=== PATIENT | female | born 1955 | race Caucasian/White ===

== ENCOUNTER → 2016-09-25 | Outpatient (CLI) | payer OTHER ==
[2014-10-24 12:00] VITALS: BP 125/61
--- NOTE | 2016-09-25 11:49 | RAD ---
HISTORY: Injury, fall, right hip pain Study: Right hip two views, AP pelvis Comparison: None Findings: A single frontal view of the pelvis demonstrates the pelvic ring to be intact. No evidence for acut e cortical disruption or dislocation of the hip can be observed. Frog leg views of the hip fails to demonstrate evidence for fracture or significant joint abnormality. Impression: 1. Negative exam. Reported By:
== END ==
LOC: RAD 11:11
PROVIDERS: ATTEND Nurse Practitioner Family
DX: M25.551 Pain in right hip (principal)
CPT/HCPCS: 73501

== ENCOUNTER → 2016-12-09 | Outpatient (CLI) | payer OTHER ==
[2014-10-24 12:00] VITALS: BP 125/61
[2016-12-09 11:52] LABS: BASOPHILS # (AUTO) 0.1 X10^3/uL (0.0-0.1); BASOPHILS % (AUTO) 1.4 % (0.2-1.0); EOSINOPHILS # (AUTO) 0.1 x10^3/uL (0.0-0.2); EOSINOPHILS % (AUTO) 2.2 % (0.9-2.9); HEMATOCRIT 35.1 % (36.0-47.0); HEMOGLOBIN 12.2 g/dL (12.0-16.0); LYMPHOCYTES # (AUTO) 1.7 X10^3/uL (1.3-2.9); LYMPHOCYTES % (AUTO) 24.4 % (21.0-51.0); MEAN CORPUSCULAR HEMOGLOBIN 31.9 pg (27.0-34.0); MEAN CORPUSCULAR HGB CONC 34.7 g/dL (33.0-35.0); MEAN CORPUSCULAR VOLUME 92.2 fL (80.0-100.0); MEAN PLATELET VOLUME 7.4 fL (7.4-11.0); MONOCYTES # (AUTO) 0.4 x10^3/uL (0.3-0.8); MONOCYTES % (AUTO) 6.1 % (0.0-13.0); NEUTROPHILS # (AUTO) 4.5 x10^3/uL (2.2-4.8); NEUTROPHILS % (AUTO) 65.9 % (42.0-75.0); PLATELET COUNT 331 X10^3/uL (150.0-450.0); RED BLOOD COUNT 3.81 X10^6/uL (3.5-5.4); RED CELL DISTRIBUTION WIDTH 14.2 % (11.6-16.5); RETICULOCYTE % 1.88 % (0.8-2.2); WHITE BLOOD COUNT 6.9 X10^3/uL (3.6-10.0)
[2016-12-09 12:06] LABS: ALANINE AMINOTRANSFERASE 26 Units/L (12-78); ALBUMIN 4.2 g/dL (3.4-5.0); ALKALINE PHOSPHATASE 95 Units/L (46-116); ASPARTATE AMINO TRANSFERASE 14 Units/L (15-37); BLOOD UREA NITROGEN 14 mg/dL (7-18); CALCIUM 8.9 mg/dL (8.5-10.1); CARBON DIOXIDE 25.6 mmol/L (21-32); CHLORIDE 109 mmol/L (98-107); CHOL/HDL RATIO 3.1 (0.0-5.0); CHOLESTEROL 170 mg/dL (0-200); CREATININE 1.12 mg/dL (0.55-1.02); GLUCOSE 87 mg/dL (65-99); HDL CHOLESTEROL 54 mg/dL (40-60); SODIUM 144 mmol/L (136-145); TRIGLYCERIDES 98 mg/dL (0-150); eGFR BLACK RACES > 60 (>60); eGFR NON BLACK RACES 52 (>60)
[2016-12-09 12:24] LABS: CREATININE,URINE 67.22 mg/dL (29-226); MICROALBUMIN,URINE 8.4 mg/L
[2016-12-09 12:34] LABS: TRANSFERRIN 168 mg/dL (202-364)
[2016-12-12 11:31] LABS: VITAMIN D 25 OH 24 ng/mL (30-80)
[2016-12-13 12:06] LABS: METHYLMALONIC ACID 0.38 umol/L (0.00-0.40)
== END ==
LOC: LAB 11:13
PROVIDERS: ATTEND Nurse Practitioner Family
DX: I10 Essential (primary) hypertension (principal); D53.9 Nutritional anemia, unspecified; M85.9 Disorder of bone density and structure, unspecified
CPT/HCPCS: 36415; 80053; 80061; 82043; 82306; 82607; 82615; 82728; 82746; 83918; 84466; 85025; 85045; 86256; 86340

== ENCOUNTER → 2016-12-23 | Outpatient (CLI) | payer OTHER ==
[2014-10-24 12:00] VITALS: BP 125/61
== END ==
LOC: LAB 13:29
PROVIDERS: ATTEND Nurse Practitioner Family
DX: R19.5 Other fecal abnormalities (principal); B96.89 Other specified bacterial agents as the cause of diseases classified elsewhere
CPT/HCPCS: 82270; 87045; 87427; 87493; 87899

== ENCOUNTER 2017-01-08 15:15 | Inpatient (IN) | payer OTHER ==
[2017-01-08 15:20] VITALS: BMI 23.8
--- NOTE | 2017-01-08 15:36 | DR.GENAD ---
HPI - PCP Primary Care Physician: KAITLIN PARRY - Complaint/Symptoms Chief Complaint Doctors Comments: Patient admits to a history of COPD, has home oxygen uses 1L, nebs prn. Denies productive cough or fever. She has had lung cancer. Chief Complaint:: PATIENT STATED SHE HAS BEEN COUGHING FOR THE LAST COUPLE OF WEEKS AND WILL NOT GO AWAY. - Source History Provided: Patient - Mode of Arrival Mode of Arrival: Ambulatory - Timing Onset of Chief Complaint: 12/25/16 PMH - PMH Past Medical History: Yes Past Medical History: Anxiety, Arthritis, COPD, Depression, Dyslipidemia, GERD, Hypertension, [place] Past Surgical History: Yes Surgical History: Cholecystectomy, Hysterectomy, Joint Replacement, Ortho Surgery, Tonsillectomy, Other - Family History History of Family Medical Conditions: Yes Family Medical History: Cancer, [place], Hypertension - Social History Does patient currently use any type of tobacco product: No Have you used tobacco products in the last 12 months: No Type of Tobacco Use: None Does any household member use tobacco: No Alcohol Use: None Do you use any recreational Drugs:: No Lives With: Family Lives Where: Home - infectious screening In the last 2 months have you had wt loss of >10#?: NO Have you had fever, night sweats or hemotysis?: No Have you traveled outside the country in the last 6 months?: No Isolation: Standard ROS - Review of Systems Eyes: No Symptoms Reported ENTM: No Symptoms Reported, See HPI Respiratoy: Non-Productive Cough, Wheezing (expiratory) Cardiovascular: No Symptoms Reported Gastrointestinal/Abdominal: No Symptoms Reported Genitourinary: No Symptoms Reported Neurological: No Symptoms Reported Musculoskeletal: No Symptoms Reported Integumentary: No Symptoms Reported Hematologic/Lymphatic: No Symptoms Reported Endocrine: No Symptoms Reported Psychiatric: No Symptoms Reported All Other Systems: Reviewed and Negative PE - Vital Signs Vitals: Temperature 98.1 F Pulse Rate 81 Respiratory Rate 20 Blood Pressure [Right Arm] 99/55 Blood Pressure [Left Arm] 119/56 Blood Pressure 130/47 O2 Sat by Pulse Oximetry 96 - General Limitations: No Limitations General Appearance: Alert, In No Apparent Distress - Head Head Exam: Normal Inspection, Atraumatic - Eyes Eye exam: Normal Appearance, PERRL, EOMI - ENT ENT Exam: Normal Exam External Ear Exam: Normal External Inspection TM/Canal Exam: Bilateral Normal Nose Exam: Normal Nose Exam Mouth Exam: Normal Inspection Throat Exam: Normal Inspection - Neck Neck Exam: Normal Inspection - Chest Chest Inspection: Normal Inspection - Respiratory Respiratory Exam: Other (expiratory wheeze right side) Respiratory Exam: Left Wheezing (expiratory) - Cardiovascular Cardiovascular Exam: Regular Rate, Normal Rhythm - Abdominal Exam Abdominal Exam: Normal Inspection, Normal Bowel Sounds, Soft Abdominal Tenderness: negative: RUQ, RLQ, LUQ, LLQ, Epigastrium, Suprapubic, Diffuse, Mild, Moderate, Severe, Other - Extremities Extremities Exam: Normal Inspection - Back Back Exam: Normal Inspection, Full ROM - Neurologic Neurological Exam: Alert, Oriented X3, CN II-XII Intact - Psychiatric Psychiatric Exam: Normal Affect ROR - Labs Reviewed Result Diagrams: 01/08/17 15:54 01/08/17 15:54 Laboratory: WBC 9.5 X10^3/uL (3.6-10.0) 01/08/17 15:54 RBC 3.31 X10^6/uL (3.5-5.4) L 01/08/17 15:54 Hgb 10.7 g/dL (12.0-16.0) L 01/08/17 15:54 Hct 29.9 % (36.0-47.0) L 01/08/17 15:54 MCV 90.4 fL (80.0-100.0) 01/08/17 15:54 MCH 32.5 pg (27.0-34.0) 01/08/17 15:54 MCHC 35.9 g/dL (33.0-35.0) H 01/08/17 15:54 RDW 13.1 % (11.6-16.5) 01/08/17 15:54 Plt Count 245 X10^3/uL (150.0-450.0) 01/08/17 15:54 MPV 7.8 fL (7.4-11.0) 01/08/17 15:54 Neut % 81.0 % (42.0-75.0) H 01/08/17 15:54 Lymph % 8.9 % (21.0-51.0) L 01/08/17 15:54 [place] % 8.2 % (0.0-13.0) 01/08/17 15:54 Eos % 1.4 % (0.9-2.9) 01/08/17 15:54 Baso % 0.5 % (0.2-1.0) 01/08/17 15:54 Neut # 7.7 x10^3/uL (2.2-4.8) H 01/08/17 15:54 Lymph # 0.9 X10^3/uL (1.3-2.9) L 01/08/17 15:54 [place] # 0.8 x10^3/uL (0.3-0.8) 01/08/17 15:54 Eos # 0.1 x10^3/uL (0.0-0.2) 01/08/17 15:54 Baso # 0.0 X10^3/uL (0.0-0.1) 01/08/17 15:54 Absolute Nucleated RBC 0.0 /100WBC 01/08/17 15:54 Sodium 122 mmol/L (136-145) L* 01/08/17 15:54 Corrected Sodium TNP 01/08/17 15:54 Potassium 4.0 mmol/L (3.5-5.1) 01/08/17 15:54 Chloride 91 mmol/L (98-107) L 01/08/17 15:54 Carbon Dioxide 19.8 mmol/L (21-32) L 01/08/17 15:54 BUN 14 mg/dL (7-18) 01/08/17 15:54 Creatinine 1.39 mg/dL (0.55-1.02) H 01/08/17 15:54 Est GFR (MDRD) Af Amer 49 (>60) L 01/08/17 15:54 Est GFR (MDRD) Non-Af 41 (>60) L 01/08/17 15:54 Glucose 102 mg/dL (65-99) H 01/08/17 15:54 Calcium 8.7 mg/dL (8.5-10.1) 01/08/17 15:54 - XRAY XRAY Interpreted by: Radiologist (chest: The trachea is midline. The cardiac silhouette is unremarkable. Chronic emphysematous changes. No obvious focal consolidation, pleural effusion, or pneumothorax. The bony thorax appears unchanges. Metallic densities overlying the lower throacic spine are likely outside the patient.) - Diagnosis Discharge Problem: Hyponatremia COPD (chronic obstructive pulmonary disease) Qualifiers: COPD type: unspecified COPD Qualified Code(s): J44.9 - Chronic obstructive pulmonary disease, unspecified - Discharge Plan Condition: Stable - Follow ups/Referrals Follow ups/Referrals: MIGNON PARRY [Primary Care Provider] - 3 days - Instructions
[2017-01-08] MEDS ORDERED: DUONEB 0.5 MG/3 MG NEB ONE ×2 (15:39→17:30)
[2017-01-08] MEDS ORDERED: DECADRON JET NEB (RESP USE) NEB ONE ×2 (15:41→17:30)
[2017-01-08 16:03] LABS: BASOPHILS % (AUTO) 0.5 % (0.2-1.0); EOSINOPHILS # (AUTO) 0.1 x10^3/uL (0.0-0.2); EOSINOPHILS % (AUTO) 1.4 % (0.9-2.9); HEMATOCRIT 29.9 % (36.0-47.0); HEMOGLOBIN 10.7 g/dL (12.0-16.0); LYMPHOCYTES # (AUTO) 0.9 X10^3/uL (1.3-2.9); LYMPHOCYTES % (AUTO) 8.9 % (21.0-51.0); MEAN CORPUSCULAR HEMOGLOBIN 32.5 pg (27.0-34.0); MEAN CORPUSCULAR HGB CONC 35.9 g/dL (33.0-35.0); MEAN CORPUSCULAR VOLUME 90.4 fL (80.0-100.0); MEAN PLATELET VOLUME 7.8 fL (7.4-11.0); MONOCYTES # (AUTO) 0.8 x10^3/uL (0.3-0.8); MONOCYTES % (AUTO) 8.2 % (0.0-13.0); NEUTROPHILS # (AUTO) 7.7 x10^3/uL (2.2-4.8); PLATELET COUNT 245 X10^3/uL (150.0-450.0); RED BLOOD COUNT 3.31 X10^6/uL (3.5-5.4); RED CELL DISTRIBUTION WIDTH 13.1 % (11.6-16.5); WHITE BLOOD COUNT 9.5 X10^3/uL (3.6-10.0)
[2017-01-08 16:12] LABS: BLOOD UREA NITROGEN 14 mg/dL (7-18); CALCIUM 8.7 mg/dL (8.5-10.1); CARBON DIOXIDE 19.8 mmol/L (21-32); CHLORIDE 91 mmol/L (98-107); CREATININE 1.39 mg/dL (0.55-1.02); eGFR BLACK RACES 49 (>60); eGFR NON BLACK RACES 41 (>60)
--- NOTE | 2017-01-08 16:17 | RAD ---
HISTORY: COPD. Study: Portable chest. Comparison: Chest x-ray dated March 12, 2015. Findings: The trachea is midline. The cardiac silhouette is unremarkable. Chronic emphysematous changes. No o bvious focal consolidation, pleural effusion, or pneumothorax. The bony thorax appears unchanged. M etallic densities overlying the lower thoracic spine are likely outside the patient. IMPRESSION: No acute cardiopulmonary disease. Reported By:
[2017-01-08 16:21] LABS: SODIUM 122 mmol/L (136-145)
[2017-01-08] MEDS ORDERED: NS 1000 ML 1,000 ML ONE (16:56)
[2017-01-08] MEDS: NS 1000 ML 1,000 ML IV SCH (17:20)
[2017-01-08] MEDS ORDERED: DUONEB 0.5 MG/3 MG NEB PRN (18:06)
[2017-01-08 21:01] LABS: BILIRUBIN,URINE NEGATIVE (NEGATIVE); BLOOD/HEMOGLOBIN,URINE NEGATIVE (NEGATIVE); GLUCOSE, URINE NEGATIVE (NEGATIVE); KETONES,URINE NEGATIVE (NEGATIVE); LEUKOCYTE ESTERASE ,URINE NEGATIVE (NEGATIVE); NITRITES,URINE NEGATIVE (NEGATIVE); PH,URINE 6.5 (5.0 - 8.0); PROTEIN,URINE 1+ (NEGATIVE); UROBILINOGEN,URINE NORMAL (NORMAL)
[2017-01-08] MEDS: DUONEB 0.5 MG/3 MG NEB PRN (21:06)
[2017-01-08 21:07] LABS: APPEARANCE,URINE CLEAR (CLEAR); BACTERIA,URINE TRACE /HPF (NEGATIVE); COLOR,URINE YELLOW (YELLOW); RBC,URINE 0 /HPF (NEGATIVE); SQUAMOUS EPITHELIAL CELL,UR RARE /HPF (NEGATIVE)
[2017-01-09 05:42] LABS: BASOPHILS % (AUTO) 0.1 % (0.2-1.0); EOSINOPHILS % (AUTO) 0.4 % (0.9-2.9); HEMATOCRIT 26.6 % (36.0-47.0); HEMOGLOBIN 9.4 g/dL (12.0-16.0); LYMPHOCYTES # (AUTO) 0.4 X10^3/uL (1.3-2.9); LYMPHOCYTES % (AUTO) 6.3 % (21.0-51.0); MEAN CORPUSCULAR HEMOGLOBIN 32.6 pg (27.0-34.0); MEAN CORPUSCULAR HGB CONC 35.5 g/dL (33.0-35.0); MEAN PLATELET VOLUME 8.1 fL (7.4-11.0); MONOCYTES # (AUTO) 0.5 x10^3/uL (0.3-0.8); MONOCYTES % (AUTO) 7.5 % (0.0-13.0); NEUTROPHILS % (AUTO) 85.7 % (42.0-75.0); PLATELET COUNT 205 X10^3/uL (150.0-450.0); RED BLOOD COUNT 2.89 X10^6/uL (3.5-5.4); RED CELL DISTRIBUTION WIDTH 13.4 % (11.6-16.5)
[2017-01-09 05:50] LABS: ALANINE AMINOTRANSFERASE 20 Units/L (12-78); ALBUMIN 3.3 g/dL (3.4-5.0); ALKALINE PHOSPHATASE 90 Units/L (46-116); ASPARTATE AMINO TRANSFERASE 19 Units/L (15-37); BLOOD UREA NITROGEN 12 mg/dL (7-18); CALCIUM 8.3 mg/dL (8.5-10.1); CARBON DIOXIDE 23.9 mmol/L (21-32); CHLORIDE 99 mmol/L (98-107); COR CA(FOR HYPOALB) 8.9 mg/dL (8.5-10.1); CREATININE 1.13 mg/dL (0.55-1.02); SODIUM 130 mmol/L (136-145); TOTAL PROTEIN 6.2 g/dL (6.4-8.2); eGFR BLACK RACES > 60 (>60); eGFR NON BLACK RACES 52 (>60)
[2017-01-09] MEDS: NS 1000 ML 1,000 ML IV SCH ×3 (07:03→21:25)
[2017-01-09] MEDS: CHECK PATCH XX SCH ×2 (10:12→22:04)
[2017-01-09] MEDS: DUONEB 0.5 MG/3 MG NEB PRN ×3 (12:28→22:37)
[2017-01-09] MEDS: ROBITUSSIN DM PO PRN ×2 (13:43→21:25)
[2017-01-09] MEDS: MAGIC MOUTHWASH MT SCH ×3 (13:43→21:25)
--- NOTE | 2017-01-09 16:24 | DR.H&P ---
H&P - History & Physical for Day of: H&P Date: 01/08/17 - Chief Complaint Chief Complaint: COUGH, SHORTNESS OF BREATH - Allergies Allergies/Adverse Reactions: Allergies Allergy/AdvReac Type Severity Reaction Status Date / Time ceftriaxone Allergy Verified 01/08/17 15:43 fluoxetine [From Prozac] Allergy Verified 01/08/17 15:43 ketorolac [From Toradol] Allergy Verified 01/08/17 15:43 - History of Present Illness History of Present Illness: IS A 61 YEAR OLD PATIENT OF OURS WHO PRESENTED TO THE EMERGENCY ROOM WITH COMPLAINTS OF COUGH X 2 WEEKS AND SHORTNESS OF BREATH. PATIENT REPORTED A HISTORY OF LUNG CANCER AND COPD. SHE STATED THAT SHE HAS USED HER HOME OXYGEN AND A COUGH MEDICINE THAT SHE WAS PRESCRIBED, HOWEVER, SYMPTOMS HAVE ONLY WORSENED. ON EXAMINATION, LUNGS WERE NOTED WITH WHEEZING BILATERALLY ON AUSCULTATION. ON ARRIVAL TO ER, VITALS WERE 98.1-89-20-98%-130/47. LABS AND CHEST XRAY WERE OBTAINED. ABNORMAL LAB VALUES INCLUDE THE FOLLOWING SODIUM 130, CREATININE 1.13, GLUCOSE 106, CALCIUM 8.3, TOTAL PROTEIN 6.2, ALBUMIN 3.3. CHEST XRAY REPORTED NO ACUTE CARDIOVASCULAR PROCESS. PATIENT WAS GIVEN DUONEBS IN THE ER. WE ADMITTED PATIENT FOR FURTHER TREATMENT AND EVALUATION. WE STARTED HER ON NORMAL SALINE AT 80ML/HR, FENTANYL PATCH TD Q72H, AND DUONEB TX QID. WE PLAN TO RECHECK AM LABS AND CONTINUE TO FOLLOW UP WITH PATIENT. - Past Medical History Past Medical History: Anemia, Anxiety, Arthritis, COPD, Depression, Dyslipidemia , GERD, Hypertension, [place], PUD Additional Medical History: Hx Diverticulosis, Gastrointestinal ulcer, heart murmur, diverticulosis, small cell carcinoma - Past Surgical History Surgical History: Hysterectomy, Ortho Surgery - Family History Family Medical History: Cancer - Social History Does patient currently use any type of tobacco product: Yes Have you used tobacco products in the last 12 months: Yes Type of Tobacco Use: None How many years tobacco product used: 30 Does any household member use tobacco: No Alcohol Use: None Drug Use: None - Medications Home Medications: Alprazolam [XANAX 0.5 MG *] 0.5 mg PO BID 01/08/17 [History Confirmed 01/08/17] Benzonatate 200 mg PO TID 01/08/17 [History Confirmed 01/08/17] Buspirone HCl 10 mg [BUSPAR TAB 10 MG *] 5 mg PO BID 01/08/17 [History Confirmed 01/08/17] Cyclobenzaprine HCl 10 mg PO TID 01/08/17 [History Confirmed 01/08/17] Fentanyl 25 Mcg/Hr [DURAGESIC PATCH 25 mcg/hr *] 1 patch TOP Q3D 01/08/17 [ History Confirmed 01/08/17] Hydrocodone/Acetaminophen [Hydrocodon-Acetaminoph 7.5-325] 1 tab PO TID PRN [History Confirmed 01/08/17] Lisinopril 2.5 mg PO DAILY 01/08/17 [History Confirmed 01/08/17] Loratadine 10 mg 24-Hr Tab [LORATADINE 10 MG *] 1 tab PO DAILY 01/08/17 [ History Confirmed 01/08/17] Omeprazole 40 mg PO DAILY 01/08/17 [History Confirmed 01/08/17] Simvastatin 40 mg PO DAILY 01/08/17 [History Confirmed 01/08/17] - Review of Systems Constitutional: Weakness Eyes: No Symptoms Reported ENT: No Symptoms Reported Respiratory: See HPI, Cough, Wheezing Gastrointestinal: No Symptoms Reported Genitourinary: No Symptoms Reported Musculoskeletal: No Symptoms Reported Skin: No Symptoms Reported Neurological: Weakness - Physical Exam Vital Signs: Temperature 98.1 F Pulse Rate [Right Radial] 80 Pulse Rate 80 Respiratory Rate 22 Blood Pressure [Right Arm] 125/60 Blood Pressure [Left Arm] 119/56 Blood Pressure 130/47 O2 Sat by Pulse Oximetry 100 Oriented: Normal Eyes: Normal Ear: Normal Nose: Normal Throat: Normal Respiratory: Wheezes Throughout Cardiovascular: Normal : Normal Auscultation: Bowel Sounds: Normal Palpation: Normal Tenderness: Normal Skin: Normal Musculoskeletal: Normal Psychiatric: Normal Mood Description: Calm Affect: Normal Speech Pattern: Clear - Assessment/Plan (1) COPD (chronic obstructive pulmonary disease) Qualifiers: COPD type: unspecified COPD Qualified Code(s): J44.9 - Chronic obstructive pulmonary disease, unspecified Status: Chronic Plan: duonebs qid, buspar 5mg po bid, tessalon perles 10mg po tid, continue to monitor (2) Hyponatremia Status: Acute Plan: NS @ 80ML/HR, CONTINUE TO MONITOR
[2017-01-10 05:10] LABS: BASOPHILS % (AUTO) 0.3 % (0.2-1.0); EOSINOPHILS # (AUTO) 0.1 x10^3/uL (0.0-0.2); EOSINOPHILS % (AUTO) 1.1 % (0.9-2.9); HEMATOCRIT 25.3 % (36.0-47.0); HEMOGLOBIN 9.1 g/dL (12.0-16.0); LYMPHOCYTES % (AUTO) 14.6 % (21.0-51.0); MEAN CORPUSCULAR HEMOGLOBIN 32.8 pg (27.0-34.0); MEAN CORPUSCULAR HGB CONC 35.8 g/dL (33.0-35.0); MEAN CORPUSCULAR VOLUME 91.5 fL (80.0-100.0); MEAN PLATELET VOLUME 7.8 fL (7.4-11.0); MONOCYTES # (AUTO) 0.7 x10^3/uL (0.3-0.8); MONOCYTES % (AUTO) 9.4 % (0.0-13.0); NEUTROPHILS # (AUTO) 5.2 x10^3/uL (2.2-4.8); NEUTROPHILS % (AUTO) 74.6 % (42.0-75.0); PLATELET COUNT 212 X10^3/uL (150.0-450.0); RED BLOOD COUNT 2.76 X10^6/uL (3.5-5.4); RED CELL DISTRIBUTION WIDTH 13.6 % (11.6-16.5); WHITE BLOOD COUNT 6.9 X10^3/uL (3.6-10.0)
[2017-01-10 05:19] LABS: ALANINE AMINOTRANSFERASE 20 Units/L (12-78); ALKALINE PHOSPHATASE 96 Units/L (46-116); ASPARTATE AMINO TRANSFERASE 17 Units/L (15-37); BLOOD UREA NITROGEN 9 mg/dL (7-18); CALCIUM 8.3 mg/dL (8.5-10.1); CARBON DIOXIDE 22.4 mmol/L (21-32); CHLORIDE 107 mmol/L (98-107); COR CA(FOR HYPOALB) 9.1 mg/dL (8.5-10.1); CREATININE 0.96 mg/dL (0.55-1.02); SODIUM 138 mmol/L (136-145); TOTAL PROTEIN 5.9 g/dL (6.4-8.2); eGFR BLACK RACES > 60 (>60); eGFR NON BLACK RACES > 60 (>60)
[2017-01-10] MEDS: NS 1000 ML 1,000 ML IV SCH (05:39)
--- NOTE | 2017-01-10 06:57 | RAD ---
HISTORY: Shortness of breath Study: AP chest. Comparison: 01/08/2017 Findings: The lungs are clear. No consolidation. There are no pleural effusions. There is mild enlargement of the cardiac silhouette. IMPRESSION: 1. Mild enlargement of the cardiac silhouette. Lungs appear clear.. Reported By:
[2017-01-10] MEDS ORDERED: NORCO 7.5/325 MG TAB PO PRN (07:53)
[2017-01-10] MEDS ORDERED: PATIENT'S HOME MEDICATION (Omeprazole [Omeprazole] 40 MG) PO SCH (09:00)
[2017-01-10] MEDS ORDERED: LISINOPRIL 2.5 MG PO SCH (09:00)
[2017-01-10] MEDS ORDERED: PATIENT'S HOME MEDICATION (Ranitidine Hcl [Zantac] 1 TAB) PO SCH (09:00)
[2017-01-10] MEDS ORDERED: CARVEDILOL 3.125 MG PO SCH (09:00)
[2017-01-10] MEDS: ZOCOR TAB 40 MG PO SCH (09:35)
[2017-01-10] MEDS: COREG TAB 3.125 MG PO SCH ×2 (09:36→21:28)
[2017-01-10] MEDS: PriLOSEC PO SCH (09:36)
[2017-01-10] MEDS: ZANTAC PO SCH ×2 (09:36→21:28)
[2017-01-10] MEDS: BUSPAR PO SCH ×2 (09:36→21:28)
[2017-01-10] MEDS: XANAX PO SCH ×2 (09:36→21:28)
[2017-01-10] MEDS: ZESTRIL TAB 5 MG PO SCH (09:37)
[2017-01-10] MEDS: CLARITIN PO SCH (09:37)
[2017-01-10] MEDS: CHECK PATCH XX SCH ×2 (09:37→21:29)
[2017-01-10] MEDS: TUSSIONEX PENNKINETIC SUSP PO PRN (09:38)
[2017-01-10] MEDS: MAGIC MOUTHWASH MT SCH ×4 (09:39→21:29)
[2017-01-10] MEDS ORDERED: BENZONATATE 200 MG PO SCH (10:15)
[2017-01-10] MEDS: HEMOCYTE-PLUS PO SCH (13:18)
[2017-01-10] MEDS: FLEXERIL TAB 10 MG PO SCH ×2 (13:18→21:28)
[2017-01-10] MEDS: TESSALON PERLES PO SCH ×2 (13:18→21:27)
[2017-01-10] MEDS: RESTORIL CAP 30 MG PO SCH (21:28)
[2017-01-11] MEDS: NS 1000 ML 1,000 ML IV SCH ×3 (01:34→23:51)
[2017-01-11] MEDS: FLEXERIL TAB 10 MG PO SCH ×3 (05:30→21:05)
[2017-01-11] MEDS: TESSALON PERLES PO SCH ×3 (05:30→21:05)
[2017-01-11 05:43] LABS: BASOPHILS # (AUTO) 0.1 X10^3/uL (0.0-0.1); BASOPHILS % (AUTO) 0.9 % (0.2-1.0); EOSINOPHILS # (AUTO) 0.2 x10^3/uL (0.0-0.2); EOSINOPHILS % (AUTO) 3.9 % (0.9-2.9); HEMATOCRIT 23.4 % (36.0-47.0); HEMOGLOBIN 8.3 g/dL (12.0-16.0); LYMPHOCYTES # (AUTO) 1.5 X10^3/uL (1.3-2.9); MEAN CORPUSCULAR HEMOGLOBIN 32.7 pg (27.0-34.0); MEAN CORPUSCULAR HGB CONC 35.5 g/dL (33.0-35.0); MEAN CORPUSCULAR VOLUME 92.1 fL (80.0-100.0); MEAN PLATELET VOLUME 7.9 fL (7.4-11.0); MONOCYTES # (AUTO) 0.6 x10^3/uL (0.3-0.8); MONOCYTES % (AUTO) 9.7 % (0.0-13.0); NEUTROPHILS # (AUTO) 3.3 x10^3/uL (2.2-4.8); NEUTROPHILS % (AUTO) 58.5 % (42.0-75.0); PLATELET COUNT 196 X10^3/uL (150.0-450.0); RED BLOOD COUNT 2.54 X10^6/uL (3.5-5.4); RED CELL DISTRIBUTION WIDTH 13.5 % (11.6-16.5); WHITE BLOOD COUNT 5.7 X10^3/uL (3.6-10.0)
[2017-01-11 05:57] LABS: ALANINE AMINOTRANSFERASE 23 Units/L (12-78); ALBUMIN 2.9 g/dL (3.4-5.0); ALKALINE PHOSPHATASE 91 Units/L (46-116); ASPARTATE AMINO TRANSFERASE 18 Units/L (15-37); BLOOD UREA NITROGEN 12 mg/dL (7-18); CALCIUM 8.3 mg/dL (8.5-10.1); CARBON DIOXIDE 23.3 mmol/L (21-32); CHLORIDE 111 mmol/L (98-107); COR CA(FOR HYPOALB) 9.2 mg/dL (8.5-10.1); CREATININE 0.95 mg/dL (0.55-1.02); SODIUM 141 mmol/L (136-145); TOTAL PROTEIN 5.6 g/dL (6.4-8.2); eGFR BLACK RACES > 60 (>60); eGFR NON BLACK RACES > 60 (>60)
--- NOTE | 2017-01-11 07:41 | RAD ---
HISTORY: Shortness of breath Study: Chest AP portable Comparison: January 10, 2017, January 08, 2017 Findings: The trachea is midline. The cardiac silhouette is unremarkable. The lungs are clear without focal i nfiltrate or effusion. The bony thorax is unremarkable. IMPRESSION: 1. No acute cardiopulmonary disease. Reported By:
[2017-01-11] MEDS: ZANTAC PO SCH ×2 (09:11→20:38)
[2017-01-11] MEDS: COREG TAB 3.125 MG PO SCH ×2 (09:11→20:39)
[2017-01-11] MEDS: XANAX PO SCH ×2 (09:12→20:39)
[2017-01-11] MEDS: ZOCOR TAB 40 MG PO SCH (09:12)
[2017-01-11] MEDS: PriLOSEC PO SCH (09:12)
[2017-01-11] MEDS: ZESTRIL TAB 5 MG PO SCH (09:12)
[2017-01-11] MEDS: BUSPAR PO SCH ×2 (09:12→20:39)
[2017-01-11] MEDS: HEMOCYTE-PLUS PO SCH (09:13)
[2017-01-11] MEDS ORDERED: NS 500 ML IV 500 ML IV ONE (09:13)
[2017-01-11] MEDS ORDERED: TYLENOL 325 MG TAB PO PRN (09:13)
[2017-01-11] MEDS: CLARITIN PO SCH (09:13)
[2017-01-11] MEDS ORDERED: BENADRYL INJ 50 MG VIAL IVP PRN (09:13)
[2017-01-11] MEDS: MAGIC MOUTHWASH MT SCH ×4 (09:13→20:40)
[2017-01-11] MEDS ORDERED: VITAMIN B-12 INJ IM ONE (09:14)
[2017-01-11] MEDS: CHECK PATCH XX SCH ×2 (09:14→20:39)
[2017-01-11] MEDS ORDERED: HEMOCYTE-PLUS PO SCH (10:00)
[2017-01-11] MEDS ORDERED: VITAMIN B-12 INJ IM SCH (17:00)
[2017-01-11] MEDS: RESTORIL CAP 30 MG PO SCH (20:39)
--- NOTE | 2017-01-11 21:46 | PCM.PROG ---
Progress Note - Progress Note for Day of Date: 01/10/17 - Subjective Subjective: WAS ADMITTED FOR HYPONATREMIA AND COPD EXACERBATION. SHE IS ALERT AND ORIENTED, LYING IN BED ON MORNING ROUNDS. PATIENTS DAUGHTER IS AT BEDSIDE. SHE IS NOTED WITH COMPLAINTS OF NON PRODUCTIVE COUGH, SORE THROAT, AND WEAKNESS. PATIENT IS NOTED WEARING NASAL CANNULA WITH OXYGEN AT 2LPM. ON EXAMINATION, LUNGS ARE NOTED CLEAR TO AUSCULTATION. ABDOMEN IS SOFT, ROUND, AND NON-TENDER. VITAL SIGNS THIS MORNING ARE 98.8-66-20-99%-173/70. CBC AND CMP WERE OBTAINED. ABNORMAL LAB VALUES INCLUDE THE FOLLOWING: RBC 2.76, HGB 9.1, HCT 25.3, CALCIUM 8.3, TOTAL BILI 0.10, TOTAL PROTEIN 5.9, ALBUMIN 3.0. WE WILL CONTINUE CURRENT PLAN OF CARE FOR COPD. WE PLAN TO RECHECK CBC, CMP, AND CHEST XRAY IN THE MORING AND CONTINUE TO MONITOR PATIENT. - Past Medical Family Social History Past Med/Fam/Surg Hx: No changes since H&P Allergies: Allergies ceftriaxone Allergy (Verified 01/08/17 15:43) fluoxetine [From Prozac] Allergy (Verified 01/08/17 15:43) ketorolac [From Toradol] Allergy (Verified 01/08/17 15:43) - Review of Systems ROS: No change since H&P - Vital Signs and I&O's Vital Signs: Temperature 98.3 F Pulse Rate [Left Brachial] 69 Pulse Rate [Right Radial] 76 Pulse Rate 71 Respiratory Rate 18 Blood Pressure [Right Arm] 140/58 Blood Pressure [Left Arm] 116/53 Blood Pressure 130/47 O2 Sat by Pulse Oximetry 97 Intake and Output: Intake & Output 01/09/17 01/10/17 01/11/17 01/12/17 11:59 11:59 11:59 11:59 Intake Total 1714 4240 2540 960 Output Total 1550 Balance 164 4240 2540 960 - Physical Exam Oriented: Normal Eyes: Normal Ear: Normal Nose: Normal Throat: Normal Respiratory: Normal Cardiovascular: Normal : Normal Auscultation: Bowel Sounds: Normal Palpation: Normal Tenderness: Normal Skin: Normal Musculoskeletal: Normal Psychiatric: Normal Mood Description: Calm Affect: Normal Speech Pattern: Clear, Appropriate - Laboratory and Diagnostics Result Diagrams: 01/11/17 05:00 01/11/17 05:00 Labs: Laboratory WBC 5.7 X10^3/uL (3.6-10.0) 01/11/17 05:00 RBC 2.54 X10^6/uL (3.5-5.4) L 01/11/17 05:00 Hgb 8.3 g/dL (12.0-16.0) L 01/11/17 05:00 Hct 23.4 % (36.0-47.0) L 01/11/17 05:00 MCV 92.1 fL (80.0-100.0) 01/11/17 05:00 MCH 32.7 pg (27.0-34.0) 01/11/17 05:00 MCHC 35.5 g/dL (33.0-35.0) H 01/11/17 05:00 RDW 13.5 % (11.6-16.5) 01/11/17 05:00 Plt Count 196 X10^3/uL (150.0-450.0) 01/11/17 05:00 MPV 7.9 fL (7.4-11.0) 01/11/17 05:00 Neut % 58.5 % (42.0-75.0) 01/11/17 05:00 Lymph % 27.0 % (21.0-51.0) 01/11/17 05:00 [place] % 9.7 % (0.0-13.0) 01/11/17 05:00 Eos % 3.9 % (0.9-2.9) H 01/11/17 05:00 Baso % 0.9 % (0.2-1.0) 01/11/17 05:00 Neut # 3.3 x10^3/uL (2.2-4.8) 01/11/17 05:00 Lymph # 1.5 X10^3/uL (1.3-2.9) 01/11/17 05:00 [place] # 0.6 x10^3/uL (0.3-0.8) 01/11/17 05:00 Eos # 0.2 x10^3/uL (0.0-0.2) 01/11/17 05:00 Baso # 0.1 X10^3/uL (0.0-0.1) 01/11/17 05:00 Absolute Nucleated RBC 0.0 /100WBC 01/11/17 05:00 Sodium 141 mmol/L (136-145) 01/11/17 05:00 Corrected Sodium TNP 01/11/17 05:00 Potassium 3.8 mmol/L (3.5-5.1) 01/11/17 05:00 Chloride 111 mmol/L (98-107) H 01/11/17 05:00 Carbon Dioxide 23.3 mmol/L (21-32) 01/11/17 05:00 BUN 12 mg/dL (7-18) 01/11/17 05:00 Creatinine 0.95 mg/dL (0.55-1.02) 01/11/17 05:00 Est GFR (MDRD) Af Amer > 60 (>60) 01/11/17 05:00 Est GFR (MDRD) Non-Af > 60 (>60) 01/11/17 05:00 Glucose 78 mg/dL (65-99) 01/11/17 05:00 Calcium 8.3 mg/dL (8.5-10.1) L 01/11/17 05:00 Corrected Calcium 9.2 mg/dL (8.5-10.1) 01/11/17 05:00 Total Bilirubin 0.20 mg/dL (0.2-1.0) 01/11/17 05:00 AST 18 Units/L (15-37) 01/11/17 05:00 ALT 23 Units/L (12-78) 01/11/17 05:00 Alkaline Phosphatase 91 Units/L (46-116) 01/11/17 05:00 Total Protein 5.6 g/dL (6.4-8.2) L 01/11/17 05:00 Albumin 2.9 g/dL (3.4-5.0) L 01/11/17 05:00 Globulin 2.7 g/dL (2.5-4.5) 01/11/17 05:00 Albumin/Globulin Ratio 1.1 Ratio (1.1-2.1) 01/11/17 05:00 Vitamin B12 916 pg/mL (193-986) 01/10/17 04:35 Folate 3.2 ng/mL (>8.6) L 01/10/17 04:35 Specimen Type Clean catch urine 01/08/17 20:56 Urine Color Yellow (YELLOW) 01/08/17 20:56 Urine Appearance Clear (CLEAR) 01/08/17 20:56 Urine pH 6.5 (5.0 - 8.0) 01/08/17 20:56 Ur Specific [place] 1.005 (1.000-1.030) 01/08/17 20:56 Urine Protein 1+ (NEGATIVE) 01/08/17 20:56 Urine Glucose (UA) Negative (NEGATIVE) 01/08/17 20:56 Urine Ketones Negative (NEGATIVE) 01/08/17 20:56 Urine Occult Blood Negative (NEGATIVE) 01/08/17 20:56 Urine Nitrite Negative (NEGATIVE) 01/08/17 20:56 Urine Bilirubin Negative (NEGATIVE) 01/08/17 20:56 Urine Urobilinogen Normal (NORMAL) 01/08/17 20:56 Ur Leukocyte Esterase Negative (NEGATIVE) 01/08/17 20:56 Urine RBC 0 /HPF (NEGATIVE) 01/08/17 20:56 Urine WBC 0-3 /HPF (NEGATIVE) 01/08/17 20:56 Ur Squamous Epith Cells Rare /HPF (NEGATIVE) 01/08/17 20:56 Urine Bacteria Trace /HPF (NEGATIVE) 01/08/17 20:56 Ur Culture Indicated? No/not indicated 01/08/17 20:56 Blood Type O NEGATIVE 01/11/17 09:35 Antibody Screen Negative 01/11/17 09:35 Crossmatch See Detail 01/11/17 09:35 - Plan (1) COPD (chronic obstructive pulmonary disease) Status: Chronic Qualifiers: COPD type: unspecified COPD Qualified Code(s): J44.9 - Chronic obstructive pulmonary disease, unspecified Plan: duonebs qid, buspar 5mg po bid, tessalon perles 10mg po tid, continue to monitor (2) Hyponatremia Status: Acute Plan: NS @ 80ML/HR, CONTINUE TO MONITOR
--- NOTE | 2017-01-11 21:46 | PCM.PROG ---
Progress Note - Progress Note for Day of Date: 01/09/17 - Subjective Subjective: WAS ADMITTED FOR HYPONATREMIA AND COPD EXACERBATION. SHE IS ALERT AND ORIENTED, LYING IN BED ON MORNING ROUNDS. PATIENTS DAUGHTER IS AT BEDSIDE. SHE IS NOTED WITH COMPLAINTS OF SHORTNESS OF BREATH, COUGH, AND WEAKNESS. PATIENT REPORTS THAT COUGH IS NON-PRODUCTIVE TODAY. SHE IS ALSO NOTED WITH COMPLAINTS OF SORE THROAT AND SORE TONGUE. SHE IS NOTED WITH GLOSSITIS OF THE TONGUE. PATIENT IS NOTED WEARING NASAL CANNULA WITH OXYGEN AT 2LPM. SHE IS NOTED ON TELEMETRY, SINUS RHYTHM WITH HR OF 81. ON EXAMINATION, LUNGS ARE NOTED WITH WHEEZING BILATERALLY TO AUSCULTATION. ABDOMEN IS SOFT, ROUND, AND NON- TENDER. VITAL SIGNS THIS MORNING ARE 97.9-81-20-96%-139/61. CBC AND CMP WERE OBTAINED. ABNORMAL LAB VALUES INCLUDE THE FOLLOWING: RBC 2.89, HGB 9.4, HCT 26.6 SODIUM 130, CREATININE 1.13, GLUCOSE 106, CALCIUM 8.3, TOTAL PROTEIN 6.2, ALBUMIN 3.3. HYPONATREMIA IS IMPROVING, BUT WE WILL CONTINUE TO TREAT UNTIL SODIUM IS BACK TO NORMAL RANGE. WE WILL CONTINUE CURRENT PLAN OF CARE FOR COPD WELL. WE WILL START TUSSIONEX FOR COUGH AND MAGIC MOUTHWASH FOR GLOSSITIS. WE PLAN TO RECHECK CBC, CMP, AND CHEST XRAY IN THE MORING AND CONTINUE TO MONITOR PATIENT. - Past Medical Family Social History Past Med/Fam/Surg Hx: No changes since H&P Allergies: Allergies ceftriaxone Allergy (Verified 01/08/17 15:43) fluoxetine [From Prozac] Allergy (Verified 01/08/17 15:43) ketorolac [From Toradol] Allergy (Verified 01/08/17 15:43) - Review of Systems ROS: No change since H&P - Vital Signs and I&O's Vital Signs: Temperature 98.3 F Pulse Rate [Left Brachial] 69 Pulse Rate [Right Radial] 76 Pulse Rate 71 Respiratory Rate 18 Blood Pressure [Right Arm] 140/58 Blood Pressure [Left Arm] 116/53 Blood Pressure 130/47 O2 Sat by Pulse Oximetry 97 Intake and Output: Intake & Output 01/09/17 01/10/17 01/11/17 01/12/17 11:59 11:59 11:59 11:59 Intake Total 1714 4240 2540 960 Output Total 1550 Balance 164 4240 2540 960 - Physical Exam Oriented: Normal Eyes: Normal Ear: Normal Nose: Normal Throat: Normal Respiratory: Wheezes Cardiovascular: Normal : Normal Auscultation: Bowel Sounds: Normal Palpation: Normal Tenderness: Normal Skin: Normal Musculoskeletal: Normal Psychiatric: Normal Mood Description: Calm Affect: Normal Speech Pattern: Clear, Appropriate - Laboratory and Diagnostics Result Diagrams: 01/11/17 05:00 01/11/17 05:00 Labs: Laboratory WBC 5.7 X10^3/uL (3.6-10.0) 01/11/17 05:00 RBC 2.54 X10^6/uL (3.5-5.4) L 01/11/17 05:00 Hgb 8.3 g/dL (12.0-16.0) L 01/11/17 05:00 Hct 23.4 % (36.0-47.0) L 01/11/17 05:00 MCV 92.1 fL (80.0-100.0) 01/11/17 05:00 MCH 32.7 pg (27.0-34.0) 01/11/17 05:00 MCHC 35.5 g/dL (33.0-35.0) H 01/11/17 05:00 RDW 13.5 % (11.6-16.5) 01/11/17 05:00 Plt Count 196 X10^3/uL (150.0-450.0) 01/11/17 05:00 MPV 7.9 fL (7.4-11.0) 01/11/17 05:00 Neut % 58.5 % (42.0-75.0) 01/11/17 05:00 Lymph % 27.0 % (21.0-51.0) 01/11/17 05:00 [place] % 9.7 % (0.0-13.0) 01/11/17 05:00 Eos % 3.9 % (0.9-2.9) H 01/11/17 05:00 Baso % 0.9 % (0.2-1.0) 01/11/17 05:00 Neut # 3.3 x10^3/uL (2.2-4.8) 01/11/17 05:00 Lymph # 1.5 X10^3/uL (1.3-2.9) 01/11/17 05:00 [place] # 0.6 x10^3/uL (0.3-0.8) 01/11/17 05:00 Eos # 0.2 x10^3/uL (0.0-0.2) 01/11/17 05:00 Baso # 0.1 X10^3/uL (0.0-0.1) 01/11/17 05:00 Absolute Nucleated RBC 0.0 /100WBC 01/11/17 05:00 Sodium 141 mmol/L (136-145) 01/11/17 05:00 Corrected Sodium TNP 01/11/17 05:00 Potassium 3.8 mmol/L (3.5-5.1) 01/11/17 05:00 Chloride 111 mmol/L (98-107) H 01/11/17 05:00 Carbon Dioxide 23.3 mmol/L (21-32) 01/11/17 05:00 BUN 12 mg/dL (7-18) 01/11/17 05:00 Creatinine 0.95 mg/dL (0.55-1.02) 01/11/17 05:00 Est GFR (MDRD) Af Amer > 60 (>60) 01/11/17 05:00 Est GFR (MDRD) Non-Af > 60 (>60) 01/11/17 05:00 Glucose 78 mg/dL (65-99) 01/11/17 05:00 Calcium 8.3 mg/dL (8.5-10.1) L 01/11/17 05:00 Corrected Calcium 9.2 mg/dL (8.5-10.1) 01/11/17 05:00 Total Bilirubin 0.20 mg/dL (0.2-1.0) 01/11/17 05:00 AST 18 Units/L (15-37) 01/11/17 05:00 ALT 23 Units/L (12-78) 01/11/17 05:00 Alkaline Phosphatase 91 Units/L (46-116) 01/11/17 05:00 Total Protein 5.6 g/dL (6.4-8.2) L 01/11/17 05:00 Albumin 2.9 g/dL (3.4-5.0) L 01/11/17 05:00 Globulin 2.7 g/dL (2.5-4.5) 01/11/17 05:00 Albumin/Globulin Ratio 1.1 Ratio (1.1-2.1) 01/11/17 05:00 Vitamin B12 916 pg/mL (193-986) 01/10/17 04:35 Folate 3.2 ng/mL (>8.6) L 01/10/17 04:35 Specimen Type Clean catch urine 01/08/17 20:56 Urine Color Yellow (YELLOW) 01/08/17 20:56 Urine Appearance Clear (CLEAR) 01/08/17 20:56 Urine pH 6.5 (5.0 - 8.0) 01/08/17 20:56 Ur Specific [place] 1.005 (1.000-1.030) 01/08/17 20:56 Urine Protein 1+ (NEGATIVE) 01/08/17 20:56 Urine Glucose (UA) Negative (NEGATIVE) 01/08/17 20:56 Urine Ketones Negative (NEGATIVE) 01/08/17 20:56 Urine Occult Blood Negative (NEGATIVE) 01/08/17 20:56 Urine Nitrite Negative (NEGATIVE) 01/08/17 20:56 Urine Bilirubin Negative (NEGATIVE) 01/08/17 20:56 Urine Urobilinogen Normal (NORMAL) 01/08/17 20:56 Ur Leukocyte Esterase Negative (NEGATIVE) 01/08/17 20:56 Urine RBC 0 /HPF (NEGATIVE) 01/08/17 20:56 Urine WBC 0-3 /HPF (NEGATIVE) 01/08/17 20:56 Ur Squamous Epith Cells Rare /HPF (NEGATIVE) 01/08/17 20:56 Urine Bacteria Trace /HPF (NEGATIVE) 01/08/17 20:56 Ur Culture Indicated? No/not indicated 01/08/17 20:56 Blood Type O NEGATIVE 01/11/17 09:35 Antibody Screen Negative 01/11/17 09:35 Crossmatch See Detail 01/11/17 09:35 - Plan (1) COPD (chronic obstructive pulmonary disease) Status: Chronic Qualifiers: COPD type: unspecified COPD Qualified Code(s): J44.9 - Chronic obstructive pulmonary disease, unspecified Plan: duonebs qid, buspar 5mg po bid, tessalon perles 10mg po tid, continue to monitor (2) Hyponatremia Status: Acute Plan: NS @ 80ML/HR, CONTINUE TO MONITOR
[2017-01-12] MEDS: TUSSIONEX PENNKINETIC SUSP PO PRN (00:41)
[2017-01-12] MEDS: FLEXERIL TAB 10 MG PO SCH (05:22)
[2017-01-12] MEDS: TESSALON PERLES PO SCH (05:22)
--- NOTE | 2017-01-12 07:30 | RAD ---
HISTORY: Shortness of breath Study: AP portable chess Comparison: January 11, 2017 Findings: The trachea is midline. The cardiac silhouette is upper limits normal in size. No congestive heart f ailure is noted.. The lungs are clear without focal infiltrate or effusion. The bony thorax is unre markable. IMPRESSION: 1. No acute cardiopulmonary disease. Reported By:
[2017-01-12 07:59] LABS: BASOPHILS # (AUTO) 0.1 X10^3/uL (0.0-0.1); BASOPHILS % (AUTO) 1.8 % (0.2-1.0); EOSINOPHILS # (AUTO) 0.2 x10^3/uL (0.0-0.2); EOSINOPHILS % (AUTO) 2.6 % (0.9-2.9); HEMATOCRIT 33.4 % (36.0-47.0); HEMOGLOBIN 11.4 g/dL (12.0-16.0); LYMPHOCYTES % (AUTO) 29.6 % (21.0-51.0); MEAN CORPUSCULAR HEMOGLOBIN 31.1 pg (27.0-34.0); MEAN CORPUSCULAR VOLUME 91.3 fL (80.0-100.0); MEAN PLATELET VOLUME 7.6 fL (7.4-11.0); MONOCYTES # (AUTO) 0.7 x10^3/uL (0.3-0.8); MONOCYTES % (AUTO) 9.5 % (0.0-13.0); NEUTROPHILS # (AUTO) 3.9 x10^3/uL (2.2-4.8); NEUTROPHILS % (AUTO) 56.5 % (42.0-75.0); PLATELET COUNT 191 X10^3/uL (150.0-450.0); RED BLOOD COUNT 3.66 X10^6/uL (3.5-5.4); RED CELL DISTRIBUTION WIDTH 15.1 % (11.6-16.5); WHITE BLOOD COUNT 6.8 X10^3/uL (3.6-10.0)
[2017-01-12 08:04] LABS: ALANINE AMINOTRANSFERASE 25 Units/L (12-78); ALBUMIN 3.4 g/dL (3.4-5.0); ALKALINE PHOSPHATASE 96 Units/L (46-116); ASPARTATE AMINO TRANSFERASE 19 Units/L (15-37); BLOOD UREA NITROGEN 11 mg/dL (7-18); CALCIUM 8.6 mg/dL (8.5-10.1); CARBON DIOXIDE 23.1 mmol/L (21-32); CHLORIDE 109 mmol/L (98-107); CREATININE 1.01 mg/dL (0.55-1.02); SODIUM 141 mmol/L (136-145); TOTAL PROTEIN 6.5 g/dL (6.4-8.2); eGFR BLACK RACES > 60 (>60); eGFR NON BLACK RACES 59 (>60)
[2017-01-12] MEDS: ZOCOR TAB 40 MG PO SCH (08:52)
[2017-01-12] MEDS: COREG TAB 3.125 MG PO SCH (08:52)
[2017-01-12] MEDS: XANAX PO SCH (08:52)
[2017-01-12] MEDS: CLARITIN PO SCH (08:52)
[2017-01-12] MEDS: BUSPAR PO SCH (08:52)
[2017-01-12] MEDS: ZANTAC PO SCH (08:52)
[2017-01-12] MEDS: PriLOSEC PO SCH (08:53)
[2017-01-12] MEDS: HEMOCYTE-PLUS PO SCH (08:53)
[2017-01-12] MEDS: ZESTRIL TAB 5 MG PO SCH (08:53)
[2017-01-12] MEDS: MAGIC MOUTHWASH MT SCH (08:56)
[2017-01-12] MEDS: CHECK PATCH XX SCH (08:57)
[2017-01-12 10:54] VITALS: BP 136/94
--- NOTE | 2017-01-12 14:07 | PCM.PROG ---
Progress Note - Progress Note for Day of Date: 01/11/17 - Subjective Subjective: WAS ADMITTED FOR HYPONATREMIA AND COPD EXACERBATION. SHE IS ALERT AND ORIENTED, LYING IN BED ON MORNING ROUNDS. PATIENTS DAUGHTER IS AT BEDSIDE. SHE CONTINUES WITH COMPLAINTS OF COUGH AND WEAKNESS. PATIENT IS NOTED WEARING NASAL CANNULA WITH OXYGEN AT 2LPM. ON EXAMINATION, LUNGS ARE NOTED CLEAR TO AUSCULTATION. ABDOMEN IS SOFT, ROUND, AND NON-TENDER. VITAL SIGNS THIS MORNING 97.6-62-20-97%-116/55. CBC AND CMP WERE OBTAINED. ABNORMAL LAB VALUES INCLUDE THE FOLLOWING: RBC 2.54, HGB 8.3, HCT 23.4, CHLORIDE 111, CALCIUM 8.3, TOTAL PROTEIN 5.6, ALBUMIN 2.9. WE WILL TRANSFUSE 2 UNITS PRBC TODAY. WE WILL PREMEDICATE WITH TYLENOL 650MG AND BENADRYL 25MG IV PRIOR TO TRANSFUSING. WE PLAN TO RECHECK CBC, CMP, AND CHEST XRAY IN THE MORING AND CONTINUE TO MONITOR PATIENT. WILL WILL DISCHARGE IN THE MORNING IF PATIENT REMAINS STABLE. - Past Medical Family Social History Past Med/Fam/Surg Hx: No changes since H&P Allergies: Allergies ceftriaxone Allergy (Verified 01/08/17 15:43) fluoxetine [From Prozac] Allergy (Verified 01/08/17 15:43) ketorolac [From Toradol] Allergy (Verified 01/08/17 15:43) - Review of Systems ROS: No change since H&P - Vital Signs and I&O's Vital Signs: Temperature 97.0 F Pulse Rate [Left Brachial] 65 Pulse Rate [Right Radial] 76 Pulse Rate 65 Respiratory Rate 14 Blood Pressure [Right Arm] 140/58 Blood Pressure [Left Arm] 136/94 Blood Pressure 130/47 O2 Sat by Pulse Oximetry 96 Intake and Output: Intake & Output 01/10/17 01/11/17 01/12/17 01/13/17 11:59 11:59 11:59 11:59 Intake Total 4240 2540 3070 Balance 4240 2540 3070 - Physical Exam Oriented: Normal Eyes: Normal Ear: Normal Nose: Normal Throat: Normal Respiratory: Normal Cardiovascular: Normal : Normal Auscultation: Bowel Sounds: Normal Palpation: Normal Tenderness: Normal Skin: Normal Musculoskeletal: Normal Psychiatric: Normal Mood Description: Calm Affect: Normal Speech Pattern: Clear, Appropriate - Laboratory and Diagnostics Result Diagrams: 01/12/17 07:30 01/12/17 07:30 Labs: Laboratory WBC 6.8 X10^3/uL (3.6-10.0) 01/12/17 07:30 RBC 3.66 X10^6/uL (3.5-5.4) 01/12/17 07:30 Hgb 11.4 g/dL (12.0-16.0) L D 01/12/17 07:30 Hct 33.4 % (36.0-47.0) L 01/12/17 07:30 MCV 91.3 fL (80.0-100.0) 01/12/17 07:30 MCH 31.1 pg (27.0-34.0) 01/12/17 07:30 MCHC 34.0 g/dL (33.0-35.0) 01/12/17 07:30 RDW 15.1 % (11.6-16.5) 01/12/17 07:30 Plt Count 191 X10^3/uL (150.0-450.0) 01/12/17 07:30 MPV 7.6 fL (7.4-11.0) 01/12/17 07:30 Neut % 56.5 % (42.0-75.0) 01/12/17 07:30 Lymph % 29.6 % (21.0-51.0) 01/12/17 07:30 [place] % 9.5 % (0.0-13.0) 01/12/17 07:30 Eos % 2.6 % (0.9-2.9) 01/12/17 07:30 Baso % 1.8 % (0.2-1.0) H 01/12/17 07:30 Neut # 3.9 x10^3/uL (2.2-4.8) 01/12/17 07:30 Lymph # 2.0 X10^3/uL (1.3-2.9) 01/12/17 07:30 [place] # 0.7 x10^3/uL (0.3-0.8) 01/12/17 07:30 Eos # 0.2 x10^3/uL (0.0-0.2) 01/12/17 07:30 Baso # 0.1 X10^3/uL (0.0-0.1) 01/12/17 07:30 Absolute Nucleated RBC 0.1 /100WBC 01/12/17 07:30 Sodium 141 mmol/L (136-145) 01/12/17 07:30 Corrected Sodium TNP 01/12/17 07:30 Potassium 3.9 mmol/L (3.5-5.1) 01/12/17 07:30 Chloride 109 mmol/L (98-107) H 01/12/17 07:30 Carbon Dioxide 23.1 mmol/L (21-32) 01/12/17 07:30 BUN 11 mg/dL (7-18) 01/12/17 07:30 Creatinine 1.01 mg/dL (0.55-1.02) 01/12/17 07:30 Est GFR (MDRD) Af Amer > 60 (>60) 01/12/17 07:30 Est GFR (MDRD) Non-Af 59 (>60) 01/12/17 07:30 Glucose 78 mg/dL (65-99) 01/12/17 07:30 Calcium 8.6 mg/dL (8.5-10.1) 01/12/17 07:30 Corrected Calcium TNP 01/12/17 07:30 Total Bilirubin 1.10 mg/dL (0.2-1.0) H 01/12/17 07:30 AST 19 Units/L (15-37) 01/12/17 07:30 ALT 25 Units/L (12-78) 01/12/17 07:30 Alkaline Phosphatase 96 Units/L (46-116) 01/12/17 07:30 Total Protein 6.5 g/dL (6.4-8.2) 01/12/17 07:30 Albumin 3.4 g/dL (3.4-5.0) 01/12/17 07:30 Globulin 3.1 g/dL (2.5-4.5) 01/12/17 07:30 Albumin/Globulin Ratio 1.1 Ratio (1.1-2.1) 01/12/17 07:30 Vitamin B12 916 pg/mL (193-986) 01/10/17 04:35 Folate 3.2 ng/mL (>8.6) L 01/10/17 04:35 Specimen Type Clean catch urine 01/08/17 20:56 Urine Color Yellow (YELLOW) 01/08/17 20:56 Urine Appearance Clear (CLEAR) 01/08/17 20:56 Urine pH 6.5 (5.0 - 8.0) 01/08/17 20:56 Ur Specific [place] 1.005 (1.000-1.030) 01/08/17 20:56 Urine Protein 1+ (NEGATIVE) 01/08/17 20:56 Urine Glucose (UA) Negative (NEGATIVE) 01/08/17 20:56 Urine Ketones Negative (NEGATIVE) 01/08/17 20:56 Urine Occult Blood Negative (NEGATIVE) 01/08/17 20:56 Urine Nitrite Negative (NEGATIVE) 01/08/17 20:56 Urine Bilirubin Negative (NEGATIVE) 01/08/17 20:56 Urine Urobilinogen Normal (NORMAL) 01/08/17 20:56 Ur Leukocyte Esterase Negative (NEGATIVE) 01/08/17 20:56 Urine RBC 0 /HPF (NEGATIVE) 01/08/17 20:56 Urine WBC 0-3 /HPF (NEGATIVE) 01/08/17 20:56 Ur Squamous Epith Cells Rare /HPF (NEGATIVE) 01/08/17 20:56 Urine Bacteria Trace /HPF (NEGATIVE) 01/08/17 20:56 Ur Culture Indicated? No/not indicated 01/08/17 20:56 Blood Type O NEGATIVE 01/11/17 09:35 Antibody Screen Negative 01/11/17 09:35 Crossmatch See Detail 01/11/17 09:35 - Plan (1) COPD (chronic obstructive pulmonary disease) Status: Chronic Qualifiers: COPD type: unspecified COPD Qualified Code(s): J44.9 - Chronic obstructive pulmonary disease, unspecified Plan: duonebs qid, buspar 5mg po bid, tessalon perles 10mg po tid, continue to monitor (2) Hyponatremia Status: Acute Plan: NS @ 80ML/HR, CONTINUE TO MONITOR
== END 2017-01-12 10:50 | disposition home or self-care (01) | DRG 191 ==
LOC: ER 15:23 → ICU 17:06 → MED/SURG 01-09 13:55
PROVIDERS: ADMIT Internal Medicine; ATTEND Internal Medicine
PROC: 30233N1 Transfusion of Nonautologous Red Blood Cells into Peripheral Vein, Percutaneous Approach (ICD-10-PCS; principal; 2017-01-12)
PROC: 30233N1 Transfusion of Nonautologous Red Blood Cells into Peripheral Vein, Percutaneous Approach (ICD-10-PCS; 2017-01-12)
DX: J44.1 Chronic obstructive pulmonary disease with (acute) exacerbation (principal); E87.6 Hypokalemia; Z99.81 Dependence on supplemental oxygen; E78.2 Mixed hyperlipidemia; K21.9 Gastro-esophageal reflux disease without esophagitis; I10 Essential (primary) hypertension; R06.02 Shortness of breath; D64.89 Other specified anemias; E87.1 Hypo-osmolality and hyponatremia
CPT/HCPCS: 36415; 36430; 71010; 80048; 80053; 81001; 82306; 82607; 82746; 84207; 85025; 86850; 86900; 86901; 86922; 94640; 96365; 96374; 99284; A4216; A4222; P9016; J1200; J3420; J7620

== ENCOUNTER 2017-01-15 23:50 | Emergency (ER) | payer OTHER ==
[2017-01-16] VITALS: BP 125/60; BMI 24.1
--- NOTE | 2017-01-16 00:30 | DR.GENAD ---
HPI - PCP Primary Care Physician: tamia kearns - HPI Comment HPI Comment: DISCHARGE FROM HOSPITAL FEW DAYS AGO. TONIGHT, AMS NOTED. PATIENT SLEEPY IN ED BUT AROUSABLE AND ANSWER QUESTIONS. NO FEVER. DENIES TRAUMA OR PAIN. - Complaint/Symptoms Chief Complaint Doctors Comments: AMS, GENERALIZE WEAKNESS. Chief Complaint:: ams decreased alertness - Nurses notes reviewed Nurses Notes Review: Yes - Source History Provided: Patient, EMS - Mode of Arrival Mode of Arrival: EMS - Timing Onset of Chief Complaint: 01/15/17 Came on: Gradually - Duration Duration: Constant Duration: Days - Severity Severity: Moderate PMH - PMH Past Medical History: Yes Past Medical History: Anemia, Anxiety, Arthritis, COPD, Depression, Dyslipidemia , GERD, Hypertension, NV, PUD Past Surgical History: Yes Surgical History: Hysterectomy, Ortho Surgery - Family History History of Family Medical Conditions: Yes Family Medical History: Cancer - Social History Does any household member use tobacco: No Alcohol Use: None Do you use any recreational Drugs:: No Lives With: Family Lives Where: Home - infectious screening In the last 2 months have you had wt loss of >10#?: NO Have you had fever, night sweats or hemotysis?: No Have you traveled outside the country in the last 6 months?: No Isolation: Standard ROS - Review of Systems Constitutional: Weakness, Fatigue, Loss of Appetite. negative: Chills, Malaise Eyes: negative: Eye Pain, Discharge ENTM: Nose Congestion. negative: Ear Pain Respiratoy: No Symptoms Reported, Productive Cough, Short of Breath. negative: Wheezing Cardiovascular: Chest Pain Gastrointestinal/Abdominal: negative: Diarrhea, Nausea, Vomiting Genitourinary: No Symptoms Reported. negative: Dysuria, Hematuria Neurological: No Symptoms Reported, Headache, Weakness, Dizziness Musculoskeletal: Muscle Pain Integumentary: Dryness Hematologic/Lymphatic: Easy Bleeding, Easy Bruising Endocrine: No Symptoms Reported All Other Systems: Reviewed and Negative PE - Vital Signs Vitals: Temperature 97.8 F Pulse Rate 78 Respiratory Rate 15 Blood Pressure [Right Arm] 140/58 Blood Pressure [Left Arm] 136/94 Blood Pressure 125/60 O2 Sat by Pulse Oximetry 96 - General Limitations: Altered Mental Status General Appearance: Alert, Other (SLEEPY) - Head Head Exam: Normal Inspection - Eyes Eye exam: PERRL. negative: Scleral Icterus, Conjunctival Injection - ENT ENT Exam: Normal External Ear Exam External Ear Exam: Normal External Inspection TM/Canal Exam: Bilateral Normal Nose Exam: Normal Nose Exam Mouth Exam: Normal Inspection Throat Exam: Tonsillar Erythema - Neck Neck Exam: Trachea Midline - Chest Chest Inspection: Symmetric Chest Wall Rise - Respiratory Respiratory Exam: Normal Lung Sounds Bilat Respiratory Exam: Bilateral Clear to Auscultation - Cardiovascular Cardiovascular Exam: Regular Rate, Normal Rhythm, Normal Heart Sounds - Abdominal Exam Abdominal Exam: Normal Bowel Sounds, Soft. negative: Tenderness - Extremities Extremities Exam: Normal Inspection - Back Back Exam: Normal Inspection, Paraspinal Tenderness - Neurologic Neurological Exam: Alert, Oriented X3 - Psychiatric Psychiatric Exam: Other (SLEEPY) - Skin Skin Exam: Erythema MDM - Additional Information Additional Information Obtained From: Family - Differential Diagnosis Differential Diagnosis: AMS, PNEUMONIA, NV, UTI, Course - Treatment Treatment: SEE ORDERS. - Education/Counseling Education/Counseling: Family Educated On: Treatment, Diagnosis ROR - Labs Reviewed Laboratory Results Reviewed?: Yes Result Diagrams: 01/16/17 00:45 01/16/17 00:45 Laboratory: WBC 7.4 X10^3/uL (3.6-10.0) 01/16/17 00:45 RBC 3.82 X10^6/uL (3.5-5.4) 01/16/17 00:45 Hgb 12.0 g/dL (12.0-16.0) 01/16/17 00:45 Hct 34.8 % (36.0-47.0) L 01/16/17 00:45 MCV 91.2 fL (80.0-100.0) 01/16/17 00:45 MCH 31.4 pg (27.0-34.0) 01/16/17 00:45 MCHC 34.4 g/dL (33.0-35.0) 01/16/17 00:45 RDW 14.5 % (11.6-16.5) 01/16/17 00:45 Plt Count 214 X10^3/uL (150.0-450.0) 01/16/17 00:45 MPV 7.3 fL (7.4-11.0) L 01/16/17 00:45 Neut % 71.0 % (42.0-75.0) 01/16/17 00:45 Lymph % 17.6 % (21.0-51.0) L 01/16/17 00:45 [place] % 7.3 % (0.0-13.0) 01/16/17 00:45 Eos % 3.1 % (0.9-2.9) H 01/16/17 00:45 Baso % 1.0 % (0.2-1.0) 01/16/17 00:45 Neut # 5.3 x10^3/uL (2.2-4.8) H 01/16/17 00:45 Lymph # 1.3 X10^3/uL (1.3-2.9) 01/16/17 00:45 [place] # 0.5 x10^3/uL (0.3-0.8) 01/16/17 00:45 Eos # 0.2 x10^3/uL (0.0-0.2) 01/16/17 00:45 Baso # 0.1 X10^3/uL (0.0-0.1) 01/16/17 00:45 Absolute Nucleated RBC 0.0 /100WBC 01/16/17 00:45 Sodium 136 mmol/L (136-145) 01/16/17 00:45 Corrected Sodium TNP 01/16/17 00:45 Potassium 4.0 mmol/L (3.5-5.1) 01/16/17 00:45 Chloride 103 mmol/L (98-107) 01/16/17 00:45 Carbon Dioxide 23.3 mmol/L (21-32) 01/16/17 00:45 BUN 13 mg/dL (7-18) 01/16/17 00:45 Creatinine 1.02 mg/dL (0.55-1.02) 01/16/17 00:45 Est GFR (MDRD) Af Amer > 60 (>60) 01/16/17 00:45 Est GFR (MDRD) Non-Af 58 (>60) L 01/16/17 00:45 Glucose 93 mg/dL (65-99) 01/16/17 00:45 Lactic Acid 0.5 mmol/L (0.4-2.0) 01/16/17 00:45 Calcium 8.6 mg/dL (8.5-10.1) 01/16/17 00:45 Corrected Calcium TNP 01/16/17 00:45 Total Bilirubin 0.30 mg/dL (0.2-1.0) 01/16/17 00:45 AST 51 Units/L (15-37) H 01/16/17 00:45 ALT 63 Units/L (12-78) 01/16/17 00:45 Alkaline Phosphatase 115 Units/L (46-116) 01/16/17 00:45 Creatine Kinase 156 Units/L (26-192) 01/16/17 00:45 CK-MB (CK-2) 2.0 ng/mL (0-4.0) 01/16/17 00:45 CK/CKMB % Calc 1.3 % (<4) 01/16/17 00:45 Troponin I 0.02 ng/mL (0-1.5) 01/16/17 00:45 C-Reactive Protein 11.90 mg/L (0-3.0) H 01/16/17 00:45 Total Protein 7.0 g/dL (6.4-8.2) 01/16/17 00:45 Albumin 3.6 g/dL (3.4-5.0) 01/16/17 00:45 Globulin 3.4 g/dL (2.5-4.5) 01/16/17 00:45 Albumin/Globulin Ratio 1.1 Ratio (1.1-2.1) 01/16/17 00:45 Specimen Type Clean catch urine 01/16/17 03:30 Urine Color Yellow (YELLOW) 01/16/17 03:30 Urine Appearance Clear (CLEAR) 01/16/17 03:30 Urine pH 6.5 (5.0 - 8.0) 01/16/17 03:30 Ur Specific [place] 1.010 (1.000-1.030) 01/16/17 03:30 Urine Protein 1+ (NEGATIVE) 01/16/17 03:30 Urine Glucose (UA) Negative (NEGATIVE) 01/16/17 03:30 Urine Ketones Negative (NEGATIVE) 01/16/17 03:30 Urine Occult Blood Negative (NEGATIVE) 01/16/17 03:30 Urine Nitrite Negative (NEGATIVE) 01/16/17 03:30 Urine Bilirubin Negative (NEGATIVE) 01/16/17 03:30 Urine Urobilinogen Normal (NORMAL) 01/16/17 03:30 Ur Leukocyte Esterase 1+ (NEGATIVE) 01/16/17 03:30 Urine RBC 0-3 /HPF (NEGATIVE) 01/16/17 03:30 Urine WBC 0-3 /HPF (NEGATIVE) 01/16/17 03:30 Ur Squamous Epith Cells Many /HPF (NEGATIVE) 01/16/17 03:30 Urine Bacteria Negative /HPF (NEGATIVE) 01/16/17 03:30 Ur Culture Indicated? No/not indicated 01/16/17 03:30 - XRAY XRAY Interpreted by: Radiologist XRAY Findings: REPORT DISCUSS WITH PATIENT. - EKG Rhythm: NSR - Diagnosis Discharge Problem: Mental status alteration Qualifiers: Altered mental status type: transient alteration of awareness Qualified Code(s) : R40.4 - Transient alteration of awareness CHF (congestive heart failure) Qualifiers: Congestive heart failure type: combined Congestive heart failure chronicity: chronic Qualified Code(s): I50.42 - Chronic combined systolic (congestive) and diastolic (congestive) heart failure - Discharge Plan Disposition: 01 HOME, SELF-CARE Condition: Stable - Follow ups/Referrals Follow ups/Referrals: MIGNON KEARNS [Primary Care Provider] - 3 days - Instructions Instructions: Confusion, Heart Failure, [id number] Additional Instructions: RETURN TO ED IF WORSE. INCREASE LASIX TO DOUBLE TODAY AND TOMORROW.
--- NOTE | 2017-01-16 01:39 | CT ---
CT brain without contrast Indication: Altered mental status with decreased alertness Comparison: 08/27/2015 Technique: Multiple axial images of the brain were obtained from the skull base to the vertex without administra tion of IV contrast. Coronal and sagittal images were also provided. Radiation dose reduction techniques were performed utilizing adjustment for MA/kVP based on patient body size. Findings: No change in bilateral, confluent periventricular and deep white matter hypoattenuation. No change in generalized cerebral atrophy and commensurate ventricular dilatation of the lateral ventricles. No acute intraparenchymal hemorrhage or mass can be identified. No extra-axial fluid collections are seen. No alteration in the attenuation of the brain parenchyma can be identified to suggest acute o r subacute ischemic change. The extracranial structures are grossly unremarkable. IMPRESSION: 1. No acute intracranial process is identified. 2. Generalized cerebral atrophy, confluent periventricular and deep white matter hypoattenuation are nonspecific however likely represents sequela of chronic microvascular ischemic disease, unchanged. Reported By:
[2017-01-16 01:41] LABS: BASOPHILS # (AUTO) 0.1 X10^3/uL (0.0-0.1); EOSINOPHILS # (AUTO) 0.2 x10^3/uL (0.0-0.2); EOSINOPHILS % (AUTO) 3.1 % (0.9-2.9); HEMATOCRIT 34.8 % (36.0-47.0); LYMPHOCYTES # (AUTO) 1.3 X10^3/uL (1.3-2.9); LYMPHOCYTES % (AUTO) 17.6 % (21.0-51.0); MEAN CORPUSCULAR HEMOGLOBIN 31.4 pg (27.0-34.0); MEAN CORPUSCULAR HGB CONC 34.4 g/dL (33.0-35.0); MEAN CORPUSCULAR VOLUME 91.2 fL (80.0-100.0); MEAN PLATELET VOLUME 7.3 fL (7.4-11.0); MONOCYTES # (AUTO) 0.5 x10^3/uL (0.3-0.8); MONOCYTES % (AUTO) 7.3 % (0.0-13.0); NEUTROPHILS # (AUTO) 5.3 x10^3/uL (2.2-4.8); PLATELET COUNT 214 X10^3/uL (150.0-450.0); RED BLOOD COUNT 3.82 X10^6/uL (3.5-5.4); RED CELL DISTRIBUTION WIDTH 14.5 % (11.6-16.5); WHITE BLOOD COUNT 7.4 X10^3/uL (3.6-10.0)
[2017-01-16 01:53] LABS: LACTIC ACID 0.5 mmol/L (0.4-2.0)
[2017-01-16 01:55] LABS: BLOOD UREA NITROGEN 13 mg/dL (7-18); CALCIUM 8.6 mg/dL (8.5-10.1); CARBON DIOXIDE 23.3 mmol/L (21-32); CHLORIDE 103 mmol/L (98-107); CREATININE 1.02 mg/dL (0.55-1.02); SODIUM 136 mmol/L (136-145); TROPONIN I 0.02 ng/mL (0-1.5); eGFR BLACK RACES > 60 (>60); eGFR NON BLACK RACES 58 (>60)
[2017-01-16 01:56] LABS: ALANINE AMINOTRANSFERASE 63 Units/L (12-78); ALBUMIN 3.6 g/dL (3.4-5.0); ALKALINE PHOSPHATASE 115 Units/L (46-116); ASPARTATE AMINO TRANSFERASE 51 Units/L (15-37); CKMB % 1.3 % (<4); CREATINE KINASE 156 Units/L (26-192)
--- NOTE | 2017-01-16 02:02 | RAD ---
AP Chest Indication: Chest pain Comparison: 01/12/2017 Findings: The trachea is midline. The cardiac silhouette is unremarkable. Chronic pulmonary vascular congesti on appear similar to prior exam. No new airspace opacity pleural effusion or pneumothorax.. The bony thorax is unremarkable. IMPRESSION: 1. Stable chronic pulmonary vascular congestion without acute airspace disease or CHF. Reported By:
[2017-01-16 04:05] LABS: BILIRUBIN,URINE NEGATIVE (NEGATIVE); BLOOD/HEMOGLOBIN,URINE NEGATIVE (NEGATIVE); GLUCOSE, URINE NEGATIVE (NEGATIVE); KETONES,URINE NEGATIVE (NEGATIVE); LEUKOCYTE ESTERASE ,URINE 1+ (NEGATIVE); NITRITES,URINE NEGATIVE (NEGATIVE); PH,URINE 6.5 (5.0 - 8.0); PROTEIN,URINE 1+ (NEGATIVE); UROBILINOGEN,URINE NORMAL (NORMAL)
[2017-01-16 04:14] LABS: APPEARANCE,URINE CLEAR (CLEAR); BACTERIA,URINE NEGATIVE /HPF (NEGATIVE); COLOR,URINE YELLOW (YELLOW); RBC,URINE 0-3 /HPF (NEGATIVE); SQUAMOUS EPITHELIAL CELL,UR MANY /HPF (NEGATIVE)
== END 2017-01-16 04:44 | disposition home or self-care (01) ==
LOC: ER 23:50
DX: I50.42 Chronic combined systolic (congestive) and diastolic (congestive) heart failure (principal); R40.4 Transient alteration of awareness; G31.9 Degenerative disease of nervous system, unspecified
CPT/HCPCS: 36415; 70450; 71010; 80053; 81001; 82550; 82553; 83605; 84484; 85025; 86140; 87040; 93005; 93010; 99282; 99283

== ENCOUNTER → 2017-01-28 | Outpatient (CLI) | payer OTHER ==
[2017-01-16] VITALS: BP 125/60
--- NOTE | 2017-02-01 16:43 | RAD ---
Right hand three views Indication: Cat bite to the right thumb. Findings: There is soft tissue swelling over the thumb. No cortical lucency or malalignment seen. No radiodense body identified. Impression: Soft tissue injury to the right without underlying osseous abnormality Reported By:
== END ==
LOC: RAD 13:12
PROVIDERS: ATTEND Nurse Practitioner Family
DX: J41.1 Mucopurulent chronic bronchitis (principal); S61.051A Open bite of right thumb without damage to nail, initial encounter; X58.XXXA Exposure to other specified factors, initial encounter
CPT/HCPCS: 73130

== ENCOUNTER → 2017-02-01 | Outpatient (CLI) | payer OTHER ==
[2017-01-16] VITALS: BP 125/60
[2017-02-01 14:45] LABS: BASOPHILS # (AUTO) 0.1 X10^3/uL (0.0-0.1); BASOPHILS % (AUTO) 1.1 % (0.2-1.0); EOSINOPHILS # (AUTO) 0.1 x10^3/uL (0.0-0.2); HEMATOCRIT 43.6 % (36.0-47.0); HEMOGLOBIN 15.2 g/dL (12.0-16.0); LYMPHOCYTES # (AUTO) 1.2 X10^3/uL (1.3-2.9); LYMPHOCYTES % (AUTO) 22.5 % (21.0-51.0); MEAN CORPUSCULAR HEMOGLOBIN 31.6 pg (27.0-34.0); MEAN CORPUSCULAR HGB CONC 34.8 g/dL (33.0-35.0); MEAN CORPUSCULAR VOLUME 90.8 fL (80.0-100.0); MEAN PLATELET VOLUME 8.1 fL (7.4-11.0); MONOCYTES # (AUTO) 0.5 x10^3/uL (0.3-0.8); MONOCYTES % (AUTO) 9.1 % (0.0-13.0); NEUTROPHILS # (AUTO) 3.5 x10^3/uL (2.2-4.8); NEUTROPHILS % (AUTO) 65.3 % (42.0-75.0); PLATELET COUNT 336 X10^3/uL (150.0-450.0); RED CELL DISTRIBUTION WIDTH 14.3 % (11.6-16.5); RETICULOCYTE % 0.95 % (0.8-2.2); WHITE BLOOD COUNT 5.4 X10^3/uL (3.6-10.0)
[2017-02-01 14:51] LABS: CREATININE,URINE 141.5 mg/dL (29-226); MICROALBUMIN,URINE 50.8 mg/L
[2017-02-01 14:53] LABS: ALANINE AMINOTRANSFERASE 29 Units/L (12-78); ALBUMIN 4.1 g/dL (3.4-5.0); ALKALINE PHOSPHATASE 103 Units/L (46-116); ASPARTATE AMINO TRANSFERASE 21 Units/L (15-37); BLOOD UREA NITROGEN 13 mg/dL (7-18); CALCIUM 9.2 mg/dL (8.5-10.1); CARBON DIOXIDE 22.3 mmol/L (21-32); CHLORIDE 104 mmol/L (98-107); CHOL/HDL RATIO 3.6 (0.0-5.0); CHOLESTEROL 146 mg/dL (0-200); CREATININE 1.45 mg/dL (0.55-1.02); HDL CHOLESTEROL 41 mg/dL (40-60); SODIUM 141 mmol/L (136-145); TOTAL PROTEIN 8.3 g/dL (6.4-8.2); TRIGLYCERIDES 128 mg/dL (0-150); eGFR BLACK RACES 47 (>60); eGFR NON BLACK RACES 39 (>60)
[2017-02-01 15:31] LABS: TRANSFERRIN 149 mg/dL (202-364)
[2017-02-05 14:05] LABS: VITAMIN D 25 OH 38 ng/mL (30-80)
== END ==
LOC: LAB 13:57
PROVIDERS: ATTEND Nurse Practitioner Family
DX: I10 Essential (primary) hypertension (principal); D53.9 Nutritional anemia, unspecified; M85.9 Disorder of bone density and structure, unspecified; R29.6 Repeated falls; S61.051A Open bite of right thumb without damage to nail, initial encounter; X58.XXXA Exposure to other specified factors, initial encounter
CPT/HCPCS: 36415; 80053; 80061; 82043; 82306; 82607; 82615; 82728; 82746; 83918; 84466; 85025; 85045; 86256; 86340; 86592

== ENCOUNTER → 2017-02-15 | Outpatient (CLI) | payer OTHER ==
[2017-01-16] VITALS: BP 125/60
--- NOTE | 2017-02-16 08:59 | VAS ---
HISTORY: Dizziness Study: Carotid ultrasound Comparison: None Technique: Multiple saleem scale and color flow Doppler images of the right and left carotid arterial s ystem were obtained. The vertebral arterial system was evaluated as well. Findings: Plaque is seen within the left common carotid artery carotid bulb. The peak systolic velocity of the right ICA is 75 cm/sec. The peak systolic velocity of the left ICA is 90 for cm/sec. The ICA/CCA rati o on the right is 1.3. The ICA/CCA ratio on the left is 0.9. Bilateral antegrade vertebral flow was n oted. IMPRESSION: 1. No hemodynamically significant stenosis is appreciated. Reported By:
--- NOTE | 2017-02-16 09:37 | VAS ---
History: Right leg swelling Study: Right lower extremity venous Doppler Findings: High-resolution linear array ultrasound and Doppler evaluation of the veins of the right lo wer extremity from the groin to below the knee is performed. The common and superficial femoral and p opliteal artery show normal compression and augmentation and normal venous waveforms. Impression: No evidence of right lower extremity deep venous thrombosis. Reported By:
== END ==
LOC: RAD 14:04
PROVIDERS: ATTEND Physician Assistant
DX: R42 Dizziness and giddiness (principal); R60.0 Localized edema
CPT/HCPCS: 93880; 93971

== ENCOUNTER 2017-03-04 10:56 | Day surgery (SDC) | payer OTHER ==
[2017-03-04] MEDS ORDERED: D5 LR 1000 ML 1,000 ML IV ONE (11:06)
[2017-03-04] MEDS ORDERED: DIPRIVAN VIAL 20 ML ONE (12:47)
[2017-03-04 13:27] VITALS: BP 119/58
== END 2017-03-04 13:23 | disposition home or self-care (01) ==
LOC: SURG1 10:56
PROVIDERS: ATTEND Internal Medicine Gastroenterology
PROC: 0DJ08ZZ Inspection of Upper Intestinal Tract, Via Natural or Artificial Opening Endoscopic (ICD-10-PCS; principal; 2017-03-04 18:15)
PROC: 0D757ZZ Dilation of Esophagus, Via Natural or Artificial Opening (ICD-10-PCS; principal; 2017-03-04 18:15)
PROC: 0DB68ZX Excision of Stomach, Via Natural or Artificial Opening Endoscopic, Diagnostic (ICD-10-PCS; principal; 2017-03-04 18:15)
PROC: 0DB88ZX Excision of Small Intestine, Via Natural or Artificial Opening Endoscopic, Diagnostic (ICD-10-PCS; principal; 2017-03-04 18:15)
DX: R13.19 Other dysphagia (principal); K21.9 Gastro-esophageal reflux disease without esophagitis; R10.84 Generalized abdominal pain; R11.2 Nausea with vomiting, unspecified; R10.13 Epigastric pain; K29.60 Other gastritis without bleeding; K20.8 Other esophagitis; K22.2 Esophageal obstruction; K22.4 Dyskinesia of esophagus
CPT/HCPCS: A4217; J3490; J7120

== ENCOUNTER 2017-03-11 11:05 | Day surgery (SDC) | payer OTHER ==
[2017-03-11] MEDS ORDERED: D5 LR 1000 ML 1,000 ML IV ONE (11:06)
[2017-03-11] MEDS ORDERED: DIPRIVAN VIAL 20 ML ONE (12:37)
[2017-03-11 13:40] VITALS: BP 124/60
== END 2017-03-11 13:31 | disposition home or self-care (01) ==
LOC: SURG1 11:05
PROVIDERS: ATTEND Internal Medicine Gastroenterology
PROC: 0DJD8ZZ Inspection of Lower Intestinal Tract, Via Natural or Artificial Opening Endoscopic (ICD-10-PCS; principal; 2017-03-11 16:30)
PROC: 0DBN8ZX Excision of Sigmoid Colon, Via Natural or Artificial Opening Endoscopic, Diagnostic (ICD-10-PCS; principal; 2017-03-11 16:30)
DX: K92.2 Gastrointestinal hemorrhage, unspecified (principal); R10.84 Generalized abdominal pain; R19.4 Change in bowel habit; R10.31 Right lower quadrant pain; R10.32 Left lower quadrant pain; K63.5 Polyp of colon; K64.0 First degree hemorrhoids
CPT/HCPCS: A4217; J3490; J7120

== ENCOUNTER → 2017-04-06 | Outpatient (CLI) | payer OTHER ==
[2017-03-11 13:40] VITALS: BP 124/60
[2017-04-06 18:08] LABS: STOOL FOR WBC NEGATIVE (NEGATIVE)
[2017-04-06 18:14] LABS: CRYPTOSPORIDIUM PARVUM ANTIGEN NEGATIVE (NEGATIVE); GIARDIA LAMBLIA ANTIGEN NEGATIVE (NEGATIVE)
== END ==
LOC: LAB 17:20
PROVIDERS: ATTEND Internal Medicine Gastroenterology
DX: K59.1 Functional diarrhea (principal); K64.0 First degree hemorrhoids; B96.89 Other specified bacterial agents as the cause of diseases classified elsewhere
CPT/HCPCS: 82270; 82705; 83630; 87045; 87328; 87329; 87336; 87427; 87493; 87899

== ENCOUNTER → 2017-05-10 | Outpatient (CLI) | payer OTHER ==
--- NOTE | 2017-05-10 13:21 | RAD ---
Examination: Lumbar spine, five views History: Fell Findings: Normal segmentation and alignment. Marked degenerative disc disease at the L5-S1 interspace . There is no evidence for fracture, pedicle destruction or sacroiliac abnormality. Impression: No acute process identified. Degenerative disc disease L5-S1. Reported By:
--- NOTE | 2017-05-10 13:23 | RAD ---
Examination: Bilateral hips, two views each History: Fell Comparison 09/25/2016 Findings: No definite fracture or dislocation on either side. Degenerative joint narrowing and subcho ndral cystic degeneration involves the left femoral head. There is a small synovial pit in the left f emoral neck. There is degenerative cortical irregularity of the surface of the greater trochanter. Impression: Osteoarthritis, left greater than right. No recent injury identified. Reported By:
--- NOTE | 2017-05-10 16:38 | RAD ---
HISTORY: Status post fall. Back pain. Study: AP and lateral thoracic spine Comparison: Chest radiograph from 01/24/2017 Findings: Moderate osteopenia is noted. The pedicles appear to be intact. Evidence for previous vertebroplast y is noted at approximately the level of T6, unchanged. No acute bony abnormalities are identified. IMPRESSION: 1. Findings consistent with previous vertebroplasty involving T6. 2. Moderate osteopenia. 3. No acute bony abnormalities are identified. Reported By:
--- NOTE | 2017-05-10 16:52 | RAD ---
HISTORY: Status post fall. Study: AP and lateral cervical spine Comparison: None Findings: The lateral view demonstrates normal curvature and alignment. The vertebral bodies and intervertebra l disc spaces are of normal height. Prevertebral soft tissues normal. The posterior elements are in tact. Pre odontoid space is normal. Mild facet arthropathy is noted at a few levels with minimal un covertebral joint arthropathy. The lateral masses of C1 are symmetric about the lateral masses C2 an d show minimal asymmetry with respect to the odontoid process. Evidence for previous vertebroplasty is noted in the mid thoracic spine. IMPRESSION: 1. Cervical spondylosis as described above. 2. No acute bony abnormalities are identified. Reported By:
--- NOTE | 2017-05-10 16:57 | RAD ---
HISTORY: Status post fall. Left shoulder pain. Study: Left shoulder: 3 views Comparison: None Findings: Mild acromioclavicular joint degeneration is noted. No acute bony or joint abnormalities are identif ied. IMPRESSION: 1. Minimal degenerative change in the left shoulder. 2. No acute bony or joint abnormalities are identified. Reported By:
--- NOTE | 2017-05-11 06:28 | RAD ---
Examination: Left ribs, four views History: Fell Findings: There is no obvious left rib fracture, contour deformity or bone destruction. The available rib images do not include the structures below the diaphragm. There is no evidence for pleural fluid or pneumothorax. Impression: No acute left rib abnormality demonstrated. Reported By:
== END ==
LOC: RAD 12:29
PROVIDERS: ATTEND Psychiatry & Neurology Neurology
DX: M25.551 Pain in right hip (principal); M25.552 Pain in left hip; W19.XXXA Unspecified fall, initial encounter; X58.XXXA Exposure to other specified factors, initial encounter; M16.0 Bilateral primary osteoarthritis of hip; M51.37 Other intervertebral disc degeneration, lumbosacral region
CPT/HCPCS: 71111; 72040; 72072; 72110; 73030; 73521

== ENCOUNTER → 2017-06-01 | Outpatient (CLI) | payer OTHER ==
--- NOTE | 2017-06-01 15:52 | CT ---
History: Headache, sinus pressure. Exam: Head CT without contrast Technique: Multiple contiguous axial CT images of the head were obtained from skullbase to vertex wit hout IV contrast. Sagittal and coronal reformatted images were reconstructed. Automated exposure cont rol (AEC) was utilized to adjust the MA and/or kV according to patient size. Comparison: Head CT dated 01/16/2017. Findings: There is no acute intracranial hemorrhage. There are hypodensities within the periventricular white m atter, subcortical and deep white matter which are nonspecific but are consistent with moderate to se lawrence chronic microangiopathic ischemic white matter disease. These findings appear unchanged previous CT. There is no mass or mass effect. There is no abnormal extra-axial fluid collection. There is a generalized prominence of the ventricles, sulci, and cisterns compatible with age-appropri ate generalized volume loss. No evidence of obstructive hydrocephalus. Bilateral tympanic cavities and mastoid air cells are clear. Aerosolized secretions are seen in the l eft sphenoid chamber. Calvarium is intact. Impression: 1. No acute osseous abnormalities identified. 2. Generalized volume loss and chronic white matter changes are noted as discussed above. 3. Aerosolized secretions within the left sphenoid chamber may represent acute sinusitis in the appro priate clinical setting. Please refer to the report from the sinus CT performed at the same time as t his examination. Reported By:
--- NOTE | 2017-06-01 16:01 | CT ---
History: Headache and sinus pressure Procedure: Sinus CT without IV contrast Technique: Multiple contiguous axial CT images were obtained through the paranasal sinuses without IV contrast. Sagittal and coronal reformatted images were reconstructed. Automated exposure control (AE C) was utilized to adjust the MA and/or kV according to patient size. Comparison: Head CT dated 06/01/2017, Findings: Maxillary sinuses, ethmoid air cells and frontal sinuses are predominantly clear. Mild mucoperiosteal thickening is noted along the floors of the maxillary sinuses bilaterally. There are aerosolized sec retions within the left sphenoid chamber. No air-fluid levels are seen. There is mild bony wall thick ening of the anterior castro of the maxillary sinuses bilaterally likely sequela of chronic sinusitis. Nasal cavity is clear. There is slight nasal septal deviation to the right. Bilateral agar Nasi cell s are present. There is a lucency within the right aspect of the C2 vertebral body involving the all right transvers e element and extending into the right pedicle and posterior elements. Overall this measures 1.8 cm A P by up to a 7 mm transverse. It demonstrates some trabecular coarsening within it and may be seconda ry to a hemangioma. Given its involvement with the pedicle common this could place patient at risk fo r a pathologic fracture. Correlation with MRI is recommended. Impression: 1. Aerosolized secretions are noted within the left sphenoid chamber which may represent acute sinusi tis in the appropriate clinical setting. There is mild mucoperiosteal thickening and bony wall thicke pradip of the maxillary sinuses bilaterally suggests sequela of chronic sinusitis. 2. Lytic lesion within the right aspect of the C2 vertebral body which involves the right pedicle and posterior elements. It demonstrates and trabecular thickening and may represent an interosseous vamshi ngioma. Further assessment with MRI is recommended. Given its involvement with the pedicle, this coul d increase patient's risk for a pathologic fracture. 3. Other findings as above. Reported By:
== END ==
LOC: RAD 13:38
PROVIDERS: ATTEND Psychiatry & Neurology Neurology
DX: J34.89 Other specified disorders of nose and nasal sinuses (principal)
CPT/HCPCS: 70450; 70486

== ENCOUNTER → 2017-06-15 | Outpatient (CLI) | payer OTHER ==
--- NOTE | 2017-06-15 09:39 | RAD ---
Examination: Chest, PA and lateral views History: Cough and congestion, small-cell carcinoma Comparison 05/10/2017 Findings: Continued normal heart size with clear left chest. The periphery of the right lung is clear . However there is right hilar distortion and fibrosis extending into the medial right upper lung. No discrete mass, bone destruction or pleural fluid is demonstrated. Again is noted vertebroplasty invo lving an upper thoracic vertebra. Impression: No interval change. Findings in the right hilum and upper lobe may represent fibrotic sca rring. A more acute process is not excluded. Reported By:
== END ==
LOC: RAD 08:51
PROVIDERS: ATTEND Psychiatry & Neurology Neurology
DX: R09.89 Other specified symptoms and signs involving the circulatory and respiratory systems (principal)
CPT/HCPCS: 71046

== ENCOUNTER 2017-06-17 10:35 | Inpatient (IN) | payer OTHER ==
--- NOTE | 2017-06-17 11:14 | DR.GENAD ---
HPI - PCP Primary Care Physician: Misael - HPI Comment HPI Comment: PATIENT IS WEAK, DIZZY AND FATIGUE. PATIENT HAVING PROBLEM TO HOLD DOWN FLUID. - Complaint/Symptoms Chief Complaint Doctors Comments: ABDOMINAL PAIN, N/V/D FOR SEVERAL DAYS/2WKS. Chief Complaint:: "For about two weeks now I have been throwing up and running an off and on fever. I got swabbed Wednesday for the flu and it was negative. I also had a chest xray and it said possible pnemonia. I called her today and she said I needed to just come on to the ER." - Nurses notes reviewed Nurses Notes Review: Yes - Source History Provided: Patient - Mode of Arrival Mode of Arrival: Ambulatory - Timing Onset of Chief Complaint: 06/03/17 Came on: Suddenly - Duration Duration: Constant Duration: Weeks - Severity Severity: Moderate PMH - PMH Past Medical History: Yes Past Medical History: Anemia, Anxiety, Arthritis, COPD, Depression, Dyslipidemia , GERD, Hypertension, [place], PUD Past Surgical History: Yes Surgical History: Cholecystectomy, Hysterectomy, Ortho Surgery, Other Past Surgical History Comment: Bladder tact, left leg surgery, back surgery - Family History History of Family Medical Conditions: Yes Family Medical History: Cancer - Social History Does patient currently use any type of tobacco product: Yes Have you used tobacco products in the last 12 months: Yes Type of Tobacco Use: Cigarettes Does any household member use tobacco: No Alcohol Use: None Do you use any recreational Drugs:: No Lives With: Family Lives Where: Home - infectious screening In the last 2 months have you had wt loss of >10#?: NO Have you had fever, night sweats or hemotysis?: No Have you traveled outside the country in the last 6 months?: No Isolation: Standard ROS - Review of Systems Constitutional: Fever, Weakness, Fatigue, Loss of Appetite. negative: Chills Eyes: negative: Eye Pain, Discharge ENTM: negative: Ear Pain, Nose Discharge, Nose Congestion, Throat Pain Respiratoy: Non-Productive Cough, Short of Breath. negative: Wheezing, Hemoptysis Cardiovascular: negative: Chest Pain, Edema Gastrointestinal/Abdominal: Abdominal Pain, Diarrhea, Nausea, Vomiting Genitourinary: Pain. negative: Dysuria, Frequency, Hematuria Neurological: Weakness, Dizziness. negative: Headache Musculoskeletal: Muscle Pain Integumentary: Change in Color Hematologic/Lymphatic: No Symptoms Reported Endocrine: No Symptoms Reported All Other Systems: Reviewed and Negative PE - Vital Signs Vitals: Temperature 98 F Pulse Rate 77 Respiratory Rate 18 Blood Pressure [Right Arm] 140/58 Blood Pressure [Left Arm] 136/94 Blood Pressure 115/55 O2 Sat by Pulse Oximetry 96 - General Limitations: No Limitations General Appearance: Alert - Head Head Exam: Normal Inspection - Eyes Eye exam: Normal Appearance - ENT ENT Exam: Normal External Ear Exam External Ear Exam: Normal External Inspection TM/Canal Exam: Bilateral Normal Nose Exam: Normal Nose Exam Mouth Exam: Normal Inspection Throat Exam: Normal Inspection - Neck Neck Exam: Trachea Midline - Chest Chest Inspection: Symmetric Chest Wall Rise - Respiratory Respiratory Exam: Normal Lung Sounds Bilat Respiratory Exam: Bilateral Clear to Auscultation - Cardiovascular Cardiovascular Exam: Regular Rate, Normal Rhythm, Normal Heart Sounds - Abdominal Exam Abdominal Exam: Normal Bowel Sounds, Soft. negative: Tenderness - Extremities Extremities Exam: Normal Inspection - Back Back Exam: Normal Inspection - Neurologic Neurological Exam: Alert, Oriented X3 - Psychiatric Psychiatric Exam: Normal Affect, Normal Mood - Skin Skin Exam: Normal Color MDM - Additional Information Additional Information Obtained From: Family - Differential Diagnosis Differential Diagnosis: DEHYDRATION, ABDOMINAL PAIN, GASTROENTERITIS Course - Treatment Treatment: SEE ORDERS. - Consultation Consultation Comments: DISCUSS PATIENT WITH DR. REYNOLDS. HE WILL ADMIT PATIENT. - Education/Counseling Education/Counseling: Patient, Family, Education Educated On: Treatment, Diagnosis ROR - Labs Reviewed Laboratory Results Reviewed?: Yes Result Diagrams: 06/18/17 05:20 06/18/17 05:20 Laboratory: WBC 18.1 X10^3/uL (3.6-10.0) H 06/17/17 12:15 RBC 4.09 X10^6/uL (3.5-5.4) 06/17/17 12:15 Hgb 12.7 g/dL (12.0-16.0) 06/17/17 12:15 Hct 36.6 % (36.0-47.0) 06/17/17 12:15 MCV 89.4 fL (80.0-100.0) 06/17/17 12:15 MCH 31.1 pg (27.0-34.0) 06/17/17 12:15 MCHC 34.7 g/dL (33.0-35.0) 06/17/17 12:15 RDW 12.9 % (11.6-16.5) 06/17/17 12:15 Plt Count 323 X10^3/uL (150.0-450.0) 06/17/17 12:15 MPV 8.2 fL (7.4-11.0) 06/17/17 12:15 Neut % 88.5 % (42.0-75.0) H 06/17/17 12:15 Lymph % 5.5 % (21.0-51.0) L 06/17/17 12:15 [place] % 4.5 % (0.0-13.0) 06/17/17 12:15 Eos % 0.7 % (0.9-2.9) L 06/17/17 12:15 Baso % 0.8 % (0.2-1.0) 06/17/17 12:15 Neut # 16.1 x10^3/uL (2.2-4.8) H 06/17/17 12:15 Lymph # 1.0 X10^3/uL (1.3-2.9) L 06/17/17 12:15 [place] # 0.8 x10^3/uL (0.3-0.8) 06/17/17 12:15 Eos # 0.1 x10^3/uL (0.0-0.2) 06/17/17 12:15 Baso # 0.1 X10^3/uL (0.0-0.1) 06/17/17 12:15 Absolute Nucleated RBC 0.0 /100WBC 06/17/17 12:15 Sodium 135 mmol/L (136-145) L 06/17/17 12:15 Corrected Sodium 135 mmol/L (136-145) L 06/17/17 12:15 Potassium 4.2 mmol/L (3.5-5.1) 06/17/17 12:15 Chloride 102 mmol/L (98-107) 06/17/17 12:15 Carbon Dioxide 18.1 mmol/L (21-32) L 06/17/17 12:15 BUN 46 mg/dL (7-18) H 06/17/17 12:15 Creatinine 2.55 mg/dL (0.55-1.02) H 06/17/17 12:15 Est GFR (MDRD) Af Amer 24 (>60) L 06/17/17 12:15 Est GFR (MDRD) Non-Af 20 (>60) L 06/17/17 12:15 Glucose 111 mg/dL (65-99) H 06/17/17 12:15 Calcium 9.1 mg/dL (8.5-10.1) 06/17/17 12:15 Corrected Calcium TNP 06/17/17 12:15 Total Bilirubin 0.40 mg/dL (0.2-1.0) 06/17/17 12:15 AST 66 Units/L (15-37) H 06/17/17 12:15 ALT 53 Units/L (12-78) 06/17/17 12:15 Alkaline Phosphatase 189 Units/L (46-116) H 06/17/17 12:15 Total Protein 7.9 g/dL (6.4-8.2) 06/17/17 12:15 Albumin 3.5 g/dL (3.4-5.0) 06/17/17 12:15 Globulin 4.4 g/dL (2.5-4.5) 06/17/17 12:15 Albumin/Globulin Ratio 0.8 Ratio (1.1-2.1) L 06/17/17 12:15 Amylase 48 Units/L (25-115) 06/17/17 12:15 Lipase 347 Units/L (73-393) 06/17/17 12:15 Specimen Type Clean catch urine 06/17/17 13:06 Urine Color Yellow (YELLOW) 06/17/17 13:06 Urine Appearance Slightly hazy (CLEAR) 06/17/17 13:06 Urine pH 5.0 (5.0 - 8.0) 06/17/17 13:06 Ur Specific [place] 1.010 (1.000-1.030) 06/17/17 13:06 Urine Protein 1+ (NEGATIVE) 06/17/17 13:06 Urine Glucose (UA) Negative (NEGATIVE) 06/17/17 13:06 Urine Ketones Negative (NEGATIVE) 06/17/17 13:06 Urine Occult Blood Negative (NEGATIVE) 06/17/17 13:06 Urine Nitrite Negative (NEGATIVE) 06/17/17 13:06 Urine Bilirubin Negative (NEGATIVE) 06/17/17 13:06 Urine Urobilinogen Normal (NORMAL) 06/17/17 13:06 Ur Leukocyte Esterase 1+ (NEGATIVE) 06/17/17 13:06 Urine RBC 0-1 /HPF (NONE SEEN) 06/17/17 13:06 Urine WBC 0-1 /HPF (NONE SEEN) 06/17/17 13:06 Ur Squamous Epith Cells Few /HPF (NEGATIVE) 06/17/17 13:06 Ur Renal Epithelial Cell Rare /HPF (NEGATIVE) 06/17/17 13:06 Calcium Oxalate Crystal Rare /HPF (NEGATIVE) 06/17/17 13:06 Urine Bacteria Trace /HPF (NEGATIVE) 06/17/17 13:06 Hyaline Casts Rare /LPF (NEGATIVE) 06/17/17 13:06 Ur Culture Indicated? No/not indicated 06/17/17 13:06 - XRAY XRAY Findings: REPORT DISCUSS WITH PATIENT. - Diagnosis Discharge Problem: Dehydration, Gastroenteritis Abdominal pain Qualifiers: Abdominal location: generalized Qualified Code(s): R10.84 - Generalized abdominal pain Leukocytosis Qualifiers: Leukocytosis type: unspecified Qualified Code(s): D72.829 - Elevated white blood cell count, unspecified - Discharge Plan Disposition: 01 HOME, SELF-CARE Condition: Stable - Follow ups/Referrals - Instructions
[2017-06-17 12:33] LABS: BASOPHILS # (AUTO) 0.1 X10^3/uL (0.0-0.1); BASOPHILS % (AUTO) 0.8 % (0.2-1.0); EOSINOPHILS # (AUTO) 0.1 x10^3/uL (0.0-0.2); EOSINOPHILS % (AUTO) 0.7 % (0.9-2.9); HEMATOCRIT 36.6 % (36.0-47.0); HEMOGLOBIN 12.7 g/dL (12.0-16.0); LYMPHOCYTES % (AUTO) 5.5 % (21.0-51.0); MEAN CORPUSCULAR HEMOGLOBIN 31.1 pg (27.0-34.0); MEAN CORPUSCULAR HGB CONC 34.7 g/dL (33.0-35.0); MEAN CORPUSCULAR VOLUME 89.4 fL (80.0-100.0); MEAN PLATELET VOLUME 8.2 fL (7.4-11.0); MONOCYTES # (AUTO) 0.8 x10^3/uL (0.3-0.8); MONOCYTES % (AUTO) 4.5 % (0.0-13.0); NEUTROPHILS # (AUTO) 16.1 x10^3/uL (2.2-4.8); NEUTROPHILS % (AUTO) 88.5 % (42.0-75.0); PLATELET COUNT 323 X10^3/uL (150.0-450.0); RED BLOOD COUNT 4.09 X10^6/uL (3.5-5.4); RED CELL DISTRIBUTION WIDTH 12.9 % (11.6-16.5); WHITE BLOOD COUNT 18.1 X10^3/uL (3.6-10.0)
[2017-06-17 12:44] LABS: ALANINE AMINOTRANSFERASE 53 Units/L (12-78); ALBUMIN 3.5 g/dL (3.4-5.0); ALKALINE PHOSPHATASE 189 Units/L (46-116); AMYLASE 48 Units/L (25-115); ASPARTATE AMINO TRANSFERASE 66 Units/L (15-37); BLOOD UREA NITROGEN 46 mg/dL (7-18); CALCIUM 9.1 mg/dL (8.5-10.1); CARBON DIOXIDE 18.1 mmol/L (21-32); CHLORIDE 102 mmol/L (98-107); COR NA(FOR HYPERGLY) 135 mmol/L (136-145); CREATININE 2.55 mg/dL (0.55-1.02); LIPASE 347 Units/L (73-393); SODIUM 135 mmol/L (136-145); TOTAL PROTEIN 7.9 g/dL (6.4-8.2); eGFR BLACK RACES 24 (>60); eGFR NON BLACK RACES 20 (>60)
[2017-06-17 13:15] LABS: BILIRUBIN,URINE NEGATIVE (NEGATIVE); BLOOD/HEMOGLOBIN,URINE NEGATIVE (NEGATIVE); GLUCOSE, URINE NEGATIVE (NEGATIVE); KETONES,URINE NEGATIVE (NEGATIVE); LEUKOCYTE ESTERASE ,URINE 1+ (NEGATIVE); NITRITES,URINE NEGATIVE (NEGATIVE); PROTEIN,URINE 1+ (NEGATIVE); UROBILINOGEN,URINE NORMAL (NORMAL)
--- NOTE | 2017-06-17 13:26 | RAD ---
HISTORY: Abdominal pain with cough, congestion, diarrhea, and vomiting. Study: Acute abdominal series Comparison: None. Findings: The trachea is midline. The cardiac silhouette is unremarkable. The lungs are clear without focal i nfiltrate or effusion. The bony thorax is unremarkable. Flat plate and upright evaluation of the abdomen demonstrates a nonspecific/nonobstructive bowel gas pattern with air and stool to the level of the rectum. No obvious free air. No pathological soft tis munira mass or calcification can be observed. The bony structures are grossly intact. Surgical clips ov erlying the right upper quadrant and surgical coils overlying the pelvis. IMPRESSION: 1. No acute cardiopulmonary disease. 2. No evidence for acute abdominal pathology identified. Reported By:
[2017-06-17 13:30] LABS: APPEARANCE,URINE SLIGHTLY HAZY (CLEAR); BACTERIA,URINE TRACE /HPF (NEGATIVE); COLOR,URINE YELLOW (YELLOW); RBC,URINE 0-1 /HPF (NONE SEEN); RENAL EPITHELIAL CELLS,URINE RARE /HPF (NEGATIVE); SQUAMOUS EPITHELIAL CELL,UR FEW /HPF (NEGATIVE)
[2017-06-17 13:31] LABS: CALCIUM OXALATE CRYSTALS,UR RARE /HPF (NEGATIVE); HYALINE CASTS, URINE RARE /LPF (NEGATIVE)
[2017-06-17] MEDS ORDERED: NS 1000 ML 1,000 ML ONE (13:52)
[2017-06-17] MEDS ORDERED: ZOFRAN INJ 4 MG VIAL IVP PRN (14:18)
[2017-06-17] MEDS ORDERED: PEPCID 20 MG IV PREMIX* 20 MG/50 ML BAG IV PRN (14:18)
[2017-06-17] MEDS: NS 1000 ML 1,000 ML IV SCH ×2 (14:28→22:25)
[2017-06-17] MEDS ORDERED: PNEUMOVAX 23 IM ONE (16:00)
[2017-06-17 16:30] VITALS: BMI 22.1
[2017-06-17] MEDS ORDERED: PREVNAR 13 IM ONE (16:30)
[2017-06-17] MEDS ORDERED: PHARMACY CONSULT - DOSE _____ XX SCH (18:00)
[2017-06-18] MEDS: NS 1000 ML 1,000 ML IV SCH ×3 (02:55→16:29)
[2017-06-18] MEDS: ROBITUSSIN DM PO PRN ×4 (03:33→21:29)
[2017-06-18] MEDS: NORCO 5/325 MG TAB PO PRN ×3 (03:33→21:28)
[2017-06-18 06:05] LABS: BASOPHILS % (AUTO) 0.2 % (0.2-1.0); EOSINOPHILS # (AUTO) 0.1 x10^3/uL (0.0-0.2); EOSINOPHILS % (AUTO) 0.6 % (0.9-2.9); HEMATOCRIT 31.4 % (36.0-47.0); HEMOGLOBIN 10.8 g/dL (12.0-16.0); LYMPHOCYTES % (AUTO) 7.5 % (21.0-51.0); MEAN CORPUSCULAR HEMOGLOBIN 30.9 pg (27.0-34.0); MEAN CORPUSCULAR HGB CONC 34.4 g/dL (33.0-35.0); MEAN CORPUSCULAR VOLUME 89.8 fL (80.0-100.0); MEAN PLATELET VOLUME 8.4 fL (7.4-11.0); MONOCYTES # (AUTO) 0.8 x10^3/uL (0.3-0.8); MONOCYTES % (AUTO) 5.8 % (0.0-13.0); NEUTROPHILS # (AUTO) 11.7 x10^3/uL (2.2-4.8); NEUTROPHILS % (AUTO) 85.9 % (42.0-75.0); PLATELET COUNT 285 X10^3/uL (150.0-450.0); RED CELL DISTRIBUTION WIDTH 12.8 % (11.6-16.5); WHITE BLOOD COUNT 13.6 X10^3/uL (3.6-10.0)
[2017-06-18 06:28] LABS: ALANINE AMINOTRANSFERASE 31 Units/L (12-78); ALBUMIN 2.7 g/dL (3.4-5.0); ALKALINE PHOSPHATASE 130 Units/L (46-116); AMYLASE 20 Units/L (25-115); ASPARTATE AMINO TRANSFERASE 22 Units/L (15-37); BLOOD UREA NITROGEN 26 mg/dL (7-18); CALCIUM 8.1 mg/dL (8.5-10.1); CARBON DIOXIDE 16.4 mmol/L (21-32); CHLORIDE 114 mmol/L (98-107); COR CA(FOR HYPOALB) 9.1 mg/dL (8.5-10.1); CREATININE 1.35 mg/dL (0.55-1.02); LIPASE 167 Units/L (73-393); SODIUM 144 mmol/L (136-145); TOTAL PROTEIN 6.4 g/dL (6.4-8.2); eGFR BLACK RACES 51 (>60); eGFR NON BLACK RACES 42 (>60)
[2017-06-18] MEDS: NICOTINE PATCH TD SCH (12:14)
[2017-06-18] MEDS ORDERED: NORCO 7.5/325 MG TAB PO PRN (14:57)
--- NOTE | 2017-06-18 15:03 | DR.H&P ---
H&P - History & Physical for Day of: H&P Date: 06/17/17 - Chief Complaint Chief Complaint: feels like i have pneumonia, ccc, fever - Allergies Allergies/Adverse Reactions: Allergies Allergy/AdvReac Type Severity Reaction Status Date / Time ceftriaxone Allergy Verified 06/17/17 14:01 fluoxetine [From Prozac] Allergy Verified 06/17/17 14:01 ketorolac [From Toradol] Allergy Verified 06/17/17 14:01 - History of Present Illness History of Present Illness: 61 WF ER ADMISSION AFTER PRESENTING WITH CO CCC AND FLU LIKE ILLNESS. PT STATES SHE HAS HAD OUTPT INJECTIONS WITHOUT IMPROVMENT. PT HAS HX HTN, COPD, OA, TIAGO. PT ADMITTED FOR IV ATBX THERAPY, RESP THREATMENT, BLOOD AND SPUTUM CULTURES - Past Medical History Past Medical History: Anemia, Anxiety, Arthritis, COPD, Depression, Dyslipidemia , GERD, Hypertension, [place], PUD Additional Medical History: Hx Diverticulosis, Gastrointestinal ulcer, heart murmur, diverticulosis, small cell carcinoma - Past Surgical History Surgical History: Cholecystectomy, Hysterectomy, Ortho Surgery, Other - Family History Family Medical History: Cancer - Social History Does patient currently use any type of tobacco product: Yes Have you used tobacco products in the last 12 months: Yes Type of Tobacco Use: Cigarettes How many years tobacco product used: 50 Does any household member use tobacco: No Alcohol Use: None Drug Use: None - Review of Systems Constitutional: No Symptoms Reported Eyes: No Symptoms Reported ENT: No Symptoms Reported Respiratory: Cough, Shortness of Breath, SOB with Excertion Cardiovascular: No Symptoms Reported Gastrointestinal: Nausea Genitourinary: No Symptoms Reported Musculoskeletal: Back Pain Skin: No Symptoms Reported Neurological: No Symptoms Reported - Physical Exam Vital Signs: Temperature 99.1 F Pulse Rate [Left Brachial] 79 Pulse Rate 77 Respiratory Rate 18 Blood Pressure [Right Arm] 112/54 Blood Pressure [Left Arm] 121/55 Blood Pressure 115/55 O2 Sat by Pulse Oximetry 94 Oriented: Normal Eyes: Normal Ear: Normal Nose: Normal Throat: Normal Respiratory: Rhonchi Throughout, Wheezes Throughout Cardiovascular: Normal : Normal Auscultation: Bowel Sounds: Normal Palpation: Normal Tenderness: Normal Skin: Normal Musculoskeletal: Back:Lumbar Psychiatric: Normal Mood Description: Calm Affect: Angry Speech Pattern: Clear - Assessment/Plan (1) COPD (chronic obstructive pulmonary disease) Qualifiers: COPD type: COPD with acute exacerbation Qualified Code(s): J44.1 - Chronic obstructive pulmonary disease with (acute) exacerbation Status: Chronic Plan: ADMIT, RESP THERAPY. IV ATBX, SUPPLEMENTAL O2. SPUTUM CULTURES, RESUME HOME MEDS. BP CONTROL (2) CHF (congestive heart failure) Qualifiers: Qualified Code(s): I50.42 - Chronic combined systolic (congestive) and diastolic (congestive) heart failure Status: Acute (3) Anxiety Status: Chronic (4) Arthritis Status: Chronic (5) GERD (gastroesophageal reflux disease) Status: Chronic (6) History of lung cancer Status: Chronic
[2017-06-18] MEDS: PROTONIX INJ 40 MG VIAL IVP SCH (16:17)
[2017-06-18] MEDS: LEVAQUIN PREMIX IV 750 MG 750 MG/150 ML BAG IV SCH (16:17)
[2017-06-18] MEDS: SOLU-Medrol 125 MG VIAL IVP SCH ×2 (16:17→21:24)
[2017-06-18] MEDS: DUONEB 0.5 MG/3 MG NEB SCH ×2 (17:00→21:07)
[2017-06-18] MEDS: TUSSIONEX PENNKINETIC SUSP PO PRN (18:07)
[2017-06-18] MEDS: PULMICORT NEB TX 0.5 MG NEB SCH (21:08)
[2017-06-18] MEDS: BUSPAR PO SCH (21:27)
[2017-06-18] MEDS: COREG TAB 3.125 MG PO SCH (21:27)
[2017-06-18] MEDS: XANAX PO SCH (21:27)
[2017-06-18] MEDS: CHECK PATCH XX SCH (21:31)
[2017-06-19] MEDS: NS 1000 ML 1,000 ML IV SCH ×2 (00:25→09:00)
[2017-06-19] MEDS: ROBITUSSIN DM PO PRN (03:49)
[2017-06-19] MEDS: DUONEB 0.5 MG/3 MG NEB SCH ×2 (05:00→14:14)
[2017-06-19] MEDS: SOLU-Medrol 125 MG VIAL IVP SCH (06:28)
[2017-06-19 06:56] LABS: BASOPHILS # (AUTO) 0.1 X10^3/uL (0.0-0.1); BASOPHILS % (AUTO) 0.5 % (0.2-1.0); HEMATOCRIT 31.5 % (36.0-47.0); HEMOGLOBIN 10.8 g/dL (12.0-16.0); LYMPHOCYTES # (AUTO) 0.5 X10^3/uL (1.3-2.9); LYMPHOCYTES % (AUTO) 4.8 % (21.0-51.0); MEAN CORPUSCULAR HGB CONC 34.2 g/dL (33.0-35.0); MEAN CORPUSCULAR VOLUME 90.8 fL (80.0-100.0); MEAN PLATELET VOLUME 8.6 fL (7.4-11.0); MONOCYTES # (AUTO) 0.1 x10^3/uL (0.3-0.8); MONOCYTES % (AUTO) 0.8 % (0.0-13.0); NEUTROPHILS # (AUTO) 9.4 x10^3/uL (2.2-4.8); NEUTROPHILS % (AUTO) 93.9 % (42.0-75.0); PLATELET COUNT 291 X10^3/uL (150.0-450.0); RED BLOOD COUNT 3.47 X10^6/uL (3.5-5.4); RED CELL DISTRIBUTION WIDTH 13.2 % (11.6-16.5)
[2017-06-19 07:04] LABS: PLATELET MORPHOLOGY COMMENT NORMAL (NORMAL)
[2017-06-19 07:09] LABS: ALANINE AMINOTRANSFERASE 26 Units/L (12-78); ALBUMIN 2.9 g/dL (3.4-5.0); ALKALINE PHOSPHATASE 132 Units/L (46-116); ASPARTATE AMINO TRANSFERASE 9 Units/L (15-37); BLOOD UREA NITROGEN 16 mg/dL (7-18); CALCIUM 8.5 mg/dL (8.5-10.1); CARBON DIOXIDE 16.4 mmol/L (21-32); CHLORIDE 112 mmol/L (98-107); COR CA(FOR HYPOALB) 9.4 mg/dL (8.5-10.1); COR NA(FOR HYPERGLY) 141 mmol/L (136-145); CREATININE 1.06 mg/dL (0.55-1.02); SODIUM 141 mmol/L (136-145); eGFR BLACK RACES > 60 (>60); eGFR NON BLACK RACES 56 (>60)
[2017-06-19] MEDS ORDERED: HEMOCYTE-PLUS PO SCH (09:00)
[2017-06-19] MEDS ORDERED: CLARITIN PO SCH (09:00)
[2017-06-19] MEDS ORDERED: ZESTRIL TAB 5 MG PO SCH (09:00)
[2017-06-19] MEDS: PULMICORT NEB TX 0.5 MG NEB SCH (09:11)
[2017-06-19] MEDS: LEVAQUIN PREMIX IV 750 MG 750 MG/150 ML BAG IV SCH (09:29)
[2017-06-19] MEDS: NICOTINE PATCH TD SCH (09:30)
[2017-06-19] MEDS: BUSPAR PO SCH (09:31)
[2017-06-19] MEDS: PROTONIX INJ 40 MG VIAL IVP SCH (09:31)
[2017-06-19] MEDS: COREG TAB 3.125 MG PO SCH (09:31)
[2017-06-19] MEDS: XANAX PO SCH (09:31)
[2017-06-19] MEDS: CHECK PATCH XX SCH (09:33)
[2017-06-19] MEDS: TUSSIONEX PENNKINETIC SUSP PO PRN (09:42)
[2017-06-19 18:59] VITALS: BP 128/54
== END 2017-06-19 16:05 | disposition home or self-care (01) | DRG 191 ==
LOC: ER 10:48 → MED/SURG 14:16
PROVIDERS: ADMIT Internal Medicine; ATTEND Internal Medicine
DX: J44.1 Chronic obstructive pulmonary disease with (acute) exacerbation (principal); R10.84 Generalized abdominal pain; E86.0 Dehydration; K52.89 Other specified noninfective gastroenteritis and colitis; I10 Essential (primary) hypertension; F41.8 Other specified anxiety disorders; E78.2 Mixed hyperlipidemia; K21.9 Gastro-esophageal reflux disease without esophagitis; R26.89 Other abnormalities of gait and mobility; I50.42 Chronic combined systolic (congestive) and diastolic (congestive) heart failure; M13.89 Other specified arthritis, multiple sites; Z85.118 Personal history of other malignant neoplasm of bronchus and lung
CPT/HCPCS: 36415; 74022; 80053; 81001; 82150; 83690; 85025; 94640; 96365; 96374; 99284; A4222; C9113; S0195; J1956; J2930; J7620; J7626

== ENCOUNTER 2017-08-08 05:52 | Inpatient (IN) | payer OTHER ==
[2017-08-08 06:11] VITALS: BMI 21.9
[2017-08-08] MEDS ORDERED: NS 1000 ML 1,000 ML IV ONE (06:32)
--- NOTE | 2017-08-08 06:35 | DR.GENAD ---
HPI - PCP Primary Care Physician: GILMA DOUGLAS - Complaint/Symptoms Chief Complaint Doctors Comments: Patient states she fell two times at home. The first time she feel whe was going to the bathroom and fell and hit her head and left hip. The second time she fell states her feet got tangled and she lost her balance and fell in her room on the floor. She is complaining of head , neck and left hip pain. Daughter states she heard her hit the floor and hurt the hip she had surgery before. Daughter states she has been having diarrhea and vomiting eartlier this week and has been weak. 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 Patient denies fever, chills or dysuria. Patient denies chest pain or SOB. states she is a patient of Gilma Douglas. Chief Complaint:: PT BROUGHT IN BY EMS WITH C/O FALL AT HOME AND PAIN TO LEFT HIP, PT RATES PAIN 9/10; SKIN TEAR NOTED TO RIGHT ELBOW AND HAND. PT STATES SHE "GOT DIZZY AND FELL" Self Treatment fo Chief Complaint: NA - Nurses notes reviewed Nurses Notes Review: Yes - Source History Provided: Patient - Mode of Arrival Mode of Arrival: Ambulatory - Timing Onset of Chief Complaint: 08/08/17 Came on: Suddenly - Duration Duration: Constant How lon Duration: Minutes - Location Location: left hip pain and head and neck pain - Severity Severity: Moderate - Modifying Factors Worsens:: movement Improves:: nothing <CHUCKY SANTIAGO - Last Filed: 08/08/17 08:16> PMH - PMH Past Medical History: Yes Past Medical History: Hypertension Past Medical History Comment: PREVIOUS LEFT HIP FX; MITRAL VALVE PROLAPSE Past Surgical History: Yes Surgical History: Cholecystectomy, Hysterectomy, Tonsillectomy - Family History History of Family Medical Conditions: No Family Medical History: Cancer - Social History Alcohol Use: None Do you use any recreational Drugs:: No Lives With: Family Lives Where: Home - infectious screening In the last 2 months have you had wt loss of >10#?: NO Have you had fever, night sweats or hemotysis?: No Have you traveled outside the country in the last 6 months?: No Isolation: Standard <CHUCKY SANTIAGO - Last Filed: 08/08/17 08:16> ROS - Review of Systems Constitutional: No Symptoms Reported, Weakness, Loss of Appetite. negative: See HPI, Chills, Diaphoresis, Fever, Malaise, Irritable, Fatigue, Other Eyes: No Symptoms Reported ENTM: No Symptoms Reported Respiratoy: No Symptoms Reported. negative: See HPI, Productive Cough, Non- Productive Cough, Moist Cough, Dry Cough, Hacking Cough, Barking Cough, Brassy Cough, Orthopnea, Short of Breath, Stridor, Wheezing, Hemoptysis, Other Cardiovascular: No Symptoms Reported. negative: See HPI, Chest Pain, Edema, Palpitations, Syncope, Cyanosis, Skin Mottling, Other Gastrointestinal/Abdominal: No Symptoms Reported, Diarrhea, Nausea, Vomiting Genitourinary: No Symptoms Reported Neurological: No Symptoms Reported, Headache, Weakness, Dizziness. negative: See HPI, Anxiety, Depressed, Emotional Problems, Numbness, Paresthesia, Pre- existing Deficit, Seizure, Tingling, Tremors, Problems Walking, Speech Problem, Other Musculoskeletal: No Symptoms Reported, Left, Neck, Hip Integumentary: No Symptoms Reported, Bruises Hematologic/Lymphatic: No Symptoms Reported. negative: See HPI, Anemia, Blood Clots, Easy Bleeding, Easy Bruising, Swollen Glands, Lymphadenopathy, Other Endocrine: No Symptoms Reported, Decreased Appetite. negative: See HPI, Excessive Sweating, Flushing, Intolerance to Cold, Intolerance to Heat, Increased Hunger, Increased Thirst, Increased Urine, Unexplained Weight Gain, Unexplained Weight Loss, Failure to Thrive, Other Psychiatric: No Symptoms Reported. negative: See HPI, Anxiety, Depression, Hallucinations, Excessive crying, Suicidal, Other <CHUCKY SANTIAGO - Last Filed: 08/08/17 08:16> PE - General Limitations: No Limitations General Appearance: Alert, In Distress (mild) - Head Head Exam: Normal Inspection, Atraumatic, Normocephalic - Eyes Eye exam: Normal Appearance, PERRL, EOMI. negative: Scleral Icterus, Conjunctival Injection, Nystagmus, Miosis, Mydrasis, Periorbital Swelling, Periorbital Tenderness, Other - ENT ENT Exam: Normal Exam, Normal Oropharynx, Normal External Ear Exam, Mucous Membranes Moist, TM's Normal Bilaterally External Ear Exam: Normal External Inspection TM/Canal Exam: Bilateral Normal Nose Exam: Normal Nose Exam Mouth Exam: Normal Inspection. negative: Drooling, Trismus, Lip Swelling, Tongue Elevation, Tongue Swelling, Laceration, Other Throat Exam: Normal Inspection - Neck Neck Exam: Normal Inspection, Full ROM, Trachea Midline. negative: Tenderness, Meningismus, Lymphadenopathy, Thyromegaly, Other - Chest Chest Inspection: Normal Inspection, Symmetric Chest Wall Rise. negative: Tenderness, Rash, Abscess, Other - Respiratory Respiratory Exam: Normal Lung Sounds Bilat Respiratory Exam: Bilateral Clear to Auscultation - Cardiovascular Cardiovascular Exam: Regular Rate, Normal Rhythm, Normal Heart Sounds - Abdominal Exam Abdominal Exam: Normal Inspection, Normal Bowel Sounds, Soft Abdominal Tenderness: negative: RUQ, RLQ, LUQ, LLQ, Epigastrium, Suprapubic, Diffuse, Mild, Moderate, Severe, Other - Extremities Extremities Exam: Normal Inspection, Full ROM, Tenderness (left hip tender; good range of motion), Normal Capillary Refill - Back Back Exam: Normal Inspection, Full ROM. negative: Tenderness, (R) CVA Tenderness, (L) CVA Tenderness, Muscle Spasm, Paraspinal Tenderness, Vertebral Tenderness, Rashes, (R) Sciatic Notch Tenderness, (L) Sciatic Notch Tendern, (R ) Straight Leg Raise, (L) Straight Leg Raise, Other - Neurologic Neurological Exam: Alert, Oriented X3, CN II-XII Intact, Reflexes Normal. negative: Normal Gait (gait not tested) - Psychiatric Psychiatric Exam: Normal Affect, Normal Mood - Skin Skin Exam: Warm, Dry, Intact, Normal Color <CHUCKY SANTIAGO - Last Filed: 08/08/17 08:16> - Vital Signs Vitals: Temperature 97.8 F Pulse Rate [Left Radial] 68 Pulse Rate 75 Respiratory Rate 19 Blood Pressure [Right Arm] 111/51 Blood Pressure [Left Arm] 128/54 Blood Pressure 94/51 O2 Sat by Pulse Oximetry 99 Course - Consultation Called: 08:17 Call Returned: 08:17 (Dr. Guerra to admit) Consultation Comments: Dr. Guerra consulted for admission and recommended patient be placed on Invanz 500mg daily. <CHUCKY SANTIAGO - Last Filed: 08/08/17 08:16> ROR - Labs Reviewed Laboratory Results Reviewed?: Yes (All lab results reviewed and discussed with patient and family) Result Diagrams: 08/08/17 07:11 08/08/17 07:11 - XRAY XRAY Interpreted by: Radiologist <CHUCKY SANTIAGO - Last Filed: 08/08/17 08:16> - Labs Reviewed Result Diagrams: 08/11/17 05:45 08/11/17 05:45 <PINEDA NÚÑEZ - Last Filed: 08/12/17 15:24> - Labs Reviewed Laboratory: WBC 11.2 X10^3/uL (3.6-10.0) H 08/11/17 05:45 RBC 2.93 X10^6/uL (3.5-5.4) L 08/11/17 05:45 Hgb 8.9 g/dL (12.0-16.0) L 08/11/17 05:45 Hct 25.9 % (36.0-47.0) L 08/11/17 05:45 MCV 88.4 fL (80.0-100.0) 08/11/17 05:45 MCH 30.3 pg (27.0-34.0) 08/11/17 05:45 MCHC 34.3 g/dL (33.0-35.0) 08/11/17 05:45 RDW 14.4 % (11.6-16.5) 08/11/17 05:45 Plt Count 163 X10^3/uL (150.0-450.0) 08/11/17 05:45 Plt Count Comment Adequate (ADEQUATE) 08/09/17 05:30 MPV 8.0 fL (7.4-11.0) 08/11/17 05:45 Neut % (Auto) 84.8 % (42.0-75.0) H 08/11/17 05:45 Lymph % (Auto) 6.8 % (21.0-51.0) L 08/11/17 05:45 [place] % (Auto) 4.4 % (0.0-13.0) 08/11/17 05:45 Eos % (Auto) 3.0 % (0.9-2.9) H 08/11/17 05:45 Baso % (Auto) 1.0 % (0.2-1.0) 08/11/17 05:45 Neut # (Auto) 9.5 x10^3/uL (2.2-4.8) H 08/11/17 05:45 Lymph # (Auto) 0.8 X10^3/uL (1.3-2.9) L 08/11/17 05:45 [place] # (Auto) 0.5 x10^3/uL (0.3-0.8) 08/11/17 05:45 Eos # (Auto) 0.3 x10^3/uL (0.0-0.2) H 08/11/17 05:45 Baso # (Auto) 0.1 X10^3/uL (0.0-0.1) 08/11/17 05:45 Absolute Nucleated RBC 0.0 /100WBC 08/11/17 05:45 Total Counted 100 08/09/17 05:30 Neutrophils % (Manual) 88 % (39-76) H 08/09/17 05:30 Band Neutrophils % 3 % (0-10) 08/09/17 05:30 Lymphocytes % (Manual) 6 % (13-43) L 08/09/17 05:30 Monocytes % (Manual) 3 % (4-9) L 08/09/17 05:30 Eosinophils % (Manual) 1 % (0-6) 08/08/17 07:11 Plt Morphology Comment Normal (NORMAL) 08/09/17 05:30 RBC Morphology Normal (NORMAL) 08/09/17 05:30 Sample Site Right radial 08/10/17 00:35 ABG pH 7.360 (7.35-7.45) 08/10/17 00:35 ABG pCO2 40.0 mmHg (35.0-45.0) 08/10/17 00:35 ABG pO2 103.0 mmHg (80.0-100.0) H 08/10/17 00:35 ABG HCO3 22.6 mmol/L (22-26) 08/10/17 00:35 ABG O2 Saturation 98.0 % (90-100) 08/10/17 00:35 ABG Base Excess -2.7 mmol/L (-2.0-2.0) L 08/10/17 00:35 Maxi Test Pos 08/10/17 00:35 A-a Gradient 47.0 mmHg 08/10/17 00:35 FiO2 28 08/10/17 00:35 Blood Gas Comments Ann-Marie well jts 08/10/17 00:35 Sodium 143 mmol/L (136-145) 08/11/17 05:45 Corrected Sodium TNP 08/11/17 05:45 Potassium 3.7 mmol/L (3.5-5.1) 08/11/17 05:45 Chloride 111 mmol/L (98-107) H 08/11/17 05:45 Carbon Dioxide 23.2 mmol/L (21-32) 08/11/17 05:45 BUN 15 mg/dL (7-18) 08/11/17 05:45 Creatinine 0.92 mg/dL (0.55-1.02) 08/11/17 05:45 Est GFR (MDRD) Af Amer > 60 (>60) 08/11/17 05:45 Est GFR (MDRD) Non-Af > 60 (>60) 08/11/17 05:45 Glucose 77 mg/dL (65-99) 08/11/17 05:45 Lactic Acid 0.8 mmol/L (0.4-2.0) 08/10/17 23:00 Calcium 8.0 mg/dL (8.5-10.1) L 08/11/17 05:45 Corrected Calcium 8.9 mg/dL (8.5-10.1) 08/11/17 05:45 Magnesium 2.0 mg/dL (1.7-2.9) 08/10/17 07:55 Total Bilirubin 0.30 mg/dL (0.2-1.0) 08/11/17 05:45 AST 21 Units/L (15-37) 08/11/17 05:45 ALT 19 Units/L (12-78) 08/11/17 05:45 Alkaline Phosphatase 90 Units/L (46-116) 08/11/17 05:45 Ammonia 11 umol/L (11-32) 08/09/17 10:35 Total Protein 6.0 g/dL (6.4-8.2) L 08/11/17 05:45 Albumin 2.9 g/dL (3.4-5.0) L 08/11/17 05:45 Globulin 3.1 g/dL (2.5-4.5) 08/11/17 05:45 Albumin/Globulin Ratio 0.9 Ratio (1.1-2.1) L 08/11/17 05:45 Triglycerides 111 mg/dL (0-150) 08/09/17 05:30 Cholesterol 97 mg/dL (0-200) 08/09/17 05:30 LDL Cholesterol, Calc 64 mg/dL (0-100) 08/09/17 05:30 HDL Cholesterol 11 mg/dL (40-60) L 08/09/17 05:30 Cholesterol/HDL Ratio 8.8 (0.0-5.0) H 08/09/17 05:30 Amylase 68 Units/L (25-115) 08/11/17 05:45 Lipase 3915 Units/L (73-393) H 08/11/17 05:45 Specimen Type Catherized urine 08/08/17 17:59 Urine Color Yellow (YELLOW) 08/08/17 17:59 Urine Appearance Slightly hazy (CLEAR) 08/08/17 17:59 Urine pH 5.0 (5.0 - 8.0) 08/08/17 17:59 Ur Specific [place] 1.010 (1.000-1.030) 08/08/17 17:59 Urine Protein 2+ (NEGATIVE) 08/08/17 17:59 Urine Glucose (UA) Negative (NEGATIVE) 08/08/17 17:59 Urine Ketones Negative (NEGATIVE) 08/08/17 17:59 Urine Occult Blood 3+ (NEGATIVE) 08/08/17 17:59 Urine Nitrite Negative (NEGATIVE) 08/08/17 17:59 Urine Bilirubin 1+ (NEGATIVE) 08/08/17 17:59 Urine Urobilinogen Normal (NORMAL) 08/08/17 17:59 Ur Leukocyte Esterase Negative (NEGATIVE) 08/08/17 17:59 Urine RBC 0-2 /HPF (NONE SEEN) 08/08/17 17:59 Urine WBC None seen /HPF (NONE SEEN) 08/08/17 17:59 Ur Squamous Epith Cells Negative /HPF (NEGATIVE) 08/08/17 17:59 Amorphous Sediment Trace /HPF (NEGATIVE) 08/08/17 17:59 Urine Bacteria Negative /HPF (NEGATIVE) 08/08/17 17:59 Urine Mucus Rare /HPF (NEGATIVE) 08/08/17 17:59 Ur Culture Indicated? No/not indicated 08/08/17 17:59 <CHUCKY SANTIAGO - Last Filed: 08/08/17 08:16> <PINEDA NÚÑEZ - Last Filed: 08/12/17 15:24> - Diagnosis Discharge Problem: Dehydration, severe, Gastroenteritis, Hyponatremia, Contusion of head and hip Acute renal failure Qualifiers: Acute renal failure type: unspecified Qualified Code(s): N17.9 - Acute kidney failure, unspecified Pancreatitis, acute Qualifiers: Pancreatitis type: unspecified pancreatitis type Leukocytosis Qualifiers: Leukocytosis type: unspecified Qualified Code(s): D72.829 - Elevated white blood cell count, unspecified - Discharge Plan Disposition: 09 ADMITTED INPATIENT Condition: Stable
[2017-08-08] MEDS ORDERED: NS 1000 ML 1,000 ML ONE ×2 (06:43→18:55)
[2017-08-08 07:19] LABS: BASOPHILS # (AUTO) 0.1 X10^3/uL (0.0-0.1); BASOPHILS % (AUTO) 0.5 % (0.2-1.0); EOSINOPHILS # (AUTO) 0.3 x10^3/uL (0.0-0.2); EOSINOPHILS % (AUTO) 1.2 % (0.9-2.9); HEMATOCRIT 32.9 % (36.0-47.0); HEMOGLOBIN 11.4 g/dL (12.0-16.0); LYMPHOCYTES # (AUTO) 1.3 X10^3/uL (1.3-2.9); LYMPHOCYTES % (AUTO) 5.8 % (21.0-51.0); MEAN CORPUSCULAR HEMOGLOBIN 30.3 pg (27.0-34.0); MEAN CORPUSCULAR HGB CONC 34.6 g/dL (33.0-35.0); MEAN CORPUSCULAR VOLUME 87.6 fL (80.0-100.0); MEAN PLATELET VOLUME 8.3 fL (7.4-11.0); MONOCYTES # (AUTO) 0.9 x10^3/uL (0.3-0.8); NEUTROPHILS # (AUTO) 20.1 x10^3/uL (2.2-4.8); NEUTROPHILS % (AUTO) 88.5 % (42.0-75.0); PLATELET COUNT 280 X10^3/uL (150.0-450.0); RED BLOOD COUNT 3.76 X10^6/uL (3.5-5.4); RED CELL DISTRIBUTION WIDTH 13.9 % (11.6-16.5); WHITE BLOOD COUNT 22.7 X10^3/uL (3.6-10.0)
[2017-08-08 07:35] LABS: ALANINE AMINOTRANSFERASE 26 Units/L (12-78); ALBUMIN 3.1 g/dL (3.4-5.0); ALKALINE PHOSPHATASE 116 Units/L (46-116); AMYLASE 40 Units/L (25-115); ASPARTATE AMINO TRANSFERASE 24 Units/L (15-37); BLOOD UREA NITROGEN 70 mg/dL (7-18); CALCIUM 8.3 mg/dL (8.5-10.1); CHLORIDE 96 mmol/L (98-107); CREATININE 4.38 mg/dL (0.55-1.02); SODIUM 126 mmol/L (136-145); TOTAL PROTEIN 7.2 g/dL (6.4-8.2); eGFR BLACK RACES 13 (>60); eGFR NON BLACK RACES 11 (>60)
[2017-08-08 07:37] LABS: CARBON DIOXIDE 13.9 mmol/L (21-32)
[2017-08-08 07:38] LABS: BAND NEUTROPHILS % 7 % (0-10); PLATELET MORPHOLOGY COMMENT NORMAL (NORMAL)
[2017-08-08 07:48] LABS: LIPASE 4364 Units/L (73-393)
--- NOTE | 2017-08-08 08:03 | CT ---
HISTORY: Fall. Study: CT brain without contrast Comparison: CT head dated June 01, 2017. Technique: Multiple axial images of the brain were obtained from the skull base to the vertex without administra tion of IV contrast. Dose reduction techniques including Automated Exposure Control (AEC) and adjust ment of mA and kV were utilized. Findings: Age-related cortical atrophy and chronic small vessel ischemic changes. No acute intraparenchymal hem orrhage or mass can be identified. No extra-axial fluid collections are seen. No alteration in the attenuation of the brain parenchyma can be identified to suggest acute or subacute ischemic change. The ventricular system is symmetric and nondilated. The extracranial structures are grossly unremark able. IMPRESSION: No acute intracranial pathology. Reported By:
--- NOTE | 2017-08-08 08:06 | CT ---
HISTORY: Fall at home. Study: CT cervical spine without contrast Comparison: Cervical spine series dated May 10, 2017. Technique: Multiple axial images of the cervical spine were obtained from the skull base to the thora cic inlet without administration of IV contrast. Sagittal and coronal reformats were performed and r eviewed. Dose reduction techniques including Automated Exposure Control (AEC) and adjustment of mA an d kV were utilized. Findings: Anatomic alignment without acute fracture or listhesis. Mild multilevel degenerative changes of the c ervical spine. Otherwise, the vertebral body heights and disc spaces are maintained. No significant n eural foraminal narrowing or spinal canal stenosis. The prevertebral soft tissues and lung apices nola ear normal. Secretions are seen within the left sphenoid sinus. IMPRESSION: No acute cervical pathology. Reported By:
--- NOTE | 2017-08-08 08:14 | CT ---
HISTORY: Left hip pain status post fall. Study: CT pelvis without contrast Comparison: CT pelvis dated May 22, 2014. Technique: Multiple axial images of the pelvis without administration of IV contrast. Sagittal and c oronal reformats were performed and reviewed. Dose reduction techniques including Automated Exposure Control (AEC) and adjustment of mA and kV were utilized. Findings: No acute fracture or dislocation. Remote healed left intertrochanteric hip fracture. The visualized s oft tissues are unremarkable. IMPRESSION: No acute osseous abnormality. Reported By:
[2017-08-08] MEDS ORDERED: INVANZ INJ 1 GM VIAL ONE (08:19)
[2017-08-08] MEDS ORDERED: NS 100 ML IV 100 ML IV ONE (08:19)
[2017-08-08] MEDS ORDERED: ZOFRAN INJ 4 MG VIAL IVP PRN (08:28)
--- NOTE | 2017-08-08 08:41 | RAD ---
HISTORY: Fall with left hip pain. Study: Two views of the left hip. Comparison: CT pelvis dated same day and bilateral hip series dated May 10, 2017. Findings: Healed remote left intertrochanteric hip fracture. Mild osteoarthritis of the bilateral hips. No acut e cortical disruption or dislocation can be identified. No significant soft tissue swelling or injur y can be seen. IMPRESSION: No acute osseous abnormality. Reported By:
[2017-08-08] MEDS ORDERED: D5 1/2 NS 1000 ML 1,000 ML IV SCH (09:00)
[2017-08-08] MEDS ORDERED: INVANZ INJ 1 GM VIAL 0.5 GM in NS 100 ML IV 100 ML IV SCH (09:00)
[2017-08-08] MEDS ORDERED: INVANZ INJ 1 GM VIAL 0.5 GM in NS 50 ML IV 50 ML IV SCH (09:00)
[2017-08-08] MEDS: PEPCID 20 MG IV PREMIX* 20 MG/50 ML BAG IV SCH (12:27)
--- NOTE | 2017-08-08 12:31 | RAD ---
Indication: Central line placement Exam: Portable chest Comparison: 06/15/2017 Findings: The heart is normal. The pulmonary vessels are normal. The lungs are hypoinflated and there is overlying EKG lead artifact. There is a left subclavian catheter in place with the tip in the dis alvaro superior vena cava. The lungs are hypoinflated with mild linear densities along the lung bases wh ich are less prominent . No effusion or pneumothorax is seen. Impression: Status post left subclavian catheter placement in good position . Hypoinflation with mild discoid atelectasis or scarring along the lung bases which is less prominent. Reported By:
[2017-08-08 18:02] LABS: BILIRUBIN,URINE 1+ (NEGATIVE); BLOOD/HEMOGLOBIN,URINE 3+ (NEGATIVE); GLUCOSE, URINE NEGATIVE (NEGATIVE); KETONES,URINE NEGATIVE (NEGATIVE); LEUKOCYTE ESTERASE ,URINE NEGATIVE (NEGATIVE); NITRITES,URINE NEGATIVE (NEGATIVE); PROTEIN,URINE 2+ (NEGATIVE); UROBILINOGEN,URINE NORMAL (NORMAL)
[2017-08-08 18:03] LABS: APPEARANCE,URINE SLIGHTLY HAZY (CLEAR); COLOR,URINE YELLOW (YELLOW)
[2017-08-08 18:11] LABS: AMORPHOUS SEDIMENT,UR TRACE /HPF (NEGATIVE); BACTERIA,URINE NEGATIVE /HPF (NEGATIVE); MUCUS,URINE RARE /HPF (NEGATIVE); RBC,URINE 0-2 /HPF (NONE SEEN); SQUAMOUS EPITHELIAL CELL,UR NEGATIVE /HPF (NEGATIVE)
[2017-08-08] MEDS ORDERED: NS 1000 ML 2,000 ML IV ONE (18:55)
[2017-08-08] MEDS ORDERED: SODIUM BICARBONATE 8.4% INJ ADULT ONE (21:03)
[2017-08-08] MEDS: NS 1000 ML 1,000 ML IV SCH (21:30)
[2017-08-09] MEDS: NS 1000 ML 1,000 ML IV SCH ×2 (04:30→11:17)
[2017-08-09] MEDS ORDERED: SODIUM BICARBONATE 8.4% INJ ADULT ONE (04:31)
[2017-08-09 06:18] LABS: BASOPHILS # (AUTO) 0.1 X10^3/uL (0.0-0.1); BASOPHILS % (AUTO) 0.7 % (0.2-1.0); EOSINOPHILS # (AUTO) 0.1 x10^3/uL (0.0-0.2); EOSINOPHILS % (AUTO) 0.9 % (0.9-2.9); HEMATOCRIT 28.9 % (36.0-47.0); HEMOGLOBIN 9.9 g/dL (12.0-16.0); LYMPHOCYTES # (AUTO) 0.7 X10^3/uL (1.3-2.9); LYMPHOCYTES % (AUTO) 4.4 % (21.0-51.0); MEAN CORPUSCULAR HEMOGLOBIN 30.4 pg (27.0-34.0); MEAN CORPUSCULAR HGB CONC 34.2 g/dL (33.0-35.0); MEAN CORPUSCULAR VOLUME 88.8 fL (80.0-100.0); MEAN PLATELET VOLUME 8.6 fL (7.4-11.0); MONOCYTES # (AUTO) 0.6 x10^3/uL (0.3-0.8); MONOCYTES % (AUTO) 3.9 % (0.0-13.0); NEUTROPHILS # (AUTO) 14.6 x10^3/uL (2.2-4.8); NEUTROPHILS % (AUTO) 90.1 % (42.0-75.0); PLATELET COUNT 224 X10^3/uL (150.0-450.0); RED BLOOD COUNT 3.25 X10^6/uL (3.5-5.4); RED CELL DISTRIBUTION WIDTH 13.9 % (11.6-16.5); WHITE BLOOD COUNT 16.2 X10^3/uL (3.6-10.0)
[2017-08-09 06:52] LABS: BAND NEUTROPHILS % 3 % (0-10); PLATELET MORPHOLOGY COMMENT NORMAL (NORMAL)
[2017-08-09 06:56] LABS: AMYLASE 67 Units/L (25-115); BLOOD UREA NITROGEN 49 mg/dL (7-18); CALCIUM 7.4 mg/dL (8.5-10.1); CARBON DIOXIDE 15.5 mmol/L (21-32); CHLORIDE 107 mmol/L (98-107); CREATININE 2.35 mg/dL (0.55-1.02); SODIUM 136 mmol/L (136-145); eGFR BLACK RACES 27 (>60); eGFR NON BLACK RACES 22 (>60)
[2017-08-09 07:16] LABS: LIPASE 7307 Units/L (73-393)
[2017-08-09 08:31] LABS: CHOL/HDL RATIO 8.8 (0.0-5.0)
[2017-08-09] MEDS: INVANZ INJ 1 GM VIAL 0.5 GM in NS 100 ML IV 100 ML IV SCH (09:07)
[2017-08-09] MEDS: PEPCID 20 MG IV PREMIX* 20 MG/50 ML BAG IV SCH ×2 (09:07→21:03)
--- NOTE | 2017-08-09 10:14 | DR.H&P ---
H&P - History & Physical for Day of: H&P Date: 08/08/17 - Chief Complaint Chief Complaint: FALL, GENERALIZED WEAKNESS, GENERALIZED PAIN - Allergies Allergies/Adverse Reactions: Allergies Allergy/AdvReac Type Severity Reaction Status Date / Time ceftriaxone Allergy Verified 06/17/17 14:01 fluoxetine [From Prozac] Allergy Verified 06/17/17 14:01 ketorolac [From Toradol] Allergy Verified 06/17/17 14:01 - History of Present Illness History of Present Illness: IS A 61 YEAR OLD PATIENT OF [facility] WHO PRESENTED TO THE EMERGENCY ROOM VIA EMS. FAMILY REPORTS THAT PATIENT FELL AT HOME TWICE AND COMPLAINS OF LEFT HIP PAIN, NECK PAIN, AND A HEADACHE. DAUGHTER ALSO REPORTS THAT PATIENT HAS HAD DIARRHEA AND VOMITING FOR THE PAST SEVERAL DAYS. PATIENT DENIES FEVER, CHILLS, DYSURIA, CHEST PAIN, OR SHORTNESS OF BREATH. ON EXAMINATION, PATIENT IS NOTED WITH A SKIN TEAR TO THE RIGHT ELBOW AND HAND. ON ARRIVAL, VITALS WERE 97.4-77-19-96%-102/55. LABS WERE OBTAINED. ABNORMAL LAB VALUES INCLUDE THE FOLLOWING: WBC 22.7, HGB 11.4, HCT 32.9, SODIUM 126, CHOLRIDE 96, CARBON DIOXIDE 13.9, BUN 70, CREATININE 4.38, CALCIUM 8.3, ALBUMIN 3.1, LIPASE 4364. A BRAIN CT WAS OBTAINED AN REVEALED NO ACUTE INTRACRANIAL PATHOLOGY. CERVICAL SPIN CT, HIP XRAY, PELVIS CT, AND CHEST XRAY ARE ALL NEGATIVE FOR ACUTE ABNORMALITY. SHE WAS GIVEN A NORMAL SALINE BOLUS X 2 WITH NO IMPROVEMENT IN SYMPTOMS NOTED. PATIENT ADMITTED FOR FURTHER EVALUATION AND TREATMENT OF ACUTE RENAL FAILURE, PANCREATITIS, AND DEHYDRATION. SHE WAS STARTED ON NORMAL SALINE AT 150ML/HR, INVANZ 500MGIV DAILY, AND PEPCID 20MG IV DAILY. WE PLAN TO FOLLOW UP WITH AM LABS AND CONTINUE TO MONITOR PATIENT. - Past Medical History Past Medical History: Hypertension Additional Medical History: Hx Diverticulosis, Gastrointestinal ulcer, heart murmur, diverticulosis, small cell carcinoma - Past Surgical History Surgical History: Cholecystectomy, Hysterectomy, Other - Family History Family Medical History: Cancer, Heart Failure, Sudden Cardiac - Social History Does patient currently use any type of tobacco product: Yes Have you used tobacco products in the last 12 months: Yes Type of Tobacco Use: Cigarettes How many years tobacco product used: 50 Alcohol Use: None Drug Use: None - Medications Home Medications: Hydrocodone-Acet 10/325 mg [NORCO 10 MG/325 MG *] 1 tab PO TID PRN 08/08/17 [ History Confirmed 08/08/17] Pantoprazole Sodium 40 mg [PROTONIX 40 MG *] 1 tab PO DAILY 08/08/17 [History Confirmed 08/08/17] - Review of Systems Constitutional: Weakness, Malaise, Other (LOSS OF APPETITE) Eyes: No Symptoms Reported ENT: No Symptoms Reported Respiratory: No Symptoms Reported Cardiovascular: Light Headedness Gastrointestinal: Nausea, Vomiting, Abdominal Pain, Diarrhea. denies: Constipation, Hematochezia Genitourinary: No Symptoms Reported Musculoskeletal: See HPI, Back Pain, Neck Pain, Other (LEFT HIP PAIN ) Skin: No Symptoms Reported Neurological: Weakness - Physical Exam Vital Signs: Temperature 97.9 F Pulse Rate [Left Radial] 72 Pulse Rate 75 Respiratory Rate 19 Blood Pressure [Right Arm] 153/66 Blood Pressure [Left Arm] 128/54 Blood Pressure 94/51 O2 Sat by Pulse Oximetry 98 Oriented: Person Eyes: Normal Ear: Normal Nose: Normal Throat: Normal Respiratory: Clear Throughout Cardiovascular: Normal : Normal Auscultation: Bowel Sounds: Increased Palpation: Normal Tenderness: Diffuse Skin: Red, Wound (RIGH ELBOW SKIN TEAR ) Musculoskeletal: Left, Hip Psychiatric: Normal Mood Description: Calm Affect: Normal Speech Pattern: Clear - Assessment/Plan (1) Acute renal failure Qualifiers: Acute renal failure type: unspecified Status: Acute Plan: NORMAL SALINE @ 150ML/HR, CONTINUE TO MONITOR (2) Dehydration, severe Status: Acute Plan: NORMAL SALINE AT 150ML/HR (3) Pancreatitis, acute Qualifiers: Pancreatitis type: unspecified pancreatitis type Status: Acute Plan: NORMAL SALINE AT 150ML/HR, INVANZ 500MG IV DAILY, PEPCID IV, PROTONIX IV, CONTINUE TO MONITOR
[2017-08-09] MEDS ORDERED: XANAX PO PRN (10:24)
[2017-08-09] MEDS: PROTONIX INJ 40 MG VIAL IVP SCH ×2 (11:14→21:03)
[2017-08-09] MEDS: MORPHINE SULFATE INJ 2 MG INJ IVP PRN ×2 (11:19→23:30)
--- NOTE | 2017-08-09 11:43 | PCM.PROG ---
Progress Note - Progress Note for Day of Date: 08/09/17 - Subjective Subjective: IS BEING TREATED FOR ACUTE RENAL FAILURE, ACUTE PANCREATITIS , AND DEHYDRATION. TODAY, SHE IS LYING IN BE ON MORNING ROUNDS. PATIENTS DAUGHTER IS AT BEDSIDE. PATIENT ANSWERS QUESTIONS APPROPRIATELY THIS MORNING, HOWEVER, DAUGHTER AND STAFF REPORT THAT PATIENT HAS CONTINUED WITH CONFUSION THROUGHOUT THE NIGHT. SHE IS NOTED WITH COMPLAINTS OF GENERALIZED WEAKNESS, DIARRHEA, AND ACHING ALL OVER. HER VITALS THIS MORNING ARE 97.9-72-19-97%-145/ 65. LABS WERE OBTAINED. ABNORMAL LAB VALUES INCLUDE THE FOLLOWING: WBC 16.2, RBC 3.25, HGB 9.9, HCT 28.9, CARBON DIOXIDE 15.5, BUN 49, CREATININE 2.35, CALCIUM 7.4, HDL 11, CHOLESTEROL 8.8, LIPASE INCREASED FROM 4364 TO 7307. TODAY , WE WILL ORDER A BRAIN MRI, AN ABDOMEN/PELVIS CT WITHOUT CONTRAST, START MORPHINE 2MG IV Q4H PRN PAIN, AND CHECK A STOOL FOR C.DIFF. OTHERWISE, WE WILL CONTINUE WITH CURRENT PLAN OF CARE. WE PLAN TO FOLLOW UP WITH AM LABS AND CONTINUE TO MONITOR PATIENT. - Past Medical Family Social History Past Med/Fam/Surg Hx: No changes since H&P Allergies: Allergies ceftriaxone Allergy (Verified 06/17/17 14:01) fluoxetine [From Prozac] Allergy (Verified 06/17/17 14:01) ketorolac [From Toradol] Allergy (Verified 06/17/17 14:01) - Review of Systems ROS: No change since H&P - Vital Signs and I&O's Vital Signs: Temperature 97.9 F Pulse Rate [Left Radial] 72 Pulse Rate 75 Respiratory Rate 19 Blood Pressure [Right Arm] 145/65 Blood Pressure [Left Arm] 128/54 Blood Pressure 94/51 O2 Sat by Pulse Oximetry 97 Intake and Output: Intake & Output 08/06/17 08/07/17 08/08/17 08/09/17 11:59 11:59 11:59 11:59 Intake Total 5504 Output Total 1675 Balance 3829 - Physical Exam Oriented: Normal Eyes: Normal Ear: Normal Nose: Normal Throat: Normal Respiratory: Normal Cardiovascular: Normal : Normal Auscultation: Bowel Sounds: Increased Palpation: Normal Tenderness: Diffuse Skin: Red, Wound (RIGH ELBOW SKIN TEAR ) Musculoskeletal: Left, Hip Psychiatric: Normal Mood Description: Calm Affect: Normal Speech Pattern: Clear - Laboratory and Diagnostics Result Diagrams: 08/09/17 05:30 08/09/17 05:30 Labs: Laboratory WBC 16.2 X10^3/uL (3.6-10.0) H 08/09/17 05:30 RBC 3.25 X10^6/uL (3.5-5.4) L 08/09/17 05:30 Hgb 9.9 g/dL (12.0-16.0) L 08/09/17 05:30 Hct 28.9 % (36.0-47.0) L 08/09/17 05:30 MCV 88.8 fL (80.0-100.0) 08/09/17 05:30 MCH 30.4 pg (27.0-34.0) 08/09/17 05:30 MCHC 34.2 g/dL (33.0-35.0) 08/09/17 05:30 RDW 13.9 % (11.6-16.5) 08/09/17 05:30 Plt Count 224 X10^3/uL (150.0-450.0) 08/09/17 05:30 Plt Count Comment Adequate (ADEQUATE) 08/09/17 05:30 MPV 8.6 fL (7.4-11.0) 08/09/17 05:30 Neut % (Auto) 90.1 % (42.0-75.0) H 08/09/17 05:30 Lymph % (Auto) 4.4 % (21.0-51.0) L 08/09/17 05:30 Edgar % (Auto) 3.9 % (0.0-13.0) 08/09/17 05:30 Eos % (Auto) 0.9 % (0.9-2.9) 08/09/17 05:30 Baso % (Auto) 0.7 % (0.2-1.0) 08/09/17 05:30 Neut # (Auto) 14.6 x10^3/uL (2.2-4.8) H 08/09/17 05:30 Lymph # (Auto) 0.7 X10^3/uL (1.3-2.9) L 08/09/17 05:30 Edgar # (Auto) 0.6 x10^3/uL (0.3-0.8) 08/09/17 05:30 Eos # (Auto) 0.1 x10^3/uL (0.0-0.2) 08/09/17 05:30 Baso # (Auto) 0.1 X10^3/uL (0.0-0.1) 08/09/17 05:30 Absolute Nucleated RBC 0.0 /100WBC 08/09/17 05:30 Total Counted 100 08/09/17 05:30 Neutrophils % (Manual) 88 % (39-76) H 08/09/17 05:30 Band Neutrophils % 3 % (0-10) 08/09/17 05:30 Lymphocytes % (Manual) 6 % (13-43) L 08/09/17 05:30 Monocytes % (Manual) 3 % (4-9) L 08/09/17 05:30 Eosinophils % (Manual) 1 % (0-6) 08/08/17 07:11 Plt Morphology Comment Normal (NORMAL) 08/09/17 05:30 RBC Morphology Normal (NORMAL) 08/09/17 05:30 Sodium 136 mmol/L (136-145) 08/09/17 05:30 Corrected Sodium TNP 08/09/17 05:30 Potassium 3.5 mmol/L (3.5-5.1) 08/09/17 05:30 Chloride 107 mmol/L (98-107) 08/09/17 05:30 Carbon Dioxide 15.5 mmol/L (21-32) L 08/09/17 05:30 BUN 49 mg/dL (7-18) H 08/09/17 05:30 Creatinine 2.35 mg/dL (0.55-1.02) H 08/09/17 05:30 Est GFR (MDRD) Af Amer 27 (>60) L 08/09/17 05:30 Est GFR (MDRD) Non-Af 22 (>60) L 08/09/17 05:30 Glucose 72 mg/dL (65-99) 08/09/17 05:30 Calcium 7.4 mg/dL (8.5-10.1) L 08/09/17 05:30 Corrected Calcium 9.0 mg/dL (8.5-10.1) 04/15/18 07:11 Total Bilirubin 0.20 mg/dL (0.2-1.0) 08/08/17 07:11 AST 24 Units/L (15-37) 08/08/17 07:11 ALT 26 Units/L (12-78) 08/08/17 07:11 Alkaline Phosphatase 116 Units/L (46-116) 08/08/17 07:11 Total Protein 7.2 g/dL (6.4-8.2) 08/08/17 07:11 Albumin 3.1 g/dL (3.4-5.0) L 08/08/17 07:11 Globulin 4.1 g/dL (2.5-4.5) 08/08/17 07:11 Albumin/Globulin Ratio 0.8 Ratio (1.1-2.1) L 08/08/17 07:11 Triglycerides 111 mg/dL (0-150) 08/09/17 05:30 Cholesterol 97 mg/dL (0-200) 08/09/17 05:30 LDL Cholesterol, Calc 64 mg/dL (0-100) 08/09/17 05:30 HDL Cholesterol 11 mg/dL (40-60) L 08/09/17 05:30 Cholesterol/HDL Ratio 8.8 (0.0-5.0) H 08/09/17 05:30 Amylase 67 Units/L (25-115) 08/09/17 05:30 Lipase 7307 Units/L (73-393) H 08/09/17 05:30 Specimen Type Catherized urine 08/08/17 17:59 Urine Color Yellow (YELLOW) 08/08/17 17:59 Urine Appearance Slightly hazy (CLEAR) 08/08/17 17:59 Urine pH 5.0 (5.0 - 8.0) 08/08/17 17:59 Ur Specific [place] 1.010 (1.000-1.030) 08/08/17 17:59 Urine Protein 2+ (NEGATIVE) 08/08/17 17:59 Urine Glucose (UA) Negative (NEGATIVE) 08/08/17 17:59 Urine Ketones Negative (NEGATIVE) 08/08/17 17:59 Urine Occult Blood 3+ (NEGATIVE) 08/08/17 17:59 Urine Nitrite Negative (NEGATIVE) 08/08/17 17:59 Urine Bilirubin 1+ (NEGATIVE) 08/08/17 17:59 Urine Urobilinogen Normal (NORMAL) 08/08/17 17:59 Ur Leukocyte Esterase Negative (NEGATIVE) 08/08/17 17:59 Urine RBC 0-2 /HPF (NONE SEEN) 08/08/17 17:59 Urine WBC None seen /HPF (NONE SEEN) 08/08/17 17:59 Ur Squamous Epith Cells Negative /HPF (NEGATIVE) 08/08/17 17:59 Amorphous Sediment Trace /HPF (NEGATIVE) 08/08/17 17:59 Urine Bacteria Negative /HPF (NEGATIVE) 08/08/17 17:59 Urine Mucus Rare /HPF (NEGATIVE) 08/08/17 17:59 Ur Culture Indicated? No/not indicated 08/08/17 17:59 - Plan (1) Acute renal failure Status: Acute Qualifiers: Acute renal failure type: unspecified Qualified Code(s): N17.9 - Acute kidney failure, unspecified Plan: NORMAL SALINE @ 150ML/HR, CONTINUE TO MONITOR (2) Dehydration, severe Status: Acute Plan: NORMAL SALINE AT 150ML/HR (3) Pancreatitis, acute Status: Acute Qualifiers: Pancreatitis type: unspecified pancreatitis type Plan: ABDOMEN/PELVIS CT WITHOUT CONTRAST, NORMAL SALINE AT 150ML/HR, INVANZ 500MG IV DAILY, PEPCID IV, PROTONIX IV, CONTINUE TO MONITOR (4) Diarrhea Status: Acute Qualifiers: Diarrhea type: unspecified type Qualified Code(s): R19.7 - Diarrhea, unspecified Plan: STOOL FOR C.DIFF, CONTINUE TO MONITOR (5) Mental status alteration Status: Acute Qualifiers: Altered mental status type: transient alteration of awareness Qualified Code(s): R40.4 - Transient alteration of awareness Plan: OBTAIN BRAIN MRI, CONTINUE TO MONITOR
--- NOTE | 2017-08-09 12:25 | CT ---
CT OF THE ABDOMEN AND PELVIS WITHOUT CONTRAST HISTORY: Abdominal pain. Comparison: Pelvic CT 08/08/2017 Technique: Multiple axial images of the abdomen and pelvis were obtained from the lung bases to the pubic symphy sis without the administration of IV contrast. Dose reduction techniques including Automated Exposur e Control (AEC) and adjustment of mA and kV were utlized. Findings: The heart is normal in size. There is no pericardial effusion. Emphysema, atelectasis and scarring at the lung bases bilaterally.. The sensitivity for focal lesion detection within the solid abdominal viscera is diminished without t he use of IV contrast. Liver and spleen are normal in size, and contour. No focal lesions. No ductal dilitation. Gallbladder absent. The pancreas is unremarkable. Adrenal glands are normal. Kidneys are normal in contour witho ut hydronephrosis or nephrolithiasis. Mild wall thickening of the visualized portions of the colon, most notable in the right. No abnormal appearing mesenteric or retroperitoneal lymph nodes. No free fluid or fluid collections. The bladder is normal in appearance. Uterus appears to be absent. No free fluid or abnormal pelvic ly mph nodes. No aggressive osseous lesions. IMPRESSION: 1. Diffuse [id number] colon wall thickening suggesting camacho colitis. Correlate with symptoms as infectious/inflammatory/ischemic sources cannot be excluded. Reported By:
--- NOTE | 2017-08-09 13:01 | MRI ---
MRI OF THE BRAIN WITHOUT IV CONTRAST CLINICAL INDICATION: Fall and altered mental status TECHNIQUE: Pre-contrast T1-w, T2, and diffusion-w sequences of the brain with ADC maps. COMPARISON: CT 08/08/2017 FINDINGS: Diffuse patchy and confluent periventricular and subcortical T2/FLAIR signal with associated volume l oss. There is no mass or mass-effect, or abnormal extra-axial fluid collection. Diffusion imaging sh ows no hyperacute, acute, or early subacute infarction. Age-related, ex-vacuo dilatation of the ventr icles and sulci. There are normal signal voids in the larger intracranial vessels. The paranasal sinu ses and mastoid air cells are predominantly clear. The marrow signal pattern is within normal limits. IMPRESSION: 1. No acute intracranial abnormality. 2. Chronic microangiopathic changes and ex vacuo dilatation of the ventricles and sulci. Reported By:
[2017-08-09] MEDS: BUSPAR PO SCH ×2 (14:14→20:38)
--- NOTE | 2017-08-09 16:09 | RAD ---
History: Cough and congestion Study: Portable AP chest Comparison: Yesterday Findings: There is unchanged left subclavian venous line with the tip in the SVC. The lungs are gross ly clear and the heart size is normal. No effusion is suggested. Impression: No acute cardiopulmonary disease demonstrated Reported By:
[2017-08-09] MEDS: NS 1000 ML 1,000 ML with SODIUM BICARBONATE 8.4% INJ ADULT 50 ML IV SCH ×2 (17:45)
[2017-08-09] MEDS ORDERED: SODIUM BICARBONATE 8.4% IV SCH (18:00)
[2017-08-09] MEDS ORDERED: NS IV SCH (18:00)
[2017-08-09] MEDS: ASPIRIN EC 81 MG PO SCH (21:02)
[2017-08-09] MEDS: NYSTATIN SUSP MT SCH (21:03)
[2017-08-09] MEDS: NICOTINE PATCH TD SCH (22:57)
[2017-08-09] MEDS: CHECK PATCH XX SCH (22:57)
[2017-08-10] MEDS: NS 1000 ML 1,000 ML with SODIUM BICARBONATE 8.4% INJ ADULT 50 ML IV SCH ×4 (02:15→14:57)
[2017-08-10 05:27] LABS: BASOPHILS % (AUTO) 0.3 % (0.2-1.0); EOSINOPHILS # (AUTO) 0.2 x10^3/uL (0.0-0.2); EOSINOPHILS % (AUTO) 1.5 % (0.9-2.9); HEMATOCRIT 26.6 % (36.0-47.0); HEMOGLOBIN 9.3 g/dL (12.0-16.0); LYMPHOCYTES # (AUTO) 0.8 X10^3/uL (1.3-2.9); LYMPHOCYTES % (AUTO) 6.6 % (21.0-51.0); MEAN CORPUSCULAR HEMOGLOBIN 30.8 pg (27.0-34.0); MEAN CORPUSCULAR HGB CONC 35.1 g/dL (33.0-35.0); MEAN CORPUSCULAR VOLUME 87.9 fL (80.0-100.0); MEAN PLATELET VOLUME 7.9 fL (7.4-11.0); MONOCYTES # (AUTO) 0.7 x10^3/uL (0.3-0.8); MONOCYTES % (AUTO) 6.1 % (0.0-13.0); NEUTROPHILS # (AUTO) 10.1 x10^3/uL (2.2-4.8); NEUTROPHILS % (AUTO) 85.5 % (42.0-75.0); PLATELET COUNT 182 X10^3/uL (150.0-450.0); RED BLOOD COUNT 3.03 X10^6/uL (3.5-5.4); RED CELL DISTRIBUTION WIDTH 14.2 % (11.6-16.5); WHITE BLOOD COUNT 11.8 X10^3/uL (3.6-10.0)
[2017-08-10 05:44] LABS: ALANINE AMINOTRANSFERASE 19 Units/L (12-78); ALBUMIN 2.3 g/dL (3.4-5.0); ALKALINE PHOSPHATASE 95 Units/L (46-116); ASPARTATE AMINO TRANSFERASE 24 Units/L (15-37); BLOOD UREA NITROGEN 27 mg/dL (7-18); CALCIUM 7.4 mg/dL (8.5-10.1); CARBON DIOXIDE 20.4 mmol/L (21-32); CHLORIDE 110 mmol/L (98-107); COR CA(FOR HYPOALB) 8.8 mg/dL (8.5-10.1); CREATININE 1.16 mg/dL (0.55-1.02); SODIUM 142 mmol/L (136-145); TOTAL PROTEIN 5.6 g/dL (6.4-8.2); eGFR BLACK RACES > 60 (>60); eGFR NON BLACK RACES 50 (>60)
[2017-08-10] MEDS: MORPHINE SULFATE INJ 2 MG INJ IVP PRN ×2 (06:00→15:58)
[2017-08-10 08:20] LABS: AMYLASE 51 Units/L (25-115)
[2017-08-10] MEDS: NICOTINE PATCH TD SCH (08:40)
[2017-08-10] MEDS: PEPCID 20 MG IV PREMIX* 20 MG/50 ML BAG IV SCH (08:41)
[2017-08-10] MEDS: BUSPAR PO SCH ×2 (08:41→20:30)
[2017-08-10] MEDS: ASPIRIN EC 81 MG PO SCH (08:41)
[2017-08-10] MEDS: NYSTATIN SUSP MT SCH ×5 (08:41→20:30)
[2017-08-10] MEDS: PROTONIX INJ 40 MG VIAL IVP SCH ×2 (08:42→20:30)
[2017-08-10] MEDS: INVANZ INJ 1 GM VIAL 0.5 GM in NS 100 ML IV 100 ML IV SCH (08:42)
[2017-08-10 09:13] LABS: LIPASE 3584 Units/L (73-393)
[2017-08-10] MEDS: ALBUMIN HUMAN 25%- 100ML 100 ML IV SCH (10:37)
[2017-08-10] MEDS: NORCO 10/325 TAB PO PRN ×2 (14:29→21:30)
[2017-08-10] MEDS ORDERED: VALIUM INJ IVP PRN (19:41)
[2017-08-10] MEDS: CHECK PATCH XX SCH (20:30)
[2017-08-10] MEDS ORDERED: POTASSIUM CHL 40 MEQ/NS 0.45% 500 ML IV PRN (20:32)
[2017-08-10] MEDS ORDERED: POTASSIUM CHL 60 MEQ/NS 0.45% 500 ML IV PRN (20:32)
[2017-08-10] MEDS ORDERED: K-LYTE EFFERVESCENT PO PRN (20:32)
[2017-08-10] MEDS ORDERED: K-RIDER 10 MEQ/NS 100 ML 10 MEQ/100 ML BAG IV PRN (20:32)
[2017-08-10] MEDS ORDERED: MAGNESIUM SULFATE 1 GM/100 mL PREMIX 1 GM/100 ML BAG IV PRN (20:32)
[2017-08-10] MEDS ORDERED: POTASSIUM CHLORIDE LIQ 20 MEQ UDC PO PRN (20:32)
[2017-08-10] MEDS ORDERED: ROBITUSSIN DM PO PRN (20:44)
[2017-08-10] MEDS ORDERED: VALIUM ONE (21:41)
[2017-08-10] MEDS ORDERED: VALIUM PO PRN (22:05)
[2017-08-11] MEDS: DUONEB 0.5 MG/3 MG NEB SCH ×5 (00:45→17:13)
[2017-08-11 00:51] LABS: ABG ALLEN TEST POS; ABG BASE EXCESS -2.7 mmol/L (-2.0-2.0); ABG HCO3 22.6 mmol/L (22-26); FRACTIONATED INSPIRED OXYGEN 28
[2017-08-11] MEDS ORDERED: VISTARIL PO ONE (01:15)
[2017-08-11] MEDS ORDERED: VISTARIL PO PRN (01:28)
[2017-08-11] MEDS: NS 1000 ML 1,000 ML with SODIUM BICARBONATE 8.4% INJ ADULT 50 ML IV SCH ×4 (02:15→10:54)
[2017-08-11] MEDS ORDERED: COLACE CAP 100 MG PO SCH (03:00)
[2017-08-11 06:41] LABS: BASOPHILS # (AUTO) 0.1 X10^3/uL (0.0-0.1); EOSINOPHILS # (AUTO) 0.3 x10^3/uL (0.0-0.2); HEMATOCRIT 25.9 % (36.0-47.0); HEMOGLOBIN 8.9 g/dL (12.0-16.0); LYMPHOCYTES # (AUTO) 0.8 X10^3/uL (1.3-2.9); LYMPHOCYTES % (AUTO) 6.8 % (21.0-51.0); MEAN CORPUSCULAR HEMOGLOBIN 30.3 pg (27.0-34.0); MEAN CORPUSCULAR HGB CONC 34.3 g/dL (33.0-35.0); MEAN CORPUSCULAR VOLUME 88.4 fL (80.0-100.0); MONOCYTES # (AUTO) 0.5 x10^3/uL (0.3-0.8); MONOCYTES % (AUTO) 4.4 % (0.0-13.0); NEUTROPHILS # (AUTO) 9.5 x10^3/uL (2.2-4.8); NEUTROPHILS % (AUTO) 84.8 % (42.0-75.0); PLATELET COUNT 163 X10^3/uL (150.0-450.0); RED BLOOD COUNT 2.93 X10^6/uL (3.5-5.4); RED CELL DISTRIBUTION WIDTH 14.4 % (11.6-16.5); WHITE BLOOD COUNT 11.2 X10^3/uL (3.6-10.0)
[2017-08-11 07:04] LABS: ALANINE AMINOTRANSFERASE 19 Units/L (12-78); ALBUMIN 2.9 g/dL (3.4-5.0); ALKALINE PHOSPHATASE 90 Units/L (46-116); AMYLASE 68 Units/L (25-115); ASPARTATE AMINO TRANSFERASE 21 Units/L (15-37); BLOOD UREA NITROGEN 15 mg/dL (7-18); CARBON DIOXIDE 23.2 mmol/L (21-32); CHLORIDE 111 mmol/L (98-107); COR CA(FOR HYPOALB) 8.9 mg/dL (8.5-10.1); CREATININE 0.92 mg/dL (0.55-1.02); SODIUM 143 mmol/L (136-145); eGFR BLACK RACES > 60 (>60); eGFR NON BLACK RACES > 60 (>60)
[2017-08-11 07:14] LABS: LIPASE 3915 Units/L (73-393)
[2017-08-11] MEDS ORDERED: MILK OF MAGNESIA PO SCH (09:00)
[2017-08-11] MEDS: PROTONIX INJ 40 MG VIAL IVP SCH (09:08)
[2017-08-11] MEDS: NYSTATIN SUSP MT SCH ×4 (09:08→18:03)
[2017-08-11] MEDS: BUSPAR PO SCH (09:08)
[2017-08-11] MEDS: ASPIRIN EC 81 MG PO SCH (09:09)
[2017-08-11] MEDS: PEPCID 20 MG IV PREMIX* 20 MG/50 ML BAG IV SCH (09:09)
[2017-08-11] MEDS: ALBUMIN HUMAN 25%- 100ML 100 ML IV SCH (09:09)
[2017-08-11] MEDS: INVANZ INJ 1 GM VIAL 0.5 GM in NS 100 ML IV 100 ML IV SCH (09:09)
[2017-08-11] MEDS: NICOTINE PATCH TD SCH (09:10)
[2017-08-11 17:23] VITALS: BP 143/53
--- NOTE | 2017-08-11 21:23 | PCM.PROG ---
Progress Note - Progress Note for Day of Date: 08/10/17 - Subjective Subjective: IS BEING TREATED FOR ACUTE RENAL FAILURE, ACUTE PANCREATITIS , AND DEHYDRATION. TODAY, SHE IS LYING IN BED ON MORNING ROUNDS. PATIENTS DAUGHTER IS AT BEDSIDE. PATIENT IS NOTED WITH CONFUSION THIS MORNING. FAMILY AND STAFF REPORT THAT SHE HAS HAD INTERMITTENT CONFUSION YESTERDAY AND THROUGHOUT THE NIGHT. SHE CONTINUES WITH COMPLAINTS OF GENERALIZED WEAKNESS AND ACHING ALL OVER. HER VITALS THIS MORNING ARE 97.7-70-22-100%-151/68. LABS WERE OBTAINED. ABNORMAL LAB VALUES INCLUDE THE FOLLOWING: WBC 11.8, RBC 3.03, HGB 9.3 , HCT 26.6, POTASSIUM 3.4, CHLORIDE 110, CARBON DIOXIDE 20.4, BUN 27, CREATININE 1.16, CALCIUM 7.4, TOTAL PROTEIN 5.6, ALBUMIN 2.3, LIPASE DECREASED FROM 7307 TO 3584. A BRAIN MRI WAS OBTAINED AND REPORTED NO ACUTE INTRACRANIAL ABNORMALITY. CHRONIC MICROANGIOPATHIC CHANGES AND EX VACUO DILATION OF THE VENTRICLES AND SULCI. AN ABDOMEN/PELVIS CT WAS OBTAINED AND REVEALED DIFFUSE MILD TO MODERATE COLON WALL THICKENING SUGGESTING PENALOZA COLITIS. TODAY, SHE WILL BE STARTED ON ALBUMIN 25% IV DAILY. OTHERWISE, WE WILL CONTINUE WITH CURRENT PLAN OF CARE. FAMILY REQUEST THAT PATIENT BE TRANSFERRED TO HER ONCOLOGIST, IN [place], [place]. WE WILL GET IN CONTACT WITH HIM TODAY AND SEND HIM HER LABS AND RADIOLOGY REPORTS. WE PLAN TO FOLLOW UP WITH AM LABS AND CONTINUE TO MONITOR PATIENT. - Past Medical Family Social History Past Med/Fam/Surg Hx: No changes since H&P Allergies: Allergies ceftriaxone Allergy (Verified 06/17/17 14:01) fluoxetine [From Prozac] Allergy (Verified 06/17/17 14:01) ketorolac [From Toradol] Allergy (Verified 06/17/17 14:01) - Review of Systems ROS: No change since H&P - Vital Signs and I&O's Vital Signs: Temperature 98.2 F Pulse Rate [Apical] 72 Pulse Rate [Left Radial] 72 Pulse Rate 72 Respiratory Rate 18 Blood Pressure [Right Arm] 143/53 Blood Pressure [Left Arm] 128/54 Blood Pressure 94/51 O2 Sat by Pulse Oximetry 96 Intake and Output: Intake & Output 08/09/17 08/10/17 08/11/17 08/12/17 11:59 11:59 11:59 11:59 Intake Total 5504 3515 2900 700 Output Total 3355 2465 1525 550 Balance 3829 1180 1375 150 - Physical Exam Oriented: Person Eyes: Normal Ear: Normal Nose: Normal Throat: Normal Respiratory: Normal Cardiovascular: Normal : Normal Auscultation: Bowel Sounds: Increased Palpation: Normal Tenderness: Diffuse, Mild Skin: Red, Wound (RIGH ELBOW SKIN TEAR ) Musculoskeletal: Left, Hip Psychiatric: Normal Mood Description: Calm Affect: Normal Speech Pattern: Clear - Laboratory and Diagnostics Result Diagrams: 08/11/17 05:45 08/11/17 05:45 Labs: Laboratory WBC 11.2 X10^3/uL (3.6-10.0) H 08/11/17 05:45 RBC 2.93 X10^6/uL (3.5-5.4) L 08/11/17 05:45 Hgb 8.9 g/dL (12.0-16.0) L 08/11/17 05:45 Hct 25.9 % (36.0-47.0) L 08/11/17 05:45 MCV 88.4 fL (80.0-100.0) 08/11/17 05:45 MCH 30.3 pg (27.0-34.0) 08/11/17 05:45 MCHC 34.3 g/dL (33.0-35.0) 08/11/17 05:45 RDW 14.4 % (11.6-16.5) 08/11/17 05:45 Plt Count 163 X10^3/uL (150.0-450.0) 08/11/17 05:45 Plt Count Comment Adequate (ADEQUATE) 08/09/17 05:30 MPV 8.0 fL (7.4-11.0) 08/11/17 05:45 Neut % (Auto) 84.8 % (42.0-75.0) H 08/11/17 05:45 Lymph % (Auto) 6.8 % (21.0-51.0) L 08/11/17 05:45 [place] % (Auto) 4.4 % (0.0-13.0) 08/11/17 05:45 Eos % (Auto) 3.0 % (0.9-2.9) H 08/11/17 05:45 Baso % (Auto) 1.0 % (0.2-1.0) 08/11/17 05:45 Neut # (Auto) 9.5 x10^3/uL (2.2-4.8) H 08/11/17 05:45 Lymph # (Auto) 0.8 X10^3/uL (1.3-2.9) L 08/11/17 05:45 [place] # (Auto) 0.5 x10^3/uL (0.3-0.8) 08/11/17 05:45 Eos # (Auto) 0.3 x10^3/uL (0.0-0.2) H 08/11/17 05:45 Baso # (Auto) 0.1 X10^3/uL (0.0-0.1) 08/11/17 05:45 Absolute Nucleated RBC 0.0 /100WBC 08/11/17 05:45 Total Counted 100 08/09/17 05:30 Neutrophils % (Manual) 88 % (39-76) H 08/09/17 05:30 Band Neutrophils % 3 % (0-10) 08/09/17 05:30 Lymphocytes % (Manual) 6 % (13-43) L 08/09/17 05:30 Monocytes % (Manual) 3 % (4-9) L 08/09/17 05:30 Eosinophils % (Manual) 1 % (0-6) 08/08/17 07:11 Plt Morphology Comment Normal (NORMAL) 08/09/17 05:30 RBC Morphology Normal (NORMAL) 08/09/17 05:30 Sample Site Right radial 08/10/17 00:35 ABG pH 7.360 (7.35-7.45) 08/10/17 00:35 ABG pCO2 40.0 mmHg (35.0-45.0) 08/10/17 00:35 ABG pO2 103.0 mmHg (80.0-100.0) H 08/10/17 00:35 ABG HCO3 22.6 mmol/L (22-26) 08/10/17 00:35 ABG O2 Saturation 98.0 % (90-100) 08/10/17 00:35 ABG Base Excess -2.7 mmol/L (-2.0-2.0) L 08/10/17 00:35 Maxi Test Pos 08/10/17 00:35 A-a Gradient 47.0 mmHg 08/10/17 00:35 FiO2 28 08/10/17 00:35 Blood Gas Comments Ann-Marie well jts 08/10/17 00:35 Sodium 143 mmol/L (136-145) 08/11/17 05:45 Corrected Sodium TNP 08/11/17 05:45 Potassium 3.7 mmol/L (3.5-5.1) 08/11/17 05:45 Chloride 111 mmol/L (98-107) H 08/11/17 05:45 Carbon Dioxide 23.2 mmol/L (21-32) 08/11/17 05:45 BUN 15 mg/dL (7-18) 08/11/17 05:45 Creatinine 0.92 mg/dL (0.55-1.02) 08/11/17 05:45 Est GFR (MDRD) Af Amer > 60 (>60) 08/11/17 05:45 Est GFR (MDRD) Non-Af > 60 (>60) 08/11/17 05:45 Glucose 77 mg/dL (65-99) 08/11/17 05:45 Lactic Acid 0.8 mmol/L (0.4-2.0) 08/10/17 23:00 Calcium 8.0 mg/dL (8.5-10.1) L 08/11/17 05:45 Corrected Calcium 8.9 mg/dL (8.5-10.1) 08/11/17 05:45 Magnesium 2.0 mg/dL (1.7-2.9) 08/10/17 07:55 Total Bilirubin 0.30 mg/dL (0.2-1.0) 08/11/17 05:45 AST 21 Units/L (15-37) 08/11/17 05:45 ALT 19 Units/L (12-78) 08/11/17 05:45 Alkaline Phosphatase 90 Units/L (46-116) 08/11/17 05:45 Ammonia 11 umol/L (11-32) 08/09/17 10:35 Total Protein 6.0 g/dL (6.4-8.2) L 08/11/17 05:45 Albumin 2.9 g/dL (3.4-5.0) L 08/11/17 05:45 Globulin 3.1 g/dL (2.5-4.5) 08/11/17 05:45 Albumin/Globulin Ratio 0.9 Ratio (1.1-2.1) L 08/11/17 05:45 Triglycerides 111 mg/dL (0-150) 08/09/17 05:30 Cholesterol 97 mg/dL (0-200) 08/09/17 05:30 LDL Cholesterol, Calc 64 mg/dL (0-100) 08/09/17 05:30 HDL Cholesterol 11 mg/dL (40-60) L 08/09/17 05:30 Cholesterol/HDL Ratio 8.8 (0.0-5.0) H 08/09/17 05:30 Amylase 68 Units/L (25-115) 08/11/17 05:45 Lipase 3915 Units/L (73-393) H 08/11/17 05:45 Specimen Type Catherized urine 08/08/17 17:59 Urine Color Yellow (YELLOW) 08/08/17 17:59 Urine Appearance Slightly hazy (CLEAR) 08/08/17 17:59 Urine pH 5.0 (5.0 - 8.0) 08/08/17 17:59 Ur Specific [place] 1.010 (1.000-1.030) 08/08/17 17:59 Urine Protein 2+ (NEGATIVE) 08/08/17 17:59 Urine Glucose (UA) Negative (NEGATIVE) 08/08/17 17:59 Urine Ketones Negative (NEGATIVE) 08/08/17 17:59 Urine Occult Blood 3+ (NEGATIVE) 08/08/17 17:59 Urine Nitrite Negative (NEGATIVE) 08/08/17 17:59 Urine Bilirubin 1+ (NEGATIVE) 08/08/17 17:59 Urine Urobilinogen Normal (NORMAL) 08/08/17 17:59 Ur Leukocyte Esterase Negative (NEGATIVE) 08/08/17 17:59 Urine RBC 0-2 /HPF (NONE SEEN) 08/08/17 17:59 Urine WBC None seen /HPF (NONE SEEN) 08/08/17 17:59 Ur Squamous Epith Cells Negative /HPF (NEGATIVE) 08/08/17 17:59 Amorphous Sediment Trace /HPF (NEGATIVE) 08/08/17 17:59 Urine Bacteria Negative /HPF (NEGATIVE) 08/08/17 17:59 Urine Mucus Rare /HPF (NEGATIVE) 08/08/17 17:59 Ur Culture Indicated? No/not indicated 08/08/17 17:59 - Plan (1) Acute renal failure Status: Acute Qualifiers: Acute renal failure type: unspecified Qualified Code(s): N17.9 - Acute kidney failure, unspecified Plan: NORMAL SALINE @ 150ML/HR, CONTINUE TO MONITOR (2) Dehydration, severe Status: Acute Plan: NORMAL SALINE AT 150ML/HR (3) Pancreatitis, acute Status: Acute Qualifiers: Pancreatitis type: unspecified pancreatitis type Plan: NORMAL SALINE AT 150ML/HR, INVANZ 500MG IV DAILY, PEPCID IV, PROTONIX IV, CONTINUE TO MONITOR (4) Diarrhea Status: Acute Qualifiers: Diarrhea type: unspecified type Qualified Code(s): R19.7 - Diarrhea, unspecified Plan: STOOL FOR C.DIFF, CONTINUE TO MONITOR (5) Mental status alteration Status: Acute Qualifiers: Altered mental status type: transient alteration of awareness Qualified Code(s): R40.4 - Transient alteration of awareness Plan: CONTINUE TO MONITOR (6) Hypoalbuminemia Status: Acute Plan: ALBUMIN 25% IV DAILY, CONTINUE TO MONITOR
== END 2017-08-11 18:25 | disposition short-term general hospital (02) | DRG 682 ==
LOC: ER 05:52 → ICU 08:25
PROVIDERS: ADMIT Internal Medicine; ATTEND Internal Medicine
PROC: 05H633Z Insertion of Infusion Device into Left Subclavian Vein, Percutaneous Approach (ICD-10-PCS; principal; 2017-08-08)
DX: N17.8 Other acute kidney failure (principal); K85.80 Other acute pancreatitis without necrosis or infection; E86.0 Dehydration; R07.89 Other chest pain; K52.89 Other specified noninfective gastroenteritis and colitis; E87.1 Hypo-osmolality and hyponatremia; D72.828 Other elevated white blood cell count; I87.2 Venous insufficiency (chronic) (peripheral); R51 Headache; M54.2 Cervicalgia; R19.7 Diarrhea, unspecified; R40.4 Transient alteration of awareness; E88.09 Other disorders of plasma-protein metabolism, not elsewhere classified; M25.552 Pain in left hip; Z85.118 Personal history of other malignant neoplasm of bronchus and lung
CPT/HCPCS: 36415; 36556; 36600; 70450; 70551; 71045; 72125; 72192; 73501; 74176; 80048; 80053; 80061; 81001; 82140; 82150; 82803; 83605; 83690; 83735; 85025; 94640; 96365; 99283; 99285; A4216; A4222; C9113; P9047; Q0177; S0028; J1335; J2270; J2405; J3360; J3490; J7042; J7620

== ENCOUNTER 2017-08-22 23:55 | Inpatient (IN) | payer OTHER ==
--- NOTE | 2017-08-23 00:31 | DR.GENAD ---
HPI - PCP Primary Care Physician: GILMA PARRY - Complaint/Symptoms Chief Complaint Doctors Comments: Patient states that she was discharged for [facility] two days ago she was there for rehab due to lack of walking. She has a walker. She admits to left side pain from a fall two days ago Chief Complaint:: WEAK, FALLING, HURTING ALL OVER. LEFT FOREARM WEEPING, NOTED EDEMA TO LEFT FOREARM AND HAND. NOTED EDEMA TO LOWER EXT. BILAT., RIGHT WORST. - Source History Provided: Patient, EMS - Mode of Arrival Mode of Arrival: EMS - Timing Onset of Chief Complaint: 08/23/17 PMH - PMH Past Medical History: Yes Past Medical History: Arthritis, Dyslipidemia, GERD, Hypertension Past Surgical History: Yes Surgical History: Cholecystectomy, Hysterectomy, Other - Family History History of Family Medical Conditions: Yes Family Medical History: Cancer, Heart Failure, Sudden Cardiac - Social History Alcohol Use: None Do you use any recreational Drugs:: No Lives With: Family Lives Where: Home - infectious screening Have you traveled outside the country in the last 6 months?: No Isolation: Standard ROS - Review of Systems Eyes: No Symptoms Reported ENTM: No Symptoms Reported Respiratoy: No Symptoms Reported Cardiovascular: No Symptoms Reported Gastrointestinal/Abdominal: No Symptoms Reported Genitourinary: No Symptoms Reported Neurological: No Symptoms Reported Musculoskeletal: Rib(s) (left rib pain) Integumentary: No Symptoms Reported Hematologic/Lymphatic: No Symptoms Reported Endocrine: No Symptoms Reported Psychiatric: No Symptoms Reported All Other Systems: Reviewed and Negative PE - Vital Signs Vitals: Temperature 98.5 F Pulse Rate [Right Brachial] 69 Pulse Rate 69 Respiratory Rate 20 Blood Pressure [Right Arm] 112/53 Blood Pressure [Left Arm] 128/54 Blood Pressure 112/53 O2 Sat by Pulse Oximetry 99 - General Limitations: No Limitations General Appearance: Alert, In No Apparent Distress - Head Head Exam: Normal Inspection, Atraumatic - Eyes Eye exam: Normal Appearance, PERRL, EOMI - ENT ENT Exam: Normal Exam External Ear Exam: Normal External Inspection TM/Canal Exam: Bilateral Normal Nose Exam: Normal Nose Exam Mouth Exam: Normal Inspection Throat Exam: Normal Inspection - Neck Neck Exam: Normal Inspection, Full ROM - Chest Chest Inspection: Normal Inspection - Respiratory Respiratory Exam: Normal Lung Sounds Bilat Respiratory Exam: Bilateral Clear to Auscultation - Cardiovascular Cardiovascular Exam: Regular Rate - Abdominal Exam Abdominal Exam: Normal Inspection Abdominal Tenderness: negative: RUQ, RLQ, LUQ, LLQ, Epigastrium, Suprapubic, Diffuse, Mild, Moderate, Severe, Other - Extremities Extremities Exam: Normal Inspection, Full ROM - Back Back Exam: Normal Inspection, Full ROM - Neurologic Neurological Exam: Alert, Oriented X3, CN II-XII Intact - Psychiatric Psychiatric Exam: Normal Affect - Skin Skin Exam: Warm, Dry, Intact Course - Education/Counseling Educated On: Treatment, Diagnosis, Needs for Follow Up ROR - XRAY XRAY Interpreted by: Radiologist (Rib series: There is a mildly displaced fracture of the left posterior lateral 9th rib. No other definite fracture idientified within the left sided ribs. The hear size is enlarged with chronic intersitial lung changes. Methylmethacrylate is noted within the mid thoracic spine vertebral body. Impression: Mildly displaced left posterior lateral 9 the rib fracture.) - Diagnosis Discharge Problem: Mildly left posterior latera rib fractur - Discharge Plan Condition: Stable - Follow ups/Referrals Follow ups/Referrals: Gilma Parry [Primary Care Provider] - 3 days - Instructions
--- NOTE | 2017-08-23 01:06 | RAD ---
Four views of the left-sided ribs. Indication: Multiple falls with left-sided rib pain Findings: There is a mildly displaced fracture of the left posterior lateral 9th rib. No other defini te fracture identified within the left-sided ribs. The heart size is enlarged with chronic interstiti al lung changes. Methylmethacrylate is noted within the mid thoracic spine vertebral body. Impression: Mildly displaced left posterior lateral 9th rib fracture. Reported By:
[2017-08-23] MEDS ORDERED: DILAUDID INJ IM STA (01:19)
[2017-08-23] MEDS ORDERED: DILAUDID INJ ONE (01:21)
[2017-08-23 01:46] LABS: BASOPHILS # (AUTO) 0.1 X10^3/uL (0.0-0.1); BASOPHILS % (AUTO) 1.4 % (0.2-1.0); EOSINOPHILS # (AUTO) 0.9 x10^3/uL (0.0-0.2); EOSINOPHILS % (AUTO) 12.3 % (0.9-2.9); HEMATOCRIT 25.5 % (36.0-47.0); HEMOGLOBIN 8.6 g/dL (12.0-16.0); LYMPHOCYTES # (AUTO) 0.8 X10^3/uL (1.3-2.9); LYMPHOCYTES % (AUTO) 11.3 % (21.0-51.0); MEAN CORPUSCULAR HEMOGLOBIN 30.2 pg (27.0-34.0); MEAN CORPUSCULAR HGB CONC 33.5 g/dL (33.0-35.0); MEAN CORPUSCULAR VOLUME 90.2 fL (80.0-100.0); MEAN PLATELET VOLUME 8.2 fL (7.4-11.0); MONOCYTES # (AUTO) 0.6 x10^3/uL (0.3-0.8); MONOCYTES % (AUTO) 8.4 % (0.0-13.0); NEUTROPHILS # (AUTO) 4.8 x10^3/uL (2.2-4.8); NEUTROPHILS % (AUTO) 66.6 % (42.0-75.0); PLATELET COUNT 421 X10^3/uL (150.0-450.0); RED BLOOD COUNT 2.83 X10^6/uL (3.5-5.4); RED CELL DISTRIBUTION WIDTH 14.5 % (11.6-16.5); WHITE BLOOD COUNT 7.2 X10^3/uL (3.6-10.0)
[2017-08-23 01:52] LABS: AMYLASE 7 Units/L (25-115); LIPASE 188 Units/L (73-393)
[2017-08-23 01:56] LABS: ALANINE AMINOTRANSFERASE 24 Units/L (12-78); ALBUMIN 2.6 g/dL (3.4-5.0); ALKALINE PHOSPHATASE 159 Units/L (46-116); ASPARTATE AMINO TRANSFERASE 14 Units/L (15-37); BLOOD UREA NITROGEN 22 mg/dL (7-18); CALCIUM 7.9 mg/dL (8.5-10.1); CARBON DIOXIDE 23.9 mmol/L (21-32); CHLORIDE 106 mmol/L (98-107); CREATININE 1.56 mg/dL (0.55-1.02); SODIUM 142 mmol/L (136-145); TOTAL PROTEIN 6.5 g/dL (6.4-8.2); eGFR BLACK RACES 43 (>60); eGFR NON BLACK RACES 36 (>60)
[2017-08-23 04:16] VITALS: BMI 23.5
[2017-08-23] MEDS: NS 1000 ML 1,000 ML IV SCH ×2 (04:33→16:45)
[2017-08-23] MEDS: MORPHINE SULFATE INJ 2 MG INJ IVP PRN ×2 (12:10→19:10)
[2017-08-23] MEDS ORDERED: PROVENTIL NEB TX 0.083% 2.5MG/ 3ML NEB PRN (21:31)
[2017-08-23] MEDS ORDERED: RESTORIL CAP 15 MG PO PRN (21:36)
[2017-08-23] MEDS ORDERED: BENZONATATE 200 MG PO PRN (21:36)
[2017-08-23] MEDS ORDERED: ALBUTEROL SULFATE IH PRN (21:36)
[2017-08-23] MEDS ORDERED: NORCO 7.5/325 MG TAB PO PRN (21:36)
[2017-08-23] MEDS ORDERED: NAPROSYN PO PRN (21:37)
[2017-08-23] MEDS ORDERED: COUMADIN TAB 2 MG PO SCH ×2 (21:38→22:00)
[2017-08-23] MEDS ORDERED: PATIENT'S HOME MEDICATION (Escitalopram Oxalate [Escitalopram Oxalate] 5 MG) PO SCH (21:45)
[2017-08-23] MEDS ORDERED: RANITIDINE HCL 300 MG PO SCH (21:45)
[2017-08-23] MEDS ORDERED: PATIENT'S HOME MEDICATION (Ondansetron [Ondansetron Odt] 4 MG) PO SCH (21:45)
[2017-08-23] MEDS ORDERED: ZOFRAN TAB 4 MG PO PRN (21:45)
[2017-08-23] MEDS ORDERED: PROTONIX TAB 40 MG PO SCH (22:00)
[2017-08-23] MEDS ORDERED: ZANTAC PO SCH (22:00)
[2017-08-23] MEDS ORDERED: BUSPAR PO SCH (22:00)
[2017-08-23] MEDS: NORCO 7.5/325 MG TAB PO PRN (22:33)
[2017-08-23] MEDS: RESTORIL CAP 15 MG PO PRN (22:33)
[2017-08-23] MEDS: BUSPAR PO SCH (22:34)
[2017-08-23] MEDS: NICOTINE PATCH TD SCH (22:35)
[2017-08-23] MEDS: PROTONIX TAB 40 MG PO SCH (22:36)
[2017-08-23] MEDS: XANAX PO SCH (22:36)
[2017-08-23] MEDS: TESSALON PERLES PO PRN (23:48)
[2017-08-23] MEDS: TUSSIONEX PENNKINETIC SUSP PO PRN (23:48)
[2017-08-24] MEDS: MORPHINE SULFATE INJ 2 MG INJ IVP PRN ×2 (01:00→21:48)
[2017-08-24] MEDS: XANAX PO SCH ×3 (05:17→21:47)
[2017-08-24] MEDS: NS 1000 ML 1,000 ML IV SCH ×2 (05:17→19:43)
[2017-08-24 05:28] LABS: BASOPHILS # (AUTO) 0.1 X10^3/uL (0.0-0.1); EOSINOPHILS # (AUTO) 0.8 x10^3/uL (0.0-0.2); HEMOGLOBIN 7.3 g/dL (12.0-16.0); LYMPHOCYTES # (AUTO) 1.3 X10^3/uL (1.3-2.9); MONOCYTES # (AUTO) 0.5 x10^3/uL (0.3-0.8); NEUTROPHILS # (AUTO) 3.1 x10^3/uL (2.2-4.8); WHITE BLOOD COUNT 5.8 X10^3/uL (3.6-10.0)
[2017-08-24 05:36] LABS: BASOPHILS % (AUTO) 1.1 % (0.2-1.0); EOSINOPHILS % (AUTO) 13.8 % (0.9-2.9); LYMPHOCYTES % (AUTO) 23.1 % (21.0-51.0); MEAN CORPUSCULAR HEMOGLOBIN 30.2 pg (27.0-34.0); MEAN CORPUSCULAR HGB CONC 33.4 g/dL (33.0-35.0); MEAN CORPUSCULAR VOLUME 90.5 fL (80.0-100.0); MONOCYTES % (AUTO) 7.9 % (0.0-13.0); NEUTROPHILS % (AUTO) 54.1 % (42.0-75.0); PLATELET COUNT 397 X10^3/uL (150.0-450.0); RED BLOOD COUNT 2.43 X10^6/uL (3.5-5.4); RED CELL DISTRIBUTION WIDTH 14.5 % (11.6-16.5)
[2017-08-24 05:46] LABS: ALANINE AMINOTRANSFERASE 19 Units/L (12-78); ALBUMIN 2.2 g/dL (3.4-5.0); ALKALINE PHOSPHATASE 121 Units/L (46-116); ASPARTATE AMINO TRANSFERASE 14 Units/L (15-37); BLOOD UREA NITROGEN 15 mg/dL (7-18); CALCIUM 7.6 mg/dL (8.5-10.1); CHLORIDE 111 mmol/L (98-107); CREATININE 1.31 mg/dL (0.55-1.02); SODIUM 144 mmol/L (136-145); TOTAL PROTEIN 5.8 g/dL (6.4-8.2); eGFR BLACK RACES 53 (>60); eGFR NON BLACK RACES 44 (>60)
[2017-08-24 06:21] LABS: HYPOCHROMASIA SLIGHT; PLATELET MORPHOLOGY COMMENT NORMAL (NORMAL)
[2017-08-24] MEDS: NORCO 7.5/325 MG TAB PO PRN ×2 (07:13→14:24)
[2017-08-24] MEDS ORDERED: LISINOPRIL 2.5 MG PO SCH (09:00)
[2017-08-24] MEDS: BUSPAR PO SCH ×2 (09:30→21:42)
[2017-08-24] MEDS: NICOTINE PATCH TD SCH (09:31)
[2017-08-24] MEDS: LASIX PO SCH (09:31)
[2017-08-24] MEDS: PROTONIX TAB 40 MG PO SCH ×2 (09:31→21:47)
[2017-08-24] MEDS: FLEXERIL TAB 10 MG PO PRN (09:32)
[2017-08-24] MEDS: TESSALON PERLES PO PRN ×2 (09:32→21:48)
[2017-08-24] MEDS: ZESTRIL TAB 5 MG PO SCH (09:32)
[2017-08-24] MEDS: ZANTAC PO SCH (09:32)
[2017-08-24] MEDS ORDERED: BENADRYL INJ 50 MG VIAL IVP PRN (09:55)
[2017-08-24] MEDS ORDERED: TYLENOL 325 MG TAB PO PRN (09:55)
[2017-08-24] MEDS ORDERED: NS 500 ML IV 500 ML IV ONE (09:55)
[2017-08-24] MEDS ORDERED: LASIX IVP ONE (10:00)
--- NOTE | 2017-08-24 10:41 | DR.H&P ---
H&P - History & Physical for Day of: H&P Date: 08/23/17 - Chief Complaint Chief Complaint: GENERALIZED WEAKNESS, GENERALIZED PAIN, FALLS - Allergies Allergies/Adverse Reactions: Allergies Allergy/AdvReac Type Severity Reaction Status Date / Time ceftriaxone Allergy Verified 08/23/17 00:03 fluoxetine [From Prozac] Allergy Verified 08/23/17 00:03 ketorolac [From Toradol] Allergy Verified 08/23/17 00:03 - History of Present Illness History of Present Illness: IS A 61 YEAR OLD PATIENT OF [facility] WHO PRESENTED TO THE EMERGENCY ROOM WITH COMPLAINTS OF GENERALIZED WEAKNESS, FALLS, AND HURTING ALL OVER. SHE ALSO REPORTS EDEMA TO THE BILATERAL LOWER EXTREMTIES AND LEFT FOREARM AND HAND WELL WEEPING. PATIENT REPORTS THAT SHE WAS DISCHARGED FROM [facility] TWO DAYS AGO. SHE WAS RECEIVING REHABILITATION AND PHYSICAL THERAPY THERE PRIOR TO BEING SENT HOME. ON EXAMINATION, LEFT ARM IS NOTED WITH EMEMA AND BRUISING. THERE IS ALSO A SMALL ABRASION NOTED. THERE IS TENDERNESS NOTED TO THE LEFT SIDE RIB AREA. BILATERAL LOWER EXTREMITIES ARE NOTED WITH 2+ PITTING EDEMA. ON ARRIVAL, VITALS WERE 98.5- 69-20-99%-112/53. LABS WERE OBTAINED. ABNORMAL LAB VALUES INCLUDE THE FOLLOWING : RBC 2.83, HGB 8.6, HCT 25.5, INR 1.64, BUN 22, CREATININE 1.56, CALCIUM 7.9, AST 14, ALK PHOS 159, ALBUMIN 2.6, AMYLASE 7. A RIB SERIES WAS OBTAINED AND REVEALED MILDLY DISPLACED LEFT POSTERIOR LATERAL 9TH RIB FRACTURE. PATIENT WAS ADMITTED FOR FURTHER EVALUATION AND TREATMENT. SHE WAS STARTED ON NORMAL SALINE AT 80ML/HR AND MORPHINE 2MG IV Q4H PRN FOR PAIN CONTROL. WE PLAN TO FOLLOW UP WITH AM LABS AND CONTINUE TO MONITOR PATIENT. - Past Medical History Past Medical History: Arthritis, Dyslipidemia, GERD, Hypertension Additional Medical History: Hx Diverticulosis, Gastrointestinal ulcer, heart murmur, diverticulosis, small cell carcinoma - Past Surgical History Surgical History: Cholecystectomy, Hysterectomy - Family History Family Medical History: Cancer, Heart Failure, Sudden Cardiac - Social History Does patient currently use any type of tobacco product: Yes Have you used tobacco products in the last 12 months: Yes Type of Tobacco Use: Cigarettes How many years tobacco product used: 50 Does any household member use tobacco: Yes Alcohol Use: None Drug Use: None - Medications Home Medications: Albuterol Sulfate [Proair Hfa] 8.5 gm IH Q4-6H PRN 08/23/17 [History Confirmed 08/23/17] Alprazolam 0.5 tablet PO TID PRN 08/23/17 [History Confirmed 08/23/17] Benzonatate 200 mg PO TID PRN 08/23/17 [History Confirmed 08/23/17] Buspirone HCl 10 mg [Buspar] 5 mg PO BID 08/23/17 [History Confirmed 08/23/17] Cyclobenzaprine HCl [FLEXERIL 10 MG *] 10 mg PO TID 08/23/17 [History Confirmed 08/23/17] Diclofenac Sodium/Misoprostol [Diclofenac-Misoprost 50-200 Tb] 1 each PO BID [History Confirmed 08/23/17] Escitalopram Oxalate 5 mg PO .@SUPPER 08/23/17 [History Confirmed 08/23/17] Furosemide [Lasix] 20 mg PO QAM 08/23/17 [History Confirmed 08/23/17] Hydrocodone/Acetaminophen [Hydrocodon-Acetaminoph 7.5-325] 1 each PO QID PRN [History Confirmed 08/23/17] Lisinopril 2.5 mg PO DAILY 08/23/17 [History Confirmed 08/23/17] Ondansetron [Ondansetron Odt] 4 mg PO Q8H 08/23/17 [History Confirmed 08/23/17] Pantoprazole Sodium 40 mg [Protonix Tab 40 mg] 40 mg PO BID 08/23/17 [History Confirmed 08/23/17] Ranitidine HCl 300 mg PO BID 08/23/17 [History Confirmed 08/23/17] Temazepam [RESTORIL 15 MG (GENERIC) *] 1 - 2 cap PO HS PRN 08/23/17 [History Confirmed 08/23/17] Warfarin Sodium [Coumadin Tab 2 mg] 2 mg PO HS 08/23/17 [History Confirmed 08/23] - Review of Systems Constitutional: Weakness, Malaise Eyes: No Symptoms Reported ENT: No Symptoms Reported Respiratory: No Symptoms Reported Cardiovascular: No Symptoms Reported, Edema (LEFT ARM AND BILATERAL LOWER EXTREMITIES) Gastrointestinal: No Symptoms Reported Genitourinary: No Symptoms Reported Musculoskeletal: See HPI, Arm Pain, Back Pain, Leg Pain Skin: Bruising, Wound Neurological: Weakness - Physical Exam Vital Signs: Temperature 98.4 F Pulse Rate [Right Brachial] 66 Pulse Rate 75 Respiratory Rate 18 Blood Pressure [Right Arm] 129/58 Blood Pressure [Left Arm] 128/54 Blood Pressure 112/53 O2 Sat by Pulse Oximetry 95 Oriented: Normal Eyes: Normal Ear: Normal Nose: Normal Throat: Normal Respiratory: Clear Throughout Cardiovascular: Edema (LEFT ARM EDEMA AND WEEPING, BILATERAL LOWER EXTREMITY 2+ PITTING EDEMA ) : Normal Auscultation: Bowel Sounds: Normal Palpation: Normal Tenderness: Normal Skin: Red, Tender, Wound, Bruising Musculoskeletal: Left, Arm, Leg, Back:Lumbar, Swelling, Tender Psychiatric: Normal Mood Description: Calm Affect: Normal Speech Pattern: Clear - Assessment/Plan (1) Generalized weakness Status: Acute Plan: NORMAL SALINE AT 80ML/HR, CONTINUE TO MONITOR (2) Rib fracture Qualifiers: Encounter type: initial encounter Rib fracture type: single rib Fracture type: closed Laterality: left Qualified Code(s): S22.32XA - Fracture of one rib, left side, initial encounter for closed fracture Status: Acute Plan: MORPHINE 2MG IV Q4H PRN PAIN, CONTINUE TO MONITOR
[2017-08-24] MEDS: ALBUMIN HUMAN 25%- 100ML 100 ML IV SCH (11:03)
--- NOTE | 2017-08-24 12:20 | PCM.PROG ---
Progress Note - Progress Note for Day of Date: 08/24/17 - Subjective Subjective: WAS ADMITTED FOR GENERALIZED WEAKNESS AND PAIN CONTROL. TODAY , SHE IS ALERT AND ORIENTED, SITTING UP ON THE SIDE OF THE BED ON MORNING ROUNDS. SHE CONTINUES WITH GENERALIZED WEAKNESS , PAIN, AND COUGH. SHE ALSO REPORTS PAIN AND SWELLING TO THE LEFT ARM AND BILATERAL FEET. ON EXAMINATION, HEART IS REGULAR IN RATE AND RHYTHM. BILATERAL LUNGS ARE NOTED WITH DIMINISHED LUNG SOUNDS THROUGHOUT. ABDOMEN IS ROUND, SOFT, AND NON-TENDER WITH NORMAL BOWEL SOUNDS NOTED IN ALL QUADRANTS. LEFT ARM IS NOTED WITH BRUISING, ERYTHEMA, AND EDEMA. IT IS ALSO NOTED WITH WEEPING. BILATERAL LOWER EXTREMITIES ARE NOTED WITH 1+ PITTING EDEMA. HER VITALS THIS MORNING ARE 97.7-79-20-95%-122/85. LABS WERE OBTAINED. ABNORMAL LAB VALUES INCLUDE THE FOLLOWING: RBC 2.43, HGB 7.3, HCT 22.0, INR 1.69, CHLORIDE 111, CREATININE 1.31, CALCIUM 7.6, MAGNESIUM 1.6, TOTAL BILI 0.10, AST 14, ALK PHOS 121, TOTAL PROTEIN 5.8, ALBUMIN 2.2. TODAY, WE WILL TRANSFUSE 2 UNITS OF PACKED RED BLOOD CELLS AND ADMINISTER LASIX 20MG IV IN BETWEEN UNITS. WE WILL START ALBUMIN 25% IV DAILY, OBTAIN A VENOUS DOPPLER OF THE LEFT ARM, AND OBTAIN A 3 PHASE BONE SCAN IN THE MORNING. OTHERWISE, WE WILL CONTINUE WITH CURRENT PLAN OF CARE AND CONTINUE TO MONITOR PATIENT. - Past Medical Family Social History Past Med/Fam/Surg Hx: No changes since H&P Allergies: Allergies ceftriaxone Allergy (Verified 08/23/17 00:03) fluoxetine [From Prozac] Allergy (Verified 08/23/17 00:03) ketorolac [From Toradol] Allergy (Verified 08/23/17 00:03) - Review of Systems ROS: No change since H&P - Vital Signs and I&O's Vital Signs: Temperature 97.7 F Pulse Rate [Right Brachial] 62 Pulse Rate 75 Respiratory Rate 20 Blood Pressure [Right Arm] 126/63 Blood Pressure [Left Arm] 128/54 Blood Pressure 112/53 O2 Sat by Pulse Oximetry 97 Intake and Output: Intake & Output 08/22/17 08/23/17 08/24/17 08/25/17 11:59 11:59 11:59 11:59 Intake Total 160 2439 Output Total 200 400 Balance -40 2038 - Physical Exam Oriented: Normal Eyes: Normal Ear: Normal Nose: Normal Throat: Normal Respiratory: Diminished Cardiovascular: Edema (LEFT ARM EDEMA AND WEEPING, BILATERAL LOWER EXTREMITY 1+ PITTING EDEMA ) : Normal Auscultation: Bowel Sounds: Normal Palpation: Normal Tenderness: Normal Skin: Red, Tender, Wound, Bruising Musculoskeletal: Left, Arm, Leg, Back:Lumbar, Swelling, Tender Psychiatric: Normal Mood Description: Calm Affect: Normal Speech Pattern: Clear - Laboratory and Diagnostics Result Diagrams: 08/24/17 05:00 08/24/17 05:00 Labs: Laboratory WBC 5.8 X10^3/uL (3.6-10.0) 08/24/17 05:00 RBC 2.43 X10^6/uL (3.5-5.4) L 08/24/17 05:00 Hgb 7.3 g/dL (12.0-16.0) L 08/24/17 05:00 Hct 22.0 % (36.0-47.0) L 08/24/17 05:00 MCV 90.5 fL (80.0-100.0) 08/24/17 05:00 MCH 30.2 pg (27.0-34.0) 08/24/17 05:00 MCHC 33.4 g/dL (33.0-35.0) 08/24/17 05:00 RDW 14.5 % (11.6-16.5) 08/24/17 05:00 Plt Count 397 X10^3/uL (150.0-450.0) 08/24/17 05:00 Plt Count Comment Adequate (ADEQUATE) 08/24/17 05:00 MPV 8.0 fL (7.4-11.0) 08/24/17 05:00 Neut % (Auto) 54.1 % (42.0-75.0) 08/24/17 05:00 Lymph % (Auto) 23.1 % (21.0-51.0) 08/24/17 05:00 [place] % (Auto) 7.9 % (0.0-13.0) 08/24/17 05:00 Eos % (Auto) 13.8 % (0.9-2.9) H 08/24/17 05:00 Baso % (Auto) 1.1 % (0.2-1.0) H 08/24/17 05:00 Neut # (Auto) 3.1 x10^3/uL (2.2-4.8) 08/24/17 05:00 Lymph # (Auto) 1.3 X10^3/uL (1.3-2.9) 08/24/17 05:00 [place] # (Auto) 0.5 x10^3/uL (0.3-0.8) 08/24/17 05:00 Eos # (Auto) 0.8 x10^3/uL (0.0-0.2) H 08/24/17 05:00 Baso # (Auto) 0.1 X10^3/uL (0.0-0.1) 08/24/17 05:00 Absolute Nucleated RBC 0.1 /100WBC 08/24/17 05:00 Plt Morphology Comment Normal (NORMAL) 08/24/17 05:00 RBC Morphology Abnormal (NORMAL) A 08/24/17 05:00 Hypochromasia Slight A 08/24/17 05:00 INR Target Range - 08/23/17 21:50 INR 1.69 (0.8-1.3) H 08/23/17 21:50 Sodium 144 mmol/L (136-145) 08/24/17 05:00 Corrected Sodium TNP 08/24/17 05:00 Potassium 3.6 mmol/L (3.5-5.1) 08/24/17 05:00 Chloride 111 mmol/L (98-107) H 08/24/17 05:00 Carbon Dioxide 23.0 mmol/L (21-32) 08/24/17 05:00 BUN 15 mg/dL (7-18) 08/24/17 05:00 Creatinine 1.31 mg/dL (0.55-1.02) H 08/24/17 05:00 Est GFR (MDRD) Af Amer 53 (>60) L 08/24/17 05:00 Est GFR (MDRD) Non-Af 44 (>60) L 08/24/17 05:00 Glucose 96 mg/dL (65-99) 08/24/17 05:00 Calcium 7.6 mg/dL (8.5-10.1) L 08/24/17 05:00 Corrected Calcium 9.0 mg/dL (8.5-10.1) 08/24/17 05:00 Magnesium 1.6 mg/dL (1.7-2.9) L 08/24/17 07:31 Total Bilirubin 0.10 mg/dL (0.2-1.0) L 08/24/17 05:00 AST 14 Units/L (15-37) L 08/24/17 05:00 ALT 19 Units/L (12-78) 08/24/17 05:00 Alkaline Phosphatase 121 Units/L (46-116) H 08/24/17 05:00 Total Protein 5.8 g/dL (6.4-8.2) L 08/24/17 05:00 Albumin 2.2 g/dL (3.4-5.0) L 08/24/17 05:00 Globulin 3.6 g/dL (2.5-4.5) 08/24/17 05:00 Albumin/Globulin Ratio 0.6 Ratio (1.1-2.1) L 08/24/17 05:00 Amylase 7 Units/L (25-115) L 08/23/17 01:32 Lipase 188 Units/L (73-393) 08/23/17 01:32 Blood Type O NEGATIVE 08/24/17 10:20 Antibody Screen Negative 08/24/17 10:20 Crossmatch See Detail 08/24/17 10:20 - Plan (1) Generalized weakness Status: Acute Plan: NORMAL SALINE AT 80ML/HR, CONTINUE TO MONITOR (2) Rib fracture Status: Acute Qualifiers: Encounter type: initial encounter Rib fracture type: single rib Fracture type: closed Laterality: left Qualified Code(s): S22.32XA - Fracture of one rib, left side, initial encounter for closed fracture Plan: MORPHINE 2MG IV Q4H PRN PAIN, CONTINUE TO MONITOR (3) Anemia Status: Acute Qualifiers: Anemia type: iron deficiency Iron deficiency anemia type: unspecified iron deficiency Qualified Code(s): D50.9 - Iron deficiency anemia, unspecified Plan: TRANSFUSE 2 UNITS PRBC, CONTINUE TO MONITOR (4) Hypoalbuminemia Status: Acute Plan: ALBUMIN 25% IV DAILY, CONTINUE TO MONITOR
--- NOTE | 2017-08-24 12:43 | VAS ---
HISTORY: Left upper extremity pain and edema Study: Left upper extremity venous vascular examination: Multiplanar ultrasonographic examination t he deep venous system of the left upper extremity was performed. Comparison: None Findings: On the images submitted to me the jugular vein shows no evidence of flow. There appears to be comple te thrombus. The subclavian vein, axillary vein, brachial vein, radial vein and ulnar vein demonstra te normal color flow. Augmentation and compression is noted. The basilic vein from its midportion up to the axillary region shows no flow or compression. The dis alvaro basilic vein is patent. IMPRESSION: 1. There appears to be thrombus within the left jugular vein completely occluding the lumen. 2. There appears to be occlusion of the mid and proximal portion of the basilic vein. 3. The axillary vein, brachial vein, radial vein and ulnar vein appear to be patent. Reported By:
[2017-08-24] MEDS: LOVENOX INJ 60 MG SYR SC SCH ×2 (14:04→21:46)
--- NOTE | 2017-08-24 15:39 | VAS ---
HISTORY: Right arm edema Study: Venous Doppler Comparison: None TECHNIQUE: Multiple saleem scale and color flow Doppler images of the deep venous system were obtained of the right upper extremity FINDINGS: There is normal respiratory phasicity, compression and augmentation of the extremity veins without ev idence of acute DVT. IMPRESSION: 1. Negative for DVT. Reported By:
[2017-08-24] MEDS ORDERED: LEXAPRO ONE (21:35)
[2017-08-24] MEDS ORDERED: LASIX ONE (21:41)
[2017-08-24] MEDS: COUMADIN TAB 4 MG PO SCH (21:43)
[2017-08-24] MEDS: LEXAPRO PO SCH (21:46)
[2017-08-24] MEDS: RESTORIL CAP 15 MG PO PRN (21:47)
[2017-08-24] MEDS: TUSSIONEX PENNKINETIC SUSP PO PRN (21:48)
[2017-08-25 01:41] LABS: BILIRUBIN,URINE NEGATIVE (NEGATIVE); BLOOD/HEMOGLOBIN,URINE NEGATIVE (NEGATIVE); GLUCOSE, URINE NEGATIVE (NEGATIVE); KETONES,URINE NEGATIVE (NEGATIVE); LEUKOCYTE ESTERASE ,URINE NEGATIVE (NEGATIVE); NITRITES,URINE NEGATIVE (NEGATIVE); PH,URINE 6.5 (5.0 - 8.0); PROTEIN,URINE NEGATIVE (NEGATIVE); UROBILINOGEN,URINE NORMAL (NORMAL)
[2017-08-25 01:50] LABS: APPEARANCE,URINE CLEAR (CLEAR); COLOR,URINE STRAW (YELLOW)
[2017-08-25 06:32] LABS: BASOPHILS % (AUTO) 0.6 % (0.2-1.0); EOSINOPHILS # (AUTO) 0.8 x10^3/uL (0.0-0.2); EOSINOPHILS % (AUTO) 12.8 % (0.9-2.9); HEMATOCRIT 32.4 % (36.0-47.0); HEMOGLOBIN 11.1 g/dL (12.0-16.0); LYMPHOCYTES # (AUTO) 1.2 X10^3/uL (1.3-2.9); LYMPHOCYTES % (AUTO) 19.2 % (21.0-51.0); MEAN CORPUSCULAR HGB CONC 34.3 g/dL (33.0-35.0); MEAN CORPUSCULAR VOLUME 87.4 fL (80.0-100.0); MEAN PLATELET VOLUME 7.7 fL (7.4-11.0); MONOCYTES # (AUTO) 0.5 x10^3/uL (0.3-0.8); NEUTROPHILS # (AUTO) 3.7 x10^3/uL (2.2-4.8); NEUTROPHILS % (AUTO) 59.4 % (42.0-75.0); PLATELET COUNT 423 X10^3/uL (150.0-450.0); RED CELL DISTRIBUTION WIDTH 14.3 % (11.6-16.5); WHITE BLOOD COUNT 6.2 X10^3/uL (3.6-10.0)
[2017-08-25] MEDS: NORCO 7.5/325 MG TAB PO PRN ×3 (06:35→19:39)
[2017-08-25] MEDS: XANAX PO SCH ×3 (06:35→21:59)
[2017-08-25 06:39] LABS: ALANINE AMINOTRANSFERASE 25 Units/L (12-78); ALBUMIN 2.8 g/dL (3.4-5.0); ALKALINE PHOSPHATASE 206 Units/L (46-116); ASPARTATE AMINO TRANSFERASE 27 Units/L (15-37); BLOOD UREA NITROGEN 11 mg/dL (7-18); CALCIUM 7.7 mg/dL (8.5-10.1); CARBON DIOXIDE 28.4 mmol/L (21-32); CHLORIDE 105 mmol/L (98-107); COR CA(FOR HYPOALB) 8.7 mg/dL (8.5-10.1); CREATININE 1.12 mg/dL (0.55-1.02); SODIUM 143 mmol/L (136-145); eGFR BLACK RACES > 60 (>60); eGFR NON BLACK RACES 52 (>60)
[2017-08-25] MEDS ORDERED: POTASSIUM CHLORIDE LIQ 20 MEQ UDC PO PRN (07:01)
[2017-08-25] MEDS ORDERED: K-LYTE EFFERVESCENT PO PRN (07:01)
[2017-08-25] MEDS ORDERED: POTASSIUM CHL 40 MEQ/NS 0.45% 500 ML IV PRN (07:01)
[2017-08-25] MEDS ORDERED: K-RIDER 10 MEQ/NS 100 ML 10 MEQ/100 ML BAG IV PRN (07:01)
[2017-08-25] MEDS ORDERED: POTASSIUM CHL 60 MEQ/NS 0.45% 500 ML IV PRN (07:01)
[2017-08-25] MEDS: LOVENOX INJ 60 MG SYR SC SCH (08:55)
[2017-08-25] MEDS: BUSPAR PO SCH ×2 (08:55→21:57)
[2017-08-25] MEDS: MORPHINE SULFATE INJ 2 MG INJ IVP PRN ×3 (08:55→22:00)
[2017-08-25] MEDS: LASIX PO SCH (08:55)
[2017-08-25] MEDS: ALBUMIN HUMAN 25%- 100ML 100 ML IV SCH (08:55)
[2017-08-25] MEDS: PROTONIX TAB 40 MG PO SCH ×2 (08:56→21:59)
[2017-08-25] MEDS: NICOTINE PATCH TD SCH (08:56)
[2017-08-25] MEDS: ZESTRIL TAB 5 MG PO SCH (08:56)
[2017-08-25] MEDS: ZANTAC PO SCH (08:56)
[2017-08-25] MEDS ORDERED: PHARMACY CONSULT - VANCOMYCIN XX SCH (11:00)
[2017-08-25] MEDS ORDERED: LEVAQUIN PREMIX IV 750 MG 750 MG/150 ML BAG IV SCH (11:00)
[2017-08-25] MEDS: LEVAQUIN PREMIX IV 500 MG 500 MG/100 ML BAG IV SCH (12:59)
[2017-08-25] MEDS: VANCOMYCIN HCL 1 GM VIAL 1 GM in D5W 250 ML IV 250 ML IV SCH (12:59)
[2017-08-25] MEDS: TUSSIONEX PENNKINETIC SUSP PO PRN ×2 (14:57→22:00)
--- NOTE | 2017-08-25 15:02 | NM ---
HISTORY: History cancer, generalized joint pain, rib fractures Study: Nuclear medicine whole-body bone scan Comparison: Multiple prior exams most recently rib series from 08/23/2017 Technique: Whole body bone scintigraphy was performed in the anterior and posterior projection after the intravenous administration of 25.5 mCi of technetium labeled MDP injected in the right upper extr emity. Findings: Physiologic distribution of radiotracer is observed throughout the appendicular and axial skeleton. Normal soft tissue uptake and renal excretion is noted. There is tracer contamination artifact at the injection site in the right upper extremity. No rib fracture or evidence of metastatic disease ident ified. IMPRESSION: 1. No evidence of metastatic disease or other abnormal tracer uptake. Previously described left 9th r ib fracture does not show any uptake suggesting this could represent an old injury. Reported By:
--- NOTE | 2017-08-25 16:25 | PCM.PROG ---
Progress Note - Progress Note for Day of Date: 08/25/17 - Subjective Subjective: WAS ADMITTED FOR GENERALIZED WEAKNESS AND PAIN CONTROL. TODAY , SHE IS ALERT AND ORIENTED, SITTING UP ON THE SIDE OF THE BED ON MORNING ROUNDS. SHE CONTINUES WITH GENERALIZED WEAKNESS ,LEFT SIDE RIB PAIN AND ARM PAIN , AND COUGH. SHE RECEIVED TWO UNITS OF PACKED RED BLOOD CELLS YESTERDAY. ON EXAMINATION, HEART IS REGULAR IN RATE AND RHYTHM. BILATERAL LUNGS ARE NOTED WITH DIMINISHED LUNG SOUNDS THROUGHOUT. ABDOMEN IS ROUND, SOFT, AND NON-TENDER WITH NORMAL BOWEL SOUNDS NOTED IN ALL QUADRANTS. LEFT ARM IS NOTED WITH BRUISING , ERYTHEMA, AND EDEMA. IT IS ALSO NOTED WITH WEEPING. TODAY, RIGHT ARM IS NOTED WITH WARMTH AND ERYTHEMA TO THE FOREARM. BILATERAL LOWER EXTREMITIES ARE NOTED WITH 1+ PITTING EDEMA. HER VITALS THIS MORNING ARE 98.2-77-20-97%-161/71. LABS WERE OBTAINED. ABNORMAL LAB VALUES INCLUDE THE FOLLOWING: HGB 11.1, HCT 32.4, INR 2.82, POTASSIUM 3.3, CREATININE 1.12, CALCIUM 7.7, MAGNESIUM 1.3, ALK PHOS 206, ALBUMIN 2.8. A VENOUS DOPPLER OF BIALTERAL ARMS WAS OBTAINED YESTERDAY. DOPPLER OF THE LEFT ARM REVEALED THROMBUS WITHIN THE LEFT JUGULAR VEIN COMPLETELY OCCLUDING THE LUMEN. THERE APPEARS TO BE OCCLUSION OF THE MID AND PROXIMAL PORTION OF THE BASILIC VEIN. THE AXILLARY VEIN, BRACHIAL VEIN, RADIAL VEIN, AND ULNAR VEIN APPEAR TO BE PATENT. RIGHT ARM IS NEGATIVE FOR DVT. WE STARTED HER ON LOVENOX 60MG SC BID AND INCREASED COUMADIN TO 4MG HS. A 3 PHASE BONE SCAN IS SCHEDULED FOR TODAY. TODAY, WE WILL DISCONTINUE TH LOVENOX DUE TO COUMADIN BEING AT A THERAPUTIC LEVEL. WE WILL ALSO START VANCOMYCIN AND LEVAQUIN. OTHERWISE, WE WILL CONTINUE WITH CURRENT PLAN OF CARE AND CONTINUE TO MONITOR PATIENT. - Past Medical Family Social History Past Med/Fam/Surg Hx: No changes since H&P Allergies: Allergies ceftriaxone Allergy (Verified 08/23/17 00:03) fluoxetine [From Prozac] Allergy (Verified 08/23/17 00:03) ketorolac [From Toradol] Allergy (Verified 08/23/17 00:03) - Review of Systems ROS: No change since H&P - Vital Signs and I&O's Vital Signs: Temperature 98.4 F Pulse Rate [Right Brachial] 70 Pulse Rate 77 Respiratory Rate 20 Blood Pressure [Right Arm] 188/87 Blood Pressure [Left Arm] 128/54 Blood Pressure 112/53 O2 Sat by Pulse Oximetry 88 Intake and Output: Intake & Output 08/23/17 08/24/17 08/25/17 08/26/17 11:59 11:59 11:59 11:59 Intake Total 160 2439 2354 1505 Output Total 764 814 3651 0 Balance -40 9 -2162 -435 - Physical Exam Oriented: Normal Eyes: Normal Ear: Normal Nose: Normal Throat: Normal Respiratory: Diminished Cardiovascular: Edema (LEFT ARM EDEMA AND WEEPING, BILATERAL LOWER EXTREMITY 1+ PITTING EDEMA ) : Normal Auscultation: Bowel Sounds: Normal Palpation: Normal Tenderness: Normal Skin: Red, Tender, Wound, Bruising Musculoskeletal: Left, Arm, Leg, Back:Lumbar, Swelling, Tender Psychiatric: Normal Mood Description: Calm Affect: Normal Speech Pattern: Clear, Appropriate - Laboratory and Diagnostics Result Diagrams: 08/25/17 06:12 08/25/17 06:12 Labs: Laboratory WBC 6.2 X10^3/uL (3.6-10.0) 08/25/17 06:12 RBC 3.70 X10^6/uL (3.5-5.4) 08/25/17 06:12 Hgb 11.1 g/dL (12.0-16.0) L D 08/25/17 06:12 Hct 32.4 % (36.0-47.0) L 08/25/17 06:12 MCV 87.4 fL (80.0-100.0) 08/25/17 06:12 MCH 30.0 pg (27.0-34.0) 08/25/17 06:12 MCHC 34.3 g/dL (33.0-35.0) 08/25/17 06:12 RDW 14.3 % (11.6-16.5) 08/25/17 06:12 Plt Count 423 X10^3/uL (150.0-450.0) 08/25/17 06:12 Plt Count Comment Adequate (ADEQUATE) 08/24/17 05:00 MPV 7.7 fL (7.4-11.0) 08/25/17 06:12 Neut % (Auto) 59.4 % (42.0-75.0) 08/25/17 06:12 Lymph % (Auto) 19.2 % (21.0-51.0) L 08/25/17 06:12 [place] % (Auto) 8.0 % (0.0-13.0) 08/25/17 06:12 Eos % (Auto) 12.8 % (0.9-2.9) H 08/25/17 06:12 Baso % (Auto) 0.6 % (0.2-1.0) 08/25/17 06:12 Neut # (Auto) 3.7 x10^3/uL (2.2-4.8) 08/25/17 06:12 Lymph # (Auto) 1.2 X10^3/uL (1.3-2.9) L 08/25/17 06:12 [place] # (Auto) 0.5 x10^3/uL (0.3-0.8) 08/25/17 06:12 Eos # (Auto) 0.8 x10^3/uL (0.0-0.2) H 08/25/17 06:12 Baso # (Auto) 0.0 X10^3/uL (0.0-0.1) 08/25/17 06:12 Absolute Nucleated RBC 0.1 /100WBC 08/25/17 06:12 Plt Morphology Comment Normal (NORMAL) 08/24/17 05:00 RBC Morphology Abnormal (NORMAL) A 08/24/17 05:00 Hypochromasia Slight A 08/24/17 05:00 INR Target Range - 08/25/17 06:12 INR 2.82 (0.8-1.3) H 08/25/17 06:12 Sodium 143 mmol/L (136-145) 08/25/17 06:12 Corrected Sodium TNP 08/25/17 06:12 Potassium 3.3 mmol/L (3.5-5.1) L 08/25/17 06:12 Chloride 105 mmol/L (98-107) 08/25/17 06:12 Carbon Dioxide 28.4 mmol/L (21-32) 08/25/17 06:12 BUN 11 mg/dL (7-18) 08/25/17 06:12 Creatinine 1.12 mg/dL (0.55-1.02) H 08/25/17 06:12 Est GFR (MDRD) Af Amer > 60 (>60) 08/25/17 06:12 Est GFR (MDRD) Non-Af 52 (>60) L 08/25/17 06:12 Glucose 87 mg/dL (65-99) 08/25/17 06:12 Calcium 7.7 mg/dL (8.5-10.1) L 08/25/17 06:12 Corrected Calcium 8.7 mg/dL (8.5-10.1) 08/25/17 06:12 Magnesium 1.3 mg/dL (1.7-2.9) L 08/25/17 06:12 Total Bilirubin 0.70 mg/dL (0.2-1.0) 08/25/17 06:12 AST 27 Units/L (15-37) 08/25/17 06:12 ALT 25 Units/L (12-78) 08/25/17 06:12 Alkaline Phosphatase 206 Units/L (46-116) H 08/25/17 06:12 Total Protein 7.0 g/dL (6.4-8.2) 08/25/17 06:12 Albumin 2.8 g/dL (3.4-5.0) L 08/25/17 06:12 Globulin 4.2 g/dL (2.5-4.5) 08/25/17 06:12 Albumin/Globulin Ratio 0.7 Ratio (1.1-2.1) L 08/25/17 06:12 Amylase 7 Units/L (25-115) L 08/23/17 01:32 Lipase 188 Units/L (73-393) 08/23/17 01:32 Specimen Type Catherized urine 08/25/17 01:14 Urine Color Straw (YELLOW) 08/25/17 01:14 Urine Appearance Clear (CLEAR) 08/25/17 01:14 Urine pH 6.5 (5.0 - 8.0) 08/25/17 01:14 Ur Specific [place] 1.005 (1.000-1.030) 08/25/17 01:14 Urine Protein Negative (NEGATIVE) 08/25/17 01:14 Urine Glucose (UA) Negative (NEGATIVE) 08/25/17 01:14 Urine Ketones Negative (NEGATIVE) 08/25/17 01:14 Urine Occult Blood Negative (NEGATIVE) 08/25/17 01:14 Urine Nitrite Negative (NEGATIVE) 08/25/17 01:14 Urine Bilirubin Negative (NEGATIVE) 08/25/17 01:14 Urine Urobilinogen Normal (NORMAL) 08/25/17 01:14 Ur Leukocyte Esterase Negative (NEGATIVE) 08/25/17 01:14 Blood Type O NEGATIVE 08/24/17 10:20 Antibody Screen Negative 08/24/17 10:20 Crossmatch See Detail 08/24/17 10:20 - Plan (1) Generalized weakness Status: Acute Plan: NORMAL SALINE AT 80ML/HR, CONTINUE TO MONITOR (2) Rib fracture Status: Acute Qualifiers: Encounter type: initial encounter Rib fracture type: single rib Fracture type: closed Laterality: left Qualified Code(s): S22.32XA - Fracture of one rib, left side, initial encounter for closed fracture Plan: MORPHINE 2MG IV Q4H PRN PAIN, CONTINUE TO MONITOR (3) Anemia Status: Acute Qualifiers: Anemia type: iron deficiency Iron deficiency anemia type: unspecified iron deficiency Qualified Code(s): D50.9 - Iron deficiency anemia, unspecified Plan: TRANSFUSE 2 UNITS PRBC, CONTINUE TO MONITOR (4) Hypoalbuminemia Status: Acute Plan: ALBUMIN 25% IV DAILY, CONTINUE TO MONITOR (5) DVT (deep venous thrombosis) Status: Acute Qualifiers: DVT location: upper extremity Affected thrombotic vein of extremity: other upper extremity vein Chronicity: acute Laterality: left Qualified Code(s) : I82.622 - Acute embolism and thrombosis of deep veins of left upper extremity Plan: COUMADIN 4MG AT HS, CONTINUE TO MONITOR (6) Cellulitis Status: Acute Qualifiers: Site of cellulitis: extremity Site of cellulitis of extremity: upper extremity Laterality: right Qualified Code(s): L03.113 - Cellulitis of right upper limb Plan: LEVAQUIN IV, VANCOMYCIN IV, CONTINUE TO MONITOR
[2017-08-25] MEDS: NS 1000 ML 1,000 ML IV SCH ×2 (17:07→21:11)
[2017-08-25] MEDS ORDERED: LEXAPRO ONE (21:52)
[2017-08-25] MEDS: COUMADIN TAB 4 MG PO SCH (21:58)
[2017-08-25] MEDS: LEXAPRO PO SCH (21:59)
[2017-08-25] MEDS: TESSALON PERLES PO PRN (22:00)
[2017-08-25] MEDS: RESTORIL CAP 15 MG PO PRN (22:00)
[2017-08-25] MEDS ORDERED: ZOFRAN INJ 4 MG VIAL IVP PRN (22:14)
[2017-08-26] MEDS: TUSSIONEX PENNKINETIC SUSP PO PRN ×2 (05:53→22:14)
[2017-08-26] MEDS: XANAX PO SCH ×3 (05:53→22:16)
[2017-08-26 06:30] LABS: BASOPHILS # (AUTO) 0.1 X10^3/uL (0.0-0.1); BASOPHILS % (AUTO) 1.4 % (0.2-1.0); EOSINOPHILS # (AUTO) 0.7 x10^3/uL (0.0-0.2); HEMATOCRIT 32.7 % (36.0-47.0); HEMOGLOBIN 11.3 g/dL (12.0-16.0); LYMPHOCYTES % (AUTO) 14.8 % (21.0-51.0); MEAN CORPUSCULAR HEMOGLOBIN 30.1 pg (27.0-34.0); MEAN CORPUSCULAR HGB CONC 34.6 g/dL (33.0-35.0); MEAN PLATELET VOLUME 7.9 fL (7.4-11.0); MONOCYTES # (AUTO) 0.5 x10^3/uL (0.3-0.8); MONOCYTES % (AUTO) 7.7 % (0.0-13.0); NEUTROPHILS # (AUTO) 4.3 x10^3/uL (2.2-4.8); NEUTROPHILS % (AUTO) 66.1 % (42.0-75.0); PLATELET COUNT 408 X10^3/uL (150.0-450.0); RED BLOOD COUNT 3.76 X10^6/uL (3.5-5.4); RED CELL DISTRIBUTION WIDTH 14.5 % (11.6-16.5); WHITE BLOOD COUNT 6.5 X10^3/uL (3.6-10.0)
[2017-08-26 07:24] LABS: ALANINE AMINOTRANSFERASE 38 Units/L (12-78); ALKALINE PHOSPHATASE 249 Units/L (46-116); ASPARTATE AMINO TRANSFERASE 60 Units/L (15-37); BLOOD UREA NITROGEN 9 mg/dL (7-18); CALCIUM 7.7 mg/dL (8.5-10.1); CARBON DIOXIDE 26.7 mmol/L (21-32); CHLORIDE 102 mmol/L (98-107); COR CA(FOR HYPOALB) 8.5 mg/dL (8.5-10.1); CREATININE 1.05 mg/dL (0.55-1.02); SODIUM 139 mmol/L (136-145); TOTAL PROTEIN 6.9 g/dL (6.4-8.2); eGFR BLACK RACES > 60 (>60); eGFR NON BLACK RACES 56 (>60)
[2017-08-26] MEDS: NS 1000 ML 1,000 ML IV SCH ×2 (08:36→22:16)
[2017-08-26] MEDS: ALBUMIN HUMAN 25%- 100ML 100 ML IV SCH (09:28)
[2017-08-26] MEDS: LEVAQUIN PREMIX IV 500 MG 500 MG/100 ML BAG IV SCH (09:28)
[2017-08-26] MEDS: NICOTINE PATCH TD SCH (09:28)
[2017-08-26] MEDS: PROTONIX TAB 40 MG PO SCH ×2 (09:29→22:16)
[2017-08-26] MEDS: ZANTAC PO SCH (09:29)
[2017-08-26] MEDS: NORCO 7.5/325 MG TAB PO PRN ×2 (09:29→17:53)
[2017-08-26] MEDS: LASIX PO SCH (09:29)
[2017-08-26] MEDS: BUSPAR PO SCH ×2 (09:29→22:15)
[2017-08-26] MEDS: FLEXERIL TAB 10 MG PO PRN (09:29)
[2017-08-26] MEDS: ZESTRIL TAB 5 MG PO SCH (09:29)
[2017-08-26] MEDS: PROVENTIL NEB TX 0.083% 2.5MG/ 3ML NEB SCH ×3 (11:25→22:13)
[2017-08-26] MEDS: VANCOMYCIN HCL 1 GM VIAL 1 GM in D5W 250 ML IV 250 ML IV SCH (11:48)
[2017-08-26] MEDS: XARELTO PO SCH (15:45)
[2017-08-26] MEDS: ZOFRAN TAB 4 MG PO PRN (17:53)
[2017-08-26] MEDS ORDERED: MILK OF MAGNESIA PO PRN (20:35)
[2017-08-26] MEDS ORDERED: LEXAPRO ONE (22:06)
[2017-08-26] MEDS: MAGNESIUM SULFATE 1 GM/100 mL PREMIX 1 GM/100 ML BAG IV PRN ×2 (22:12→23:29)
[2017-08-26] MEDS: COLACE CAP 100 MG PO SCH (22:15)
[2017-08-26] MEDS: TESSALON PERLES PO PRN (22:15)
[2017-08-26] MEDS: LEXAPRO PO SCH (22:16)
[2017-08-26] MEDS: RESTORIL CAP 15 MG PO PRN (22:16)
[2017-08-26] MEDS: MORPHINE SULFATE INJ 2 MG INJ IVP PRN (22:17)
[2017-08-27] MEDS: MAGNESIUM SULFATE 1 GM/100 mL PREMIX 1 GM/100 ML BAG IV PRN ×2 (00:37→01:39)
[2017-08-27] MEDS: NORCO 7.5/325 MG TAB PO PRN ×2 (04:04→18:15)
[2017-08-27] MEDS: XANAX PO SCH ×3 (05:54→21:20)
[2017-08-27 06:50] LABS: ALANINE AMINOTRANSFERASE 25 Units/L (12-78); ALBUMIN 3.4 g/dL (3.4-5.0); ALKALINE PHOSPHATASE 209 Units/L (46-116); ASPARTATE AMINO TRANSFERASE 21 Units/L (15-37); BASOPHILS % (AUTO) 0.6 % (0.2-1.0); BLOOD UREA NITROGEN 7 mg/dL (7-18); CALCIUM 7.9 mg/dL (8.5-10.1); CARBON DIOXIDE 31.2 mmol/L (21-32); CHLORIDE 100 mmol/L (98-107); COR NA(FOR HYPERGLY) 139 mmol/L (136-145); CREATININE 0.98 mg/dL (0.55-1.02); EOSINOPHILS # (AUTO) 0.5 x10^3/uL (0.0-0.2); EOSINOPHILS % (AUTO) 5.6 % (0.9-2.9); HEMATOCRIT 35.4 % (36.0-47.0); HEMOGLOBIN 12.1 g/dL (12.0-16.0); MAGNESIUM 2.6 mg/dL (1.7-2.9); MEAN CORPUSCULAR HGB CONC 34.3 g/dL (33.0-35.0); MEAN CORPUSCULAR VOLUME 87.3 fL (80.0-100.0); MEAN PLATELET VOLUME 7.5 fL (7.4-11.0); MONOCYTES # (AUTO) 0.7 x10^3/uL (0.3-0.8); NEUTROPHILS # (AUTO) 6.5 x10^3/uL (2.2-4.8); NEUTROPHILS % (AUTO) 73.8 % (42.0-75.0); PLATELET COUNT 451 X10^3/uL (150.0-450.0); RED BLOOD COUNT 4.05 X10^6/uL (3.5-5.4); RED CELL DISTRIBUTION WIDTH 14.4 % (11.6-16.5); SODIUM 139 mmol/L (136-145); TOTAL PROTEIN 7.2 g/dL (6.4-8.2); WHITE BLOOD COUNT 8.8 X10^3/uL (3.6-10.0); eGFR BLACK RACES > 60 (>60); eGFR NON BLACK RACES > 60 (>60)
[2017-08-27] MEDS: PROVENTIL NEB TX 0.083% 2.5MG/ 3ML NEB SCH ×3 (08:22→21:34)
[2017-08-27] MEDS: ALBUMIN HUMAN 25%- 100ML 100 ML IV SCH (09:42)
[2017-08-27] MEDS: LASIX PO SCH (09:43)
[2017-08-27] MEDS: ZANTAC PO SCH (09:43)
[2017-08-27] MEDS: XARELTO PO SCH ×2 (09:44→09:53)
[2017-08-27] MEDS: PROTONIX TAB 40 MG PO SCH ×2 (09:44→20:46)
[2017-08-27] MEDS: ZESTRIL TAB 5 MG PO SCH (09:44)
[2017-08-27] MEDS: BUSPAR PO SCH ×2 (09:45→20:43)
[2017-08-27] MEDS: LEVAQUIN PREMIX IV 500 MG 500 MG/100 ML BAG IV SCH (09:46)
[2017-08-27] MEDS: NICOTINE PATCH TD SCH (09:47)
[2017-08-27] MEDS ORDERED: MEPHYTON PO NR (10:00)
[2017-08-27] MEDS: MUCINEX DM PO SCH ×2 (10:35→21:20)
[2017-08-27] MEDS: VANCOMYCIN HCL 1 GM VIAL 1 GM in D5W 250 ML IV 250 ML IV SCH (11:17)
[2017-08-27] MEDS: K-LYTE EFFERVESCENT PO SCH (11:35)
[2017-08-27] MEDS: MICRO K EXTEN CAP 10 MEQ PO SCH ×2 (11:36→20:45)
[2017-08-27] MEDS: NS 1000 ML 1,000 ML IV SCH (15:17)
[2017-08-27 15:27] LABS: BILIRUBIN,URINE NEGATIVE (NEGATIVE); BLOOD/HEMOGLOBIN,URINE 2+ (NEGATIVE); GLUCOSE, URINE NEGATIVE (NEGATIVE); KETONES,URINE NEGATIVE (NEGATIVE); LEUKOCYTE ESTERASE ,URINE NEGATIVE (NEGATIVE); NITRITES,URINE NEGATIVE (NEGATIVE); PROTEIN,URINE NEGATIVE (NEGATIVE); UROBILINOGEN,URINE NORMAL (NORMAL)
[2017-08-27 15:33] LABS: APPEARANCE,URINE CLEAR (CLEAR); COLOR,URINE YELLOW (YELLOW); RBC,URINE 0-2 /HPF (NONE SEEN)
[2017-08-27 15:34] LABS: BACTERIA,URINE TRACE /HPF (NEGATIVE); SQUAMOUS EPITHELIAL CELL,UR RARE /HPF (NEGATIVE)
[2017-08-27] MEDS ORDERED: LEXAPRO ONE (20:38)
[2017-08-27] MEDS: COLACE CAP 100 MG PO SCH (20:44)
[2017-08-27] MEDS: LEXAPRO PO SCH (20:46)
[2017-08-28 04:46] LABS: ALANINE AMINOTRANSFERASE 20 Units/L (12-78); ALBUMIN 3.3 g/dL (3.4-5.0); ALKALINE PHOSPHATASE 173 Units/L (46-116); ASPARTATE AMINO TRANSFERASE 16 Units/L (15-37); BLOOD UREA NITROGEN 9 mg/dL (7-18); CALCIUM 8.3 mg/dL (8.5-10.1); CARBON DIOXIDE 30.9 mmol/L (21-32); CHLORIDE 101 mmol/L (98-107); COR CA(FOR HYPOALB) 8.9 mg/dL (8.5-10.1); CREATININE 1.16 mg/dL (0.55-1.02); SODIUM 139 mmol/L (136-145); TOTAL PROTEIN 7.1 g/dL (6.4-8.2); eGFR BLACK RACES > 60 (>60); eGFR NON BLACK RACES 50 (>60)
[2017-08-28 04:47] LABS: BASOPHILS # (AUTO) 0.2 X10^3/uL (0.0-0.1); BASOPHILS % (AUTO) 1.6 % (0.2-1.0); EOSINOPHILS % (AUTO) 9.6 % (0.9-2.9); HEMATOCRIT 34.9 % (36.0-47.0); HEMOGLOBIN 11.9 g/dL (12.0-16.0); LYMPHOCYTES # (AUTO) 1.6 X10^3/uL (1.3-2.9); LYMPHOCYTES % (AUTO) 15.3 % (21.0-51.0); MEAN CORPUSCULAR HEMOGLOBIN 29.8 pg (27.0-34.0); MEAN CORPUSCULAR HGB CONC 34.1 g/dL (33.0-35.0); MEAN CORPUSCULAR VOLUME 87.3 fL (80.0-100.0); MEAN PLATELET VOLUME 7.4 fL (7.4-11.0); MONOCYTES # (AUTO) 0.9 x10^3/uL (0.3-0.8); MONOCYTES % (AUTO) 8.5 % (0.0-13.0); NEUTROPHILS # (AUTO) 6.7 x10^3/uL (2.2-4.8); PLATELET COUNT 468 X10^3/uL (150.0-450.0); RED BLOOD COUNT 3.99 X10^6/uL (3.5-5.4); RED CELL DISTRIBUTION WIDTH 14.5 % (11.6-16.5); WHITE BLOOD COUNT 10.4 X10^3/uL (3.6-10.0)
[2017-08-28] MEDS: XANAX PO SCH ×3 (05:06→21:53)
[2017-08-28] MEDS: NORCO 7.5/325 MG TAB PO PRN (05:06)
[2017-08-28] MEDS: PROVENTIL NEB TX 0.083% 2.5MG/ 3ML NEB SCH ×3 (05:45→21:33)
[2017-08-28] MEDS: ALBUMIN HUMAN 25%- 100ML 100 ML IV SCH (08:36)
[2017-08-28] MEDS: LASIX PO SCH (08:37)
[2017-08-28] MEDS: BUSPAR PO SCH ×2 (08:37→21:52)
[2017-08-28] MEDS: MICRO K EXTEN CAP 10 MEQ PO SCH ×2 (08:37→21:52)
[2017-08-28] MEDS: ZANTAC PO SCH (08:38)
[2017-08-28] MEDS: ZESTRIL TAB 5 MG PO SCH (08:38)
[2017-08-28] MEDS: PROTONIX TAB 40 MG PO SCH ×2 (08:38→21:53)
[2017-08-28] MEDS: K-LYTE EFFERVESCENT PO SCH (08:38)
[2017-08-28] MEDS: LEVAQUIN PREMIX IV 500 MG 500 MG/100 ML BAG IV SCH (08:39)
[2017-08-28] MEDS: NICOTINE PATCH TD SCH (08:59)
[2017-08-28] MEDS: VANCOMYCIN HCL 1 GM VIAL 1 GM in D5W 250 ML IV 250 ML IV SCH (09:59)
[2017-08-28] MEDS: MUCINEX DM PO SCH ×2 (10:58→21:51)
[2017-08-28] MEDS: LEVAQUIN TAB 500 MG PO SCH (14:44)
--- NOTE | 2017-08-28 20:19 | PCM.PROG ---
Progress Note - Progress Note for Day of Date: 08/26/17 - Subjective Subjective: WAS ADMITTED FOR GENERALIZED WEAKNESS AND PAIN CONTROL. TODAY , SHE IS ALERT AND ORIENTED, SITTING UP ON THE SIDE OF THE BED ON MORNING ROUNDS. SHE CONTINUES WITH GENERALIZED WEAKNESS ,LEFT SIDE RIB PAIN AND ARM PAIN , AND COUGH. ON EXAMINATION, HEART IS REGULAR IN RATE AND RHYTHM. BILATERAL LUNGS ARE NOTED WITH DIMINISHED LUNG SOUNDS THROUGHOUT. ABDOMEN IS ROUND, SOFT, AND NON-TENDER WITH NORMAL BOWEL SOUNDS NOTED IN ALL QUADRANTS. LEFT ARM IS NOTED WITH BRUISING, ERYTHEMA, AND EDEMA. RIGHT ARM CONTINUES WITH WARMTH AND ERYTHEMA TO THE FOREARM. BILATERAL LOWER EXTREMITIES ARE WITHOUT EDEMA TODAY. HER VITALS THIS MORNING ARE 98.1-77-18-92%-163/70. SHE IS HEMODYAMICALLY STABLE TODAY WITH THE EXCEPTION OF INR BEING ELEVATED AT 3.35. TODAY, WE WILL START BREAATHING TREATMENTS BID SCHEDULED AND DISCONTINUE COUMADIN. WE WILL START XARELTO 20MG PO DAILY. OTHERWISE, WE WILL CONTINUE WITH CURRENT PLAN OF CARE AND CONTINUE TO MONITOR PATIENT. - Past Medical Family Social History Past Med/Fam/Surg Hx: No changes since H&P Allergies: Allergies ceftriaxone Allergy (Verified 08/23/17 00:03) fluoxetine [From Prozac] Allergy (Verified 08/23/17 00:03) ketorolac [From Toradol] Allergy (Verified 08/23/17 00:03) - Review of Systems ROS: No change since H&P - Vital Signs and I&O's Vital Signs: Temperature 98.0 F Pulse Rate [Right Brachial] 92 Pulse Rate 89 Respiratory Rate 20 Blood Pressure [Right Arm] 137/63 Blood Pressure [Left Arm] 128/54 Blood Pressure 112/53 O2 Sat by Pulse Oximetry 92 Intake and Output: Intake & Output 08/26/17 08/27/17 08/28/17 08/29/17 11:59 11:59 11:59 11:59 Intake Total 3653 3541 700 120 Output Total 3850 3750 1400 1300 Balance -195 -763 -700 -4640 - Physical Exam Oriented: Normal Eyes: Normal Ear: Normal Nose: Normal Throat: Normal Respiratory: Diminished Cardiovascular: Edema (LEFT ARM EDEMA AND WEEPING, BILATERAL LOWER EXTREMITY 1+ PITTING EDEMA ) : Normal Auscultation: Bowel Sounds: Normal Palpation: Normal Tenderness: Normal Skin: Red, Tender, Wound, Bruising Musculoskeletal: Left, Arm, Leg, Back:Lumbar, Swelling, Tender Psychiatric: Normal Mood Description: Calm Affect: Normal Speech Pattern: Clear, Appropriate - Laboratory and Diagnostics Result Diagrams: 08/28/17 04:15 08/28/17 04:15 Labs: Laboratory WBC 10.4 X10^3/uL (3.6-10.0) H 08/28/17 04:15 RBC 3.99 X10^6/uL (3.5-5.4) 08/28/17 04:15 Hgb 11.9 g/dL (12.0-16.0) L 08/28/17 04:15 Hct 34.9 % (36.0-47.0) L 08/28/17 04:15 MCV 87.3 fL (80.0-100.0) 08/28/17 04:15 MCH 29.8 pg (27.0-34.0) 08/28/17 04:15 MCHC 34.1 g/dL (33.0-35.0) 08/28/17 04:15 RDW 14.5 % (11.6-16.5) 08/28/17 04:15 Plt Count 468 X10^3/uL (150.0-450.0) H 08/28/17 04:15 Plt Count Comment Adequate (ADEQUATE) 08/24/17 05:00 MPV 7.4 fL (7.4-11.0) 08/28/17 04:15 Neut % (Auto) 65.0 % (42.0-75.0) 08/28/17 04:15 Lymph % (Auto) 15.3 % (21.0-51.0) L 08/28/17 04:15 [place] % (Auto) 8.5 % (0.0-13.0) 08/28/17 04:15 Eos % (Auto) 9.6 % (0.9-2.9) H 08/28/17 04:15 Baso % (Auto) 1.6 % (0.2-1.0) H 08/28/17 04:15 Neut # (Auto) 6.7 x10^3/uL (2.2-4.8) H 08/28/17 04:15 Lymph # (Auto) 1.6 X10^3/uL (1.3-2.9) 08/28/17 04:15 [place] # (Auto) 0.9 x10^3/uL (0.3-0.8) H 08/28/17 04:15 Eos # (Auto) 1.0 x10^3/uL (0.0-0.2) H 08/28/17 04:15 Baso # (Auto) 0.2 X10^3/uL (0.0-0.1) H 08/28/17 04:15 Absolute Nucleated RBC 0.0 /100WBC 08/28/17 04:15 Plt Morphology Comment Normal (NORMAL) 08/24/17 05:00 RBC Morphology Abnormal (NORMAL) A 08/24/17 05:00 Hypochromasia Slight A 08/24/17 05:00 INR Target Range - 08/28/17 04:15 INR 2.86 (0.8-1.3) H 08/28/17 04:15 Sodium 139 mmol/L (136-145) 08/28/17 04:15 Corrected Sodium TNP 08/28/17 04:15 Potassium 3.9 mmol/L (3.5-5.1) 08/28/17 04:15 Chloride 101 mmol/L (98-107) 08/28/17 04:15 Carbon Dioxide 30.9 mmol/L (21-32) 08/28/17 04:15 BUN 9 mg/dL (7-18) 08/28/17 04:15 Creatinine 1.16 mg/dL (0.55-1.02) H 08/28/17 04:15 Est GFR (MDRD) Af Amer > 60 (>60) 08/28/17 04:15 Est GFR (MDRD) Non-Af 50 (>60) L 08/28/17 04:15 Glucose 95 mg/dL (65-99) 08/28/17 04:15 Calcium 8.3 mg/dL (8.5-10.1) L 08/28/17 04:15 Corrected Calcium 8.9 mg/dL (8.5-10.1) 08/28/17 04:15 Magnesium 2.6 mg/dL (1.7-2.9) 08/27/17 06:25 Total Bilirubin 0.50 mg/dL (0.2-1.0) 08/28/17 04:15 AST 16 Units/L (15-37) 08/28/17 04:15 ALT 20 Units/L (12-78) 08/28/17 04:15 Alkaline Phosphatase 173 Units/L (46-116) H 08/28/17 04:15 Total Protein 7.1 g/dL (6.4-8.2) 08/28/17 04:15 Albumin 3.3 g/dL (3.4-5.0) L 08/28/17 04:15 Globulin 3.8 g/dL (2.5-4.5) 08/28/17 04:15 Albumin/Globulin Ratio 0.9 Ratio (1.1-2.1) L 08/28/17 04:15 Amylase 7 Units/L (25-115) L 08/23/17 01:32 Lipase 188 Units/L (73-393) 08/23/17 01:32 Specimen Type Clean catch urine 08/27/17 15:17 Urine Color Yellow (YELLOW) 08/27/17 15:17 Urine Appearance Clear (CLEAR) 08/27/17 15:17 Urine pH 7.0 (5.0 - 8.0) 08/27/17 15:17 Ur Specific [place] 1.005 (1.000-1.030) 08/27/17 15:17 Urine Protein Negative (NEGATIVE) 08/27/17 15:17 Urine Glucose (UA) Negative (NEGATIVE) 08/27/17 15:17 Urine Ketones Negative (NEGATIVE) 08/27/17 15:17 Urine Occult Blood 2+ (NEGATIVE) 08/27/17 15:17 Urine Nitrite Negative (NEGATIVE) 08/27/17 15:17 Urine Bilirubin Negative (NEGATIVE) 08/27/17 15:17 Urine Urobilinogen Normal (NORMAL) 08/27/17 15:17 Ur Leukocyte Esterase Negative (NEGATIVE) 08/27/17 15:17 Urine RBC 0-2 /HPF (NONE SEEN) 08/27/17 15:17 Urine WBC 0-2 /HPF (NONE SEEN) 08/27/17 15:17 Ur Squamous Epith Cells Rare /HPF (NEGATIVE) 08/27/17 15:17 Urine Bacteria Trace /HPF (NEGATIVE) 08/27/17 15:17 Ur Culture Indicated? No/not indicated 05/04/18 15:17 Stool Description Fob tube 08/27/17 12:50 Stl Occult Blood (IFOB) Positive (NEGATIVE) A 08/27/17 12:50 Blood Type O NEGATIVE 08/24/17 10:20 Antibody Screen Negative 08/24/17 10:20 Crossmatch See Detail 08/24/17 10:20 - Plan (1) Generalized weakness Status: Acute Plan: NORMAL SALINE AT 80ML/HR, CONTINUE TO MONITOR (2) Rib fracture Status: Acute Qualifiers: Encounter type: initial encounter Rib fracture type: single rib Fracture type: closed Laterality: left Qualified Code(s): S22.32XA - Fracture of one rib, left side, initial encounter for closed fracture Plan: MORPHINE 2MG IV Q4H PRN PAIN, CONTINUE TO MONITOR (3) Anemia Status: Acute Qualifiers: Anemia type: iron deficiency Iron deficiency anemia type: unspecified iron deficiency Qualified Code(s): D50.9 - Iron deficiency anemia, unspecified Plan: TRANSFUSE 2 UNITS PRBC, CONTINUE TO MONITOR (4) Hypoalbuminemia Status: Acute Plan: ALBUMIN 25% IV DAILY, CONTINUE TO MONITOR (5) DVT (deep venous thrombosis) Status: Acute Qualifiers: DVT location: upper extremity Affected thrombotic vein of extremity: other upper extremity vein Chronicity: acute Laterality: left Qualified Code(s) : I82.622 - Acute embolism and thrombosis of deep veins of left upper extremity Plan: COUMADIN 4MG AT HS, CONTINUE TO MONITOR (6) Cellulitis Status: Acute Qualifiers: Site of cellulitis: extremity Site of cellulitis of extremity: upper extremity Laterality: right Qualified Code(s): L03.113 - Cellulitis of right upper limb Plan: LEVAQUIN IV, VANCOMYCIN IV, CONTINUE TO MONITOR (7) Bronchitis Status: Acute Plan: JET NEBS BID, SUPPLEMENTAL OXYGEN, LEVAQUIN, CONTINUE TO MONITOR
--- NOTE | 2017-08-28 20:20 | PCM.PROG ---
Progress Note - Progress Note for Day of Date: 08/27/17 - Subjective Subjective: WAS ADMITTED FOR GENERALIZED WEAKNESS AND PAIN CONTROL. TODAY , SHE IS ALERT AND ORIENTED, SITTING UP ON THE SIDE OF THE BED ON MORNING ROUNDS. SHE CONTINUES WITH GENERALIZED WEAKNESS, LEFT SIDE RIB PAIN AND ARM PAIN , AND COUGH. ON EXAMINATION, HEART IS REGULAR IN RATE AND RHYTHM. BILATERAL LUNGS ARE NOTED WITH SCATTERED WHEEING THROUGHOUT. ABDOMEN IS ROUND, SOFT, AND NON-TENDER WITH NORMAL BOWEL SOUNDS NOTED IN ALL QUADRANTS. LEFT ARM IS NOTED WITH BRUISING, ERYTHEMA, AND EDEMA. RIGHT ARM CONTINUES WITH WARMTH AND ERYTHEMA TO THE FOREARM. HER VITALS THIS MORNING ARE 98.2-75-24-93%-152/68. SHE IS HEMODYAMICALLY STABLE TODAY WITH THE EXCEPTION OF INR BEING SIGNIFICANTLY ELEVATED AT 14.72. WE WILL HAVE LAB RERUN THIS LEVEL. IF IT CONTINUES TO BE ELEVATED, WE WILL ADMINISTER VITAMIN K 10MG SC X 1 DOSE AND HOLD XARELTO TONIGHT. WE WILL INCREASE JET NEBS TO TID SCHEDULED AND ADD MUCOMYST TO TREATMENTS. WE WILL ALSO START MUCINEX DM 2 TABLETS TWICE A DAY. OTHERWISE, WE WILL CONTINUE WITH CURRENT PLAN OF CARE AND CONTINUE TO MONITOR PATIENT. - Past Medical Family Social History Past Med/Fam/Surg Hx: No changes since H&P Allergies: Allergies ceftriaxone Allergy (Verified 08/23/17 00:03) fluoxetine [From Prozac] Allergy (Verified 08/23/17 00:03) ketorolac [From Toradol] Allergy (Verified 08/23/17 00:03) - Review of Systems ROS: No change since H&P - Vital Signs and I&O's Vital Signs: Temperature 98.0 F Pulse Rate [Right Brachial] 92 Pulse Rate 89 Respiratory Rate 20 Blood Pressure [Right Arm] 137/63 Blood Pressure [Left Arm] 128/54 Blood Pressure 112/53 O2 Sat by Pulse Oximetry 92 Intake and Output: Intake & Output 08/26/17 08/27/17 08/28/17 08/29/17 11:59 11:59 11:59 11:59 Intake Total 3655 3541 700 120 Output Total 3850 3750 1400 1300 Balance -195 -209 -700 -1180 - Physical Exam Oriented: Normal Eyes: Normal Ear: Normal Nose: Normal Throat: Normal Respiratory: Generalized, Wheezes Cardiovascular: Edema (LEFT ARM EDEMA AND WEEPING, BILATERAL LOWER EXTREMITY 1+ PITTING EDEMA ) : Normal Auscultation: Bowel Sounds: Normal Palpation: Normal Tenderness: Normal Skin: Red, Tender, Wound, Bruising Musculoskeletal: Left, Arm, Leg, Back:Lumbar, Swelling, Tender Psychiatric: Normal Mood Description: Calm Affect: Normal Speech Pattern: Clear, Appropriate - Laboratory and Diagnostics Result Diagrams: 08/28/17 04:15 08/28/17 04:15 Labs: Laboratory WBC 10.4 X10^3/uL (3.6-10.0) H 08/28/17 04:15 RBC 3.99 X10^6/uL (3.5-5.4) 08/28/17 04:15 Hgb 11.9 g/dL (12.0-16.0) L 08/28/17 04:15 Hct 34.9 % (36.0-47.0) L 08/28/17 04:15 MCV 87.3 fL (80.0-100.0) 08/28/17 04:15 MCH 29.8 pg (27.0-34.0) 08/28/17 04:15 MCHC 34.1 g/dL (33.0-35.0) 08/28/17 04:15 RDW 14.5 % (11.6-16.5) 08/28/17 04:15 Plt Count 468 X10^3/uL (150.0-450.0) H 08/28/17 04:15 Plt Count Comment Adequate (ADEQUATE) 08/24/17 05:00 MPV 7.4 fL (7.4-11.0) 08/28/17 04:15 Neut % (Auto) 65.0 % (42.0-75.0) 08/28/17 04:15 Lymph % (Auto) 15.3 % (21.0-51.0) L 08/28/17 04:15 [place] % (Auto) 8.5 % (0.0-13.0) 08/28/17 04:15 Eos % (Auto) 9.6 % (0.9-2.9) H 08/28/17 04:15 Baso % (Auto) 1.6 % (0.2-1.0) H 08/28/17 04:15 Neut # (Auto) 6.7 x10^3/uL (2.2-4.8) H 08/28/17 04:15 Lymph # (Auto) 1.6 X10^3/uL (1.3-2.9) 08/28/17 04:15 [place] # (Auto) 0.9 x10^3/uL (0.3-0.8) H 08/28/17 04:15 Eos # (Auto) 1.0 x10^3/uL (0.0-0.2) H 08/28/17 04:15 Baso # (Auto) 0.2 X10^3/uL (0.0-0.1) H 08/28/17 04:15 Absolute Nucleated RBC 0.0 /100WBC 08/28/17 04:15 Plt Morphology Comment Normal (NORMAL) 08/24/17 05:00 RBC Morphology Abnormal (NORMAL) A 08/24/17 05:00 Hypochromasia Slight A 08/24/17 05:00 INR Target Range - 08/28/17 04:15 INR 2.86 (0.8-1.3) H 08/28/17 04:15 Sodium 139 mmol/L (136-145) 08/28/17 04:15 Corrected Sodium TNP 08/28/17 04:15 Potassium 3.9 mmol/L (3.5-5.1) 08/28/17 04:15 Chloride 101 mmol/L (98-107) 08/28/17 04:15 Carbon Dioxide 30.9 mmol/L (21-32) 08/28/17 04:15 BUN 9 mg/dL (7-18) 08/28/17 04:15 Creatinine 1.16 mg/dL (0.55-1.02) H 08/28/17 04:15 Est GFR (MDRD) Af Amer > 60 (>60) 08/28/17 04:15 Est GFR (MDRD) Non-Af 50 (>60) L 08/28/17 04:15 Glucose 95 mg/dL (65-99) 08/28/17 04:15 Calcium 8.3 mg/dL (8.5-10.1) L 08/28/17 04:15 Corrected Calcium 8.9 mg/dL (8.5-10.1) 08/28/17 04:15 Magnesium 2.6 mg/dL (1.7-2.9) 08/27/17 06:25 Total Bilirubin 0.50 mg/dL (0.2-1.0) 08/28/17 04:15 AST 16 Units/L (15-37) 08/28/17 04:15 ALT 20 Units/L (12-78) 08/28/17 04:15 Alkaline Phosphatase 173 Units/L (46-116) H 08/28/17 04:15 Total Protein 7.1 g/dL (6.4-8.2) 08/28/17 04:15 Albumin 3.3 g/dL (3.4-5.0) L 08/28/17 04:15 Globulin 3.8 g/dL (2.5-4.5) 08/28/17 04:15 Albumin/Globulin Ratio 0.9 Ratio (1.1-2.1) L 08/28/17 04:15 Amylase 7 Units/L (25-115) L 08/23/17 01:32 Lipase 188 Units/L (73-393) 08/23/17 01:32 Specimen Type Clean catch urine 08/27/17 15:17 Urine Color Yellow (YELLOW) 08/27/17 15:17 Urine Appearance Clear (CLEAR) 08/27/17 15:17 Urine pH 7.0 (5.0 - 8.0) 08/27/17 15:17 Ur Specific [place] 1.005 (1.000-1.030) 08/27/17 15:17 Urine Protein Negative (NEGATIVE) 08/27/17 15:17 Urine Glucose (UA) Negative (NEGATIVE) 08/27/17 15:17 Urine Ketones Negative (NEGATIVE) 08/27/17 15:17 Urine Occult Blood 2+ (NEGATIVE) 08/27/17 15:17 Urine Nitrite Negative (NEGATIVE) 08/27/17 15:17 Urine Bilirubin Negative (NEGATIVE) 08/27/17 15:17 Urine Urobilinogen Normal (NORMAL) 08/27/17 15:17 Ur Leukocyte Esterase Negative (NEGATIVE) 08/27/17 15:17 Urine RBC 0-2 /HPF (NONE SEEN) 08/27/17 15:17 Urine WBC 0-2 /HPF (NONE SEEN) 08/27/17 15:17 Ur Squamous Epith Cells Rare /HPF (NEGATIVE) 08/27/17 15:17 Urine Bacteria Trace /HPF (NEGATIVE) 08/27/17 15:17 Ur Culture Indicated? No/not indicated 08/27/17 15:17 Stool Description Fob tube 08/27/17 12:50 Stl Occult Blood (IFOB) Positive (NEGATIVE) A 08/27/17 12:50 Blood Type O NEGATIVE 08/24/17 10:20 Antibody Screen Negative 08/24/17 10:20 Crossmatch See Detail 08/24/17 10:20 - Plan (1) Generalized weakness Status: Acute Plan: NORMAL SALINE AT 80ML/HR, CONTINUE TO MONITOR (2) Rib fracture Status: Acute Qualifiers: Encounter type: initial encounter Rib fracture type: single rib Fracture type: closed Laterality: left Qualified Code(s): S22.32XA - Fracture of one rib, left side, initial encounter for closed fracture Plan: MORPHINE 2MG IV Q4H PRN PAIN, CONTINUE TO MONITOR (3) Anemia Status: Acute Qualifiers: Anemia type: iron deficiency Iron deficiency anemia type: unspecified iron deficiency Qualified Code(s): D50.9 - Iron deficiency anemia, unspecified Plan: TRANSFUSE 2 UNITS PRBC, CONTINUE TO MONITOR (4) Hypoalbuminemia Status: Acute Plan: ALBUMIN 25% IV DAILY, CONTINUE TO MONITOR (5) DVT (deep venous thrombosis) Status: Acute Qualifiers: DVT location: upper extremity Affected thrombotic vein of extremity: other upper extremity vein Chronicity: acute Laterality: left Qualified Code(s) : I82.622 - Acute embolism and thrombosis of deep veins of left upper extremity Plan: COUMADIN 4MG AT HS, CONTINUE TO MONITOR (6) Cellulitis Status: Acute Qualifiers: Site of cellulitis: extremity Site of cellulitis of extremity: upper extremity Laterality: right Qualified Code(s): L03.113 - Cellulitis of right upper limb Plan: LEVAQUIN IV, VANCOMYCIN IV, CONTINUE TO MONITOR (7) Bronchitis Status: Acute Plan: JET NEBS TID, MUCOMYST TO NEB TX, MUCINEX, SUPPLEMENTAL OXYGEN, LEVAQUIN, CONTINUE TO MONITOR
[2017-08-28] MEDS ORDERED: LEXAPRO ONE (21:15)
[2017-08-28] MEDS: COLACE CAP 100 MG PO SCH (21:51)
[2017-08-28] MEDS: LEXAPRO PO SCH (21:52)
[2017-08-28] MEDS: FLEXERIL TAB 10 MG PO PRN (21:52)
[2017-08-28] MEDS: MILK OF MAGNESIA PO SCH ×2 (21:53→21:54)
[2017-08-29] MEDS: PROVENTIL NEB TX 0.083% 2.5MG/ 3ML NEB SCH ×2 (05:25→13:47)
[2017-08-29] MEDS: XANAX PO SCH ×3 (06:14→21:39)
[2017-08-29 07:51] LABS: BASOPHILS # (AUTO) 0.1 X10^3/uL (0.0-0.1); BASOPHILS % (AUTO) 0.9 % (0.2-1.0); EOSINOPHILS # (AUTO) 0.4 x10^3/uL (0.0-0.2); EOSINOPHILS % (AUTO) 2.2 % (0.9-2.9); HEMATOCRIT 39.7 % (36.0-47.0); HEMOGLOBIN 13.4 g/dL (12.0-16.0); LYMPHOCYTES # (AUTO) 1.3 X10^3/uL (1.3-2.9); LYMPHOCYTES % (AUTO) 8.2 % (21.0-51.0); MEAN CORPUSCULAR HEMOGLOBIN 29.7 pg (27.0-34.0); MEAN CORPUSCULAR HGB CONC 33.8 g/dL (33.0-35.0); MEAN CORPUSCULAR VOLUME 87.7 fL (80.0-100.0); MEAN PLATELET VOLUME 7.4 fL (7.4-11.0); MONOCYTES # (AUTO) 0.8 x10^3/uL (0.3-0.8); MONOCYTES % (AUTO) 4.8 % (0.0-13.0); NEUTROPHILS # (AUTO) 13.5 x10^3/uL (2.2-4.8); NEUTROPHILS % (AUTO) 83.9 % (42.0-75.0); PLATELET COUNT 546 X10^3/uL (150.0-450.0); RED BLOOD COUNT 4.52 X10^6/uL (3.5-5.4); RED CELL DISTRIBUTION WIDTH 14.7 % (11.6-16.5)
[2017-08-29] MEDS: ZOFRAN TAB 4 MG PO PRN ×2 (08:00→21:38)
[2017-08-29 08:07] LABS: ALANINE AMINOTRANSFERASE 18 Units/L (12-78); ALBUMIN 3.6 g/dL (3.4-5.0); ALKALINE PHOSPHATASE 177 Units/L (46-116); ASPARTATE AMINO TRANSFERASE 22 Units/L (15-37); BLOOD UREA NITROGEN 12 mg/dL (7-18); CALCIUM 9.2 mg/dL (8.5-10.1); CARBON DIOXIDE 27.6 mmol/L (21-32); CHLORIDE 100 mmol/L (98-107); SODIUM 139 mmol/L (136-145); TOTAL PROTEIN 8.1 g/dL (6.4-8.2); eGFR BLACK RACES 58 (>60); eGFR NON BLACK RACES 48 (>60)
--- NOTE | 2017-08-29 08:16 | RAD ---
Examination: AP chest History: SOB Comparison reference 08/23/2017 Findings: Continued normal heart size with clear lungs and pleural spaces. Contrast material noted in the thoracic spine secondary to previous vertebroplasty procedure. Impression: No interval change or acute chest findings demonstrated. Reported By:
[2017-08-29] MEDS: K-LYTE EFFERVESCENT PO SCH (10:00)
[2017-08-29] MEDS: LEVAQUIN TAB 500 MG PO SCH (10:00)
[2017-08-29] MEDS: LASIX PO SCH (10:00)
[2017-08-29] MEDS: MUCINEX DM PO SCH ×2 (10:00→21:40)
[2017-08-29] MEDS: BUSPAR PO SCH ×2 (10:00→21:40)
[2017-08-29] MEDS: MICRO K EXTEN CAP 10 MEQ PO SCH ×2 (10:00→21:38)
[2017-08-29] MEDS: ZANTAC PO SCH (10:00)
[2017-08-29] MEDS: XARELTO PO SCH (10:00)
[2017-08-29] MEDS: ZESTRIL TAB 5 MG PO SCH (10:00)
[2017-08-29] MEDS: NICOTINE PATCH TD SCH (10:00)
[2017-08-29] MEDS: PROTONIX TAB 40 MG PO SCH ×2 (10:00→21:39)
--- NOTE | 2017-08-29 12:07 | PCM.PROG ---
Progress Note - Progress Note for Day of Date: 08/28/17 - Subjective Subjective: WAS ADMITTED FOR GENERALIZED WEAKNESS AND PAIN CONTROL. TODAY , SHE IS ALERT AND ORIENTED, SITTING UP ON THE SIDE OF THE BED ON MORNING ROUNDS. SHE CONTINUES WITH GENERALIZED WEAKNESS AND COUGH. SHE REPORTS THAT RIB PAIN HAS SLIGHTLY IMPROVED. ON EXAMINATION, HEART IS REGULAR IN RATE AND RHYTHM. BILATERAL LUNGS ARE NOTED WITH SCATTERED WHEEING THROUGHOUT. ABDOMEN IS ROUND, SOFT, AND NON-TENDER WITH NORMAL BOWEL SOUNDS NOTED IN ALL QUADRANTS. LEFT ARM CONTINUES WITH BRUISING, ERYTHEMA, AND EDEMA. RIGHT ARM CONTINUES WITH WARMTH AND ERYTHEMA TO THE FOREARM. HER VITALS THIS MORNING ARE 97.9-74-95%-18- 136/91. HER INR HAS RETURNED TO 2.86 TODAY. TODAY, WE WILL RESUME XARELTO AND CHANGE IV LEVAQUIN TO ORAL. WE WILL DISCONTINUE IV FLUIDS. OTHERWISE, WE WILL CONTINUE WITH CURRENT PLAN OF CARE AND CONTINUE TO MONITOR PATIENT. - Past Medical Family Social History Past Med/Fam/Surg Hx: No changes since H&P Allergies: Allergies ceftriaxone Allergy (Verified 08/23/17 00:03) fluoxetine [From Prozac] Allergy (Verified 08/23/17 00:03) ketorolac [From Toradol] Allergy (Verified 08/23/17 00:03) - Review of Systems ROS: No change since H&P - Vital Signs and I&O's Vital Signs: Temperature 99.4 F Pulse Rate [Right Brachial] 92 Pulse Rate 89 Respiratory Rate 20 Blood Pressure [Right Arm] 126/82 Blood Pressure [Left Arm] 128/54 Blood Pressure 112/53 O2 Sat by Pulse Oximetry 91 Intake and Output: Intake & Output 08/27/17 08/28/17 08/29/17 08/30/17 11:59 11:59 11:59 11:59 Intake Total 3541 700 360 Output Total 4355 1400 1850 Balance -758 -918 -7571 - Physical Exam Oriented: Normal Eyes: Normal Ear: Normal Nose: Normal Throat: Normal Respiratory: Generalized, Wheezes Cardiovascular: Edema (LEFT ARM EDEMA AND WEEPING, BILATERAL LOWER EXTREMITY 1+ PITTING EDEMA ) : Normal Auscultation: Bowel Sounds: Normal Palpation: Normal Tenderness: Normal Skin: Red, Tender, Wound, Bruising Musculoskeletal: Left, Arm, Leg, Back:Lumbar, Swelling, Tender Psychiatric: Normal Mood Description: Calm Affect: Normal Speech Pattern: Clear, Appropriate - Laboratory and Diagnostics Result Diagrams: 08/29/17 07:32 08/29/17 07:32 Labs: Laboratory WBC 16.0 X10^3/uL (3.6-10.0) H 08/29/17 07:32 RBC 4.52 X10^6/uL (3.5-5.4) 08/29/17 07:32 Hgb 13.4 g/dL (12.0-16.0) 08/29/17 07:32 Hct 39.7 % (36.0-47.0) 08/29/17 07:32 MCV 87.7 fL (80.0-100.0) 08/29/17 07:32 MCH 29.7 pg (27.0-34.0) 08/29/17 07:32 MCHC 33.8 g/dL (33.0-35.0) 08/29/17 07:32 RDW 14.7 % (11.6-16.5) 08/29/17 07:32 Plt Count 546 X10^3/uL (150.0-450.0) H 08/29/17 07:32 Plt Count Comment Adequate (ADEQUATE) 08/24/17 05:00 MPV 7.4 fL (7.4-11.0) 08/29/17 07:32 Neut % (Auto) 83.9 % (42.0-75.0) H 08/29/17 07:32 Lymph % (Auto) 8.2 % (21.0-51.0) L 08/29/17 07:32 [place] % (Auto) 4.8 % (0.0-13.0) 08/29/17 07:32 Eos % (Auto) 2.2 % (0.9-2.9) 08/29/17 07:32 Baso % (Auto) 0.9 % (0.2-1.0) 08/29/17 07:32 Neut # (Auto) 13.5 x10^3/uL (2.2-4.8) H 08/29/17 07:32 Lymph # (Auto) 1.3 X10^3/uL (1.3-2.9) 08/29/17 07:32 [place] # (Auto) 0.8 x10^3/uL (0.3-0.8) 08/29/17 07:32 Eos # (Auto) 0.4 x10^3/uL (0.0-0.2) H 08/29/17 07:32 Baso # (Auto) 0.1 X10^3/uL (0.0-0.1) 08/29/17 07:32 Absolute Nucleated RBC 0.1 /100WBC 08/29/17 07:32 Plt Morphology Comment Normal (NORMAL) 08/24/17 05:00 RBC Morphology Abnormal (NORMAL) A 08/24/17 05:00 Hypochromasia Slight A 08/24/17 05:00 INR Target Range - 08/29/17 07:32 INR 1.51 (0.8-1.3) H 08/29/17 07:32 Sodium 139 mmol/L (136-145) 08/29/17 07:32 Corrected Sodium TNP 08/29/17 07:32 Potassium 4.4 mmol/L (3.5-5.1) 08/29/17 07:32 Chloride 100 mmol/L (98-107) 08/29/17 07:32 Carbon Dioxide 27.6 mmol/L (21-32) 08/29/17 07:32 BUN 12 mg/dL (7-18) 08/29/17 07:32 Creatinine 1.20 mg/dL (0.55-1.02) H 08/29/17 07:32 Est GFR (MDRD) Af Amer 58 (>60) L 08/29/17 07:32 Est GFR (MDRD) Non-Af 48 (>60) L 08/29/17 07:32 Glucose 108 mg/dL (65-99) H 08/29/17 07:32 Calcium 9.2 mg/dL (8.5-10.1) 08/29/17 07:32 Corrected Calcium TNP 08/29/17 07:32 Magnesium 2.6 mg/dL (1.7-2.9) 08/27/17 06:25 Total Bilirubin 0.70 mg/dL (0.2-1.0) 08/29/17 07:32 AST 22 Units/L (15-37) 08/29/17 07:32 ALT 18 Units/L (12-78) 08/29/17 07:32 Alkaline Phosphatase 177 Units/L (46-116) H 08/29/17 07:32 Total Protein 8.1 g/dL (6.4-8.2) 08/29/17 07:32 Albumin 3.6 g/dL (3.4-5.0) 08/29/17 07:32 Globulin 4.5 g/dL (2.5-4.5) 08/29/17 07:32 Albumin/Globulin Ratio 0.8 Ratio (1.1-2.1) L 08/29/17 07:32 Amylase 7 Units/L (25-115) L 08/23/17 01:32 Lipase 188 Units/L (73-393) 08/23/17 01:32 Specimen Type Clean catch urine 08/27/17 15:17 Urine Color Yellow (YELLOW) 08/27/17 15:17 Urine Appearance Clear (CLEAR) 08/27/17 15:17 Urine pH 7.0 (5.0 - 8.0) 08/27/17 15:17 Ur Specific [place] 1.005 (1.000-1.030) 08/27/17 15:17 Urine Protein Negative (NEGATIVE) 08/27/17 15:17 Urine Glucose (UA) Negative (NEGATIVE) 08/27/17 15:17 Urine Ketones Negative (NEGATIVE) 08/27/17 15:17 Urine Occult Blood 2+ (NEGATIVE) 08/27/17 15:17 Urine Nitrite Negative (NEGATIVE) 08/27/17 15:17 Urine Bilirubin Negative (NEGATIVE) 08/27/17 15:17 Urine Urobilinogen Normal (NORMAL) 08/27/17 15:17 Ur Leukocyte Esterase Negative (NEGATIVE) 08/27/17 15:17 Urine RBC 0-2 /HPF (NONE SEEN) 08/27/17 15:17 Urine WBC 0-2 /HPF (NONE SEEN) 08/27/17 15:17 Ur Squamous Epith Cells Rare /HPF (NEGATIVE) 08/27/17 15:17 Urine Bacteria Trace /HPF (NEGATIVE) 08/27/17 15:17 Ur Culture Indicated? No/not indicated 08/27/17 15:17 Stool Description Fob tube 08/27/17 12:50 Stl Occult Blood (IFOB) Positive (NEGATIVE) A 08/27/17 12:50 Blood Type O NEGATIVE 08/24/17 10:20 Antibody Screen Negative 08/24/17 10:20 Crossmatch See Detail 08/24/17 10:20 - Plan (1) Generalized weakness Status: Acute Plan: NORMAL SALINE AT 80ML/HR, CONTINUE TO MONITOR (2) Rib fracture Status: Acute Qualifiers: Encounter type: initial encounter Rib fracture type: single rib Fracture type: closed Laterality: left Qualified Code(s): S22.32XA - Fracture of one rib, left side, initial encounter for closed fracture Plan: MORPHINE 2MG IV Q4H PRN PAIN, CONTINUE TO MONITOR (3) Anemia Status: Acute Qualifiers: Anemia type: iron deficiency Iron deficiency anemia type: unspecified iron deficiency Qualified Code(s): D50.9 - Iron deficiency anemia, unspecified Plan: TRANSFUSE 2 UNITS PRBC, CONTINUE TO MONITOR (4) Hypoalbuminemia Status: Acute Plan: ALBUMIN 25% IV DAILY, CONTINUE TO MONITOR (5) DVT (deep venous thrombosis) Status: Acute Qualifiers: DVT location: upper extremity Affected thrombotic vein of extremity: other upper extremity vein Chronicity: acute Laterality: left Qualified Code(s) : I82.622 - Acute embolism and thrombosis of deep veins of left upper extremity Plan: COUMADIN 4MG AT HS, CONTINUE TO MONITOR (6) Cellulitis Status: Acute Qualifiers: Site of cellulitis: extremity Site of cellulitis of extremity: upper extremity Laterality: right Qualified Code(s): L03.113 - Cellulitis of right upper limb Plan: LEVAQUIN IV, VANCOMYCIN IV, CONTINUE TO MONITOR (7) Bronchitis Status: Acute Plan: JET NEBS TID, MUCOMYST TO NEB TX, MUCINEX, SUPPLEMENTAL OXYGEN, LEVAQUIN, CONTINUE TO MONITOR
--- NOTE | 2017-08-29 15:16 | PCM.PROG ---
Progress Note - Progress Note for Day of Date: 08/29/17 - Subjective Subjective: WAS ADMITTED FOR GENERALIZED WEAKNESS AND PAIN CONTROL. SHE IS ALSO BEING TREATED FOR ACUTE BRONCHITIS. TODAY, SHE IS ALERT AND ORIENTED, LYING IN BED ON MORNING ROUNDS. SHE CONTINUES WITH GENERALIZED WEAKNESS AND COUGH. ON EXAMINATION, HEART IS REGULAR IN RATE AND RHYTHM. BILATERAL LUNGS ARE NOTED WITH SCATTERED WHEEING THROUGHOUT. ABDOMEN IS ROUND, SOFT, AND NON-TENDER WITH NORMAL BOWEL SOUNDS NOTED IN ALL QUADRANTS. BIALTERAL ARMS CONTINUE WITH ERYTHMA AND WARMTH. HER VITALS THIS MORNING ARE 99.4-92-20-91%-126/82. HER WBC HAS INCREASED FROM 10.4 TO 16.0, INR 1.51. OTHERWISE, SHE IS HEMODYNAMICALLY STABLE. TODAY, WE WILL CONTINUE WITH CURRENT PLAN OF CARE AND CONTINUE TO MONITOR PATIENT. - Past Medical Family Social History Past Med/Fam/Surg Hx: No changes since H&P Allergies: Allergies ceftriaxone Allergy (Verified 08/23/17 00:03) fluoxetine [From Prozac] Allergy (Verified 08/23/17 00:03) ketorolac [From Toradol] Allergy (Verified 08/23/17 00:03) - Review of Systems ROS: No change since H&P - Vital Signs and I&O's Vital Signs: Temperature 99.4 F Pulse Rate [Right Brachial] 92 Pulse Rate 106 Respiratory Rate 20 Blood Pressure [Right Arm] 126/82 Blood Pressure [Left Arm] 128/54 Blood Pressure 112/53 O2 Sat by Pulse Oximetry 90 Intake and Output: Intake & Output 08/27/17 08/28/17 08/29/17 08/30/17 11:59 11:59 11:59 11:59 Intake Total 3541 700 360 Output Total 3750 1400 1850 Balance -990 -924 -4894 - Physical Exam Oriented: Normal Eyes: Normal Ear: Normal Nose: Normal Throat: Normal Respiratory: Generalized, Wheezes Cardiovascular: Edema (LEFT ARM EDEMA AND WEEPING, BILATERAL LOWER EXTREMITY 1+ PITTING EDEMA ) : Normal Auscultation: Bowel Sounds: Normal Palpation: Normal Tenderness: Normal Skin: Red, Tender, Wound, Bruising Musculoskeletal: Left, Arm, Leg, Back:Lumbar, Swelling, Tender Psychiatric: Normal Mood Description: Calm Affect: Normal Speech Pattern: Clear, Appropriate - Laboratory and Diagnostics Result Diagrams: 08/29/17 07:32 08/29/17 07:32 Labs: Laboratory WBC 16.0 X10^3/uL (3.6-10.0) H 08/29/17 07:32 RBC 4.52 X10^6/uL (3.5-5.4) 08/29/17 07:32 Hgb 13.4 g/dL (12.0-16.0) 08/29/17 07:32 Hct 39.7 % (36.0-47.0) 08/29/17 07:32 MCV 87.7 fL (80.0-100.0) 08/29/17 07:32 MCH 29.7 pg (27.0-34.0) 08/29/17 07:32 MCHC 33.8 g/dL (33.0-35.0) 08/29/17 07:32 RDW 14.7 % (11.6-16.5) 08/29/17 07:32 Plt Count 546 X10^3/uL (150.0-450.0) H 08/29/17 07:32 Plt Count Comment Adequate (ADEQUATE) 08/24/17 05:00 MPV 7.4 fL (7.4-11.0) 08/29/17 07:32 Neut % (Auto) 83.9 % (42.0-75.0) H 08/29/17 07:32 Lymph % (Auto) 8.2 % (21.0-51.0) L 08/29/17 07:32 [place] % (Auto) 4.8 % (0.0-13.0) 08/29/17 07:32 Eos % (Auto) 2.2 % (0.9-2.9) 08/29/17 07:32 Baso % (Auto) 0.9 % (0.2-1.0) 08/29/17 07:32 Neut # (Auto) 13.5 x10^3/uL (2.2-4.8) H 08/29/17 07:32 Lymph # (Auto) 1.3 X10^3/uL (1.3-2.9) 08/29/17 07:32 [place] # (Auto) 0.8 x10^3/uL (0.3-0.8) 08/29/17 07:32 Eos # (Auto) 0.4 x10^3/uL (0.0-0.2) H 08/29/17 07:32 Baso # (Auto) 0.1 X10^3/uL (0.0-0.1) 08/29/17 07:32 Absolute Nucleated RBC 0.1 /100WBC 08/29/17 07:32 Plt Morphology Comment Normal (NORMAL) 08/24/17 05:00 RBC Morphology Abnormal (NORMAL) A 08/24/17 05:00 Hypochromasia Slight A 08/24/17 05:00 INR Target Range - 08/29/17 07:32 INR 1.51 (0.8-1.3) H 08/29/17 07:32 Sodium 139 mmol/L (136-145) 08/29/17 07:32 Corrected Sodium TNP 08/29/17 07:32 Potassium 4.4 mmol/L (3.5-5.1) 08/29/17 07:32 Chloride 100 mmol/L (98-107) 08/29/17 07:32 Carbon Dioxide 27.6 mmol/L (21-32) 08/29/17 07:32 BUN 12 mg/dL (7-18) 08/29/17 07:32 Creatinine 1.20 mg/dL (0.55-1.02) H 08/29/17 07:32 Est GFR (MDRD) Af Amer 58 (>60) L 08/29/17 07:32 Est GFR (MDRD) Non-Af 48 (>60) L 08/29/17 07:32 Glucose 108 mg/dL (65-99) H 08/29/17 07:32 Calcium 9.2 mg/dL (8.5-10.1) 08/29/17 07:32 Corrected Calcium TNP 08/29/17 07:32 Magnesium 2.6 mg/dL (1.7-2.9) 08/27/17 06:25 Total Bilirubin 0.70 mg/dL (0.2-1.0) 08/29/17 07:32 AST 22 Units/L (15-37) 08/29/17 07:32 ALT 18 Units/L (12-78) 08/29/17 07:32 Alkaline Phosphatase 177 Units/L (46-116) H 08/29/17 07:32 Total Protein 8.1 g/dL (6.4-8.2) 08/29/17 07:32 Albumin 3.6 g/dL (3.4-5.0) 08/29/17 07:32 Globulin 4.5 g/dL (2.5-4.5) 08/29/17 07:32 Albumin/Globulin Ratio 0.8 Ratio (1.1-2.1) L 08/29/17 07:32 Amylase 7 Units/L (25-115) L 08/23/17 01:32 Lipase 188 Units/L (73-393) 08/23/17 01:32 Specimen Type Clean catch urine 08/27/17 15:17 Urine Color Yellow (YELLOW) 08/27/17 15:17 Urine Appearance Clear (CLEAR) 08/27/17 15:17 Urine pH 7.0 (5.0 - 8.0) 08/27/17 15:17 Ur Specific [place] 1.005 (1.000-1.030) 08/27/17 15:17 Urine Protein Negative (NEGATIVE) 08/27/17 15:17 Urine Glucose (UA) Negative (NEGATIVE) 08/27/17 15:17 Urine Ketones Negative (NEGATIVE) 08/27/17 15:17 Urine Occult Blood 2+ (NEGATIVE) 08/27/17 15:17 Urine Nitrite Negative (NEGATIVE) 08/27/17 15:17 Urine Bilirubin Negative (NEGATIVE) 08/27/17 15:17 Urine Urobilinogen Normal (NORMAL) 08/27/17 15:17 Ur Leukocyte Esterase Negative (NEGATIVE) 08/27/17 15:17 Urine RBC 0-2 /HPF (NONE SEEN) 08/27/17 15:17 Urine WBC 0-2 /HPF (NONE SEEN) 08/27/17 15:17 Ur Squamous Epith Cells Rare /HPF (NEGATIVE) 08/27/17 15:17 Urine Bacteria Trace /HPF (NEGATIVE) 08/27/17 15:17 Ur Culture Indicated? No/not indicated 08/27/17 15:17 Stool Description Fob tube 08/27/17 12:50 Stl Occult Blood (IFOB) Positive (NEGATIVE) A 08/27/17 12:50 Blood Type O NEGATIVE 08/24/17 10:20 Antibody Screen Negative 08/24/17 10:20 Crossmatch See Detail 05/01/18 10:20 - Plan (1) Generalized weakness Status: Acute Plan: NORMAL SALINE AT 80ML/HR, CONTINUE TO MONITOR (2) Rib fracture Status: Acute Qualifiers: Encounter type: initial encounter Rib fracture type: single rib Fracture type: closed Laterality: left Qualified Code(s): S22.32XA - Fracture of one rib, left side, initial encounter for closed fracture Plan: MORPHINE 2MG IV Q4H PRN PAIN, CONTINUE TO MONITOR (3) Anemia Status: Acute Qualifiers: Anemia type: iron deficiency Iron deficiency anemia type: unspecified iron deficiency Qualified Code(s): D50.9 - Iron deficiency anemia, unspecified Plan: TRANSFUSE 2 UNITS PRBC, CONTINUE TO MONITOR (4) Hypoalbuminemia Status: Acute Plan: ALBUMIN 25% IV DAILY, CONTINUE TO MONITOR (5) DVT (deep venous thrombosis) Status: Acute Qualifiers: DVT location: upper extremity Affected thrombotic vein of extremity: other upper extremity vein Chronicity: acute Laterality: left Qualified Code(s) : I82.622 - Acute embolism and thrombosis of deep veins of left upper extremity Plan: COUMADIN 4MG AT HS, CONTINUE TO MONITOR (6) Cellulitis Status: Acute Qualifiers: Site of cellulitis: extremity Site of cellulitis of extremity: upper extremity Laterality: right Qualified Code(s): L03.113 - Cellulitis of right upper limb Plan: LEVAQUIN IV, VANCOMYCIN IV, CONTINUE TO MONITOR (7) Bronchitis Status: Acute Plan: JET NEBS TID, MUCOMYST TO NEB TX, MUCINEX, SUPPLEMENTAL OXYGEN, LEVAQUIN, CONTINUE TO MONITOR
[2017-08-29] MEDS ORDERED: LEXAPRO ONE (20:32)
[2017-08-29] MEDS: TESSALON PERLES PO PRN (21:38)
[2017-08-29] MEDS: NORCO 7.5/325 MG TAB PO PRN (21:39)
[2017-08-29] MEDS: LEXAPRO PO SCH (21:39)
[2017-08-29] MEDS: COLACE CAP 100 MG PO SCH (21:40)
[2017-08-29] MEDS: MILK OF MAGNESIA PO SCH (21:40)
[2017-08-29] MEDS: TUSSIONEX PENNKINETIC SUSP PO PRN (21:41)
[2017-08-29] MEDS: RESTORIL CAP 15 MG PO PRN (23:48)
[2017-08-30] MEDS: PROVENTIL NEB TX 0.083% 2.5MG/ 3ML NEB SCH ×3 (01:03→14:26)
[2017-08-30] MEDS: NORCO 7.5/325 MG TAB PO PRN ×2 (03:34→22:26)
[2017-08-30] MEDS: XANAX PO SCH ×3 (05:42→22:21)
--- NOTE | 2017-08-30 06:01 | RAD ---
HISTORY: Shortness of breath Study: Chest AP portable Comparison: 08/29/2017, 08/23/2017 Findings: The trachea is midline. The cardiac silhouette is unremarkable. The lungs are clear without focal i nfiltrate or effusion. The bony thorax is unremarkable. IMPRESSION: 1. No acute cardiopulmonary disease. Reported By:
[2017-08-30] MEDS: MORPHINE SULFATE INJ 2 MG INJ IVP PRN (06:18)
[2017-08-30 06:36] LABS: BASOPHILS # (AUTO) 0.2 X10^3/uL (0.0-0.1); EOSINOPHILS # (AUTO) 0.5 x10^3/uL (0.0-0.2); EOSINOPHILS % (AUTO) 2.6 % (0.9-2.9); HEMATOCRIT 36.1 % (36.0-47.0); HEMOGLOBIN 12.1 g/dL (12.0-16.0); LYMPHOCYTES # (AUTO) 2.6 X10^3/uL (1.3-2.9); LYMPHOCYTES % (AUTO) 14.7 % (21.0-51.0); MEAN CORPUSCULAR HEMOGLOBIN 29.5 pg (27.0-34.0); MEAN CORPUSCULAR HGB CONC 33.5 g/dL (33.0-35.0); MEAN PLATELET VOLUME 7.4 fL (7.4-11.0); MONOCYTES # (AUTO) 1.1 x10^3/uL (0.3-0.8); MONOCYTES % (AUTO) 6.2 % (0.0-13.0); NEUTROPHILS # (AUTO) 13.6 x10^3/uL (2.2-4.8); NEUTROPHILS % (AUTO) 75.5 % (42.0-75.0); PLATELET COUNT 472 X10^3/uL (150.0-450.0); RED CELL DISTRIBUTION WIDTH 14.4 % (11.6-16.5)
[2017-08-30 07:07] LABS: ALANINE AMINOTRANSFERASE 16 Units/L (12-78); ALBUMIN 3.5 g/dL (3.4-5.0); ALKALINE PHOSPHATASE 146 Units/L (46-116); ASPARTATE AMINO TRANSFERASE 14 Units/L (15-37); BLOOD UREA NITROGEN 21 mg/dL (7-18); CALCIUM 8.5 mg/dL (8.5-10.1); CARBON DIOXIDE 26.2 mmol/L (21-32); CHLORIDE 96 mmol/L (98-107); CREATININE 1.78 mg/dL (0.55-1.02); SODIUM 134 mmol/L (136-145); TOTAL PROTEIN 7.5 g/dL (6.4-8.2); eGFR BLACK RACES 37 (>60); eGFR NON BLACK RACES 31 (>60)
[2017-08-30] MEDS: K-LYTE EFFERVESCENT PO SCH (09:08)
[2017-08-30] MEDS: ZESTRIL TAB 5 MG PO SCH (09:09)
[2017-08-30] MEDS: LEVAQUIN TAB 500 MG PO SCH (09:09)
[2017-08-30] MEDS: ZANTAC PO SCH (09:09)
[2017-08-30] MEDS: MICRO K EXTEN CAP 10 MEQ PO SCH ×2 (09:10→22:19)
[2017-08-30] MEDS: BUSPAR PO SCH ×2 (09:11→22:15)
[2017-08-30] MEDS: PROTONIX TAB 40 MG PO SCH ×2 (09:12→22:21)
[2017-08-30] MEDS: LASIX PO SCH (09:12)
[2017-08-30] MEDS: XARELTO PO SCH (09:12)
[2017-08-30] MEDS: NICOTINE PATCH TD SCH (09:14)
[2017-08-30] MEDS ORDERED: SALINE 3% 15 ML NEB TX ONE (12:12)
[2017-08-30] MEDS: MUCINEX DM PO SCH ×2 (12:14→22:20)
[2017-08-30] MEDS ORDERED: LEXAPRO ONE (21:45)
--- NOTE | 2017-08-30 21:48 | PCM.PROG ---
Progress Note - Progress Note for Day of Date: 08/30/17 - Subjective Subjective: WAS ADMITTED FOR GENERALIZED WEAKNESS AND PAIN CONTROL. SHE IS ALSO BEING TREATED FOR ACUTE BRONCHITIS. TODAY, SHE IS ALERT AND ORIENTED, LYING IN BED ON MORNING ROUNDS. SHE CONTINUES WITH GENERALIZED WEAKNESS AND COUGH. ON EXAMINATION, HEART IS REGULAR IN RATE AND RHYTHM. BILATERAL LUNGS CONTINUE WITH SCATTERED WHEEING THROUGHOUT. ABDOMEN IS ROUND, SOFT, AND NON- TENDER WITH NORMAL BOWEL SOUNDS NOTED IN ALL QUADRANTS. BIALTERAL ARMS CONTINUE WITH ERYTHMA. HER VITALS THIS MORNING ARE 98.9-82-18-97%-123/63. HER WBC HAS INCREASED FROM 16.0 TO 18.0 TODAY. PLT COUNT 472, INR 1.26, SODIUM 134, CHLORIDE 96, BUN 21, CREATININE 1.78, GLUCOSE 104, AST 14, ALK PHOS 146. TODAY , WE WILL OBTAIN BLOOD, URINE, AND SPUTUM CULTURES. OTHERWISE, WE WILL CONTINUE WITH CURRENT PLAN OF CARE AND CONTINUE TO MONITOR PATIENT. - Past Medical Family Social History Past Med/Fam/Surg Hx: No changes since H&P Allergies: Allergies ceftriaxone Allergy (Verified 08/23/17 00:03) fluoxetine [From Prozac] Allergy (Verified 08/23/17 00:03) ketorolac [From Toradol] Allergy (Verified 08/23/17 00:03) - Review of Systems ROS: No change since H&P - Vital Signs and I&O's Vital Signs: Temperature 97.6 F Pulse Rate [Right Brachial] 64 Pulse Rate 80 Respiratory Rate 20 Blood Pressure [Right Arm] 106/49 Blood Pressure [Left Arm] 128/54 Blood Pressure 112/53 O2 Sat by Pulse Oximetry 98 Intake and Output: Intake & Output 08/28/17 08/29/17 08/30/17 08/31/17 11:59 11:59 11:59 11:59 Intake Total 871 359 3370 480 Output Total 1400 1850 200 Balance -700 -1490 1020 480 - Physical Exam Oriented: Normal Eyes: Normal Ear: Normal Nose: Normal Throat: Normal Respiratory: Generalized, Wheezes Cardiovascular: Edema (LEFT ARM EDEMA AND WEEPING, BILATERAL LOWER EXTREMITY 1+ PITTING EDEMA ) : Normal Auscultation: Bowel Sounds: Normal Palpation: Normal Tenderness: Normal Skin: Red, Tender, Wound, Bruising Musculoskeletal: Left, Arm, Leg, Back:Lumbar, Swelling, Tender Psychiatric: Normal Mood Description: Calm Affect: Normal Speech Pattern: Clear, Appropriate - Laboratory and Diagnostics Result Diagrams: 08/30/17 06:00 08/30/17 06:00 Labs: 08/30/17 13:55 Sputum - Expectorated Sputum - Final Laboratory WBC 18.0 X10^3/uL (3.6-10.0) H 08/30/17 06:00 RBC 4.10 X10^6/uL (3.5-5.4) 08/30/17 06:00 Hgb 12.1 g/dL (12.0-16.0) 08/30/17 06:00 Hct 36.1 % (36.0-47.0) 08/30/17 06:00 MCV 88.0 fL (80.0-100.0) 08/30/17 06:00 MCH 29.5 pg (27.0-34.0) 08/30/17 06:00 MCHC 33.5 g/dL (33.0-35.0) 08/30/17 06:00 RDW 14.4 % (11.6-16.5) 08/30/17 06:00 Plt Count 472 X10^3/uL (150.0-450.0) H 08/30/17 06:00 Plt Count Comment Adequate (ADEQUATE) 08/24/17 05:00 MPV 7.4 fL (7.4-11.0) 08/30/17 06:00 Neut % (Auto) 75.5 % (42.0-75.0) H 08/30/17 06:00 Lymph % (Auto) 14.7 % (21.0-51.0) L 08/30/17 06:00 [place] % (Auto) 6.2 % (0.0-13.0) 08/30/17 06:00 Eos % (Auto) 2.6 % (0.9-2.9) 08/30/17 06:00 Baso % (Auto) 1.0 % (0.2-1.0) 08/30/17 06:00 Neut # (Auto) 13.6 x10^3/uL (2.2-4.8) H 08/30/17 06:00 Lymph # (Auto) 2.6 X10^3/uL (1.3-2.9) 08/30/17 06:00 [place] # (Auto) 1.1 x10^3/uL (0.3-0.8) H 08/30/17 06:00 Eos # (Auto) 0.5 x10^3/uL (0.0-0.2) H 08/30/17 06:00 Baso # (Auto) 0.2 X10^3/uL (0.0-0.1) H 08/30/17 06:00 Absolute Nucleated RBC 0.1 /100WBC 08/30/17 06:00 Plt Morphology Comment Normal (NORMAL) 08/24/17 05:00 RBC Morphology Abnormal (NORMAL) A 08/24/17 05:00 Hypochromasia Slight A 08/24/17 05:00 INR Target Range - 08/30/17 06:00 INR 1.26 (0.8-1.3) 08/30/17 06:00 Sodium 134 mmol/L (136-145) L 08/30/17 06:00 Corrected Sodium TNP 08/30/17 06:00 Potassium 3.9 mmol/L (3.5-5.1) 08/30/17 06:00 Chloride 96 mmol/L (98-107) L 08/30/17 06:00 Carbon Dioxide 26.2 mmol/L (21-32) 08/30/17 06:00 BUN 21 mg/dL (7-18) H 08/30/17 06:00 Creatinine 1.78 mg/dL (0.55-1.02) H 08/30/17 06:00 Est GFR (MDRD) Af Amer 37 (>60) L 08/30/17 06:00 Est GFR (MDRD) Non-Af 31 (>60) L 08/30/17 06:00 Glucose 104 mg/dL (65-99) H 08/30/17 06:00 Calcium 8.5 mg/dL (8.5-10.1) 08/30/17 06:00 Corrected Calcium TNP 08/30/17 06:00 Magnesium 2.6 mg/dL (1.7-2.9) 08/27/17 06:25 Total Bilirubin 0.60 mg/dL (0.2-1.0) 08/30/17 06:00 AST 14 Units/L (15-37) L 08/30/17 06:00 ALT 16 Units/L (12-78) 08/30/17 06:00 Alkaline Phosphatase 146 Units/L (46-116) H 08/30/17 06:00 Total Protein 7.5 g/dL (6.4-8.2) 08/30/17 06:00 Albumin 3.5 g/dL (3.4-5.0) 08/30/17 06:00 Globulin 4.0 g/dL (2.5-4.5) 08/30/17 06:00 Albumin/Globulin Ratio 0.9 Ratio (1.1-2.1) L 08/30/17 06:00 Amylase 7 Units/L (25-115) L 08/23/17 01:32 Lipase 188 Units/L (73-393) 08/23/17 01:32 Specimen Type Clean catch urine 08/27/17 15:17 Urine Color Yellow (YELLOW) 08/27/17 15:17 Urine Appearance Clear (CLEAR) 08/27/17 15:17 Urine pH 7.0 (5.0 - 8.0) 08/27/17 15:17 Ur Specific [place] 1.005 (1.000-1.030) 08/27/17 15:17 Urine Protein Negative (NEGATIVE) 08/27/17 15:17 Urine Glucose (UA) Negative (NEGATIVE) 08/27/17 15:17 Urine Ketones Negative (NEGATIVE) 08/27/17 15:17 Urine Occult Blood 2+ (NEGATIVE) 08/27/17 15:17 Urine Nitrite Negative (NEGATIVE) 08/27/17 15:17 Urine Bilirubin Negative (NEGATIVE) 08/27/17 15:17 Urine Urobilinogen Normal (NORMAL) 08/27/17 15:17 Ur Leukocyte Esterase Negative (NEGATIVE) 08/27/17 15:17 Urine RBC 0-2 /HPF (NONE SEEN) 08/27/17 15:17 Urine WBC 0-2 /HPF (NONE SEEN) 08/27/17 15:17 Ur Squamous Epith Cells Rare /HPF (NEGATIVE) 08/27/17 15:17 Urine Bacteria Trace /HPF (NEGATIVE) 08/27/17 15:17 Ur Culture Indicated? No/not indicated 08/27/17 15:17 Stool Description Fob tube 08/27/17 12:50 Stl Occult Blood (IFOB) Positive (NEGATIVE) A 08/27/17 12:50 Blood Type O NEGATIVE 08/24/17 10:20 Antibody Screen Negative 08/24/17 10:20 Crossmatch See Detail 08/24/17 10:20 - Plan (1) Generalized weakness Status: Acute Plan: NORMAL SALINE AT 80ML/HR, CONTINUE TO MONITOR (2) Rib fracture Status: Acute Qualifiers: Encounter type: initial encounter Rib fracture type: single rib Fracture type: closed Laterality: left Qualified Code(s): S22.32XA - Fracture of one rib, left side, initial encounter for closed fracture Plan: MORPHINE 2MG IV Q4H PRN PAIN, CONTINUE TO MONITOR (3) Anemia Status: Acute Qualifiers: Anemia type: iron deficiency Iron deficiency anemia type: unspecified iron deficiency Qualified Code(s): D50.9 - Iron deficiency anemia, unspecified Plan: TRANSFUSE 2 UNITS PRBC, CONTINUE TO MONITOR (4) Hypoalbuminemia Status: Acute Plan: ALBUMIN 25% IV DAILY, CONTINUE TO MONITOR (5) DVT (deep venous thrombosis) Status: Acute Qualifiers: DVT location: upper extremity Affected thrombotic vein of extremity: other upper extremity vein Chronicity: acute Laterality: left Qualified Code(s) : I82.622 - Acute embolism and thrombosis of deep veins of left upper extremity Plan: COUMADIN 4MG AT HS, CONTINUE TO MONITOR (6) Cellulitis Status: Acute Qualifiers: Site of cellulitis: extremity Site of cellulitis of extremity: upper extremity Laterality: right Qualified Code(s): L03.113 - Cellulitis of right upper limb Plan: LEVAQUIN IV, VANCOMYCIN IV, CONTINUE TO MONITOR (7) Bronchitis Status: Acute Plan: JET NEBS TID, MUCOMYST TO NEB TX, MUCINEX, SUPPLEMENTAL OXYGEN, LEVAQUIN, CONTINUE TO MONITOR
[2017-08-30] MEDS: COLACE CAP 100 MG PO SCH (22:17)
[2017-08-30] MEDS: MILK OF MAGNESIA PO SCH (22:17)
[2017-08-30] MEDS: LEXAPRO PO SCH (22:18)
[2017-08-30] MEDS: FLEXERIL TAB 10 MG PO PRN (22:27)
[2017-08-31] MEDS: XANAX PO SCH ×3 (05:38→22:23)
[2017-08-31] MEDS: PROVENTIL NEB TX 0.083% 2.5MG/ 3ML NEB SCH ×3 (05:45→21:03)
[2017-08-31 06:20] LABS: BASOPHILS # (AUTO) 0.1 X10^3/uL (0.0-0.1); BASOPHILS % (AUTO) 0.8 % (0.2-1.0); EOSINOPHILS # (AUTO) 0.6 x10^3/uL (0.0-0.2); EOSINOPHILS % (AUTO) 4.6 % (0.9-2.9); HEMATOCRIT 35.4 % (36.0-47.0); HEMOGLOBIN 11.8 g/dL (12.0-16.0); LYMPHOCYTES # (AUTO) 2.1 X10^3/uL (1.3-2.9); LYMPHOCYTES % (AUTO) 15.4 % (21.0-51.0); MEAN CORPUSCULAR HEMOGLOBIN 29.7 pg (27.0-34.0); MEAN CORPUSCULAR HGB CONC 33.3 g/dL (33.0-35.0); MEAN CORPUSCULAR VOLUME 89.2 fL (80.0-100.0); MONOCYTES # (AUTO) 0.7 x10^3/uL (0.3-0.8); MONOCYTES % (AUTO) 4.8 % (0.0-13.0); NEUTROPHILS # (AUTO) 10.1 x10^3/uL (2.2-4.8); NEUTROPHILS % (AUTO) 74.4 % (42.0-75.0); PLATELET COUNT 327 X10^3/uL (150.0-450.0); RED BLOOD COUNT 3.97 X10^6/uL (3.5-5.4); RED CELL DISTRIBUTION WIDTH 14.6 % (11.6-16.5); WHITE BLOOD COUNT 13.6 X10^3/uL (3.6-10.0)
[2017-08-31 06:29] LABS: ALANINE AMINOTRANSFERASE 16 Units/L (12-78); ALBUMIN 3.4 g/dL (3.4-5.0); ALKALINE PHOSPHATASE 137 Units/L (46-116); ASPARTATE AMINO TRANSFERASE 29 Units/L (15-37); BLOOD UREA NITROGEN 22 mg/dL (7-18); CALCIUM 8.6 mg/dL (8.5-10.1); CARBON DIOXIDE 25.5 mmol/L (21-32); CHLORIDE 99 mmol/L (98-107); CREATININE 1.74 mg/dL (0.55-1.02); SODIUM 134 mmol/L (136-145); TOTAL PROTEIN 7.4 g/dL (6.4-8.2); eGFR BLACK RACES 38 (>60); eGFR NON BLACK RACES 31 (>60)
--- NOTE | 2017-08-31 06:59 | RAD ---
HISTORY: Shortness of breath Study: Chest AP portable Comparison: 08/30/2017 Findings: The heart is within normal limits in size. The william are normal. The lungs are free of acute infiltrat es. No pleural effusions are identified. The bony thorax is unremarkable. IMPRESSION: No acute cardiopulmonary disease Reported By:
[2017-08-31] MEDS: NICOTINE PATCH TD SCH (09:42)
[2017-08-31] MEDS: K-LYTE EFFERVESCENT PO SCH (09:42)
[2017-08-31] MEDS: LEVAQUIN TAB 500 MG PO SCH (09:45)
[2017-08-31] MEDS: LASIX PO SCH (09:45)
[2017-08-31] MEDS: MUCINEX DM PO SCH ×2 (09:45→22:22)
[2017-08-31] MEDS: ZESTRIL TAB 5 MG PO SCH (09:46)
[2017-08-31] MEDS: MICRO K EXTEN CAP 10 MEQ PO SCH ×2 (09:46→22:22)
[2017-08-31] MEDS: ZANTAC PO SCH (09:46)
[2017-08-31] MEDS: PROTONIX TAB 40 MG PO SCH ×2 (09:47→22:23)
[2017-08-31] MEDS: BUSPAR PO SCH ×2 (09:47→22:19)
[2017-08-31] MEDS: XARELTO PO SCH (09:47)
[2017-08-31] MEDS: NORCO 7.5/325 MG TAB PO PRN (13:37)
[2017-08-31] MEDS ORDERED: LEXAPRO ONE (20:57)
[2017-08-31] MEDS: COLACE CAP 100 MG PO SCH (22:20)
[2017-08-31] MEDS: LEXAPRO PO SCH (22:21)
[2017-08-31] MEDS: MILK OF MAGNESIA PO SCH (22:24)
[2017-09-01] MEDS: XANAX PO SCH (05:55)
[2017-09-01 06:08] LABS: BILIRUBIN,URINE NEGATIVE (NEGATIVE); BLOOD/HEMOGLOBIN,URINE NEGATIVE (NEGATIVE); GLUCOSE, URINE NEGATIVE (NEGATIVE); KETONES,URINE NEGATIVE (NEGATIVE); LEUKOCYTE ESTERASE ,URINE NEGATIVE (NEGATIVE); NITRITES,URINE NEGATIVE (NEGATIVE); PROTEIN,URINE NEGATIVE (NEGATIVE); UROBILINOGEN,URINE NORMAL (NORMAL)
[2017-09-01] MEDS: PROVENTIL NEB TX 0.083% 2.5MG/ 3ML NEB SCH (06:16)
[2017-09-01 06:18] LABS: APPEARANCE,URINE CLEAR (CLEAR); COLOR,URINE YELLOW (YELLOW)
[2017-09-01 06:29] LABS: BASOPHILS # (AUTO) 0.1 X10^3/uL (0.0-0.1); EOSINOPHILS # (AUTO) 0.4 x10^3/uL (0.0-0.2); EOSINOPHILS % (AUTO) 2.5 % (0.9-2.9); HEMATOCRIT 36.8 % (36.0-47.0); HEMOGLOBIN 12.5 g/dL (12.0-16.0); LYMPHOCYTES # (AUTO) 2.4 X10^3/uL (1.3-2.9); LYMPHOCYTES % (AUTO) 16.3 % (21.0-51.0); MEAN CORPUSCULAR HEMOGLOBIN 29.9 pg (27.0-34.0); MEAN PLATELET VOLUME 7.9 fL (7.4-11.0); MONOCYTES # (AUTO) 0.8 x10^3/uL (0.3-0.8); MONOCYTES % (AUTO) 5.2 % (0.0-13.0); PLATELET COUNT 482 X10^3/uL (150.0-450.0); RED BLOOD COUNT 4.18 X10^6/uL (3.5-5.4); RED CELL DISTRIBUTION WIDTH 14.9 % (11.6-16.5); WHITE BLOOD COUNT 14.6 X10^3/uL (3.6-10.0)
[2017-09-01 06:42] LABS: ALANINE AMINOTRANSFERASE 18 Units/L (12-78); ALBUMIN 3.7 g/dL (3.4-5.0); ALKALINE PHOSPHATASE 139 Units/L (46-116); ASPARTATE AMINO TRANSFERASE 22 Units/L (15-37); BLOOD UREA NITROGEN 21 mg/dL (7-18); CARBON DIOXIDE 26.5 mmol/L (21-32); CHLORIDE 98 mmol/L (98-107); CREATININE 1.59 mg/dL (0.55-1.02); SODIUM 135 mmol/L (136-145); TOTAL PROTEIN 8.1 g/dL (6.4-8.2); eGFR BLACK RACES 42 (>60); eGFR NON BLACK RACES 35 (>60)
[2017-09-01] MEDS: MUCINEX DM PO SCH (08:59)
[2017-09-01] MEDS: NICOTINE PATCH TD SCH (08:59)
[2017-09-01] MEDS: MICRO K EXTEN CAP 10 MEQ PO SCH (09:00)
[2017-09-01] MEDS: LEVAQUIN TAB 500 MG PO SCH (09:00)
[2017-09-01] MEDS: LASIX PO SCH (09:00)
[2017-09-01] MEDS: PROTONIX TAB 40 MG PO SCH (09:00)
[2017-09-01] MEDS: ZANTAC PO SCH (09:00)
[2017-09-01] MEDS: K-LYTE EFFERVESCENT PO SCH (09:00)
[2017-09-01] MEDS: XARELTO PO SCH (09:01)
[2017-09-01] MEDS: ZESTRIL TAB 5 MG PO SCH (09:01)
[2017-09-01] MEDS: BUSPAR PO SCH (09:04)
[2017-09-01] MEDS: NORCO 7.5/325 MG TAB PO PRN (11:47)
[2017-09-01 14:30] VITALS: BP 118/56
== END 2017-09-01 13:00 | disposition home health service (06) | DRG 206 ==
LOC: ER 23:55 → ICU 08-23 02:19 → OBSVTOIN 08-24 10:00 → MED/SURG 08-28 17:00
PROVIDERS: ADMIT Internal Medicine; ATTEND Internal Medicine
PROC: 30233N1 Transfusion of Nonautologous Red Blood Cells into Peripheral Vein, Percutaneous Approach (ICD-10-PCS; principal; 2017-08-24)
DX: S22.32XA Fracture of one rib, left side, initial encounter for closed fracture (principal); R53.1 Weakness; R60.0 Localized edema; I82.C12 Acute embolism and thrombosis of left internal jugular vein; I82.612 Acute embolism and thrombosis of superficial veins of left upper extremity; J20.9 Acute bronchitis, unspecified; R79.1 Abnormal coagulation profile; R26.89 Other abnormalities of gait and mobility; Z91.81 History of falling; E78.2 Mixed hyperlipidemia; K21.9 Gastro-esophageal reflux disease without esophagitis; I10 Essential (primary) hypertension; W18.39XA Other fall on same level, initial encounter; D50.8 Other iron deficiency anemias; L03.113 Cellulitis of right upper limb
CPT/HCPCS: 36415; 36430; 71045; 71111; 78306; 80053; 81001; 81003; 82150; 82274; 83690; 83735; 84132; 85025; 85610; 86850; 86900; 86901; 86922; 87040; 87070; 87086; 87205; 93971; 94640; 96365; 97535; 99283; 99284; A4216; A4222; G8978; G8979; P9016; P9047; S0181; A9503; G0378; J1170; J1200; J1650; J1940; J1956; J2270; J2405; J3370; J7613

== ENCOUNTER 2018-02-13 11:15 | Inpatient (IN) ==
--- NOTE | 2018-02-13 12:00 | DR.AMS ---
HPI Time Seen Time Seen by Provider: 02/13/18 11:52 PCP Primary Care Physician: unknown HPI Comment HPI Comment: HERE VIA EMS. W FOUND LAYING ON THE FLOOR AT HER HOME. FAMILY TOLD EMS PATIENT HAVE TAKEN SONE KIND OF NEDICATION. SLEEPY IN ED BUT WAKE UP AND SAY FEW WORDS ANSWER TO QUESTIONS. NO FEVER. NECK AND LEFT FACIAL PAIN WITH HEADACHE. Complaint Cheif Complaint Doctors Comments: FELL AND HIT HEAD. APPEAR SEDATED AND SLEEPY. Chief Complaint:: ems stated pt fell and landed on her left upper left arm. family stated she fell hard and needed to be checked. pt has to be woken up to answer questions, pupils are pin point at this time. Self Treatment fo Chief Complaint: ems stated that family informed them she has taken some kind of meds. Reviewed Nurses Notes Reviewed: Yes Source History Provided: Patient Mode of Arrival Mode of Arrival: EMS Timing Onset of Chief Complaint: 02/13/18 Came On: Suddenly Symptoms: Unchanged Duration Duration: Constant Duration: Hours Quality Quality: Decreased Alertness, Change in Behavior and Confusion Severity Severity: Moderate Context Recent: None History Of: None Associated Signs and Symptoms Associated Signs and Symptoms: Generalized Weakness, Change in Behavior and Confusion PMH PMH Past Medical History: Yes Past Medical History: Arthritis, Dyslipidemia, GERD and Hypertension Past Surgical History: Yes Surgical History: Cholecystectomy and Hysterectomy Family History History of Family Medical Conditions: Yes Family Medical History: Cancer, Heart Failure and Sudden Cardiac Social History Does patient currently use any type of tobacco product: No Have you used tobacco products in the last 12 months: No Type of Tobacco Use: None Does any household member use tobacco: No Alcohol Use: None Do you use any recreational Drugs:: No Lives With: Family Lives Where: Home infectious screening In the last 2 months have you had wt loss of >10#?: NO Have you had fever, night sweats or hemotysis?: No Have you traveled outside the country in the last 6 months?: No Isolation: Standard ROS Review of Systems Constitutional: Weakness and Fatigue; negative Fever Eyes: negative Eye Pain and Discharge ENTM: No Symptoms Reported Respiratoy: Short of Breath (ON EXERTION) Cardiovascular: No Symptoms Reported Gastrointestinal/Abdominal: No Symptoms Reported Genitourinary: No Symptoms Reported Neurological: Headache and Weakness Musculoskeletal: No Symptoms Reported and Other (PAIN LEFT FACE.) Integumentary: No Symptoms Reported Hematologic/Lymphatic: No Symptoms Reported Endocrine: No Symptoms Reported Psychiatric: No Symptoms Reported All Other Systems: Reviewed and Negative PE Vitals Vital Signs: Temp Pulse Pulse Resp BP BP BP 02/18/18 08:00 97.6 F 58 L 20 119/54 02/18/18 04:00 97.8 F 60 20 117/56 02/18/18 00:00 98.1 F 69 20 128/59 02/17/18 20:00 98.1 F 70 18 121/55 02/17/18 16:00 97.8 F 65 18 128/56 02/17/18 12:00 97.7 F 62 20 124/58 02/17/18 08:00 98.0 F 56 L 18 119/67 02/17/18 04:00 98.2 F 53 L 18 125/55 02/17/18 00:00 97.6 F 61 20 130/57 02/16/18 21:01 82 02/16/18 20:00 97.9 F 67 20 158/65 02/16/18 16:00 97.8 F 65 20 114/55 02/16/18 12:00 98.6 F 60 20 110/51 02/16/18 08:55 66 02/16/18 08:00 99 F 58 L 20 126/61 02/16/18 04:00 98.6 F 61 18 124/60 02/16/18 00:00 98.8 F 70 18 127/56 02/15/18 20:00 97.9 F 65 20 120/55 02/15/18 16:00 98.8 F 65 20 126/59 02/15/18 12:00 97.9 F 63 20 116/53 02/15/18 08:00 97.8 F 60 20 139/59 02/15/18 04:00 98.2 F 64 20 123/60 02/15/18 00:00 98.1 F 77 18 131/60 02/14/18 20:00 98.0 F 66 18 125/57 02/14/18 16:00 98.9 F 63 18 108/53 02/14/18 13:10 68 02/14/18 12:00 97.8 F 64 20 105/52 02/14/18 09:00 124/82 02/14/18 08:00 97.9 F 66 18 130/63 02/14/18 03:52 98.2 F 74 18 133/60 02/13/18 23:34 98.2 F 66 16 120/58 02/13/18 20:00 97.7 F 72 18 122/60 02/13/18 14:26 73 138/60 02/13/18 13:00 73 16 103/79 02/13/18 12:30 76 16 106/61 02/13/18 12:00 76 16 104/60 02/13/18 11:30 77 16 118/57 02/13/18 11:19 98.6 F 75 16 106/59 09/01/17 12:00 118/56 118/56 06/19/17 16:00 128/54 Pulse Ox 02/18/18 08:00 96 02/18/18 04:00 96 02/18/18 00:00 95 02/17/18 20:00 97 02/17/18 16:00 98 02/17/18 12:00 95 02/17/18 08:00 94 L 02/17/18 04:00 96 02/17/18 00:00 98 02/16/18 21:01 97 02/16/18 20:00 98 02/16/18 16:00 96 02/16/18 12:00 99 02/16/18 08:55 97 02/16/18 08:00 97 02/16/18 04:00 95 02/16/18 00:00 97 02/15/18 20:00 94 L 02/15/18 16:00 99 02/15/18 12:00 96 02/15/18 08:00 96 02/15/18 04:00 95 02/15/18 00:00 96 02/14/18 20:00 98 02/14/18 16:00 96 02/14/18 13:10 100 02/14/18 12:00 96 02/14/18 09:00 02/14/18 08:00 94 L 02/14/18 03:52 94 L 02/13/18 23:34 95 02/13/18 20:00 98 02/13/18 14:26 99 02/13/18 13:00 100 02/13/18 12:30 99 02/13/18 12:00 98 02/13/18 11:30 99 02/13/18 11:19 98 09/01/17 12:00 06/19/17 16:00 General Limitations: Altered Mental Status General Appearance: Obese (SLEEPY) Head Head Exam: Atraumatic (LEFT FACIAL TENDERNESS.) Head Exam Physical: Other (NONE REPORTED.) Eyes Pupils: Regular, Round: Bilateral (SMALL PUPIL.) and Reactive: Bilateral ENT ENT Exam: Normal Exam External Ear Exam: Normal External Inspection TM/Canal Exam: Bilateral: Normal Nose Exam: Normal Nose Exam Mouth Exam: Normal Inspection Neck Neck Exam: Normal Inspection and Trachea Midline Chest Chest Inspection: Symmetric Chest Wall Rise Respiratory Respiratory Exam: Bilateral: Rhonchi and Lower: Rhonchi Cardiovascular Cardiovascular Exam: Regular Rate and Normal Rhythm Abdominal Exam Abdominal Exam: Normal Bowel Sounds and Soft; negative Tenderness Extremities Extremities Exam: Normal Inspection Back Back Exam: Normal Inspection Neurological Patient Oriented To: Person Speech: Other (SLOW SPEECH.) Cranial Nerve Exam: Gag reflex (XI): Normal Upper Motor Neuron Exam: Babinski Sign: Normal Psychological Psychiatric Exam: Other (SLEEPY) Skin Skin Exam: Intact MDM Differential Diagnosis Metabolic: Dehydration, Hypercalcemia, Hypernatremia, Hypoglycemia and Hyponatremia Structural: Closed Head Injury, CVA and Mass Lesion Infectious: Sepsis and UTI COURSE Treatment Treatment: SEE ORDERS. Consultation Consultation Comments: DR. CHACON WILL ADMIT PATIENT. Education/Counseling Education/Counseling: Patient Educated On: Diagnosis ROR Labs Reviewed Laboratory Results Reviewed?: Yes Result Diagrams: 02/18/18 04:35 02/18/18 04:35 Laboratory: 02/13/18 12:28 Blood Blood Culture - Final 02/13/18 12:38 Blood Blood Culture - Final WBC 4.2 X10^3/uL (3.6-10.0) 02/18/18 04:35 RBC 2.82 X10^6/uL (3.5-5.4) L 02/18/18 04:35 Hgb 9.1 g/dL (12.0-16.0) L 02/18/18 04:35 Hct 25.9 % (36.0-47.0) L 02/18/18 04:35 MCV 92.1 fL (80.0-100.0) 02/18/18 04:35 MCH 32.4 pg (27.0-34.0) 02/18/18 04:35 MCHC 35.1 g/dL (33.0-35.0) H 02/18/18 04:35 RDW 13.6 % (11.6-16.5) 02/18/18 04:35 Plt Count 171 X10^3/uL (150.0-450.0) 02/18/18 04:35 MPV 7.9 fL (7.4-11.0) 02/18/18 04:35 Neut % (Auto) 45.5 % (42.0-75.0) 02/18/18 04:35 Lymph % (Auto) 38.1 % (21.0-51.0) 02/18/18 04:35 [place] % (Auto) 8.0 % (0.0-13.0) 02/18/18 04:35 Eos % (Auto) 7.4 % (0.9-2.9) H 02/18/18 04:35 Baso % (Auto) 1.0 % (0.2-1.0) 02/18/18 04:35 Neut # (Auto) 1.9 x10^3/uL (2.2-4.8) L 02/18/18 04:35 Lymph # (Auto) 1.6 X10^3/uL (1.3-2.9) 02/18/18 04:35 [place] # (Auto) 0.3 x10^3/uL (0.3-0.8) 02/18/18 04:35 Eos # (Auto) 0.3 x10^3/uL (0.0-0.2) H 02/18/18 04:35 Baso # (Auto) 0.0 X10^3/uL (0.0-0.1) 02/18/18 04:35 Absolute Nucleated RBC 0.1 /100WBC 02/18/18 04:35 Sodium 143 mmol/L (136-145) 02/18/18 04:35 Corrected Sodium TNP 02/18/18 04:35 Potassium 3.8 mmol/L (3.5-5.1) 02/18/18 04:35 Chloride 111 mmol/L (98-107) H 02/18/18 04:35 Carbon Dioxide 22.0 mmol/L (21-32) 02/18/18 04:35 BUN 13 mg/dL (7-18) 02/18/18 04:35 Creatinine 0.83 mg/dL (0.55-1.02) 02/18/18 04:35 Est GFR (MDRD) Af Amer > 60 (>60) 02/18/18 04:35 Est GFR (MDRD) Non-Af > 60 (>60) 02/18/18 04:35 Glucose 84 mg/dL (65-99) 02/18/18 04:35 Lactic Acid 0.7 mmol/L (0.4-2.0) 02/13/18 12:28 Calcium 7.6 mg/dL (8.5-10.1) L 02/18/18 04:35 Corrected Calcium 8.5 mg/dL (8.5-10.1) 02/18/18 04:35 Magnesium 1.6 mg/dL (1.7-2.9) L 02/14/18 03:15 Total Bilirubin 0.20 mg/dL (0.2-1.0) 02/18/18 04:35 AST 35 Units/L (15-37) 02/18/18 04:35 ALT 40 Units/L (12-78) 02/18/18 04:35 Alkaline Phosphatase 110 Units/L (46-116) 02/18/18 04:35 Creatine Kinase 493 Units/L (26-192) H 02/18/18 04:35 CK-MB (CK-2) 1.0 ng/mL (0-4.0) 02/18/18 04:35 CK/CKMB % Calc 0.2 % (<4) 02/18/18 04:35 Troponin I < 0.02 ng/mL (0-1.5) 02/18/18 04:35 Total Protein 5.8 g/dL (6.4-8.2) L 02/18/18 04:35 Albumin 2.9 g/dL (3.4-5.0) L 02/18/18 04:35 Globulin 2.9 g/dL (2.5-4.5) 02/18/18 04:35 Albumin/Globulin Ratio 1.0 Ratio (1.1-2.1) L 02/18/18 04:35 Specimen Type Clean catch urine 02/13/18 17:27 Urine Color Yellow (YELLOW) 02/13/18 17:27 Urine Appearance Clear (CLEAR) 02/13/18 17: Urine pH 6.0 (5.0 - 8.0) 02/13/18 17: Ur Specific [place] 1.010 (1.000-1.030) 02/13/18 17: Urine Protein 1+ (NEGATIVE) 02/13/18 17: Urine Glucose (UA) Negative (NEGATIVE) 02/13/18: Urine Ketones Negative (NEGATIVE) 02/13/18: Urine Occult Blood 2+ (NEGATIVE) 02/13/18 17: Urine Nitrite Negative (NEGATIVE) 02/13/18: Urine Bilirubin Negative (NEGATIVE) 02/13/18: Urine Urobilinogen Normal (NORMAL) 02/13/18: Ur Leukocyte Esterase 1+ (NEGATIVE) 02/13/18 17: Urine RBC 0-2 /HPF (NONE SEEN) 02/13/18 17: Urine WBC 0-2 /HPF (NONE SEEN) 02/13/18: Ur Squamous Epith Cells Few /HPF (NEGATIVE) 02/13/18: Amorphous Sediment 1+ /HPF (NEGATIVE) 02/13/18 17: Urine Bacteria Trace /HPF (NEGATIVE) 02/13/18 17: Ur Culture Indicated? No/not indicated 02/13/18 17: Urine Opiates Screen Negative (NEG=<300) 02/13/18 17: Urine Methadone Screen Negative (NEG=<300) 02/13/18: Ur Barbiturates Screen Negative (NEG=<200) 02/13/18: Ur Phencyclidine Scrn Negative (NEG=<25) 02/13/18: Ur Amphetamines Screen Negative (NEG=<1000) 02/13/18: U Benzodiazepines Scrn Positive (NEG=<200) A 02/13/18 Urine Cocaine Screen Negative (NEG=<300) 02/13/18: U Marijuana (THC) Screen Negative (NEG=<50) 02/13/18 XRAY XRAY Findings: REPORT NOTED. EKG Rhythm: NSR Instructions Instructions: Steps to Quit Smoking, [id number] Fall Prevention in the Home, Xzym-ca-[id number] Chronic Obstructive Pulmonary Disease, Cocm-le-Lwcj Hypertension, Azpe-wk-[id number] Coronary Artery Disease, Female Forms: Patient Portal
--- NOTE | 2018-02-13 12:37 | CT ---
HISTORY: Trauma, fall Study: CT HEAD WITHOUT CONTRAST Comparison: 08/08/2017 Technique: Multiple axial images of the brain were obtained from the skull base to the vertex without administra tion of IV contrast. Findings: There is no intracranial hemorrhage or extra-axial fluid collection. There is no mass effect, shift o r cerebral edema. Ventricular size is normal. Confluent regions of white matter hypoattenuation are o bserved within the periventricular and subcortical white matter tracts of the supratentorial brain. T here is no evidence of an acute, large artery territorial infarction. There is no extracalvarial soft tissue hematoma. The imaged paranasal sinuses are predominantly clear. A left mastoid air cell effus ion is observed. The right mastoid air cells are clear. Mild generalized cortical atrophy of the supratentorial brain is noted. IMPRESSION: No acute intracranial process can be identified. 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 Reported By:
--- NOTE | 2018-02-13 12:37 | RAD ---
Exam: Portable chest History: 62-year-old female with pain Comparison: Chest radiograph from 08/31/2017 Findings: Mild cardiomegaly is seen. No significant vascular congestion. Patchy opacity at the right base may represent either atelectasis or possible developing infiltrate. No significant effusion on e ither side. Impression: Patchy opacity at right base may represent either atelectasis or developing infiltrate Reported By:
--- NOTE | 2018-02-13 12:41 | CT ---
HISTORY: Trauma, fall Study: CT MAXILLOFACIAL WITHOUT CONTRAST Comparison: None Technique: Multiple axial images of the facial structures were obtained from the mandible to superior portions of the orbits. Findings: The included intracranial contents of the exam are unremarkable for acute pathology. The imaged paran syed sinuses are predominantly clear. There is a small mucous retention polyp in the dependent left m axillary sinus. And predominantly aerated secretions are noted incidentally within the left sphenoid sinus chamber. There is a chronic left mastoid air cell effusion. The globes are symmetric in size. N o retro bulbar hematoma or globe disruption is identified. The partially imaged lung apices demonstra te emphysematous changes. No emergent findings of the upper neck are demonstrated. Maxillofacial bones are anatomically aligned with no acute fractures identified. The craniocervical a lignment is maintained. Incidental note is made of multiple dental caries IMPRESSION: No acute maxillofacial fracture or evidence of globe disruption. Apical emphysematous changes Chronic left mastoid effusion. Multiple dental caries noted incidentally. Reported By:
[2018-02-13 12:52] LABS: BASOPHILS % (AUTO) 0.5 % (0.2-1.0); EOSINOPHILS # (AUTO) 0.2 x10^3/uL (0.0-0.2); EOSINOPHILS % (AUTO) 2.8 % (0.9-2.9); HEMATOCRIT 33.3 % (36.0-47.0); HEMOGLOBIN 11.5 g/dL (12.0-16.0); LYMPHOCYTES # (AUTO) 1.2 X10^3/uL (1.3-2.9); LYMPHOCYTES % (AUTO) 13.4 % (21.0-51.0); MEAN CORPUSCULAR HEMOGLOBIN 32.4 pg (27.0-34.0); MEAN CORPUSCULAR HGB CONC 34.6 g/dL (33.0-35.0); MEAN CORPUSCULAR VOLUME 93.6 fL (80.0-100.0); MEAN PLATELET VOLUME 7.9 fL (7.4-11.0); MONOCYTES # (AUTO) 0.4 x10^3/uL (0.3-0.8); MONOCYTES % (AUTO) 4.9 % (0.0-13.0); NEUTROPHILS # (AUTO) 6.7 x10^3/uL (2.2-4.8); NEUTROPHILS % (AUTO) 78.4 % (42.0-75.0); PLATELET COUNT 246 X10^3/uL (150.0-450.0); RED BLOOD COUNT 3.56 X10^6/uL (3.5-5.4); RED CELL DISTRIBUTION WIDTH 13.3 % (11.6-16.5); WHITE BLOOD COUNT 8.6 X10^3/uL (3.6-10.0)
--- NOTE | 2018-02-13 12:52 | CT ---
HISTORY: Trauma, fall Study: CT cervical spine without contrast Comparison: Technique: Multiple axial images of the cervical spine were obtained from the skull base to the thora cic inlet without administration of IV contrast. Sagittal and coronal reformats were performed and r eviewed. Findings: Upper lobe emphysematous changes are observed. There is a band of increased density with ill-defined borders within the medial aspect of the right upper lobe which may be associated with fibrous lung ch anges or atelectasis. There is adjacent pleural thickening and the partially imaged trachea demonstra alex a fair amount of intraluminal disease at the level of the lily extending into the right and lef t mainstem bronchi. There is no prevertebral soft tissue swelling or paraspinal fluid collection. The craniocervical alignment is maintained. The occipital condyles are intact. The vertebral bodies main tain appropriate overall alignment and height, accounting for rotation within the gantry. The facets are anatomically aligned. There are no perched or dislocated facet joints. Degenerative disc space na rrowing is mild at C5-6. There is multilevel uncovertebral spurring and endplate spondylosis of mild severity. IMPRESSION: No acute cervical spine fracture or posttraumatic subluxation. Upper lobe predominant emphysematous changes. At the right apex, there is abnormal pleural thickening approximating the mediastinal border, with a band of airspace disease radiating anteriorly to posteriorly within the medial aspect of the right up per lobe which may be due to combination of fibrous lung change, atelectasis, or even superimposed pn eumonia. Intraluminal filling defects or debris is demonstrated within the trachea to the level of th e lily. Dedicated follow-up imaging of the chest is recommended-CT chest with contrast would be lor eficial on a non emergent basis for complete characterization. Reported By:
[2018-02-13 13:05] LABS: LACTIC ACID 0.7 mmol/L (0.4-2.0)
[2018-02-13 13:07] LABS: BLOOD UREA NITROGEN 22 mg/dL (7-18); CALCIUM 8.4 mg/dL (8.5-10.1); CARBON DIOXIDE 23.3 mmol/L (21-32); CHLORIDE 103 mmol/L (98-107); CREATININE 1.45 mg/dL (0.55-1.02); SODIUM 138 mmol/L (136-145); TROPONIN I < 0.02 ng/mL (0-1.5); eGFR NON BLACK RACES 39 (>60)
[2018-02-13] MEDS ORDERED: NARCAN INJ IVP ONE (13:12)
[2018-02-13] MEDS ORDERED: NARCAN INJ ONE (13:13)
[2018-02-13] MEDS ORDERED: NS 1000 ML 1,000 ML ONE (13:14)
[2018-02-13] MEDS: NS 1000 ML 1,000 ML IV SCH (13:17)
[2018-02-13 13:29] LABS: ALANINE AMINOTRANSFERASE 92 Units/L (12-78); ALBUMIN 3.7 g/dL (3.4-5.0); ALKALINE PHOSPHATASE 178 Units/L (46-116); ASPARTATE AMINO TRANSFERASE 185 Units/L (15-37); CKMB % 1.2 % (<4); CREATINE KINASE 448 Units/L (26-192); TOTAL PROTEIN 7.4 g/dL (6.4-8.2)
[2018-02-13 13:37] LABS: CREATINE KINASE MB 5.4 ng/mL (0-4.0)
[2018-02-13] MEDS ORDERED: FLUVIRIN IM ONE (18:26)
[2018-02-13] MEDS ORDERED: PREVNAR 13 IM ONE (18:26)
[2018-02-13 18:34] LABS: BILIRUBIN,URINE NEGATIVE (NEGATIVE); BLOOD/HEMOGLOBIN,URINE 2+ (NEGATIVE); GLUCOSE, URINE NEGATIVE (NEGATIVE); KETONES,URINE NEGATIVE (NEGATIVE); LEUKOCYTE ESTERASE ,URINE 1+ (NEGATIVE); NITRITES,URINE NEGATIVE (NEGATIVE); PROTEIN,URINE 1+ (NEGATIVE); UROBILINOGEN,URINE NORMAL (NORMAL)
[2018-02-13 18:35] LABS: APPEARANCE,URINE CLEAR (CLEAR); COLOR,URINE YELLOW (YELLOW)
[2018-02-13 18:53] LABS: AMORPHOUS SEDIMENT,UR 1+ /HPF (NEGATIVE); BACTERIA,URINE TRACE /HPF (NEGATIVE); RBC,URINE 0-2 /HPF (NONE SEEN); SQUAMOUS EPITHELIAL CELL,UR FEW /HPF (NEGATIVE)
--- NOTE | 2018-02-13 19:20 | RAD ---
Examination: Left shoulder, three views History: Fell Comparison 11/19/2017 Findings: No definite fracture or dislocation. The humeral head is in normal position. Impression: No acute injury demonstrated. Reported By:
[2018-02-13 21:09] LABS: TROPONIN I < 0.02 ng/mL (0-1.5)
[2018-02-13 21:22] LABS: CKMB % 1.5 % (<4); CREATINE KINASE 2040 Units/L (26-192)
[2018-02-14] MEDS: NS 1000 ML 1,000 ML IV SCH ×3 (01:53→18:00)
[2018-02-14 03:28] LABS: BASOPHILS # (AUTO) 0.1 X10^3/uL (0.0-0.1); BASOPHILS % (AUTO) 1.1 % (0.2-1.0); EOSINOPHILS # (AUTO) 0.3 x10^3/uL (0.0-0.2); EOSINOPHILS % (AUTO) 6.2 % (0.9-2.9); HEMATOCRIT 29.6 % (36.0-47.0); HEMOGLOBIN 10.2 g/dL (12.0-16.0); LYMPHOCYTES # (AUTO) 1.6 X10^3/uL (1.3-2.9); MEAN CORPUSCULAR HEMOGLOBIN 31.9 pg (27.0-34.0); MEAN CORPUSCULAR HGB CONC 34.4 g/dL (33.0-35.0); MEAN CORPUSCULAR VOLUME 92.7 fL (80.0-100.0); MONOCYTES # (AUTO) 0.3 x10^3/uL (0.3-0.8); MONOCYTES % (AUTO) 5.6 % (0.0-13.0); NEUTROPHILS # (AUTO) 2.5 x10^3/uL (2.2-4.8); NEUTROPHILS % (AUTO) 53.1 % (42.0-75.0); PLATELET COUNT 217 X10^3/uL (150.0-450.0); RED CELL DISTRIBUTION WIDTH 13.5 % (11.6-16.5); WHITE BLOOD COUNT 4.8 X10^3/uL (3.6-10.0)
[2018-02-14] MEDS ORDERED: FLUVIRIN IM ONE (03:37)
[2018-02-14] MEDS ORDERED: PREVNAR 13 IM ONE (03:37)
[2018-02-14 03:41] LABS: ALANINE AMINOTRANSFERASE 73 Units/L (12-78); ALBUMIN 2.9 g/dL (3.4-5.0); ALKALINE PHOSPHATASE 134 Units/L (46-116); ASPARTATE AMINO TRANSFERASE 118 Units/L (15-37); BLOOD UREA NITROGEN 16 mg/dL (7-18); CARBON DIOXIDE 22.8 mmol/L (21-32); CHLORIDE 111 mmol/L (98-107); COR CA(FOR HYPOALB) 8.9 mg/dL (8.5-10.1); CREATININE 1.02 mg/dL (0.55-1.02); MAGNESIUM 1.6 mg/dL (1.7-2.9); SODIUM 144 mmol/L (136-145); TOTAL PROTEIN 6.2 g/dL (6.4-8.2); eGFR NON BLACK RACES 58 (>60)
[2018-02-14 04:08] LABS: TROPONIN I 0.02 ng/mL (0-1.5)
[2018-02-14 04:27] LABS: CKMB % 1.2 % (<4); CREATINE KINASE MB 34.3 ng/mL (0-4.0)
[2018-02-14] MEDS ORDERED: POTASSIUM CHL 40 MEQ/NS 0.45% 500 ML IV PRN (04:37)
[2018-02-14] MEDS ORDERED: K-RIDER 10 MEQ/NS 100 ML 10 MEQ/100 ML BAG IV PRN (04:37)
[2018-02-14] MEDS ORDERED: K-DUR TAB 20 MEQ PO PRN (04:37)
[2018-02-14] MEDS ORDERED: MICRO K EXTEN CAP 10 MEQ PO PRN (04:37)
[2018-02-14] MEDS ORDERED: KLOR-CON PO PRN (04:37)
[2018-02-14] MEDS ORDERED: POTASSIUM CHLORIDE LIQ 20 MEQ UDC PO PRN (04:37)
[2018-02-14] MEDS ORDERED: POTASSIUM CHL 60 MEQ/NS 0.45% 500 ML IV PRN (04:37)
[2018-02-14] MEDS: MAGNESIUM SULFATE 1 GRAM/100 mL PREMIX 1 GM/100 ML BAG IV PRN ×2 (05:10→05:54)
[2018-02-14 06:45] VITALS: BMI 19.2
[2018-02-14] MEDS: NORCO 5/325 MG TAB PO PRN ×2 (11:50→23:39)
--- NOTE | 2018-02-14 20:25 | DR.H&P ---
H&P - History & Physical for Day of: H&P Date: 02/13/18 - Chief Complaint Chief Complaint: WEAKNESS, FALLS, LEFT ARM PAIN, SHORTNESS OF BREATH - History of Present Illness History of Present Illness: IS A 62 YEAR OLD PATIENT OF OURS WHO PRESENTED TO THE ER WITH REPORTS OF FALLING AT HOME. SHE REPORTED PAIN TO THE LEFT UPPER ARM WELL WEAKNESS TO THE LOWER EXTREMITIES AND SHORTNESS OF BREATH. SHE DENIES FEVER OR CHEST PAIN. PATIENTS FAMILY REPORTED THAT SHE HAD TAKEN AN UNKNOWN MEDICATION BEFORE FALLING. PAST MEDICAL HISTORY INCLUDES: ARTHRITIS, DYSLIPIDEMIA, GERD, HYPERTENSION, LUNG CANCER, CHOLECYSTECTOMY, AND HYSTERECTOMY. ON EXAMINATION, PATIENT DROWSY, BUT AWAKENS TO ANSWER QUESTIONS. PUPILS WERE PINPOINT. ON ARRIVAL, VITALS WERE 98.6-75-16-98%-106/59. LABS WERE OBTAINED. ABNORMAL LAB VALUES INCLUDE THE FOLLOWING: HGB 11.5, HCT 33.3, BUN 22, CREATININE 1.45, CALCIUM 8.4, AST 185, ALT 92, ALK PHOS 178, CREATINE KINASE 448, CK-MB 5.4. URINALYSIS REVEALED: WBC 0-2, RBC 0-2, LEUKOCYTES 1+, BACTERIA TRACE, CCULT BLOOD 2+. URINE DRUG SCREEN POSITIVE FOR BENZODIAZEPINES. PATIENT REPORTS USING XANAX AT HOME. A CERVICAL SPINE CT WAS OBTAINED AND REVEALED: No acute cervical spine fracture or posttraumatic subluxation. FACIAL BONES CT REVEALED: No acute maxillofacial fracture or evidence of globe disruption. Apical emphysematous changes. Chronic left mastoid effusion. Multiple dental caries noted incidentally. BRAIN CT REVEALED: No acute intracranial process can be identified. 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 Generalized cortical volume loss. Chronic left mastoid effusion. CHEST XRAY REVEALED: Patchy opacity at right base may represent either atelectasis or developing infiltrate. LEFT SHOULDER XRAY REVEALED: No acute injury demonstrated. EKG REVEALED: SINUS RHYTHM WITH HR 72. SHE WAS GIVEN NARCAN 0.4MG X 1 DOSE IN THE ER AND BECAME MORE RESPONSIVE. SHE WAS ADMITTED FOR FURTHER EVALUATION AND TREATMENT OF ALTERED MENTAL STATUS, FALLS, LEFT ARM PAIN, AND RHABDOMYOLYSIS. SHE WAS STARTED ON NORMAL SALINE AT 75ML/HR . WE PLAN TO FOLLOW UP WITH AM LABS AND CONTINUE TO MONITOR PATIENT. - Past Medical History Past Medical History: Hypertension, Dyslipidemia, GERD, Arthritis Additional Medical History: Hx Diverticulosis, Gastrointestinal ulcer, heart murmur, diverticulosis, small cell carcinoma - Past Surgical History Surgical History: Cholecystectomy, Hysterectomy, Ortho Surgery - Family History Family Medical History: Cancer, Coronary Artery Disease, Hypertension - Social History Does patient currently use any type of tobacco product: Yes Have you used tobacco products in the last 12 months: Yes Type of Tobacco Use: Cigarettes How many years tobacco product used: 50 Does any household member use tobacco: Yes Alcohol Use: None Drug Use: None - Medications Home Medications: ceftriaxone Allergy (Verified 08/23/17 00:03) fluoxetine [From Prozac] Allergy (Verified 08/23/17 00:03) ketorolac [From Toradol] Allergy (Verified 08/23/17 00:03) - Review of Systems Constitutional: See HPI, Weakness, Other (FALLS ). denies: Fever, Chills Eyes: No Symptoms Reported ENT: No Symptoms Reported Respiratory: Shortness of Breath, SOB with Excertion. denies: Cough, Hemoptysis, Sputum, Wheezing Cardiovascular: Light Headedness. denies: Chest Pain Gastrointestinal: No Symptoms Reported Genitourinary: No Symptoms Reported Musculoskeletal: See HPI, Arm Pain (LEFT ARM/SHOULDER PAIN ) Skin: No Symptoms Reported Neurological: Weakness, Confusion, Other (DROWSINESS ) - Physical Exam Vital Signs: Temperature 98.0 F Pulse Rate [Left Brachial] 66 Pulse Rate 68 Respiratory Rate 18 Blood Pressure [Right Arm] 105/52 Blood Pressure [Left Arm] 125/57 Blood Pressure 106/59 O2 Sat by Pulse Oximetry 98 Oriented: Person Eyes: Normal Ear: Normal Nose: Normal Throat: Normal Respiratory: Diminished Throughout Cardiovascular: Normal. negative: S3, S4, Murmur : Normal Auscultation: Bowel Sounds: Normal Palpation: Normal Tenderness: Normal Skin: Normal Musculoskeletal: Right, Left, Shoulder (LEFT SHOULDER PAIN ), Leg, Tender Psychiatric: Normal Mood Description: Calm Affect: Normal Speech Pattern: Clear - Assessment/Plan (1) Rhabdomyolysis Qualifiers: Rhabdomyolysis type: non-traumatic Qualified Code(s): M62.82 - Rhabdomyolysis Status: Acute Plan: NORMAL SALINE AT 75ML/HR, CONTINUE TO MONITOR (2) Mental status alteration Qualifiers: Altered mental status type: transient alteration of awareness Qualified Co de(s): R40.4 - Transient alteration of awareness Status: Acute (3) Generalized weakness Status: Acute (4) Left arm pain Status: Acute - Allergies Allergies/Adverse Reactions: Allergies Allergy/AdvReac Type Severity Reaction Status Date / Time ceftriaxone Allergy Verified 08/23/17 00:03 fluoxetine [From Prozac] Allergy Verified 08/23/17 00:03 ketorolac [From Toradol] Allergy Verified 08/23/17 00:03
[2018-02-14] MEDS: ROBITUSSIN DM PO PRN (20:57)
[2018-02-15 06:29] LABS: BASOPHILS # (AUTO) 0.1 X10^3/uL (0.0-0.1); BASOPHILS % (AUTO) 1.2 % (0.2-1.0); EOSINOPHILS # (AUTO) 0.3 x10^3/uL (0.0-0.2); EOSINOPHILS % (AUTO) 6.1 % (0.9-2.9); HEMATOCRIT 28.1 % (36.0-47.0); HEMOGLOBIN 9.9 g/dL (12.0-16.0); LYMPHOCYTES # (AUTO) 1.5 X10^3/uL (1.3-2.9); LYMPHOCYTES % (AUTO) 27.1 % (21.0-51.0); MEAN CORPUSCULAR HEMOGLOBIN 32.5 pg (27.0-34.0); MEAN CORPUSCULAR HGB CONC 35.1 g/dL (33.0-35.0); MEAN CORPUSCULAR VOLUME 92.6 fL (80.0-100.0); MEAN PLATELET VOLUME 8.2 fL (7.4-11.0); MONOCYTES # (AUTO) 0.3 x10^3/uL (0.3-0.8); MONOCYTES % (AUTO) 5.4 % (0.0-13.0); NEUTROPHILS # (AUTO) 3.2 x10^3/uL (2.2-4.8); NEUTROPHILS % (AUTO) 60.2 % (42.0-75.0); PLATELET COUNT 192 X10^3/uL (150.0-450.0); RED BLOOD COUNT 3.04 X10^6/uL (3.5-5.4); RED CELL DISTRIBUTION WIDTH 13.5 % (11.6-16.5); WHITE BLOOD COUNT 5.4 X10^3/uL (3.6-10.0)
[2018-02-15 07:24] LABS: ALANINE AMINOTRANSFERASE 58 Units/L (12-78); ALBUMIN 2.9 g/dL (3.4-5.0); ALKALINE PHOSPHATASE 111 Units/L (46-116); ASPARTATE AMINO TRANSFERASE 83 Units/L (15-37); BLOOD UREA NITROGEN 12 mg/dL (7-18); CARBON DIOXIDE 22.2 mmol/L (21-32); CHLORIDE 109 mmol/L (98-107); COR CA(FOR HYPOALB) 8.9 mg/dL (8.5-10.1); CREATININE 0.86 mg/dL (0.55-1.02); SODIUM 143 mmol/L (136-145); TROPONIN I < 0.02 ng/mL (0-1.5); eGFR NON BLACK RACES > 60 (>60)
[2018-02-15 07:29] LABS: CKMB % 0.4 % (<4); CREATINE KINASE 2053 Units/L (26-192); CREATINE KINASE MB 9.1 ng/mL (0-4.0)
[2018-02-15] MEDS: NS 1000 ML 1,000 ML IV SCH ×2 (08:42→21:45)
[2018-02-15] MEDS: ROBITUSSIN DM PO PRN ×2 (09:54→21:45)
[2018-02-15] MEDS: NORCO 5/325 MG TAB PO PRN ×2 (09:54→19:15)
[2018-02-15] MEDS: RESTORIL CAP 30 MG PO PRN (21:04)
[2018-02-16 05:15] LABS: EOSINOPHILS # (AUTO) 0.4 x10^3/uL (0.0-0.2); EOSINOPHILS % (AUTO) 8.7 % (0.9-2.9); HEMATOCRIT 28.4 % (36.0-47.0); HEMOGLOBIN 9.7 g/dL (12.0-16.0); LYMPHOCYTES # (AUTO) 1.5 X10^3/uL (1.3-2.9); LYMPHOCYTES % (AUTO) 34.6 % (21.0-51.0); MEAN CORPUSCULAR HEMOGLOBIN 31.7 pg (27.0-34.0); MEAN CORPUSCULAR HGB CONC 34.2 g/dL (33.0-35.0); MEAN CORPUSCULAR VOLUME 92.9 fL (80.0-100.0); MONOCYTES # (AUTO) 0.3 x10^3/uL (0.3-0.8); MONOCYTES % (AUTO) 7.7 % (0.0-13.0); NEUTROPHILS # (AUTO) 2.1 x10^3/uL (2.2-4.8); PLATELET COUNT 174 X10^3/uL (150.0-450.0); RED BLOOD COUNT 3.06 X10^6/uL (3.5-5.4); RED CELL DISTRIBUTION WIDTH 13.5 % (11.6-16.5); WHITE BLOOD COUNT 4.5 X10^3/uL (3.6-10.0)
[2018-02-16 05:47] LABS: ALANINE AMINOTRANSFERASE 53 Units/L (12-78); ALKALINE PHOSPHATASE 115 Units/L (46-116); ASPARTATE AMINO TRANSFERASE 61 Units/L (15-37); BLOOD UREA NITROGEN 9 mg/dL (7-18); CARBON DIOXIDE 23.2 mmol/L (21-32); CHLORIDE 110 mmol/L (98-107); COR CA(FOR HYPOALB) 8.8 mg/dL (8.5-10.1); CREATINE KINASE MB 3.5 ng/mL (0-4.0); SODIUM 143 mmol/L (136-145); TOTAL PROTEIN 6.1 g/dL (6.4-8.2); TROPONIN I < 0.02 ng/mL (0-1.5); eGFR NON BLACK RACES > 60 (>60)
[2018-02-16 05:48] LABS: CKMB % 0.3 % (<4); CREATINE KINASE 1284 Units/L (26-192)
[2018-02-16] MEDS: COREG TAB 3.125 MG PO SCH ×2 (10:08→20:10)
[2018-02-16] MEDS: BUSPAR PO SCH (10:09)
[2018-02-16] MEDS: PERIACTIN TAB 4 MG PO SCH ×2 (10:09→20:09)
[2018-02-16] MEDS: NORCO 5/325 MG TAB PO PRN ×2 (10:09→20:09)
[2018-02-16] MEDS: SINGULAIR TAB 10 MG PO SCH (10:09)
--- NOTE | 2018-02-16 10:55 | PCM.PROG ---
Progress Note - Progress Note for Day of Date of Exam: 02/14/18 - Subjective Subjective: WAS ADMITTED FOR MULTIPLE FALLS, GENERALIZED WEAKNESS, AMS, AND RHABDOMYOLYSIS. TODAY, SHE IS ALERT AND ORIENTED, LYING IN BED ON MORNING ROUNDS. SHE CONTINUES WITH COMPLAINTS OF WEAKNESS AND BILATERAL LEG PAIN. ON EXAMINATION, HEART IS REGULAR IN RATE AND RHYTHM. BILATERAL LUNGS ARE NOTED WITH DIMINISHED LUNG SOUNDS THROUGHOUT. ABDOMEN IS ROUND, SOFT, AND NON-TENDER WITH NORMAL BOWEL SOUNDS NOTED IN ALL QUADRANTS. SHE IS NOTED WITH WEAKNESS TO BILATERAL LOWER EXTREMITIES. HER VITALS THIS MORNING ARE 97.9-66-18-94%RA-130/63. LABS WERE OBTAINED. ABNORMAL LAB VALUES INCLUDE THE FOL LOWING: RBC 3.20, HGB 10.2, HCT 29.6, CHLORIDE 111, CALCIUM 8.0, MAGNESIUM 1.6, AST 118, ALK PHOS 134, CREATINE KINASE INCREASED FROM 0 TO 2924, CK-MB INCREASED FROM 31.0 TO 34.3, TOTAL PROTEIN 6.2, ALBUMIN 2.9. EKGs HAVE BEEN WITHIN NORMAL LIMITS. SHE IS CURRENTLY RECEIVING NORMAL SALINE AT 75ML/HR. WE WILL CONTINUE WITH CURRENT PLAN OF CARE TODAY AND REPLACE HER MAGNESIUM WITH THE PROTOCOL. OTHERWISE, WE WILL FOLLOW UP WITH AM LABS AND CONTINUE TO MONITOR. - Past Medical Family Social History Past Med/Fam/Surg Hx: No changes since H&P Allergies: Allergies ceftriaxone Allergy (Verified 08/23/17 00:03) fluoxetine [From Prozac] Allergy (Verified 08/23/17 00:03) ketorolac [From Toradol] Allergy (Verified 08/23/17 00:03) - Review of Systems ROS: No change since H&P - Vital Signs and I&O's Vital Signs: Temperature 99 F Pulse Rate [Left Brachial] 58 Pulse Rate 66 Respiratory Rate 20 Blood Pressure [Right Arm] 126/61 Blood Pressure [Left Arm] 124/60 Blood Pressure 106/59 O2 Sat by Pulse Oximetry 97 Intake and Output: Intake & Output 02/13/18 02/14/18 02/15/18 02/16/18 11:59 11:59 11:59 11:59 Intake Total 1160 / 1160 1851 / 1851 1640 / 1640 Output Total 500 / 500 Balance 1160 / 1160 1351 / 1351 1640 / 1640 - Physical Exam Oriented: Normal Eyes: Normal Ear: Normal Nose: Normal Throat: Normal Respiratory: Generalized, Diminished Cardiovascular: Normal. negative: S3, S4, Murmur : Normal Auscultation: Bowel Sounds: Normal Palpation: Normal Tenderness: Normal Skin: Normal Musculoskeletal: Right, Left, Shoulder (LEFT SHOULDER PAIN ), Leg, Tender Psychiatric: Normal Mood Description: Calm Affect: Normal Speech Pattern: Clear, Appropriate - Laboratory and Diagnostics Result Diagrams: 02/16/18 04:50 02/16/18 04:50 Labs: 02/13/18 12:38 Blood Blood Culture - Preliminary 02/13/18 12:28 Blood Blood Culture - Preliminary Laboratory WBC 4.5 X10^3/uL (3.6-10.0) 02/16/18 04:50 RBC 3.06 X10^6/uL (3.5-5.4) L 02/16/18 04:50 Hgb 9.7 g/dL (12.0-16.0) L 02/16/18 04:50 Hct 28.4 % (36.0-47.0) L 02/16/18 04:50 MCV 92.9 fL (80.0-100.0) 02/16/18 04:50 MCH 31.7 pg (27.0-34.0) 02/16/18 04:50 MCHC 34.2 g/dL (33.0-35.0) 02/16/18 04:50 RDW 13.5 % (11.6-16.5) 02/16/18 04:50 Plt Count 174 X10^3/uL (150.0-450.0) 02/16/18 04:50 MPV 8.0 fL (7.4-11.0) 02/16/18 04:50 Neut % (Auto) 48.0 % (42.0-75.0) 02/16/18 04:50 Lymph % (Auto) 34.6 % (21.0-51.0) 02/16/18 04:50 [place] % (Auto) 7.7 % (0.0-13.0) 02/16/18 04:50 Eos % (Auto) 8.7 % (0.9-2.9) H 02/16/18 04:50 Baso % (Auto) 1.0 % (0.2-1.0) 02/16/18 04:50 Neut # (Auto) 2.1 x10^3/uL (2.2-4.8) L 02/16/18 04:50 Lymph # (Auto) 1.5 X10^3/uL (1.3-2.9) 02/16/18 04:50 [place] # (Auto) 0.3 x10^3/uL (0.3-0.8) 02/16/18 04:50 Eos # (Auto) 0.4 x10^3/uL (0.0-0.2) H 02/16/18 04:50 Baso # (Auto) 0.0 X10^3/uL (0.0-0.1) 02/16/18 04:50 Absolute Nucleated RBC 0.1 /100WBC 02/16/18 04:50 Sodium 143 mmol/L (136-145) 02/16/18 04:50 Corrected Sodium TNP 02/16/18 04:50 Potassium 3.8 mmol/L (3.5-5.1) 02/16/18 04:50 Chloride 110 mmol/L (98-107) H 02/16/18 04:50 Carbon Dioxide 23.2 mmol/L (21-32) 02/16/18 04:50 BUN 9 mg/dL (7-18) 02/16/18 04:50 Creatinine 0.80 mg/dL (0.55-1.02) 02/16/18 04:50 Est GFR (MDRD) Af Amer > 60 (>60) 02/16/18 04:50 Est GFR (MDRD) Non-Af > 60 (>60) 02/16/18 04:50 Glucose 87 mg/dL (65-99) 02/16/18 04:50 Lactic Acid 0.7 mmol/L (0.4-2.0) 02/13/18 12:28 Calcium 8.0 mg/dL (8.5-10.1) L 02/16/18 04:50 Corrected Calcium 8.8 mg/dL (8.5-10.1) 02/16/18 04:50 Magnesium 1.6 mg/dL (1.7-2.9) L 02/14/18 03:15 Total Bilirubin 0.20 mg/dL (0.2-1.0) 02/16/18 04:50 AST 61 Units/L (15-37) H 02/16/18 04:50 ALT 53 Units/L (12-78) 02/16/18 04:50 Alkaline Phosphatase 115 Units/L (46-116) 02/16/18 04:50 Creatine Kinase 1284 Units/L (26-192) H 02/16/18 04:50 CK-MB (CK-2) 3.5 ng/mL (0-4.0) 02/16/18 04:50 CK/CKMB % Calc 0.3 % (<4) 02/16/18 04:50 Troponin I < 0.02 ng/mL (0-1.5) 02/16/18 04:50 Total Protein 6.1 g/dL (6.4-8.2) L 02/16/18 04:50 Albumin 3.0 g/dL (3.4-5.0) L 02/16/18 04:50 Globulin 3.1 g/dL (2.5-4.5) 02/16/18 04:50 Albumin/Globulin Ratio 1.0 Ratio (1.1-2.1) L 02/16/18 04:50 Specimen Type Clean catch urine 02/13/18 17: Urine Color Yellow (YELLOW) 02/13/18 17: Urine Appearance Clear (CLEAR) 02/13/18 17: Urine pH 6.0 (5.0 - 8.0) 02/13/18 17: Ur Specific [place] 1.010 (1.000-1.030) 02/13/18 17: Urine Protein 1+ (NEGATIVE) 02/13/18 17: Urine Glucose (UA) Negative (NEGATIVE) 02/13/18 17: Urine Ketones Negative (NEGATIVE) 02/13/18 17: Urine Occult Blood 2+ (NEGATIVE) 02/13/18: Urine Nitrite Negative (NEGATIVE) 02/13/18 17: Urine Bilirubin Negative (NEGATIVE) 02/13/18 17: Urine Urobilinogen Normal (NORMAL) 02/13/18 17: Ur Leukocyte Esterase 1+ (NEGATIVE) 02/13/18 17: Urine RBC 0-2 /HPF (NONE SEEN) 02/13/18 17: Urine WBC 0-2 /HPF (NONE SEEN) 02/13/18 17:27 Ur Squamous Epith Cells Few /HPF (NEGATIVE) 02/13/18 17: Amorphous Sediment 1+ /HPF (NEGATIVE) 02/13/18: Urine Bacteria Trace /HPF (NEGATIVE) 02/13/18 Ur Culture Indicated? No/not indicated 02/13/18 Urine Opiates Screen Negative (NEG=<300) 02/13/18 Urine Methadone Screen Negative (NEG=<300) 02/13/18 Ur Barbiturates Screen Negative (NEG=<200) 02/13/18 Ur Phencyclidine Scrn Negative (NEG=<25) 02/13/18 Ur Amphetamines Screen Negative (NEG=<1000) 02/13/18 U Benzodiazepines Scrn Positive (NEG=<200) A 02/13/18 Urine Cocaine Screen Negative (NEG=<300) 02/13/18 U Marijuana (THC) Screen Negative (NEG=<50) 02/13/18 - Plan (1) Rhabdomyolysis Status: Acute Qualifiers: Rhabdomyolysis type: non-traumatic Qualified Code(s): M62.82 - Rhabdomyo lysis Plan: NORMAL SALINE AT 75ML/HR, CONTINUE TO MONITOR (2) Mental status alteration Status: Resolved Qualifiers: Altered mental status type: transient alteration of awareness Qualified Code(s): R40.4 - Transient alteration of awareness Plan: CONTINUE TO MONITOR (3) Generalized weakness Status: Acute (4) Left arm pain Status: Acute
--- NOTE | 2018-02-16 11:27 | PCM.PROG ---
Progress Note - Progress Note for Day of Date of Exam: 02/15/18 - Subjective Subjective: WAS ADMITTED FOR MULTIPLE FALLS, GENERALIZED WEAKNESS, AMS, AND RHABDOMYOLYSIS. TODAY, SHE IS ALERT AND ORIENTED, LYING IN BED ON MORNING ROUNDS. SHE CONTINUES WITH COMPLAINTS OF WEAKNESS AND BILATERAL LEG PAIN, BUT REPORTS SLIGHT IMPROVEMENT SINCE YESTERDAY. ON EXAMINATION, HEART IS REGULAR IN RATE AND RHYTHM. BILATERAL LUNGS ARE NOTED WITH DIMINISHED LUNG SOUNDS THROUGHOUT. ABDOMEN IS ROUND, SOFT, AND NON-TENDER WITH NORMAL BOWEL SOUNDS NOTED IN ALL QUADRANTS. SHE IS NOTED WITH WEAKNESS TO BILATERAL LOWER EXTREMITIES. HER VITALS THIS MORNING ARE 97.8-60-20-96%-139/59. LABS WERE OBTAINED. ABNORMAL LAB VALUES INCLUDE THE FOLLOWING: RBC 3.04, HGB 9.9, HCT 28.1, CHLORIDE 109, CALCIUM 8.0, AST 83, CREATINE KINASE DECREASED FROM 2924 TO 2053, CK-MB DECREASED FROM 34.3 TO 9.1, TOTAL PROTEIN 6.0, ALBUMIN 2.9. SHE IS CURRENTLY RECEIVING NORMAL SALINE AT 75ML/HR. WE WILL CONTINUE WITH CURRENT PLAN OF CARE TODAY AND OTHERWISE, WE WILL FOLLOW UP WITH AM LABS AND CONTINUE TO MONITOR. - Past Medical Family Social History Past Med/Fam/Surg Hx: No changes since H&P Allergies: Allergies ceftriaxone Allergy (Verified 08/23/17 00:03) fluoxetine [From Prozac] Allergy (Verified 08/23/17 00:03) ketorolac [From Toradol] Allergy (Verified 08/23/17 00:03) - Review of Systems ROS: No change since H&P - Vital Signs and I&O's Vital Signs: Temperature 99 F Pulse Rate [Left Brachial] 58 Pulse Rate 66 Respiratory Rate 20 Blood Pressure [Right Arm] 126/61 Blood Pressure [Left Arm] 124/60 Blood Pressure 106/59 O2 Sat by Pulse Oximetry 97 Intake and Output: Intake & Output 02/13/18 02/14/18 02/15/18 02/16/18 11:59 11:59 11:59 11:59 Intake Total 1160 / 1160 1851 / 1851 1640 / 1640 Output Total 500 / 500 Balance 1160 / 1160 1351 / 1351 1640 / 1640 - Physical Exam Oriented: Normal Eyes: Normal Ear: Normal Nose: Normal Throat: Normal Respiratory: Generalized, Diminished Cardiovascular: Normal. negative: S3, S4, Murmur : Normal Auscultation: Bowel Sounds: Normal Palpation: Normal Tenderness: Normal Skin: Normal Musculoskeletal: Right, Left, Shoulder (LEFT SHOULDER PAIN ), Leg, Tender Psychiatric: Normal Mood Description: Calm Affect: Normal Speech Pattern: Clear, Appropriate - Laboratory and Diagnostics Result Diagrams: 02/16/18 04:50 02/16/18 04:50 Labs: 02/13/18 12:38 Blood Blood Culture - Preliminary 02/13/18 12:28 Blood Blood Culture - Preliminary Laboratory WBC 4.5 X10^3/uL (3.6-10.0) 02/16/18 04:50 RBC 3.06 X10^6/uL (3.5-5.4) L 02/16/18 04:50 Hgb 9.7 g/dL (12.0-16.0) L 02/16/18 04:50 Hct 28.4 % (36.0-47.0) L 02/16/18 04:50 MCV 92.9 fL (80.0-100.0) 02/16/18 04:50 MCH 31.7 pg (27.0-34.0) 02/16/18 04:50 MCHC 34.2 g/dL (33.0-35.0) 02/16/18 04:50 RDW 13.5 % (11.6-16.5) 02/16/18 04:50 Plt Count 174 X10^3/uL (150.0-450.0) 02/16/18 04:50 MPV 8.0 fL (7.4-11.0) 02/16/18 04:50 Neut % (Auto) 48.0 % (42.0-75.0) 02/16/18 04:50 Lymph % (Auto) 34.6 % (21.0-51.0) 02/16/18 04:50 [place] % (Auto) 7.7 % (0.0-13.0) 02/16/18 04:50 Eos % (Auto) 8.7 % (0.9-2.9) H 02/16/18 04:50 Baso % (Auto) 1.0 % (0.2-1.0) 02/16/18 04:50 Neut # (Auto) 2.1 x10^3/uL (2.2-4.8) L 02/16/18 04:50 Lymph # (Auto) 1.5 X10^3/uL (1.3-2.9) 02/16/18 04:50 [place] # (Auto) 0.3 x10^3/uL (0.3-0.8) 02/16/18 04:50 Eos # (Auto) 0.4 x10^3/uL (0.0-0.2) H 02/16/18 04:50 Baso # (Auto) 0.0 X10^3/uL (0.0-0.1) 02/16/18 04:50 Absolute Nucleated RBC 0.1 /100WBC 02/16/18 04:50 Sodium 143 mmol/L (136-145) 02/16/18 04:50 Corrected Sodium TNP 02/16/18 04:50 Potassium 3.8 mmol/L (3.5-5.1) 02/16/18 04:50 Chloride 110 mmol/L (98-107) H 02/16/18 04:50 Carbon Dioxide 23.2 mmol/L (21-32) 02/16/18 04:50 BUN 9 mg/dL (7-18) 02/16/18 04:50 Creatinine 0.80 mg/dL (0.55-1.02) 02/16/18 04:50 Est GFR (MDRD) Af Amer > 60 (>60) 02/16/18 04:50 Est GFR (MDRD) Non-Af > 60 (>60) 02/16/18 04:50 Glucose 87 mg/dL (65-99) 02/16/18 04:50 Lactic Acid 0.7 mmol/L (0.4-2.0) 02/13/18 12:28 Calcium 8.0 mg/dL (8.5-10.1) L 02/16/18 04:50 Corrected Calcium 8.8 mg/dL (8.5-10.1) 02/16/18 04:50 Magnesium 1.6 mg/dL (1.7-2.9) L 02/14/18 03:15 Total Bilirubin 0.20 mg/dL (0.2-1.0) 02/16/18 04:50 AST 61 Units/L (15-37) H 02/16/18 04:50 ALT 53 Units/L (12-78) 02/16/18 04:50 Alkaline Phosphatase 115 Units/L (46-116) 02/16/18 04:50 Creatine Kinase 1284 Units/L (26-192) H 02/16/18 04:50 CK-MB (CK-2) 3.5 ng/mL (0-4.0) 02/16/18 04:50 CK/CKMB % Calc 0.3 % (<4) 02/16/18 04:50 Troponin I < 0.02 ng/mL (0-1.5) 02/16/18 04:50 Total Protein 6.1 g/dL (6.4-8.2) L 02/16/18 04:50 Albumin 3.0 g/dL (3.4-5.0) L 02/16/18 04:50 Globulin 3.1 g/dL (2.5-4.5) 02/16/18 04:50 Albumin/Globulin Ratio 1.0 Ratio (1.1-2.1) L 02/16/18 04:50 Specimen Type Clean catch urine 02/13/18 17: Urine Color Yellow (YELLOW) 02/13/18 17: Urine Appearance Clear (CLEAR) 02/13/18 17: Urine pH 6.0 (5.0 - 8.0) 02/13/18 17: Ur Specific [place] 1.010 (1.000-1.030) 02/13/18 17: Urine Protein 1+ (NEGATIVE) 02/13/18 17: Urine Glucose (UA) Negative (NEGATIVE) 02/13/18 17: Urine Ketones Negative (NEGATIVE) 02/13/18 17: Urine Occult Blood 2+ (NEGATIVE) 02/13/18 17: Urine Nitrite Negative (NEGATIVE) 02/13/18 17: Urine Bilirubin Negative (NEGATIVE) 02/13/18 17: Urine Urobilinogen Normal (NORMAL) 02/13/18 17: Ur Leukocyte Esterase 1+ (NEGATIVE) 02/13/18 17: Urine RBC 0-2 /HPF (NONE SEEN) 02/13/18 17:27 Urine WBC 0-2 /HPF (NONE SEEN) 02/13/18 17:27 Ur Squamous Epith Cells Few /HPF (NEGATIVE) 02/13/18 17: Amorphous Sediment 1+ /HPF (NEGATIVE) 02/13/18 17: Urine Bacteria Trace /HPF (NEGATIVE) 02/13/18 17: Ur Culture Indicated? No/not indicated 02/13/18 17: Urine Opiates Screen Negative (NEG=<300) 02/13/18 17 Urine Methadone Screen Negative (NEG=<300) 02/13/18: Ur Barbiturates Screen Negative (NEG=<200) 02/13/18: Ur Phencyclidine Scrn Negative (NEG=<25) 02/13/18 Ur Amphetamines Screen Negative (NEG=<1000) 02/13/18: U Benzodiazepines Scrn Positive (NEG=<200) A 02/13/18 Urine Cocaine Screen Negative (NEG=<300) 02/13/18 U Marijuana (THC) Screen Negative (NEG=<50) 02/13/18 17: - Plan (1) Rhabdomyolysis Status: Acute Qualifiers: Rhabdomyolysis type: non-traumatic Qualified Code(s): M62.82 - Rhabdomyolysis Plan: NORMAL SALINE AT 75ML/HR, CONTINUE TO MONITOR (2) Mental status alteration Status: Resolved Qualifiers: Altered mental status type: transient alteration of awareness Qualified Code(s): R40.4 - Transient alteration of awareness Plan: CONTINUE TO MONITOR (3) Generalized weakness Status: Acute (4) Left arm pain Status: Acute
[2018-02-16] MEDS: NS 1000 ML 1,000 ML IV SCH ×2 (12:40→23:43)
[2018-02-16] MEDS: ROBITUSSIN DM PO PRN (20:09)
[2018-02-16] MEDS: RESTORIL CAP 30 MG PO PRN (22:39)
[2018-02-17] MEDS: NS 1000 ML 1,000 ML IV SCH ×3 (05:22→17:25)
[2018-02-17 05:24] LABS: BASOPHILS % (AUTO) 0.4 % (0.2-1.0); EOSINOPHILS # (AUTO) 0.3 x10^3/uL (0.0-0.2); EOSINOPHILS % (AUTO) 7.5 % (0.9-2.9); HEMATOCRIT 27.2 % (36.0-47.0); HEMOGLOBIN 9.6 g/dL (12.0-16.0); LYMPHOCYTES # (AUTO) 1.7 X10^3/uL (1.3-2.9); LYMPHOCYTES % (AUTO) 40.7 % (21.0-51.0); MEAN CORPUSCULAR HEMOGLOBIN 32.4 pg (27.0-34.0); MEAN CORPUSCULAR HGB CONC 35.1 g/dL (33.0-35.0); MEAN CORPUSCULAR VOLUME 92.2 fL (80.0-100.0); MEAN PLATELET VOLUME 8.3 fL (7.4-11.0); MONOCYTES # (AUTO) 0.4 x10^3/uL (0.3-0.8); MONOCYTES % (AUTO) 8.6 % (0.0-13.0); NEUTROPHILS # (AUTO) 1.8 x10^3/uL (2.2-4.8); NEUTROPHILS % (AUTO) 42.8 % (42.0-75.0); PLATELET COUNT 182 X10^3/uL (150.0-450.0); RED BLOOD COUNT 2.95 X10^6/uL (3.5-5.4); RED CELL DISTRIBUTION WIDTH 13.6 % (11.6-16.5); WHITE BLOOD COUNT 4.3 X10^3/uL (3.6-10.0)
[2018-02-17 05:43] LABS: ALANINE AMINOTRANSFERASE 41 Units/L (12-78); ALBUMIN 2.9 g/dL (3.4-5.0); ALKALINE PHOSPHATASE 102 Units/L (46-116); ASPARTATE AMINO TRANSFERASE 45 Units/L (15-37); BLOOD UREA NITROGEN 8 mg/dL (7-18); CALCIUM 7.8 mg/dL (8.5-10.1); CARBON DIOXIDE 21.4 mmol/L (21-32); CHLORIDE 112 mmol/L (98-107); CKMB % 0.2 % (<4); COR CA(FOR HYPOALB) 8.7 mg/dL (8.5-10.1); CREATINE KINASE 757 Units/L (26-192); CREATINE KINASE MB 1.4 ng/mL (0-4.0); CREATININE 0.79 mg/dL (0.55-1.02); SODIUM 142 mmol/L (136-145); TROPONIN I < 0.02 ng/mL (0-1.5); eGFR NON BLACK RACES > 60 (>60)
[2018-02-17] MEDS: BUSPAR PO SCH (08:03)
[2018-02-17] MEDS: COREG TAB 3.125 MG PO SCH ×2 (08:04→20:58)
[2018-02-17] MEDS: PERIACTIN TAB 4 MG PO SCH ×2 (08:05→21:00)
[2018-02-17] MEDS: NORCO 5/325 MG TAB PO PRN ×3 (08:05→20:59)
[2018-02-17] MEDS: SINGULAIR TAB 10 MG PO SCH (08:05)
--- NOTE | 2018-02-17 10:37 | PCM.PROG ---
Progress Note - Progress Note for Day of Date of Exam: 02/16/18 - Subjective Subjective: WAS ADMITTED FOR MULTIPLE FALLS, GENERALIZED WEAKNESS, AMS, AND RHABDOMYOLYSIS. TODAY, SHE IS ALERT AND ORIENTED, LYING IN BED ON MORNING ROUNDS. SHE CONTINUES WITH COMPLAINTS OF WEAKNESS AND BILATERAL LEG PAIN, BUT CONTINUES TO REPORT IMPROVEMENT SINCE YESTERDAY. ON EXAMINATION, HEART IS REGULAR IN RATE AND RHYTHM. BILATERAL LUNGS ARE NOTED WITH DIMINISHED LUNG SOUNDS THROUGHOUT. ABDOMEN IS ROUND, SOFT, AND NON-TENDER WITH NORMAL BOWEL SOUNDS NOTED IN ALL QUADRANTS. SHE IS NOTED WITH WEAKNESS TO BILATERAL LOWER EXTREMITIES. HER VITALS THIS MORNING ARE 99.0-58-20-97%-126/61. LABS WERE OBTAINED. ABNORMAL LAB VALUES INCLUDE THE FOLLOWING: RBC 3.06, HGB 9.7, HCT 28.4, CHLORIDE 110, CALCIUM 8.0, AST 61, CREATINE KINASE DECREASED FROM 2053 TO 1284, CK-MB DECREASED FROM 9.1 TO 3.5, TOTAL PROTEIN 6.1, ALBUMIN 3.0. SHE IS CURRENTLY RECEIVING NORMAL SALINE AT 75ML/HR. WE WILL CONTINUE WITH CURRENT PLAN OF CARE TODAY AND OTHERWISE, WE WILL FOLLOW UP WITH AM LABS AND CONTINUE TO [facility]. - Past Medical Family Social History Past Med/Fam/Surg Hx: No changes since H&P Allergies: Allergies ceftriaxone Allergy (Verified 08/23/17 00:03) fluoxetine [From Prozac] Allergy (Verified 08/23/17 00:03) ketorolac [From Toradol] Allergy (Verified 08/23/17 00:03) - Review of Systems ROS: No change since H&P - Vital Signs and I&O's Vital Signs: Temperature 98.0 F Pulse Rate [Left Brachial] 56 Pulse Rate 82 Respiratory Rate 18 Blood Pressure [Right Arm] 114/55 Blood Pressure [Left Arm] 119/67 Blood Pressure 106/59 O2 Sat by Pulse Oximetry 94 Intake and Output: Intake & Output 02/14/18 02/15/18 02/16/18 02/17/18 11:59 11:59 11:59 11:59 Intake Total 1160 / 1160 1851 / 1851 1640 / 1640 1380 / 1380 Output Total 500 / 500 Balance 1160 / 1160 1351 / 1351 1640 / 1640 1380 / 1380 - Physical Exam Oriented: Normal Eyes: Normal Ear: Normal Nose: Normal Throat: Normal Respiratory: Generalized, Diminished Cardiovascular: Normal. negative: S3, S4, Murmur : Normal Auscultation: Bowel Sounds: Normal Palpation: Normal Tenderness: Normal Skin: Normal Musculoskeletal: Right, Left, Shoulder (LEFT SHOULDER PAIN ), Leg, Tender Psychiatric: Normal Mood Description: Calm Affect: Normal Speech Pattern: Clear, Appropriate - Laboratory and Diagnostics Result Diagrams: 02/17/18 05:00 02/17/18 05:00 Labs: 02/13/18 12:38 Blood Blood Culture - Preliminary 02/13/18 12:28 Blood Blood Culture - Preliminary Laboratory WBC 4.3 X10^3/uL (3.6-10.0) 02/17/18 05:00 RBC 2.95 X10^6/uL (3.5-5.4) L 02/17/18 05:00 Hgb 9.6 g/dL (12.0-16.0) L 02/17/18 05:00 Hct 27.2 % (36.0-47.0) L 02/17/18 05:00 MCV 92.2 fL (80.0-100.0) 02/17/18 05:00 MCH 32.4 pg (27.0-34.0) 02/17/18 05:00 MCHC 35.1 g/dL (33.0-35.0) H 02/17/18 05:00 RDW 13.6 % (11.6-16.5) 02/17/18 05:00 Plt Count 182 X10^3/uL (150.0-450.0) 02/17/18 05:00 MPV 8.3 fL (7.4-11.0) 02/17/18 05:00 Neut % (Auto) 42.8 % (42.0-75.0) 02/17/18 05:00 Lymph % (Auto) 40.7 % (21.0-51.0) 02/17/18 05:00 [place] % (Auto) 8.6 % (0.0-13.0) 02/17/18 05:00 Eos % (Auto) 7.5 % (0.9-2.9) H 02/17/18 05:00 Baso % (Auto) 0.4 % (0.2-1.0) 02/17/18 05:00 Neut # (Auto) 1.8 x10^3/uL (2.2-4.8) L 02/17/18 05:00 Lymph # (Auto) 1.7 X10^3/uL (1.3-2.9) 02/17/18 05:00 [place] # (Auto) 0.4 x10^3/uL (0.3-0.8) 02/17/18 05:00 Eos # (Auto) 0.3 x10^3/uL (0.0-0.2) H 02/17/18 05:00 Baso # (Auto) 0.0 X10^3/uL (0.0-0.1) 02/17/18 05:00 Absolute Nucleated RBC 0.0 /100WBC 02/17/18 05:00 Sodium 142 mmol/L (136-145) 02/17/18 05:00 Corrected Sodium TNP 02/17/18 05:00 Potassium 3.9 mmol/L (3.5-5.1) 02/17/18 05:00 Chloride 112 mmol/L (98-107) H 02/17/18 05:00 Carbon Dioxide 21.4 mmol/L (21-32) 02/17/18 05:00 BUN 8 mg/dL (7-18) 02/17/18 05:00 Creatinine 0.79 mg/dL (0.55-1.02) 02/17/18 05:00 Est GFR (MDRD) Af Amer > 60 (>60) 02/17/18 05:00 Est GFR (MDRD) Non-Af > 60 (>60) 02/17/18 05:00 Glucose 84 mg/dL (65-99) 02/17/18 05:00 Lactic Acid 0.7 mmol/L (0.4-2.0) 02/13/18 12:28 Calcium 7.8 mg/dL (8.5-10.1) L 02/17/18 05:00 Corrected Calcium 8.7 mg/dL (8.5-10.1) 02/17/18 05:00 Magnesium 1.6 mg/dL (1.7-2.9) L 02/14/18 03:15 Total Bilirubin 0.20 mg/dL (0.2-1.0) 02/17/18 05:00 AST 45 Units/L (15-37) H 02/17/18 05:00 ALT 41 Units/L (12-78) 02/17/18 05:00 Alkaline Phosphatase 102 Units/L (46-116) 02/17/18 05:00 Creatine Kinase 757 Units/L (26-192) H 02/17/18 05:00 CK-MB (CK-2) 1.4 ng/mL (0-4.0) 02/17/18 05:00 CK/CKMB % Calc 0.2 % (<4) 02/17/18 05:00 Troponin I < 0.02 ng/mL (0-1.5) 02/17/18 05:00 Total Protein 6.0 g/dL (6.4-8.2) L 02/17/18 05:00 Albumin 2.9 g/dL (3.4-5.0) L 02/17/18 05:00 Globulin 3.1 g/dL (2.5-4.5) 02/17/18 05:00 Albumin/Globulin Ratio 0.9 Ratio (1.1-2.1) L 02/17/18 05:00 Specimen Type Clean catch urine 02/13/18: Urine Color Yellow (YELLOW) 02/13/18: Urine Appearance Clear (CLEAR) 02/13/18: Urine pH 6.0 (5.0 - 8.0) 02/13/18 17: Ur Specific [place] 1.010 (1.000-1.030) 02/13/18: Urine Protein 1+ (NEGATIVE) 02/13/18: Urine Glucose (UA) Negative (NEGATIVE) 02/13/18 17: Urine Ketones Negative (NEGATIVE) 02/13/18: Urine Occult Blood 2+ (NEGATIVE) 02/13/18: Urine Nitrite Negative (NEGATIVE) 02/13/18: Urine Bilirubin Negative (NEGATIVE) 02/13/18: Urine Urobilinogen Normal (NORMAL) 02/13/18 17: Ur Leukocyte Esterase 1+ (NEGATIVE) 02/13/18 17: Urine RBC 0-2 /HPF (NONE SEEN) 02/13/18 17: Urine WBC 0-2 /HPF (NONE SEEN) 02/13/18 17: Ur Squamous Epith Cells Few /HPF (NEGATIVE) 02/13/18 17: Amorphous Sediment 1+ /HPF (NEGATIVE) 02/13/18 17: Urine Bacteria Trace /HPF (NEGATIVE) 02/13/18 17: Ur Culture Indicated? No/not indicated 02/13/18 17: Urine Opiates Screen Negative (NEG=<300) 02/13/18 17: Urine Methadone Screen Negative (NEG=<300) 02/13/18 17: Ur Barbiturates Screen Negative (NEG=<200) 02/13/18 17: Ur Phencyclidine Scrn Negative (NEG=<25) 02/13/18 17: Ur Amphetamines Screen Negative (NEG=<1000) 02/13/18: U Benzodiazepines Scrn Positive (NEG=<200) A 02/13/18 17: Urine Cocaine Screen Negative (NEG=<300) 02/13/18: U Marijuana (THC) Screen Negative (NEG=<50) 02/13/18 17: - Plan (1) Rhabdomyolysis Status: Acute Qualifiers: Rhabdomyolysis type: non-traumatic Qualified Code(s): M62.82 - Rhabdomyolysis Plan: NORMAL SALINE AT 75ML/HR, CONTINUE TO MONITOR (2) Generalized weakness Status: Acute (3) Left arm pain Status: Acute
[2018-02-17] MEDS: ROBITUSSIN DM PO PRN ×2 (11:44→23:08)
[2018-02-17] MEDS: RESTORIL CAP 30 MG PO PRN (20:59)
[2018-02-18] MEDS: NS 1000 ML 1,000 ML IV SCH ×2 (04:32→07:18)
[2018-02-18 05:29] LABS: EOSINOPHILS # (AUTO) 0.3 x10^3/uL (0.0-0.2); EOSINOPHILS % (AUTO) 7.4 % (0.9-2.9); HEMATOCRIT 25.9 % (36.0-47.0); HEMOGLOBIN 9.1 g/dL (12.0-16.0); LYMPHOCYTES # (AUTO) 1.6 X10^3/uL (1.3-2.9); LYMPHOCYTES % (AUTO) 38.1 % (21.0-51.0); MEAN CORPUSCULAR HEMOGLOBIN 32.4 pg (27.0-34.0); MEAN CORPUSCULAR HGB CONC 35.1 g/dL (33.0-35.0); MEAN CORPUSCULAR VOLUME 92.1 fL (80.0-100.0); MEAN PLATELET VOLUME 7.9 fL (7.4-11.0); MONOCYTES # (AUTO) 0.3 x10^3/uL (0.3-0.8); NEUTROPHILS # (AUTO) 1.9 x10^3/uL (2.2-4.8); NEUTROPHILS % (AUTO) 45.5 % (42.0-75.0); PLATELET COUNT 171 X10^3/uL (150.0-450.0); RED BLOOD COUNT 2.82 X10^6/uL (3.5-5.4); RED CELL DISTRIBUTION WIDTH 13.6 % (11.6-16.5); WHITE BLOOD COUNT 4.2 X10^3/uL (3.6-10.0)
[2018-02-18 06:18] LABS: ALANINE AMINOTRANSFERASE 40 Units/L (12-78); ALBUMIN 2.9 g/dL (3.4-5.0); ALKALINE PHOSPHATASE 110 Units/L (46-116); ASPARTATE AMINO TRANSFERASE 35 Units/L (15-37); BLOOD UREA NITROGEN 13 mg/dL (7-18); CALCIUM 7.6 mg/dL (8.5-10.1); CHLORIDE 111 mmol/L (98-107); CKMB % 0.2 % (<4); COR CA(FOR HYPOALB) 8.5 mg/dL (8.5-10.1); CREATINE KINASE 493 Units/L (26-192); CREATININE 0.83 mg/dL (0.55-1.02); SODIUM 143 mmol/L (136-145); TOTAL PROTEIN 5.8 g/dL (6.4-8.2); TROPONIN I < 0.02 ng/mL (0-1.5); eGFR NON BLACK RACES > 60 (>60)
[2018-02-18] MEDS: COREG TAB 3.125 MG PO SCH (08:39)
[2018-02-18] MEDS: BUSPAR PO SCH (08:39)
[2018-02-18] MEDS: SINGULAIR TAB 10 MG PO SCH (08:40)
[2018-02-18] MEDS: NORCO 5/325 MG TAB PO PRN (08:40)
[2018-02-18] MEDS: PERIACTIN TAB 4 MG PO SCH (08:40)
[2018-02-18 10:00] VITALS: BP 119/54
--- NOTE | 2018-03-27 22:09 | PCM.PROG ---
Progress Note - Progress Note for Day of Date of Exam: 02/17/18 - Subjective Subjective: WAS ADMITTED FOR MULTIPLE FALLS, GENERALIZED WEAKNESS, AMS, AND RHABDOMYOLYSIS. TODAY, SHE IS ALERT AND ORIENTED, LYING IN BED ON MORNING ROUNDS. SHE CONTINUES WITH COMPLAINTS OF WEAKNESS AND BILATERAL LEG PAIN, BUT CONTINUES TO REPORT IMPROVEMENT SINCE YESTERDAY. ON EXAMINATION, HEART IS REGULAR IN RATE AND RHYTHM. BILATERAL LUNGS ARE NOTED WITH DIMINISHED LUNG SOUNDS THROUGHOUT. ABDOMEN IS ROUND, SOFT, AND NON-TENDER WITH NORMAL BOWEL SOUNDS NOTED IN ALL QUADRANTS. SHE IS NOTED WITH WEAKNESS TO BILATERAL LOWER EXTREMITIES. HER VITALS THIS MORNING ARE 98.0-56-18-94%-119/67. LABS WERE OBTAINED. CREATINE KINASE DECREASED FROM 1284 TO 757 . SHE IS CURRENTLY RECEIVING NORMAL SALINE AT 75ML/HR. WE WILL CONTINUE WITH CURRENT PLAN OF CARE TODAY AND OTHERWISE, WE WILL FOLLOW UP WITH AM LABS AND CONTINUE TO MONITOR. - Past Medical Family Social History Past Med/Fam/Surg Hx: No changes since H&P Allergies: Allergies ceftriaxone Allergy (Verified 08/23/17 00:03) fluoxetine [From Prozac] Allergy (Verified 08/23/17 00:03) ketorolac [From Toradol] Allergy (Verified 08/23/17 00:03) - Review of Systems ROS: No change since H&P - Vital Signs and I&O's Vital Signs: Temperature 97.6 F Pulse Rate [Left Brachial] 58 Pulse Rate 82 Respiratory Rate 20 Blood Pressure [Right Arm] 119/54 Blood Pressure [Left Arm] 128/59 Blood Pressure 106/59 O2 Sat by Pulse Oximetry 96 - Physical Exam Oriented: Normal Eyes: Normal Ear: Normal Nose: Normal Throat: Normal Respiratory: Generalized, Diminished Cardiovascular: Normal. negative: S3, S4, Murmur : Normal Auscultation: Bowel Sounds: Normal Tenderness: Normal Skin: Normal Musculoskeletal: Right, Left, Shoulder (LEFT SHOULDER PAIN ), Leg, Tender Psychiatric: Normal Mood Description: Calm Affect: Normal Speech Pattern: Clear, Appropriate - Laboratory and Diagnostics Result Diagrams: 02/18/18 04:35 02/18/18 04:35 Labs: 02/13/18 12:28 Blood Blood Culture - Final 02/13/18 12:38 Blood Blood Culture - Final Laboratory WBC 4.2 X10^3/uL (3.6-10.0) 02/18/18 04:35 RBC 2.82 X10^6/uL (3.5-5.4) L 02/18/18 04:35 Hgb 9.1 g/dL (12.0-16.0) L 02/18/18 04:35 Hct 25.9 % (36.0-47.0) L 02/18/18 04:35 MCV 92.1 fL (80.0-100.0) 02/18/18 04:35 MCH 32.4 pg (27.0-34.0) 02/18/18 04:35 MCHC 35.1 g/dL (33.0-35.0) H 02/18/18 04:35 RDW 13.6 % (11.6-16.5) 02/18/18 04:35 Plt Count 171 X10^3/uL (150.0-450.0) 02/18/18 04:35 MPV 7.9 fL (7.4-11.0) 02/18/18 04:35 Neut % (Auto) 45.5 % (42.0-75.0) 02/18/18 04:35 Lymph % (Auto) 38.1 % (21.0-51.0) 02/18/18 04:35 [facility] % (Auto) 8.0 % (0.0-13.0) 02/18/18 04:35 Eos % (Auto) 7.4 % (0.9-2.9) H 02/18/18 04:35 Baso % (Auto) 1.0 % (0.2-1.0) 02/18/18 04:35 Neut # (Auto) 1.9 x10^3/uL (2.2-4.8) L 02/18/18 04:35 Lymph # (Auto) 1.6 X10^3/uL (1.3-2.9) 02/18/18 04:35 [facility] # (Auto) 0.3 x10^3/uL (0.3-0.8) 02/18/18 04:35 Eos # (Auto) 0.3 x10^3/uL (0.0-0.2) H 02/18/18 04:35 Baso # (Auto) 0.0 X10^3/uL (0.0-0.1) 02/18/18 04:35 Absolute Nucleated RBC 0.1 /100WBC 02/18/18 04:35 Sodium 143 mmol/L (136-145) 02/18/18 04:35 Corrected Sodium TNP 02/18/18 04:35 Potassium 3.8 mmol/L (3.5-5.1) 02/18/18 04:35 Chloride 111 mmol/L (98-107) H 02/18/18 04:35 Carbon Dioxide 22.0 mmol/L (21-32) 02/18/18 04:35 BUN 13 mg/dL (7-18) 02/18/18 04:35 Creatinine 0.83 mg/dL (0.55-1.02) 02/18/18 04:35 Est GFR (MDRD) Af Amer > 60 (>60) 02/18/18 04:35 Est GFR (MDRD) Non-Af > 60 (>60) 02/18/18 04:35 Glucose 84 mg/dL (65-99) 02/18/18 04:35 Lactic Acid 0.7 mmol/L (0.4-2.0) 02/13/18 12:28 Calcium 7.6 mg/dL (8.5-10.1) L 02/18/18 04:35 Corrected Calcium 8.5 mg/dL (8.5-10.1) 02/18/18 04:35 Magnesium 1.6 mg/dL (1.7-2.9) L 02/14/18 03:15 Total Bilirubin 0.20 mg/dL (0.2-1.0) 02/18/18 04:35 AST 35 Units/L (15-37) 02/18/18 04:35 ALT 40 Units/L (12-78) 02/18/18 04:35 Alkaline Phosphatase 110 Units/L (46-116) 02/18/18 04:35 Creatine Kinase 493 Units/L (26-192) H 02/18/18 04:35 CK-MB (CK-2) 1.0 ng/mL (0-4.0) 02/18/18 04:35 CK/CKMB % Calc 0.2 % (<4) 02/18/18 04:35 Troponin I < 0.02 ng/mL (0-1.5) 02/18/18 04:35 Total Protein 5.8 g/dL (6.4-8.2) L 02/18/18 04:35 Albumin 2.9 g/dL (3.4-5.0) L 02/18/18 04:35 Globulin 2.9 g/dL (2.5-4.5) 02/18/18 04:35 Albumin/Globulin Ratio 1.0 Ratio (1.1-2.1) L 02/18/18 04:35 Specimen Type Clean catch urine 02/13/18 17: Urine Color Yellow (YELLOW) 02/13/18: Urine Appearance Clear (CLEAR) 02/13/18 17: Urine pH 6.0 (5.0 - 8.0) 02/13/18 17: Ur Specific [place] 1.010 (1.000-1.030) 02/13/18 17: Urine Protein 1+ (NEGATIVE) 02/13/18 17: Urine Glucose (UA) Negative (NEGATIVE) 02/13/18: Urine Ketones Negative (NEGATIVE) 02/13/18 17: Urine Occult Blood 2+ (NEGATIVE) 02/13/18 17: Urine Nitrite Negative (NEGATIVE) 02/13/18: Urine Bilirubin Negative (NEGATIVE) 02/13/18 17: Urine Urobilinogen Normal (NORMAL) 02/13/18 17: Ur Leukocyte Esterase 1+ (NEGATIVE) 02/13/18 17: Urine RBC 0-2 /HPF (NONE SEEN) 02/13/18 17: Urine WBC 0-2 /HPF (NONE SEEN) 02/13/18: Ur Squamous Epith Cells Few /HPF (NEGATIVE) 02/13/18 17: Amorphous Sediment 1+ /HPF (NEGATIVE) 02/13/18 17: Urine Bacteria Trace /HPF (NEGATIVE) 02/13/18 17: Ur Culture Indicated? No/not indicated 02/13/18 17: Urine Opiates Screen Negative (NEG=<300) 02/13/18 17: Urine Methadone Screen Negative (NEG=<300) 02/13/18 17: Ur Barbiturates Screen Negative (NEG=<200) 02/13/18: Ur Phencyclidine Scrn Negative (NEG=<25) 02/13/18 17:27 Ur Amphetamines Screen Negative (NEG=<1000) 02/13/18 17:27 U Benzodiazepines Scrn Positive (NEG=<200) A 02/13/18 17:27 Urine Cocaine Screen Negative (NEG=<300) 02/13/18 17:27 U Marijuana (THC) Screen Negative (NEG=<50) 02/13/18 17:27 - Plan (1) Rhabdomyolysis Status: Acute Qualifiers: Rhabdomyolysis type: non-traumatic Qualified Code(s): M62.82 - Rhabdomyolysis Plan: NORMAL SALINE AT 75ML/HR, CONTINUE TO MONITOR (2) Generalized weakness Status: Acute (3) Left arm pain Status: Acute
--- NOTE | 2018-04-01 01:03 | DR.CARTERD ---
- Discharge Summary for: Discharge Summary for Date of:: 02/18/18 - Admission Date Date of Admission: 02/13/18 - Admission Diagnoses Admission Diagnosis: (1) Rhabdomyolysis (2) Mental status alteration (3) Generalized weakness (4) Left arm pain - Discharge Date Discharge Date: 02/18/18 - Discharge Diagnoses Discharge Diagnosis: (1) Rhabdomyolysis (2) Generalized weakness (3) Left arm pain - Hospital Course Hospital Course: DAY ONE, IS A 62 YEAR OLD PATIENT OF OURS WHO PRESENTED TO THE ER WITH REPORTS OF FALLING AT HOME. SHE REPORTED PAIN TO THE LEFT UPPER ARM WELL WEAKNESS TO THE LOWER EXTREMITIES AND SHORTNESS OF BREATH. SHE DENIED FEVER OR CHEST PAIN. PATIENTS FAMILY REPORTED THAT SHE HAD TAKEN AN UNKNOWN MEDICATION BEFORE FALLING. PAST MEDICAL HISTORY INCLUDES: ARTHRITIS, DYSLIPIDEMIA, GERD, HYPERTENSION, LUNG CANCER, CHOLECYSTECTOMY, AND HYSTERECTOMY. ON EXAMINATION, PATIENT DROWSY, BUT AWAKENS TO ANSWER QUESTIONS. PUPILS WERE PINPOINT. ON ARRIVAL, VITALS WERE 98.6-75-16-98%-106/59. LABS WERE OBTAINED. ABNORMAL LAB VALUES INCLUDED THE FOLLOWING: HGB 11.5, HCT 33.3, BUN 22, CREATININE 1.45, CALCIUM 8.4, AST 185, ALT 92, ALK PHOS 178, CREATINE KINASE 448, CK-MB 5.4. URINALYSIS REVEALED: WBC 0-2, RBC 0-2, LEUKOCYTES 1+, BACTERIA TRACE, CCULT BLOOD 2+. URINE DRUG SCREEN POSITIVE FOR BENZODIAZEPINES. PATIENT REPORTED USING XANAX AT HOME. A CERVICAL SPINE CT WAS OBTAINED AND REVEALED: No acute cervical spine fracture or posttraumatic subluxation. FACIAL BONES CT REVEALED: No acute maxillofacial fracture or evidence of globe disruption. Apical emphysematous changes. Chronic left mastoid effusion. Multiple dental caries noted incidentally. BRAIN CT REVEALED: No acute intracranial process can be identified. 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 Generalized cortical volume loss. Chronic left mastoid effusion. CHEST XRAY REVEALED: Patchy opacity at right base may represent either atelectasis or developing infiltrate. LEFT SHOULDER XRAY REVEALED: No acute injury demonstrated. EKG REVEALED: SINUS RHYTHM WITH HR 72. SHE WAS GIVEN NARCAN 0.4MG X 1 DOSE IN THE ER AND BECAME MORE RESPONSIVE. SHE WAS ADMITTED FOR FURTHER EVALUATION AND TREATMENT OF ALTERED MENTAL STATUS, FALLS, LEFT ARM PAIN, AND RHABDOMYOLYSIS. SHE WAS STARTED ON NORMAL SALINE AT 75ML/HR . WE OLLOWED UP WITH AM LABS AND CONTINUD TO MONITOR PATIENT. DAY THREE, SHE WAS ALERT AND ORIENTED, LYING IN BED ON MORNING ROUNDS. SHE CONTINUED WITH COMPLAINTS OF WEAKNESS AND BILATERAL LEG PAIN, BUT REPORTED SLIGHT IMPROVEMENT SINCE YESTERDAY. ON EXAMINATION, HEART WAS REGULAR IN RATE AND RHYTHM. BILATERAL LUNGS WERE NOTED WITH DIMINISHED LUNG SOUNDS THROUGHOUT. ABDOMEN WAS ROUND, SOFT, AND NON-TENDER WITH NORMAL BOWEL SOUNDS NOTED IN ALL QUADRANTS. SHE WAS NOTED WITH WEAKNESS TO BILATERAL LOWER EXTREMITIES. HER VITALS THIS MORNING WERE 97.8-60-20-96%-139/59. LABS WERE OBTAINED. ABNORMAL LAB VALUES INCLUDED THE FOLLOWING: RBC 3.04, HGB 9.9, HCT 28.1, CHLORIDE 109, CALCIUM 8.0, AST 83, CREATINE KINASE DECREASED FROM 2924 TO 2053, CK-MB DECREASED FROM 34.3 TO 9.1, TOTAL PROTEIN 6.0, ALBUMIN 2.9. SHE RECEIVED NORMAL SALINE AT 75ML/HR. WE CONTINUED WITH CURRENT PLAN OF CARE TODAY. WE FOLLOWED UP WITH AM LABS AND CONTINUED TO MONITOR. DAY FIVE, SHE CONTINUED WITH COMPLAINTS OF WEAKNESS AND BILATERAL LEG PAIN, BUT CONTINUED TO REPORT IMPROVEMENT SINCE YESTERDAY. ON EXAMINATION, HEART WAS REGULAR IN RATE AND RHYTHM. BILATERAL LUNGS WERE NOTED WITH DIMINISHED LUNG SOUNDS THROUGHOUT. ABDOMEN WAS ROUND, SOFT, AND NON-TENDER WITH NORMAL BOWEL SOUNDS NOTED IN ALL QUADRANTS. SHE WAS NOTED WITH WEAKNESS TO BILATERAL LOWER EXTREMITIES. HER VITALS THIS MORNING WERE 98.0-56-18-94%-119/67. LABS WERE OBTAINED. CREATINE KINASE DECREASED FROM 1284 TO 757 . SHE RECEIVED NORMAL SALINE AT 75ML/HR. WE ONTINUED WITH CURRENT PLAN OF CARE TODAY. WE FOLLOWED UP WITH AM LABS AND CONTINUED TO MONITOR. DAY SIX, PATIENT ALERT AND ORIENTED SITTING UP IN BED ON ROUNDS. PATIENT REPORTS SYMPTOMS HAVE IMPROVED. VITALS WERE STABLE. LABS WERE IN NORMAL RANGE FOR PATIENT. HOME HEALTH SET UP FOR PATIENT FOR CONTINUATION OF CARE. WE PLANNED FOR DISCHARGE. INSTRUCTIONS FOR MEDICATIONS AND FOLLOW UP DISCUSSED WITH PATIENT AND FAMILY, BOTH VOICED UNDERSTANDING. PATIENT DISCHARGED HOME IN STABLE CONDITION WITH FAMILY. - Discharge Medications Discharge Medications: Home Medication List alprazolam 1 tab PO QID PRN 02/15/18 [History] buspirone 1 tab PO DAILY 02/15/18 [History] carvedilol 1 tab PO BID 02/15/18 [History] cyproheptadine 1 tab PO BID 02/15/18 [History] gabapentin 1 cap PO QID 02/15/18 [History] montelukast 1 tab PO DAILY 02/15/18 [History] oxycodone-acetaminophen 1 tab PO QID PRN 02/15/18 [History] temazepam 1 cap PO HS 02/15/18 [History] Prescriptions: Ambulatory Orders benzonatate 200 mg PO TID PRN 08/23/17 escitalopram oxalate 5 mg PO .@SUPPER 08/23/17 lisinopril 2.5 mg PO DAILY 08/23/17 pantoprazole 40 mg PO BID 08/23/17 rivaroxaban [Xarelto] 20 mg PO DAILY #30 tab 09/01/17 - Discharge Disposition Discharge Disposition: PATIENT TO FOLLOW UP IN OUR OFFICE IN ONE WEEK.
== END 2018-02-18 11:00 | disposition home or self-care (01) | DRG 558 ==
LOC: MED/SURG 11:16 → ER 11:16 → MED/SURG 16:43
PROVIDERS: ADMIT Internal Medicine; ATTEND Internal Medicine
DX: M79.605 Pain in left leg; R26.89 Other abnormalities of gait and mobility; I10 Essential (primary) hypertension; R06.02 Shortness of breath; R94.31 Abnormal electrocardiogram [ECG] [EKG]; W18.39XA Other fall on same level, initial encounter; R29.6 Repeated falls; M79.604 Pain in right leg; M79.602 Pain in left arm; K21.9 Gastro-esophageal reflux disease without esophagitis; Z79.899 Other long term (current) drug therapy; R41.82 Altered mental status, unspecified; E78.2 Mixed hyperlipidemia; M62.82 Rhabdomyolysis; S09.8XXA Other specified injuries of head, initial encounter
CPT/HCPCS: 36415; 70450; 70486; 71010; 71045; 72125; 73030; 80053; 80307; 81001; 82550; 82553; 83605; 83735; 84484; 85025; 87040; 90686; 93005; 94760; 96365; 96367; 96374; 97110; 97116; 97163; 99283; 99284; A4222; 90670; G0378; G0434; J2310; J3475; J7030

== ENCOUNTER 2019-06-13 08:31 | Observation (INO) ==
[2019-06-13] MEDS ORDERED: NARCAN INJ ONE ×2 (09:14→11:39)
[2019-06-13] MEDS ORDERED: NARCAN INJ IVP ONE ×2 (09:18→11:14)
[2019-06-13 09:33] LABS: BASOPHILS # (AUTO) 0.1 X10^3/uL (0.0-0.1); BASOPHILS % (AUTO) 1.2 % (0.2-1.0); EOSINOPHILS # (AUTO) 0.2 x10^3/uL (0.0-0.2); HEMATOCRIT 34.4 % (36.0-47.0); HEMOGLOBIN 11.8 g/dL (12.0-16.0); LYMPHOCYTES # (AUTO) 1.2 X10^3/uL (1.3-2.9); LYMPHOCYTES % (AUTO) 19.8 % (21.0-51.0); MEAN CORPUSCULAR HEMOGLOBIN 31.2 pg (27.0-34.0); MEAN CORPUSCULAR HGB CONC 34.4 g/dL (33.0-35.0); MEAN CORPUSCULAR VOLUME 90.7 fL (80.0-100.0); MEAN PLATELET VOLUME 7.3 fL (7.4-11.0); MONOCYTES # (AUTO) 0.4 x10^3/uL (0.3-0.8); NEUTROPHILS # (AUTO) 4.2 x10^3/uL (2.2-4.8); PLATELET COUNT 255 X10^3/uL (150.0-450.0); RED CELL DISTRIBUTION WIDTH 13.6 % (11.6-16.5); WHITE BLOOD COUNT 6.2 X10^3/uL (3.6-10.0)
[2019-06-13 09:51] LABS: ABG ALLEN TEST POS; ABG BASE EXCESS -2.1 mmol/L (-2.0-2.0); ABG HCO3 22.3 mmol/L (22-26)
--- NOTE | 2019-06-13 09:53 | RAD ---
HISTORYAMS, UNRESPONSIVE, DYSPNEASTUDYCHEST, 1 VIEWCOMPARISONOctober 2017FINDINGSThe trachea is midline. The cardiac silhouette is unremarkable . The lungs are clear without focal infiltrate or effusion. The bony thorax is unremarkable. There are mild chronic lung changes but the interstitial pattern in the right upper and right lower lung field are improved compared to February 13, 2018 prior chest film.IMPRESSIONNo acute cardiopulmonary disease.Electronically signed by: SANDRA EDI (Jun 13, 2019 09:52:34)
[2019-06-13 09:57] LABS: ALANINE AMINOTRANSFERASE 16 Units/L (12-78); ALBUMIN 3.5 g/dL (3.4-5.0); ALKALINE PHOSPHATASE 98 Units/L (46-116); ASPARTATE AMINO TRANSFERASE 23 Units/L (15-37); BLOOD UREA NITROGEN 13 mg/dL (7-18); CALCIUM 8.6 mg/dL (8.5-10.1); CARBON DIOXIDE 24.4 mmol/L (21-32); CHLORIDE 101 mmol/L (98-107); CREATININE 1.22 mg/dL (0.55-1.02); SODIUM 135 mmol/L (136-145); eGFR NON BLACK RACES 47 (>60)
--- NOTE | 2019-06-13 10:00 | CT ---
HISTORYAMS, UNRESPONSIVESTUDYCT of the brain without contrastCOMHill Crest Behavioral [facility] [address] noncontrast CT of the head is performed in the axial plane and is reconstructed with multiplanar reformats. Dose reduction techniques including Automated Exposure Control (AEC) and adjustment of mA and kV were utilized.FINDINGSThe study is limited due to extensive patient motion artifact. The patient was scanned twice but both sequences are motion degraded. Within limitations of this examination, there is no intracranial hemorrhage or extra-axial hematoma. There is no midline shift or sulcal effacement identified. Ventricular size appears average. Confluent periventricular and subcortical white matter hypoattenuation is observed, most likely associated with chronic microangiopathic ischemic changes. Within limitations of the exam there is no well-defined, cortically based, large artery territorial infarction. Surgical moses are in place within the left parietal scalp related to recent laceration repair. There is no underlying skull fracture. The paranasal sinuses are grossly clear. The right mastoid air cell complex is clear. The left mastoid air cell complex is under aerated and is presumably partially opacified.IMPRESSIONThis exam is of limited diagnostic utility secondary to significant motion artifact, despite repeated sequences. Within limitations of the examination, no gross intracranial abnormalities can be identified. If the patient has focal neurological deficits and there is clinical concern for an occult neurologic abnormality, would advise repeating the scan when the patient can remain still for higher quality images.Advanced degenerative white matter changes of the supratentorial brain, most likely related to chronic microangiopathic ischemia.Left mastoid effusionStatus post left parietal scalp laceration repairElectronically signed by: LAUREL VAZQUEZ (Jun 13, 2019 09:58:43)
--- NOTE | 2019-06-13 10:39 | DR.AMS ---
HPI Time Seen Time Seen by Provider: 06/13/19 09:11 PCP Primary Care Physician: KAITLIN PARRY. 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 Pt became incontinent of stool and urine. No sz noted. She has chronic pain so takes Percocet. Possible excessive narcotics. No known fever, or N/V/D. Cough. (has COPD). Is also on xanax BID and temezapam for sleep. Chief Complaint:: EMS OUT TO PT UNRESPONSIVE BUT BREATHING, PT TO ER LETHAGIC SNORING PT OPEN EYES WHEN SPOKEN TO SPEECH SLURRED , PT UNABLE TO GIVE HX PT FAMILY STATES PT WAS STIFF THIS AM AND HAD ACCIDENT ON HER SELF , AND THAT PT HAS NOT TAKEN ANY MEDS SINCE LAST NIGHT ,,BR Reviewed Nurses Notes Reviewed: Yes Source History Provided: Family Member and EMS Mode of Arrival Mode of Arrival: EMS Timing Onset of Chief Complaint: 06/13/19 Came On: At Night Symptoms: Unchanged Duration Duration: Since Onset Severity Severity: Unresponsive Context Recent: Cough; denies Fever, Vomiting, Trauma, Medication Change and Drug Use (but takes prescribed percocet for chronic back pain.) History Of: None Associated Signs and Symptoms Associated Signs and Symptoms: Unresponsiveness PMH PMH Past Medical History: Yes Past Medical History: Arthritis, Dyslipidemia, GERD and Hypertension Past Surgical History: Yes Surgical History: Cholecystectomy, Hysterectomy and Ortho Surgery Family History History of Family Medical Conditions: Yes Family Medical History: Cancer, Coronary Artery Disease and Hypertension Social History Does patient currently use any type of tobacco product: Yes Have you used tobacco products in the last 12 months: Yes Type of Tobacco Use: Cigarettes Does any household member use tobacco: No Alcohol Use: None Do you use any recreational Drugs:: No Lives With: Family Lives Where: Home infectious screening In the last 2 months have you had wt loss of >10#?: NO Have you had fever, night sweats or hemotysis?: No Have you traveled outside the country in the last 6 months?: No Isolation: Standard ROS Review of Systems Constitutional: No Symptoms Reported Respiratoy: negative Short of Breath and Wheezing Gastrointestinal/Abdominal: negative Diarrhea, Nausea and Vomiting Unable to Obtain Due To: Altered mental status PE Vitals Vital Signs: Temp Pulse Resp BP BP BP Pulse Ox 06/13/19 11:40 116/52 97 06/13/19 11:39 118/55 97 06/13/19 11:30 97 06/13/19 11:15 97 06/13/19 11:00 54 L 97 06/13/19 10:45 64 97 06/13/19 10:41 55 L 96 06/13/19 10:11 134/67 06/13/19 10:00 124/58 06/13/19 09:51 115/73 06/13/19 09:46 62 97 06/13/19 09:40 76 93 L 06/13/19 09:15 58 L 99 06/13/19 09:00 55 L 98 06/13/19 08:50 99.5 F 59 L 20 168/73 87 L 06/13/19 08:45 59 L 89 L 06/13/19 08:43 59 L 168/73 87 L 06/13/19 08:42 86 L 06/02/19 08:17 132/62 05/08/18 18:04 141/59 02/18/18 08:00 119/54 General Limitations: Altered Mental Status General Appearance: Lethargic and Obtunded Head Head Exam: Atraumatic Eyes Eye exam: Normal Appearance and EOMI; negative Nystagmus Neck Neck Exam: Normal Inspection and Full ROM; negative Meningismus Chest Chest Inspection: Normal Inspection, Symmetric Chest Wall Rise and Other (but not taking deep breaths) Respiratory Respiratory Exam: Normal Lung Sounds Bilat and Other (but shallow respirations) Cardiovascular Cardiovascular Exam: Regular Rate, Normal Rhythm and Normal Heart Sounds Abdominal Exam Abdominal Exam: Normal Inspection and Soft; negative Distention, Tenderness, Guarding and Rigidity Extremities Extremities Exam: Normal Inspection, Full ROM and Normal Capillary Refill; negative Edema Neurological Neurological Exam: Other (unresponsive except to painful stimuli) Skin Skin Exam: Warm and Normal Color ROR Labs Reviewed Laboratory Results Reviewed?: Yes Result Diagrams: 06/13/19 09:23 06/13/19 09:22 Laboratory: WBC 6.2 X10^3/uL (3.6-10.0) 06/13/19 09:23 RBC 3.80 X10^6/uL (3.5-5.4) 06/13/19 09:23 Hgb 11.8 g/dL (12.0-16.0) L 06/13/19 09:23 Hct 34.4 % (36.0-47.0) L 06/13/19 09:23 MCV 90.7 fL (80.0-100.0) 06/13/19: MCH 31.2 pg (27.0-34.0) 06/13/19 09: MCHC 34.4 g/dL (33.0-35.0) 06/13/19: RDW 13.6 % (11.6-16.5) 06/13/19: Plt Count 255 X10^3/uL (150.0-450.0) 06/13/19: MPV 7.3 fL (7.4-11.0) L 06/13/19: Neut % (Auto) 68.0 % (42.0-75.0) 06/13/19 09: Lymph % (Auto) 19.8 % (21.0-51.0) L 06/13/19: [place] % (Auto) 7.0 % (0.0-13.0) 06/13/19: Eos % (Auto) 4.0 % (0.9-2.9) H 06/13/19 09:23 Baso % (Auto) 1.2 % (0.2-1.0) H 06/13/19: Neut # (Auto) 4.2 x10^3/uL (2.2-4.8) 06/13/19:23 Lymph # (Auto) 1.2 X10^3/uL (1.3-2.9) L 06/13/19: [place] # (Auto) 0.4 x10^3/uL (0.3-0.8) 06/13/19: Eos # (Auto) 0.2 x10^3/uL (0.0-0.2) 06/13/19: Baso # (Auto) 0.1 X10^3/uL (0.0-0.1) 06/13/19 09: Absolute Nucleated RBC 0.0 /100WBC 06/13/19:23 Sample Site Rra 06/13/19 09:47 ABG pH 7.400 (7.35-7.45) 06/13/19 09:47 ABG pCO2 36.0 mmHg (35.0-45.0) 06/13/19 09:47 ABG pO2 89.0 mmHg (80.0-100.0) 06/13/19 09:47 ABG HCO3 22.3 mmol/L (22-26) 06/13/19 09:47 ABG O2 Saturation 97.0 % (90-100) 06/13/19 09:47 ABG Base Excess -2.1 mmol/L (-2.0-2.0) L 06/13/19 09:47 Maxi Test Pos 06/13/19 09:47 A-a Gradient 94.0 mmHg 06/13/19 09:47 FiO2 32.0 06/13/19 09:47 Blood Gas Comments Pt nellie well eb 06/13/19 09:47 Sodium 135 mmol/L (136-145) L 06/13/19 09:22 Corrected Sodium TNP 06/13/19 09:22 Potassium 4.6 mmol/L (3.5-5.1) 06/13/19 09:22 Chloride 101 mmol/L (98-107) 06/13/19 09:22 Carbon Dioxide 24.4 mmol/L (21-32) 06/13/19 09:22 BUN 13 mg/dL (7-18) 06/13/19 09:22 Creatinine 1.22 mg/dL (0.55-1.02) H 06/13/19 09:22 Est GFR (MDRD) Af Amer 57 (>60) L 06/13/19 09:22 Est GFR (MDRD) Non-Af 47 (>60) L 06/13/19 09:22 Glucose 98 mg/dL (65-99) 06/13/19 09:22 Calcium 8.6 mg/dL (8.5-10.1) 06/13/19 09:22 Corrected Calcium TNP 06/13/19 09:22 Total Bilirubin 0.40 mg/dL (0.2-1.0) 06/13/19 09:22 AST 23 Units/L (15-37) 06/13/19 09:22 ALT 16 Units/L (12-78) 06/13/19 09:22 Alkaline Phosphatase 98 Units/L (46-116) 06/13/19 09:22 Total Protein 7.0 g/dL (6.4-8.2) 06/13/19 09:22 Albumin 3.5 g/dL (3.4-5.0) 06/13/19 09:22 Globulin 3.5 g/dL (2.5-4.5) 06/13/19 09:22 Albumin/Globulin Ratio 1.0 Ratio (1.1-2.1) L 06/13/19 09:22 XRAY XRAY Interpreted by: Radiologist X-ray Results: CXR nothing acute. CT brain essentially negative but there was motion artifact. Opioid Opioid Risk Tool Age ([place] box if 16-45): No History of Preadolescent Sexual Abuse: No Total: 0 Total Score Risk Category: Low Risk Copyright: Claude CABELLO predicting aberrant behaviors Instructions Forms: Excuse From Work Patient Portal ADDITIONAL NOTES Additional Notes Additional Notes: place in obs for altered mental status and adverse medication reaction
[2019-06-13] MEDS ORDERED: NS 1000 ML 1,000 ML ONE (12:11)
[2019-06-13] MEDS: NS 1000 ML 1,000 ML IV SCH (12:16)
[2019-06-13 12:31] LABS: BILIRUBIN,URINE NEGATIVE (NEGATIVE); BLOOD/HEMOGLOBIN,URINE 1+ (NEGATIVE); GLUCOSE, URINE NEGATIVE (NEGATIVE); KETONES,URINE NEGATIVE (NEGATIVE); LEUKOCYTE ESTERASE ,URINE NEGATIVE (NEGATIVE); NITRITES,URINE NEGATIVE (NEGATIVE); PROTEIN,URINE NEGATIVE (NEGATIVE); UROBILINOGEN,URINE NORMAL (NORMAL)
[2019-06-13 12:35] LABS: APPEARANCE,URINE CLEAR (CLEAR); COLOR,URINE STRAW (YELLOW)
[2019-06-13 12:39] LABS: RBC,URINE 0-2 /HPF (0-3); SQUAMOUS EPITHELIAL CELL,UR RARE /HPF (NEGATIVE)
[2019-06-13 12:40] LABS: BACTERIA,URINE NEGATIVE /HPF (NEGATIVE)
--- NOTE | 2019-06-13 13:57 | DR.H&P ---
H&P History & Physical for Day of: H&P Date: 06/13/19 Chief Complaint Chief Complaint: Altered mental status Allergies Allergies Allergy/AdvReac Type Severity Reaction Status Date / Time ceftriaxone Allergy Verified 06/13/19 08:48 fluoxetine [From Prozac] Allergy Verified 06/13/19 08:48 ketorolac [From Toradol] Allergy Verified 06/13/19 08:48 History of Present Illness History of Present Illness: Pt is 63 yo f pmhx HTN,MIGNON, COPD, Chronic back pain, TIAGO presenting after her daughter found her confused and lethargic. Pt was not responding to daughter's commands. Pt had urinary/bowel incontinence, however no seizure like activity noted. She is on chronic pain medication, Percocet, and is taking Xanax for anxiety, temazepam to help sleep at night. In ED, pt would briefly awaken on arousal, slurred speech, unable to give history. Initial vitals/labs:Wbc 6.2, Hgb 11.8, Plt 255, Na 135, K 4.6, Cr 1.22, UA unremarkable, BP 132/62, P 59, 86%, AB.4/36/89/22.3/97%. CXR:negative for acute changes, CT head:negative for acute findings. Past Medical History Past Medical History: Arthritis, Dyslipidemia, GERD and Hypertension Additional Medical History: Hx Diverticulosis, Gastrointestinal ulcer, heart murmur, diverticulosis, small cell carcinoma Past Surgical History Surgical History: Cholecystectomy, Hysterectomy and Ortho Surgery Family History Family Medical History: Cancer, Coronary Artery Disease and Hypertension Social History Does patient currently use any type of tobacco product: Yes Have you used tobacco products in the last 12 months: Yes Type of Tobacco Use: Cigarettes Does any household member use tobacco: No Alcohol Use: None Medications Home Medications: ceftriaxone Allergy (Verified 06/13/19 08:48) fluoxetine [From Prozac] Allergy (Verified 06/13/19 08:48) ketorolac [From Toradol] Allergy (Verified 06/13/19 08:48) CONTINUE taking the following medications dicyclomine 10 mg PO DAILY 06/13/19 [History] duloxetine 20 mg PO DAILY 06/13/19 [History] Labs Result Diagrams: 06/14/19 04:50 06/14/19 04:50 Labs: Laboratory WBC 6.2 X10^3/uL (3.6-10.0) 06/13/19 09: RBC 3.80 X10^6/uL (3.5-5.4) 06/13/19: Hgb 11.8 g/dL (12.0-16.0) L 06/13/19: Hct 34.4 % (36.0-47.0) L 06/13/19: MCV 90.7 fL (80.0-100.0) 06/13/19: MCH 31.2 pg (27.0-34.0) 06/13/19: MCHC 34.4 g/dL (33.0-35.0) 06/13/19: RDW 13.6 % (11.6-16.5) 06/13/19: Plt Count 255 X10^3/uL (150.0-450.0) 06/13/19: MPV 7.3 fL (7.4-11.0) L 06/13/19: Neut % (Auto) 68.0 % (42.0-75.0) 06/13/19: Lymph % (Auto) 19.8 % (21.0-51.0) L 06/13/19: [place] % (Auto) 7.0 % (0.0-13.0) 06/13/19: Eos % (Auto) 4.0 % (0.9-2.9) H 06/13/19: Baso % (Auto) 1.2 % (0.2-1.0) H 06/13/19: Neut # (Auto) 4.2 x10^3/uL (2.2-4.8) 06/13/19: Lymph # (Auto) 1.2 X10^3/uL (1.3-2.9) L 06/13/19: [place] # (Auto) 0.4 x10^3/uL (0.3-0.8) 06/13/19: Eos # (Auto) 0.2 x10^3/uL (0.0-0.2) 02/18/20 09:23 Baso # (Auto) 0.1 X10^3/uL (0.0-0.1) 06/13/19 09:23 Absolute Nucleated RBC 0.0 /100WBC 06/13/19 09:23 Sample Site Rra 06/13/19 09:47 ABG pH 7.400 (7.35-7.45) 06/13/19 09:47 ABG pCO2 36.0 mmHg (35.0-45.0) 06/13/19 09:47 ABG pO2 89.0 mmHg (80.0-100.0) 06/13/19 09:47 ABG HCO3 22.3 mmol/L (22-26) 06/13/19 09:47 ABG O2 Saturation 97.0 % (90-100) 06/13/19 09:47 ABG Base Excess -2.1 mmol/L (-2.0-2.0) L 06/13/19 09:47 Maxi Test Pos 06/13/19 09:47 A-a Gradient 94.0 mmHg 06/13/19 09:47 FiO2 32.0 06/13/19 09:47 Blood Gas Comments Pt nellie well eb 06/13/19 09:47 Sodium 135 mmol/L (136-145) L 06/13/19 09:22 Corrected Sodium TNP 06/13/19 09:22 Potassium 4.6 mmol/L (3.5-5.1) 06/13/19 09:22 Chloride 101 mmol/L (98-107) 06/13/19 09:22 Carbon Dioxide 24.4 mmol/L (21-32) 06/13/19 09:22 BUN 13 mg/dL (7-18) 06/13/19 09:22 Creatinine 1.22 mg/dL (0.55-1.02) H 06/13/19 09:22 Est GFR (MDRD) Af Amer 57 (>60) L 06/13/19 09:22 Est GFR (MDRD) Non-Af 47 (>60) L 06/13/19 09:22 Glucose 98 mg/dL (65-99) 06/13/19 09:22 Calcium 8.6 mg/dL (8.5-10.1) 06/13/19 09:22 Corrected Calcium TNP 06/13/19 09:22 Total Bilirubin 0.40 mg/dL (0.2-1.0) 06/13/19 09:22 AST 23 Units/L (15-37) 06/13/19 09:22 ALT 16 Units/L (12-78) 06/13/19 09:22 Alkaline Phosphatase 98 Units/L (46-116) 06/13/19 09:22 Total Protein 7.0 g/dL (6.4-8.2) 06/13/19 09:22 Albumin 3.5 g/dL (3.4-5.0) 06/13/19 09:22 Globulin 3.5 g/dL (2.5-4.5) 06/13/19 09:22 Albumin/Globulin Ratio 1.0 Ratio (1.1-2.1) L 06/13/19 09:22 Specimen Type Catherized urine 06/13/19 12:12 Urine Color Straw (YELLOW) 06/13/19 12:12 Urine Appearance Clear (CLEAR) 06/13/19 12:12 Urine pH 6.0 (5.0 - 8.0) 06/13/19 12:12 Ur Specific [place] 1.005 (1.000-1.030) 06/13/19 12:12 Urine Protein Negative (NEGATIVE) 06/13/19 12:12 Urine Glucose (UA) Negative (NEGATIVE) 06/13/19 12:12 Urine Ketones Negative (NEGATIVE) 06/13/19 12:12 Urine Occult Blood 1+ (NEGATIVE) 06/13/19 12:12 Urine Nitrite Negative (NEGATIVE) 06/13/19 12:12 Urine Bilirubin Negative (NEGATIVE) 06/13/19 12:12 Urine Urobilinogen Normal (NORMAL) 06/13/19 12:12 Ur Leukocyte Esterase Negative (NEGATIVE) 06/13/19 12:12 Urine RBC 0-2 /HPF (0-3) 06/13/19 12:12 Urine WBC None seen /HPF (0-5) 06/13/19 12:12 Ur Squamous Epith Cells Rare /HPF (NEGATIVE) 06/13/19 12:12 Urine Bacteria Negative /HPF (NEGATIVE) 06/13/19 12:12 Ur Culture Indicated? No/not indicated 06/13/19 12:12 Review of Systems Constitutional: Weakness; denies Fever and Chills Eyes: No Symptoms Reported ENT: No Symptoms Reported Respiratory: No Symptoms Reported Cardiovascular: No Symptoms Reported Gastrointestinal: No Symptoms Reported Genitourinary: No Symptoms Reported Musculoskeletal: No Symptoms Reported Skin: No Symptoms Reported Neurological: Weakness and Confusion; denies Numbness, Change in Speech and Seizures Physical Exam Vital Signs: Temperature 99.5 F Pulse Rate 62 Respiratory Rate 20 Blood Pressure [Right Arm] 119/54 Blood Pressure [Left Arm] 141/59 Blood Pressure 116/52 O2 Sat by Pulse Oximetry 99 Oriented: Unable to test Eyes: Normal Ear: Normal Nose: Normal Respiratory: Clear Throughout Cardiovascular: Normal : Normal Auscultation: Bowel Sounds: Normal Palpation: Normal Tenderness: Normal Skin: Normal Musculoskeletal: Normal Psychiatric: Other (somnolent) Assessment/Plan (1) Altered mental status: Status: Acute Plan: Pt is on pain medication and anxiety medication. Per hx from family, appears to have advancing dementia and likely unable to remember if she took her medications and may have unintentionally took more than prescribed. She did respond briefly to Narcan given in ED. She is protecting her airways and is still somnolent on exam. Will continue to monitor and follow up labs in the morning. (2) Dementia: Status: Acute Review H&P Reviewed: Yes Patient was examined?: Yes
[2019-06-13 14:21] VITALS: BMI 23.8
[2019-06-13] MEDS: PROTONIX TAB 40 MG PO SCH ×2 (15:46→20:54)
[2019-06-13] MEDS: XARELTO PO SCH (15:46)
[2019-06-14] MEDS: NS 1000 ML 1,000 ML IV SCH (04:08)
[2019-06-14 05:14] LABS: BASOPHILS # (AUTO) 0.1 X10^3/uL (0.0-0.1); BASOPHILS % (AUTO) 1.2 % (0.2-1.0); EOSINOPHILS # (AUTO) 0.1 x10^3/uL (0.0-0.2); EOSINOPHILS % (AUTO) 0.8 % (0.9-2.9); HEMATOCRIT 30.1 % (36.0-47.0); HEMOGLOBIN 10.5 g/dL (12.0-16.0); LYMPHOCYTES # (AUTO) 1.9 X10^3/uL (1.3-2.9); LYMPHOCYTES % (AUTO) 24.2 % (21.0-51.0); MEAN CORPUSCULAR HEMOGLOBIN 31.9 pg (27.0-34.0); MEAN CORPUSCULAR HGB CONC 34.7 g/dL (33.0-35.0); MEAN CORPUSCULAR VOLUME 91.9 fL (80.0-100.0); MEAN PLATELET VOLUME 8.1 fL (7.4-11.0); MONOCYTES # (AUTO) 0.5 x10^3/uL (0.3-0.8); MONOCYTES % (AUTO) 6.2 % (0.0-13.0); NEUTROPHILS # (AUTO) 5.3 x10^3/uL (2.2-4.8); NEUTROPHILS % (AUTO) 67.6 % (42.0-75.0); PLATELET COUNT 241 X10^3/uL (150.0-450.0); RED BLOOD COUNT 3.27 X10^6/uL (3.5-5.4); RED CELL DISTRIBUTION WIDTH 13.3 % (11.6-16.5); WHITE BLOOD COUNT 7.8 X10^3/uL (3.6-10.0)
[2019-06-14 05:23] LABS: ALANINE AMINOTRANSFERASE 14 Units/L (12-78); ALBUMIN 3.1 g/dL (3.4-5.0); ALKALINE PHOSPHATASE 79 Units/L (46-116); ASPARTATE AMINO TRANSFERASE 16 Units/L (15-37); BLOOD UREA NITROGEN 9 mg/dL (7-18); CALCIUM 8.1 mg/dL (8.5-10.1); CARBON DIOXIDE 25.3 mmol/L (21-32); CHLORIDE 108 mmol/L (98-107); COR CA(FOR HYPOALB) 8.8 mg/dL (8.5-10.1); CREATININE 0.87 mg/dL (0.55-1.02); SODIUM 141 mmol/L (136-145); TOTAL PROTEIN 6.4 g/dL (6.4-8.2); eGFR NON BLACK RACES > 60 (>60)
--- NOTE | 2019-06-14 08:49 | W.DIS.FURT ---
Summary of Discharge Discharge Summary of Date Date of Exam: 06/14/19 Admission Date Date of Admission: 06/13/19 Admission Diagnosis Hospital Course: Pt is 63 yo f pmhx HTN, MIGNON, COPD, Chronic back pain, TIAGO admitted for altered mental status after being found somnolent and lethargic at home with shallow breathing. Initial workup in ED, labs unremarkable, CXR and CT head imaging without any acute findings. Pt is on chronic pain and anxiety medication and it was determined that medications primarily involved in her mental status. She did receive narcan x 2 in ED and was observed overnight. On day of discharge next morning her mental status returned to baseline, physical exam unremarkable. Per family, pt has been having more forgetful moments and confusion for the past year. Will refer to neurology outpt and start on Aricept. 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 Her medications were adjusted. Reducing dose of Percocet 10mg from QID to TID, Xanax 0.5mg from TID to BID, and temazepam discontinued. Pt instructed to follow up with pcp in 1 week. Vital Signs: Vital Signs (72 hours) 06/13/19 08:42 06/13/19 08:43 06/13/19 08:45 Temperature Pulse Rate 59 L 59 L Pulse Rate [Left Brachial] Respiratory Rate Blood Pressure 168/73 Blood Pressure [Left Arm] O2 Sat by Pulse Oximetry 86 L 87 L 89 L 06/13/19 08:50 06/13/19 09:00 06/13/19 09:15 Temperature 99.5 F Pulse Rate 59 L 55 L 58 L Pulse Rate [Left Brachial] Respiratory Rate 20 Blood Pressure 168/73 Blood Pressure [Left Arm] O2 Sat by Pulse Oximetry 87 L 98 99 06/13/19 09:40 06/13/19 09:46 06/13/19 09:51 Temperature Pulse Rate 76 62 Pulse Rate [Left Brachial] Respiratory Rate Blood Pressure 115/73 Blood Pressure [Left Arm] O2 Sat by Pulse Oximetry 93 L 97 06/13/19 10:00 06/13/19 10:11 06/13/19 10:41 Temperature Pulse Rate 55 L Pulse Rate [Left Brachial] Respiratory Rate Blood Pressure 124/58 134/67 Blood Pressure [Left Arm] O2 Sat by Pulse Oximetry 96 06/13/19 10:45 06/13/19 11:00 06/13/19 11:15 Temperature Pulse Rate 64 54 L Pulse Rate [Left Brachial] Respiratory Rate Blood Pressure Blood Pressure [Left Arm] O2 Sat by Pulse Oximetry 97 97 97 06/13/19 11:30 06/13/19 11:39 06/13/19 11:40 Temperature Pulse Rate Pulse Rate [Left Brachial] Respiratory Rate Blood Pressure 118/55 116/52 Blood Pressure [Left Arm] O2 Sat by Pulse Oximetry 97 97 97 06/13/19 12:15 06/13/19 13:12 06/13/19 14:00 Temperature 97.0 F L Pulse Rate 62 Pulse Rate [Left Brachial] 73 59 L Respiratory Rate 16 18 Blood Pressure Blood Pressure [Left Arm] 151/60 128/58 O2 Sat by Pulse Oximetry 99 99 98 06/13/19 15:00 06/13/19 16:00 06/13/19 17:00 Temperature 97.4 F L Pulse Rate Pulse Rate [Left Brachial] 52 L 60 53 L Respiratory Rate 15 18 18 Blood Pressure Blood Pressure [Left Arm] 120/57 133/60 137/62 O2 Sat by Pulse Oximetry 99 97 97 06/13/19 18:00 06/13/19 19:00 06/13/19 20:00 Temperature Pulse Rate 64 59 L Pulse Rate [Left Brachial] 57 L Respiratory Rate 20 27 H 20 Blood Pressure 147/69 Blood Pressure [Left Arm] 148/67 O2 Sat by Pulse Oximetry 99 94 L 96 06/13/19 20:01 06/13/19 21:00 06/13/19 22:00 Temperature 98.9 F Pulse Rate 54 L 68 47 L Pulse Rate [Left Brachial] Respiratory Rate 21 45 H 23 Blood Pressure 139/63 148/67 Blood Pressure [Left Arm] O2 Sat by Pulse Oximetry 97 97 97 06/13/19 22:01 06/13/19 23:00 06/13/19 23:01 Temperature Pulse Rate 51 L 53 L 57 L Pulse Rate [Left Brachial] Respiratory Rate 23 20 19 Blood Pressure 161/62 151/60 Blood Pressure [Left Arm] O2 Sat by Pulse Oximetry 99 94 L 96 06/14/19 00:00 06/14/19 01:00 06/14/19 02:00 Temperature 98.7 F Pulse Rate 60 58 L 54 L Pulse Rate [Left Brachial] Respiratory Rate 27 H 24 21 Blood Pressure 124/60 144/65 Blood Pressure [Left Arm] O2 Sat by Pulse Oximetry 96 97 96 06/14/19 02:01 06/14/19 03:00 06/14/19 03:01 Temperature Pulse Rate 55 L 54 L 53 L Pulse Rate [Left Brachial] Respiratory Rate 22 23 20 Blood Pressure 141/61 139/60 Blood Pressure [Left Arm] O2 Sat by Pulse Oximetry 97 96 98 06/14/19 04:00 06/14/19 05:00 06/14/19 05:01 Temperature 99.4 F Pulse Rate 50 L 52 L 55 L Pulse Rate [Left Brachial] Respiratory Rate 23 22 19 Blood Pressure 136/58 124/54 Blood Pressure [Left Arm] O2 Sat by Pulse Oximetry 96 96 98 06/14/19 06:00 Temperature Pulse Rate 48 L Pulse Rate [Left Brachial] Respiratory Rate 20 Blood Pressure 140/60 Blood Pressure [Left Arm] O2 Sat by Pulse Oximetry 94 L Labs: Laboratory Last Values WBC 7.8 X10^3/uL (3.6-10.0) 06/14/19 04:50 RBC 3.27 X10^6/uL (3.5-5.4) L 06/14/19 04:50 Hgb 10.5 g/dL (12.0-16.0) L 06/14/19 04:50 Hct 30.1 % (36.0-47.0) L 06/14/19 04:50 MCV 91.9 fL (80.0-100.0) 06/14/19 04:50 MCH 31.9 pg (27.0-34.0) 06/14/19 04:50 MCHC 34.7 g/dL (33.0-35.0) 06/14/19 04:50 RDW 13.3 % (11.6-16.5) 06/14/19 04:50 Plt Count 241 X10^3/uL (150.0-450.0) 06/14/19 04:50 MPV 8.1 fL (7.4-11.0) 06/14/19 04:50 Neut % (Auto) 67.6 % (42.0-75.0) 06/14/19 04:50 Lymph % (Auto) 24.2 % (21.0-51.0) 06/14/19 04:50 [place] % (Auto) 6.2 % (0.0-13.0) 06/14/19 04:50 Eos % (Auto) 0.8 % (0.9-2.9) L 06/14/19 04:50 Baso % (Auto) 1.2 % (0.2-1.0) H 06/14/19 04:50 Neut # (Auto) 5.3 x10^3/uL (2.2-4.8) H 06/14/19 04:50 Lymph # (Auto) 1.9 X10^3/uL (1.3-2.9) 06/14/19 04:50 [place] # (Auto) 0.5 x10^3/uL (0.3-0.8) 06/14/19 04:50 Eos # (Auto) 0.1 x10^3/uL (0.0-0.2) 06/14/19 04:50 Baso # (Auto) 0.1 X10^3/uL (0.0-0.1) 06/14/19 04:50 Absolute Nucleated RBC 0.0 /100WBC 06/14/19 04:50 Sample Site Rra 06/13/19 09:47 ABG pH 7.400 (7.35-7.45) 06/13/19 09:47 ABG pCO2 36.0 mmHg (35.0-45.0) 06/13/19 09:47 ABG pO2 89.0 mmHg (80.0-100.0) 06/13/19 09:47 ABG HCO3 22.3 mmol/L (22-26) 06/13/19 09:47 ABG O2 Saturation 97.0 % (90-100) 06/13/19 09:47 ABG Base Excess -2.1 mmol/L (-2.0-2.0) L 06/13/19 09:47 Maxi Test Pos 06/13/19 09:47 A-a Gradient 94.0 mmHg 06/13/19 09:47 FiO2 32.0 06/13/19 09:47 Blood Gas Comments Pt nellie well eb 06/13/19 09:47 Sodium 141 mmol/L (136-145) 06/14/19 04:50 Corrected Sodium TNP 06/14/19 04:50 Potassium 4.0 mmol/L (3.5-5.1) 06/14/19 04:50 Chloride 108 mmol/L (98-107) H 06/14/19 04:50 Carbon Dioxide 25.3 mmol/L (21-32) 06/14/19 04:50 BUN 9 mg/dL (7-18) 06/14/19 04:50 Creatinine 0.87 mg/dL (0.55-1.02) 06/14/19 04:50 Est GFR (MDRD) Af Amer > 60 (>60) 06/14/19 04:50 Est GFR (MDRD) Non-Af > 60 (>60) 06/14/19 04:50 Glucose 97 mg/dL (65-99) 06/14/19 04:50 Calcium 8.1 mg/dL (8.5-10.1) L 06/14/19 04:50 Corrected Calcium 8.8 mg/dL (8.5-10.1) 06/14/19 04:50 Total Bilirubin 0.40 mg/dL (0.2-1.0) 06/14/19 04:50 AST 16 Units/L (15-37) 06/14/19 04:50 ALT 14 Units/L (12-78) 06/14/19 04:50 Alkaline Phosphatase 79 Units/L (46-116) 06/14/19 04:50 Total Protein 6.4 g/dL (6.4-8.2) 06/14/19 04:50 Albumin 3.1 g/dL (3.4-5.0) L 06/14/19 04:50 Globulin 3.3 g/dL (2.5-4.5) 06/14/19 04:50 Albumin/Globulin Ratio 0.9 Ratio (1.1-2.1) L 06/14/19 04:50 Specimen Type Catherized urine 06/13/19 12:12 Urine Color Straw (YELLOW) 06/13/19 12:12 Urine Appearance Clear (CLEAR) 06/13/19 12:12 Urine pH 6.0 (5.0 - 8.0) 06/13/19 12:12 Ur Specific [place] 1.005 (1.000-1.030) 06/13/19 12:12 Urine Protein Negative (NEGATIVE) 06/13/19 12:12 Urine Glucose (UA) Negative (NEGATIVE) 06/13/19 12:12 Urine Ketones Negative (NEGATIVE) 06/13/19 12:12 Urine Occult Blood 1+ (NEGATIVE) 06/13/19 12:12 Urine Nitrite Negative (NEGATIVE) 06/13/19 12:12 Urine Bilirubin Negative (NEGATIVE) 06/13/19 12:12 Urine Urobilinogen Normal (NORMAL) 06/13/19 12:12 Ur Leukocyte Esterase Negative (NEGATIVE) 06/13/19 12:12 Urine RBC 0-2 /HPF (0-3) 06/13/19 12:12 Urine WBC None seen /HPF (0-5) 06/13/19 12:12 Ur Squamous Epith Cells Rare /HPF (NEGATIVE) 06/13/19 12:12 Urine Bacteria Negative /HPF (NEGATIVE) 06/13/19 12:12 Ur Culture Indicated? No/not indicated 06/13/19 12:12 Reason For Visit: ALTERED MENTAL STATUS, ADVERSE DRUG EFFECT Discharge Date Discharge Date: 06/14/19 Discharge Diagnosis All Active Problems (Updated 06/14/19 @ 08:17 by Jorge Villanueva) Dementia (Acute) Polypharmacy (Acute) Altered mental status (Acute) COPD (chronic obstructive pulmonary disease) (Chronic) Osteoarthritis (Chronic) Arthritis (Chronic) History of lung cancer (Chronic) History of skin cancer (Chronic) Anxiety (Chronic) Depression (Chronic) Dyslipidemia (Chronic) GERD (gastroesophageal reflux disease) (Chronic) History of angina (Chronic) History of diverticulosis (Chronic) Contusion of hip (Acute) Hip fracture (Acute) Facial laceration (Acute) Hyponatremia (Acute) CHF (congestive heart failure) (Acute) Abdominal pain (Acute) Dehydration (Acute) Gastroenteritis (Acute) Leukocytosis (Acute) Acute renal failure (Acute) Dehydration, severe (Acute) Pancreatitis, acute (Acute) Diarrhea (Acute) Hypoalbuminemia (Acute) Generalized weakness (Acute) Rib fracture (Acute) Anemia (Acute) DVT (deep venous thrombosis) (Acute) Cellulitis (Acute) Bronchitis (Acute) Respiratory abnormalities (Acute) Rhabdomyolysis (Acute) Left arm pain (Acute) Chronic osteoarthritis (Acute) Laceration of scalp (Acute) Contusion of scalp (Acute) Plan of Treatment: Continue with present treatment and follow up plan. Pt is to keep follow up appointment as instructed and take medications as ordered. Discharge Medications Discharge Medications: ceftriaxone Allergy (Verified 06/13/19 08:48) fluoxetine [From Prozac] Allergy (Verified 06/13/19 08:48) ketorolac [From Toradol] Allergy (Verified 06/13/19 08:48) CONTINUE taking the following medications dicyclomine 10 mg PO DAILY 06/13/19 [History] duloxetine 20 mg PO DAILY 06/13/19 [History] New Prescriptions alprazolam 1 tab PO BID PRN 30 Days #60 tab 06/14/19 [Rx] oxycodone-acetaminophen 1 tab PO TID PRN 30 Days #90 tab 06/14/19 [Rx] Follow up and Referral Follow Up: 1 Week Discharge Disposition Discharge Disposition: Home
[2019-06-14] MEDS: XARELTO PO SCH (09:48)
[2019-06-14] MEDS: PROTONIX TAB 40 MG PO SCH (09:48)
[2019-06-14 13:52] VITALS: BP 112/53
== END 2019-06-14 14:45 | disposition home health service (06) ==
LOC: ER 08:31 → ICU 08:31
PROVIDERS: ADMIT Family Medicine; ATTEND Family Medicine
DX: R94.4 Abnormal results of kidney function studies; Z98.890 Other specified postprocedural states; T50.905A Adverse effect of unspecified drugs, medicaments and biological substances, initial encounter; R41.82 Altered mental status, unspecified; F41.8 Other specified anxiety disorders; I10 Essential (primary) hypertension; J44.9 Chronic obstructive pulmonary disease, unspecified; K21.9 Gastro-esophageal reflux disease without esophagitis; F03.90 Unspecified dementia, unspecified severity, without behavioral disturbance, psychotic disturbance, mood disturbance, and anxiety; R47.81 Slurred speech; E78.2 Mixed hyperlipidemia
CPT/HCPCS: 36415; 36600; 51701; 51702; 70450; 71010; 71045; 80053; 81001; 82803; 85025; 96360; 96361; 96365; 96374; 96375; 99285; A4222; G0378; J2310; J7030